=== PATIENT | male | born 1945 | race Caucasian/White ===

== ENCOUNTER 2019-10-17 11:32 | Outpatient (CLI) | payer OTHER, SELFPAY ==
--- NOTE | 2019-10-17 | CT_ITS ---
WS: [id number] CT CHEST, ABDOMEN AND PELVIS WITHOUT CONTRAST HISTORY: ABNORMAL CT, cirrhosis and cough and short of breath. TECHNIQUE: Contiguous 5 mm axial imaging performed through the chest, abdomen and pelvis without IV c ontrast, oral contrast has not been provided. Coronal and sagittal reformats chest. Coronal and sagit shashank reformats through the abdomen and pelvis. All CT scans at [facility] use at least one of these dose optimization techniques: automated exposure control; mA and/or kV adjustment per patie nt size (includes targeted exams where dose is matched to clinical indication); or iterative reconstr uction. CONTRAST: None DLP: 2556.46 mGy-cm. COMPARISON: 02/13/[address]: 4 mm lobulated nodule in the RIGHT upper lobe. Suspect this is probably too nodules togethe r. No mass or pneumonia. Benign RIGHT lobe granuloma. Mild atherosclerosis aorta with no aneurysm. Pu lmonary artery size is normal. No adenopathy. A few scattered coronary artery calcifications. Small h iatal hernia. Abdomen CT: Several small hypodensities within the liver cannot be further characterized. Probably sm all cysts. Surface of the liver is irregular. Caudate lobe is slightly enlarged. Spleen is normal siz e. Pancreas and gallbladder and adrenal glands are negative. Mild bilateral perinephric stranding. At herosclerosis of aorta. Mild aneurysmal dilatation up to 3.7 cm. Not significantly changed since the prior study. No adenopathy or free fluid. Pelvic CT: Normally distended urinary bladder. No free fluid or adenopathy in the pelvis. Vascular ca lcifications. Mild distention of the GI tract. The appendix is normal. There is slight increased amount of fluid wi thin the RIGHT colon. No obstruction. Mild diverticulosis with no evidence for an acute diverticuliti s. Thoracic and lumbar spondylosis. No osteoblastic or osteolytic bone disease. CT/CT chest abd pel wo con IMPRESSION: 1. Chronic emphysema with no pneumonia. 2. 4 mm lobulated nodule RIGHT upper lobe. [address] follow-up recomme nded. 3. Atherosclerosis thoracic aorta. 4. Stable 3.7 cm infrarenal abdominal aortic aneurysm. 5. Changes of cirrhosis. There are a few low-attenuation lesions in the liver which are subcentimeter and they may be small cysts. 6. Colonic diverticulosis without acute diverticulitis.
== END 2019-10-17 11:33 | disposition home or self-care (01) ==
PROVIDERS: Family Provider Internal Medicine; PCP Internal Medicine; Visit Provider Family Medicine
DX: J43.9 Emphysema, unspecified (principal); K76.9 Liver disease, unspecified; R91.1 Solitary pulmonary nodule; I70.0 Atherosclerosis of aorta; I71.4 Abdominal aortic aneurysm, without rupture; K74.60 Unspecified cirrhosis of liver; K57.30 Diverticulosis of large intestine without perforation or abscess without bleeding; R91.8 Other nonspecific abnormal finding of lung field
CPT/HCPCS: 71250; 74176

== ENCOUNTER 2020-01-07 12:45 | Inpatient (IN) | payer OTHER, MEDICARE, SELFPAY ==
[2020-01-07] VITALS (7 sets, daily range): BP systolic 123–143; BP diastolic 81–91; PULSE 81–97; RESP 17–22; TEMP 37.1–37.2; O2SAT 92–96; BMI 33.4
--- NOTE | 2020-01-07 13:05 | PC.NURSE ---
EKG done at 1250 and shown to ER doctor
--- NOTE | 2020-01-07 13:09 | XR_ITS ---
WS: [id number] PORTABLE CHEST HISTORY: cough/congestion COMPARISON: 02/26/2018 Hyperinflated lungs with emphysema. No pneumonia or fluid overload. Radiographic significantly rotate d in a lordotic projection. No pleural effusion or pneumothorax. Cardiac size: Mildly enlarged cardiac silhouette. Mediastinum/Aorta: Mild atherosclerosis aorta. No osseous abnormality seen. XR/XR chest 1V portable [id number] IMPRESSION: Chronic emphysema. No pneumonia.
--- NOTE | 2020-01-07 13:09 | ECG_ITS ---
Measurements Intervals [place] Rate: 77 P: 50 WI: 191 QRS: -6 QRSD: 134 T: 36 QT: 375 QTc: 425 SINUS RHYTHM INDETERMINATE AXIS RIGHT BUNDLE BRANCH BLOCK [120+ ms QRS DURATION, UPRIGHT V1, 40+ ms S IN I/ I/aVL/V4/V5/V6] Compared to ECG 08/18/2018 07:41:06 Indeterminate axis now present Myocardial infarct finding no longer present Electronically Signed On 01-07-2020 20:33:08 CDT by Pasha Hawley M.D. [email or web address]
--- NOTE | 2020-01-07 13:12 | ED_ITS ---
Documented by User: JE Blanca 01/09/20 07:24 HPI - SOB/Dyspnea General: Chief Complaint: Shortness of Breath/Dyspnea Stated Complaint: SOB COUGH Time Seen by Provider: 01/07/20 12:57 Source: patient Mode of arrival: EMS Limitations: no limitations History of Present Illness: HPI Narrative: Patient is a 74-year-old male with a history of COPD here for complaints of shortness of breath. Patient tells me symptoms initially began approximately a week ago and has continued to worsen over this timeframe. Patient states he normally only takes pro-air for the COPD. He is an every day smoker. Patient states he does not wear oxygen. Upon arrival patient was satting at 89% on room air. 2L O2 was placed with good response. Patient states his PCP is Dr. Helms through the [facility]. patient has not been running fevers. He has had no sick contacts or recent travel. Patient does report a productive cough. He can tell me other medical conditions include BPH, seasonal allergies. Patient is not sure why he takes Lasix. He denies a history of CHF. Associated symptoms: Reports chest congestion and orthopnea; Deny abdominal pain, chest pain, fever(s), hemoptysis, lightheadedness, nausea, palpitations, syncope or vomiting Review of Systems General: Reports: 10 or more systems reviewed and unremarkable except in HPI and below Const: Denies: fever(s), chills or fatigue Eyes: Denies: change in vision or blurry vision ENMT: Denies: throat pain, enlarged tonsils or odynophagia Card: Reports: dyspnea on exertion and orthopnea; Denies: chest pain, palpitations, irregular heart rhythm, edema, swelling of feet/ankles, lightheadedness, syncope, pre-syncope, leg pain with exertion or acrocyanosis Resp: Reports: dyspnea, productive cough and chest congestion; Denies: hemoptysis GI: Denies: abdominal pain, nausea, vomiting or diarrhea : Denies: flank pain Musc: Denies: neck pain or back pain Skin/Breast: Denies: rash Neuro: Denies: headache(s), numbness in extremities, weakness in extremities or sensory changes PFS ED PFSH: Medical History Alcoholism BPH (benign prostatic hyperplasia) COPD (chronic obstructive pulmonary disease) Tobacco dependency Surgical History History of ankle surgery History of hernia surgery Family History (Updated 01/07/20 @ 16:46 by Brice Pa MD) Other CAD (coronary artery disease) Social History (Updated 01/07/20 @ 16:46 by Brice Pa MD) Smoking and tobacco status: current every day smoker Quit status (tobacco): considering quitting Alcohol intake: current Alcohol intake frequency: 3 or more drinks per day Substance/Drug Use: never Physical Exam Const: COMMON NORMALS: patient oriented x3, no limitations and alert GENERAL APPEARANCE: cooperative and in distress (Visibly short of breath) NUTRITIONAL APPEARANCE: obese HENMT: COMMON NORMALS: normocephalic and atraumatic HEAD & SCALP: normocephalic and atraumatic Chest: COMMONS NORMALS: normal inspection of the chest and normal palpation of entire chest wall Resp: EFFORT & INSPECTION: Yes tachypneic and Yes respiratory distress AUSCULTATION: wheezes scattered wheezes and throughout Cardio: COMMON NORMALS: regular rate and regular rhythm RATE: regular rate RHYTHM: regular rhythm Neuro: COMMON NORMALS: patient oriented x3 SENSORIUM/ORIENTATION: Yes alert Skin: COMMON NORMALS: no rashes or lesions noted GENERAL SKIN EXAM: no rashes or lesions noted Course Vital Signs: Vital signs: Vital Signs Temperature 99.5 F 01/09/20 02:00 Pulse Rate 92 01/09/20 06:00 Respiratory Rate 12 01/09/20 06:00 Blood Pressure 143/83 01/09/20 06:00 Pulse Oximetry 89 L 01/09/20 06:00 MDM - SOB/Dyspnea MDM Narrative: Medical decision making narrative: Patient is a COPD acute exacerbation requiring oxygen. Spoke to Dr. Freitas who will speak to the hospitalist for probable admission. Lab Data: Labs: Lab Results 01/07/20 01/07/20 01/07/20 Range/Units 13:05 13:05 13:05 WBC 11.2 H (4.0-10.0) 10^3/ uL RBC 5.55 H (4.1-5.3) 10^6/u L Hgb 18.6 H (11.7-16.6) g/dL Hct 54.5 H (42.0-52.0) % MCV 98.2 H (80-94) fL MCH 33.5 (28.0-34.0) pg MCHC 34.1 (30.0-36.0) g/dL RDW 12.2 (12.1-15.1) % Plt Count 177 (130-400) 10^3/c mm MPV 10.2 (7.4-10.4) fL Neut % (Auto) 61.9 % Lymph % (Auto) 27.8 % [place] % (Auto) 7.2 % Eos % (Auto) 1.3 % Baso % (Auto) 0.4 % Neut # (Auto) 6.9 (1.8-7.7) 10^3/u L Lymph # (Auto) 3.1 (0.8-4.8) 10^3/u L [place] # (Auto) 0.8 (0.2-0.9) 10^3/u L Eos # (Auto) 0.2 (0.0-0.8) 10^3/u L Baso # (Auto) 0.1 (0.0-0.1) 10^3/u L Nucleated RBC % (a uto) 0 % Nucleated RBCs # 0.0 /100WBC Specimen Type Sample Site ABG pH (7.35-7.45) ABG pCO2 (35-45) mmHg ABG pO2 (80.0-100.0) mmH g ABG HCO3 (22-26) mmol/L ABG O2 Saturation ABG Base Excess (-2.0-2.0) mmol/ L Franco Test A-a O2 Gradient (5-10) mmHg Hematocrit (42-52) % Hgb O2 Saturation (95-100) % Carboxyhemoglobin (0.4-20.1) %THgb Methemoglobin (0.4-1.5) % Total Hemoglobin (14-18) g/dL Ionized Calcium (1.1-1.4) mmol/L O2 Delivery Device FiO2 % Senior Production Manager ID Sodium 129 L (136-145) mmol/L Potassium 4.1 (3.5-5.1) mmol/L Chloride 91 L (98-107) mmol/L Carbon Dioxide 25 (22-29) mmol/L Anion Gap 17.1 (5-19) BUN 7 L (8-23) mg/dL Creatinine 0.6 L (0.7-1.2) mg/dL Glucose 101 (65-115) mg/dL Calculated Osmolal ity 264 L (285-295) mOsm/k g Lactate 1.4 (0.5-2.2) mmol/L Calcium 10.2 (8.5-10.5) mg/dL Total Bilirubin 0.6 (0.15-1.2) mg/dL AST 42 H (0-40) U/L ALT 66 H (0-41) U/L Alkaline Phosphata se 83 (40-130) IU/L Troponin T Baselin e (0-15) ng/mL Troponin T 120 Min standing rock (0-15) ng/mL Delta Troponin T (0-10) ABS# NT-Pro-B Natriuret Pep (0-450) pg/mL Total Protein 7.3 (6.6-8.7) g/dL Albumin 4.9 (3.5-5.2) g/dL Globulin 2.4 (1.3-4.6) g/dL TSH (0.27-4.20) uIU/ mL 01/07/20 01/07/20 01/07/20 Range/Units 13:05 15:10 15:20 WBC (4.0-10.0) 10^3/ uL RBC (4.1-5.3) 10^6/u L Hgb (11.7-16.6) g/dL Hct (42.0-52.0) % MCV (80-94) fL MCH (28.0-34.0) pg MCHC (30.0-36.0) g/dL RDW (12.1-15.1) % Plt Count (130-400) 10^3/c mm MPV (7.4-10.4) fL Neut % (Auto) % Lymph % (Auto) % [place] % (Auto) % Eos % (Auto) % Baso % (Auto) % Neut # (Auto) (1.8-7.7) 10^3/u L Lymph # (Auto) (0.8-4.8) 10^3/u L [place] # (Auto) (0.2-0.9) 10^3/u L Eos # (Auto) (0.0-0.8) 10^3/u L Baso # (Auto) (0.0-0.1) 10^3/u L Nucleated RBC % (a uto) % Nucleated RBCs # /100WBC Specimen Type Arterial Sample Site Radial, left ABG pH 7.41 (7.35-7.45) ABG pCO2 43.8 (35-45) mmHg ABG pO2 71.5 L (80.0-100.0) mmH g ABG HCO3 28.0 H (22-26) mmol/L ABG O2 Saturation 95.4 ABG Base Excess 2.7 H (-2.0-2.0) mmol/ L Franco Test Pos A-a O2 Gradient 23.4 H (5-10) mmHg Hematocrit 59.2 H (42-52) % Hgb O2 Saturation 91.3 L (95-100) % Carboxyhemoglobin 4.2 (0.4-20.1) %THgb Methemoglobin 0.1 L (0.4-1.5) % Total Hemoglobin 19.3 H (14-18) g/dL Ionized Calcium 1.2 (1.1-1.4) mmol/L O2 Delivery Device Room air FiO2 21.0 % Senior Production Manager ID amh Sodium 129.0 L (136-145) mmol/L Potassium 4.2 (3.5-5.1) mmol/L Chloride (98-107) mmol/L Carbon Dioxide (22-29) mmol/L Anion Gap (5-19) BUN (8-23) mg/dL Creatinine (0.7-1.2) mg/dL Glucose 115.0 (65-115) mg/dL Calculated Osmolal ity (285-295) mOsm/k g Lactate (0.5-2.2) mmol/L Calcium (8.5-10.5) mg/dL Total Bilirubin (0.15-1.2) mg/dL AST (0-40) U/L ALT (0-41) U/L Alkaline Phosphata se (40-130) IU/L Troponin T Baselin e 17 H (0-15) ng/mL Troponin T 120 Min [place] 18.66 H (0-15) ng/mL Delta Troponin T 1.66 (0-10) ABS# NT-Pro-B Natriuret Pep (0-450) pg/mL Total Protein (6.6-8.7) g/dL Albumin (3.5-5.2) g/dL Globulin (1.3-4.6) g/dL TSH (0.27-4.20) uIU/ mL 01/07/20 Range/Units 15:20 WBC (4.0-10.0) 10^3/ uL RBC (4.1-5.3) 10^6/u L Hgb (11.7-16.6) g/dL Hct (42.0-52.0) % MCV (80-94) fL MCH (28.0-34.0) pg MCHC (30.0-36.0) g/dL RDW (12.1-15.1) % Plt Count (130-400) 10^3/c mm MPV (7.4-10.4) fL Neut % (Auto) % Lymph % (Auto) % [place] % (Auto) % Eos % (Auto) % Baso % (Auto) % Neut # (Auto) (1.8-7.7) 10^3/u L Lymph # (Auto) (0.8-4.8) 10^3/u L [place] # (Auto) (0.2-0.9) 10^3/u L Eos # (Auto) (0.0-0.8) 10^3/u L Baso # (Auto) (0.0-0.1) 10^3/u L Nucleated RBC % (a uto) % Nucleated RBCs # /100WBC Specimen Type Sample Site ABG pH (7.35-7.45) ABG pCO2 (35-45) mmHg ABG pO2 (80.0-100.0) mmH g ABG HCO3 (22-26) mmol/L ABG O2 Saturation ABG Base Excess (-2.0-2.0) mmol/ L Franco Test A-a O2 Gradient (5-10) mmHg Hematocrit (42-52) % Hgb O2 Saturation (95-100) % Carboxyhemoglobin (0.4-20.1) %THgb Methemoglobin (0.4-1.5) % Total Hemoglobin (14-18) g/dL Ionized Calcium (1.1-1.4) mmol/L O2 Delivery Device FiO2 % Senior Production Manager ID Sodium (136-145) mmol/L Potassium (3.5-5.1) mmol/L Chloride (98-107) mmol/L Carbon Dioxide (22-29) mmol/L Anion Gap (5-19) BUN (8-23) mg/dL Creatinine (0.7-1.2) mg/dL Glucose (65-115) mg/dL Calculated Osmolal ity (285-295) mOsm/k g Lactate (0.5-2.2) mmol/L Calcium (8.5-10.5) mg/dL Total Bilirubin (0.15-1.2) mg/dL AST (0-40) U/L ALT (0-41) U/L Alkaline Phosphata se (40-130) IU/L Troponin T Baselin e (0-15) ng/mL Troponin T 120 Min standing [place] (0-15) ng/mL Delta Troponin T (0-10) ABS# NT-Pro-B Natriuret Pep 53 (0-450) pg/mL Total Protein (6.6-8.7) g/dL Albumin (3.5-5.2) g/dL Globulin (1.3-4.6) g/dL TSH 2.42 (0.27-4.20) uIU/ mL Imaging Data^: CXR: Radiologist's impression: [address] [address] XRay Report Signed Patient: Brody Gaines Unit #: [id number] : 1945 Age/Sex: 74 / M ADM Date: 01/07/20 Loc: ER Room/Bed: Attending Dr: Ordering Provider/Ordering MD: Alexa lOivares Date of Service: 01/07/20 Procedure(s): XR chest 1V portable [id number] Accession Number(s): [id number] Report Number: [id number] WS: [id number] PORTABLE CHEST HISTORY: cough/congestion COMPARISON: 02/26/2018 Hyperinflated lungs with emphysema. No pneumonia or fluid overload. Radiographic significantly rotated in a lordotic projection. No pleural effusion or pneumothorax. Cardiac size: Mildly enlarged cardiac silhouette. Mediastinum/Aorta: Mild atherosclerosis aorta. No osseous abnormality seen. XR/XR chest 1V portable [id number] IMPRESSION: Chronic emphysema. No pneumonia. Dictated By: Adelaida Jensen DO Signed By: Adelaida Jensen DO Signed Date/Time: 01/07/20 1405 DD/ 02 Discharge Plan Discharge Patient Disposition: Admitted As Inpatient Admit Provider: Brice Pa Clinical Impression: Acute exacerbation of chronic obstructive pulmonary disease Condition: Stable Referrals: Elio Bobby [Primary Care Provider] - Discharge Date/Time: 01/07/20 18:58 Sign Out Sign Out Data: Patient Sign Out occurred on 01/07/20 at 16:53. Patient's care was discussed, and care was transferred from to Melissa Freitas. Coding Level of Care Code ED Director [employer] for [employer] Fwd Exam Detailed Documented by User: Melissa Freitas 01/07/20 23:11 HPI - SOB/Dyspnea General: Chief Complaint: Shortness of Breath/Dyspnea Stated Complaint: SOB COUGH Time Seen by Provider: 01/07/20 12:57 PFSH ED PFSH: Medical History Alcoholism BPH (benign prostatic hyperplasia) COPD (chronic obstructive pulmonary disease) Tobacco dependency Surgical History History of ankle surgery History of hernia surgery Family History (Updated 01/07/20 @ 16:46 by Brice Pa MD) Other CAD (coronary artery disease) Social History (Updated 01/07/20 @ 16:46 by Brice Pa MD) Smoking and tobacco status: current every day smoker Quit status (tobacco): considering quitting Alcohol intake: current Alcohol intake frequency: 3 or more drinks per day Substance/Drug Use: never Course Vital Signs: Vital signs: Vital Signs Temperature 99.5 F 01/09/20 02:00 Pulse Rate 92 01/09/20 06:00 Respiratory Rate 12 01/09/20 06:00 Blood Pressure 143/83 01/09/20 06:00 Pulse Oximetry 89 L 01/09/20 06:00 MDM - SOB/Dyspnea Lab Data: Labs: Lab Results 01/07/20 01/07/20 01/07/20 Range/Units 13:05 13:05 13:05 WBC 11.2 H (4.0-10.0) 10^3/ uL RBC 5.55 H (4.1-5.3) 10^6/u L Hgb 18.6 H (11.7-16.6) g/dL Hct 54.5 H (42.0-52.0) % MCV 98.2 H (80-94) fL MCH 33.5 (28.0-34.0) pg MCHC 34.1 (30.0-36.0) g/dL RDW 12.2 (12.1-15.1) % Plt Count 177 (130-400) 10^3/c mm MPV 10.2 (7.4-10.4) fL Neut % (Auto) 61.9 % Lymph % (Auto) 27.8 % [place] % (Auto) 7.2 % Eos % (Auto) 1.3 % Baso % (Auto) 0.4 % Neut # (Auto) 6.9 (1.8-7.7) 10^3/u L Lymph # (Auto) 3.1 (0.8-4.8) 10^3/u L [place] # (Auto) 0.8 (0.2-0.9) 10^3/u L Eos # (Auto) 0.2 (0.0-0.8) 10^3/u L Baso # (Auto) 0.1 (0.0-0.1) 10^3/u L Nucleated RBC % (a uto) 0 % Nucleated RBCs # 0.0 /100WBC Specimen Type Sample Site ABG pH (7.35-7.45) ABG pCO2 (35-45) mmHg ABG pO2 (80.0-100.0) mmH g ABG HCO3 (22-26) mmol/L ABG O2 Saturation ABG Base Excess (-2.0-2.0) mmol/ L Franco Test A-a O2 Gradient (5-10) mmHg Hematocrit (42-52) % Hgb O2 Saturation (95-100) % Carboxyhemoglobin (0.4-20.1) %THgb Methemoglobin (0.4-1.5) % Total Hemoglobin (14-18) g/dL Ionized Calcium (1.1-1.4) mmol/L O2 Delivery Device FiO2 % Senior Production Manager ID Sodium 129 L (136-145) mmol/L Potassium 4.1 (3.5-5.1) mmol/L Chloride 91 L (98-107) mmol/L Carbon Dioxide 25 (22-29) mmol/L Anion Gap 17.1 (5-19) BUN 7 L (8-23) mg/dL Creatinine 0.6 L (0.7-1.2) mg/dL Glucose 101 (65-115) mg/dL Calculated Osmolal ity 264 L (285-295) mOsm/k g Lactate 1.4 (0.5-2.2) mmol/L Calcium 10.2 (8.5-10.5) mg/dL Total Bilirubin 0.6 (0.15-1.2) mg/dL AST 42 H (0-40) U/L ALT 66 H (0-41) U/L Alkaline Phosphata se 83 (40-130) IU/L Troponin T Baselin e (0-15) ng/mL Troponin T 120 Min standing [place] (0-15) ng/mL Delta Troponin T (0-10) ABS# NT-Pro-B Natriuret Pep (0-450) pg/mL Total Protein 7.3 (6.6-8.7) g/dL Albumin 4.9 (3.5-5.2) g/dL Globulin 2.4 (1.3-4.6) g/dL TSH (0.27-4.20) uIU/ mL 01/07/20 01/07/20 01/07/20 Range/Units 13:05 15:10 15:20 WBC (4.0-10.0) 10^3/ uL RBC (4.1-5.3) 10^6/u L Hgb (11.7-16.6) g/dL Hct (42.0-52.0) % MCV (80-94) fL MCH (28.0-34.0) pg MCHC (30.0-36.0) g/dL RDW (12.1-15.1) % Plt Count (130-400) 10^3/c mm MPV (7.4-10.4) fL Neut % (Auto) % Lymph % (Auto) % [place] % (Auto) % Eos % (Auto) % Baso % (Auto) % Neut # (Auto) (1.8-7.7) 10^3/u L Lymph # (Auto) (0.8-4.8) 10^3/u L [place] # (Auto) (0.2-0.9) 10^3/u L Eos # (Auto) (0.0-0.8) 10^3/u L Baso # (Auto) (0.0-0.1) 10^3/u L Nucleated RBC % (a uto) % Nucleated RBCs # /100WBC Specimen Type Arterial Sample Site Radial, left ABG pH 7.41 (7.35-7.45) ABG pCO2 43.8 (35-45) mmHg ABG pO2 71.5 L (80.0-100.0) mmH g ABG HCO3 28.0 H (22-26) mmol/L ABG O2 Saturation 95.4 ABG Base Excess 2.7 H (-2.0-2.0) mmol/ L Franco Test Pos A-a O2 Gradient 23.4 H (5-10) mmHg Hematocrit 59.2 H (42-52) % Hgb O2 Saturation 91.3 L (95-100) % Carboxyhemoglobin 4.2 (0.4-20.1) %THgb Methemoglobin 0.1 L (0.4-1.5) % Total Hemoglobin 19.3 H (14-18) g/dL Ionized Calcium 1.2 (1.1-1.4) mmol/L O2 Delivery Device Room air FiO2 21.0 % Senior Production Manager ID amh Sodium 129.0 L (136-145) mmol/L Potassium 4.2 (3.5-5.1) mmol/L Chloride (98-107) mmol/L Carbon Dioxide (22-29) mmol/L Anion Gap (5-19) BUN (8-23) mg/dL Creatinine (0.7-1.2) mg/dL Glucose 115.0 (65-115) mg/dL Calculated Osmolal ity (285-295) mOsm/k g Lactate (0.5-2.2) mmol/L Calcium (8.5-10.5) mg/dL Total Bilirubin (0.15-1.2) mg/dL AST (0-40) U/L ALT (0-41) U/L Alkaline Phosphata se (40-130) IU/L Troponin T Baselin e 17 H (0-15) ng/mL Troponin T 120 Min standing [place] 18.66 H (0-15) ng/mL Delta Troponin T 1.66 (0-10) ABS# NT-Pro-B Natriuret Pep (0-450) pg/mL Total Protein (6.6-8.7) g/dL Albumin (3.5-5.2) g/dL Globulin (1.3-4.6) g/dL TSH (0.27-4.20) uIU/ mL 05//20 Range/Units 15:20 WBC (4.0-10.0) 10^3/ uL RBC (4.1-5.3) 10^6/u L Hgb (11.7-16.6) g/dL Hct (42.0-52.0) % MCV (80-94) fL MCH (28.0-34.0) pg MCHC (30.0-36.0) g/dL RDW (12.1-15.1) % Plt Count (130-400) 10^3/c mm MPV (7.4-10.4) fL Neut % (Auto) % Lymph % (Auto) % [place] % (Auto) % Eos % (Auto) % Baso % (Auto) % Neut # (Auto) (1.8-7.7) 10^3/u L Lymph # (Auto) (0.8-4.8) 10^3/u L [place] # (Auto) (0.2-0.9) 10^3/u L Eos # (Auto) (0.0-0.8) 10^3/u L Baso # (Auto) (0.0-0.1) 10^3/u L Nucleated RBC % (a uto) % Nucleated RBCs # /100WBC Specimen Type Sample Site ABG pH (7.35-7.45) ABG pCO2 (35-45) mmHg ABG pO2 (80.0-100.0) mmH g ABG HCO3 (22-26) mmol/L ABG O2 Saturation ABG Base Excess (-2.0-2.0) mmol/ L Franco Test A-a O2 Gradient (5-10) mmHg Hematocrit (42-52) % Hgb O2 Saturation (95-100) % Carboxyhemoglobin (0.4-20.1) %THgb Methemoglobin (0.4-1.5) % Total Hemoglobin (14-18) g/dL Ionized Calcium (1.1-1.4) mmol/L O2 Delivery Device FiO2 % Senior Production Manager ID Sodium (136-145) mmol/L Potassium (3.5-5.1) mmol/L Chloride (98-107) mmol/L Carbon Dioxide (22-29) mmol/L Anion Gap (5-19) BUN (8-23) mg/dL Creatinine (0.7-1.2) mg/dL Glucose (65-115) mg/dL Calculated Osmolal ity (285-295) mOsm/k g Lactate (0.5-2.2) mmol/L Calcium (8.5-10.5) mg/dL Total Bilirubin (0.15-1.2) mg/dL AST (0-40) U/L ALT (0-41) U/L Alkaline Phosphata se (40-130) IU/L Troponin T Baselin e (0-15) ng/mL Troponin T 120 Min [place] (0-15) ng/mL Delta Troponin T (0-10) ABS# NT-Pro-B Natriuret Pep 53 (0-450) pg/mL Total Protein (6.6-8.7) g/dL Albumin (3.5-5.2) g/dL Globulin (1.3-4.6) g/dL TSH 2.42 (0.27-4.20) uIU/ mL Discharge Plan Discharge Patient Disposition: Admitted As Inpatient Admit Provider: Brice Pa Clinical Impression: Acute exacerbation of chronic obstructive pulmonary disease Condition: Stable Referrals: Elio Bobby [Primary Care Provider] - Discharge Date/Time: 01/07/20 18:58 Sign Out Sign Out Data: Patient Sign Out occurred on 01/07/20 at 16:53. Patient's care was discussed, and care was transferred from to Melissa Freitas. Coding Level of Care Code ED Director [employer] for [employer] Fwd Exam Detailed
[2020-01-07 13:35] LABS: Basophils # 0.1 10^3/uL (0.0-0.1); Basophils % 0.4 %; Eosinophils # 0.2 10^3/uL (0.0-0.8); Eosinophils % 1.3 %; Hematocrit 54.5 % (42.0-52.0); Hemoglobin 18.6 g/dL (11.7-16.6); Lymphocytes # 3.1 10^3/uL (0.8-4.8); Lymphocytes % 27.8 %; Mean Corpuscular HGB Conc 34.1 g/dL (30.0-36.0); Mean Corpuscular Hemoglobin 33.5 pg (28.0-34.0); Mean Corpuscular Volume 98.2 fL (80-94); Mean Platelet Volume 10.2 fL (7.4-10.4); Monocytes # 0.8 10^3/uL (0.2-0.9); Monocytes % 7.2 %; Neutrophils # 6.9 10^3/uL (1.8-7.7); Neutrophils % 61.9 %; Nucleated Red Blood Cells % 0 %; Platelet Count 177 10^3/cmm (130-400); Red Blood Count 5.55 10^6/uL (4.1-5.3); Red Cell Distribution Width 12.2 % (12.1-15.1); White Blood Count 11.2 10^3/uL (4.0-10.0)
[2020-01-07 13:36] LABS: Lactate (Lactic Acid level) 1.4 mmol/L (0.5-2.2); Troponin(5th) Baseline 17 ng/mL (0-15)
[2020-01-07 13:37] LABS: Alanine Aminotransferase 66 U/L (0-41); Albumin Level 4.9 g/dL (3.5-5.2); Alkaline Phosphatase 83 IU/L (40-130); Anion Gap 17.1 (5-19); Aspartate Amino Transferase 42 U/L (0-40); Blood Urea Nitrogen 7 mg/dL (8-23); Calcium 10.2 mg/dL (8.5-10.5); Carbon Dioxide 25 mmol/L (22-29); Chloride 91 mmol/L (98-107); Globulin 2.4 g/dL (1.3-4.6); Glucose 101 mg/dL (65-115); Osmolality Calculated 264 mOsm/kg (285-295); Potassium 4.1 mmol/L (3.5-5.1); Sodium 129 mmol/L (136-145); Total Bilirubin 0.6 mg/dL (0.15-1.2); Total Protein 7.3 g/dL (6.6-8.7)
--- NOTE | 2020-01-07 15:09 | ECG_ITS ---
Measurements Intervals [place] Rate: 73 P: 60 [place]: 190 QRS: -11 QRSD: 132 T: 44 QT: 381 QTc: 420 SINUS RHYTHM INDETERMINATE AXIS RIGHT BUNDLE BRANCH BLOCK [120+ ms QRS DURATION, UPRIGHT V1, 40+ ms S IN I/aVL/V4/V5/V6] Compared to ECG 08/18/2018 07:41:06 Indeterminate axis now present Myocardial infarct finding no longer present Electronically Signed On 01-07-2020 20:36:04 CDT by Pasha Hawley M.D. [email or web address]
[2020-01-07] MEDS: ipratropium-albuterol 3 mL Neb INHALATION ×2 (15:15→20:12)
[2020-01-07 15:22] LABS: ABG PCO2 43.8 mmHg (35-45); ABG PH Result 7.41 (7.35-7.45); Alveolar-Arterial Oxygen Gradi 23.4 mmHg (5-10); Arterial Blood Gas Hematocrit 59.2 % (42-52); Base Excess ABG 2.7 mmol/L (-2.0-2.0); Blood Gas Allen Test Pos; Blood Gas Operator Identificat amh; Blood Gas Sample Site Radial, left; Blood Gas Sample Type Arterial; Carboxyhemoglobin 4.2 %THgb (0.4-20.1); HGB O2 Sat 91.3 % (95-100); Ionized Calcium Level - ABG 1.2 mmol/L (1.1-1.4); Methemoglobin 0.1 % (0.4-1.5); Oxygen Device ROOM AIR; Oxygen Saturation ABG 95.4; PO2 ABG 71.5 mmHg (80.0-100.0); Potassium Level - ABG 4.2 mmol/L (3.5-5.0); Total Hemoglobin 19.3 g/dL (14-18)
[2020-01-07 15:43] LABS: Troponin 5 2HR 18.66 ng/mL (0-15); Troponin 5 2HR Delta 1.66 ABS# (0-10)
--- NOTE | 2020-01-07 16:34 | CTR_ITS ---
PROCEDURE INFORMATION: Exam: CT Chest Without Contrast Exam date and time: 01/07/2020 5:10 PM Age: 74 years old Clinical indication: Cough and shortness of breath; Additional info: Dyspnea TECHNIQUE: Imaging protocol: Computed tomography of the chest without contrast. Radiation optimization: All CT scans at this facility use at least one of these dose optimization techniques: automated exposure control; mA and/or kV adjustment per patient size (includes targeted exams where dose is matched to clinical indication); or iterative reconstruction. COMPARISON: CT chest abd pel wo con 10/17/2019 11:47 AM RADIATION DOSE METRICS: Total DLP: 907.7 mGy-cm FINDINGS: Lungs: Unremarkable. No consolidation. No masses. Pleural space: Unremarkable. No pneumothorax. No pleural effusion. Heart: Severe calcified coronary artery disease. Aorta: Unremarkable. No aortic aneurysm. Great vessels off aortic arch: Calcification of the thoracic aorta and/or great vessels consistent with atherosclerotic vessel disease. Lymph nodes: Stable right calcified hilar nodes and/or mediastinal nodes and/or lung nodules consistent with old granulomatous disease. Liver: Calcified hepatic granulomas. Low-attenuation lesion in the liver measuring > 5mm which is incompletely characterized on this exam. Stable. Axial series 2, image 50. Spleen: Calcified splenic granulomas. Bones/joints: Mild thoracic spondylosis. Soft tissues: Unremarkable. CT/CT chest wo con [id number] IMPRESSION: Severe calcified coronary artery disease. Radiation Dose CTDIVOL = (mGy): DLP = 907.7 (mGy-cm)
--- NOTE | 2020-01-07 16:34 | CTR_ITS ---
PROCEDURE INFORMATION: Exam: CT Neck Without Contrast Exam date and time: 01/07/2020 5:10 PM Age: 74 years old Clinical indication: Mass, lump, or swelling in neck and other: Hoarseness; Additional info: Hoarseness, neck mass TECHNIQUE: Imaging protocol: Computed tomography images of the neck without contrast. Radiation optimization: All CT scans at this facility use at least one of these dose optimization techniques: automated exposure control; mA and/or kV adjustment per patient size (includes targeted exams where dose is matched to clinical indication); or iterative reconstruction. COMPARISON: RF Barium Swallow [id number] 08/26/2018 8:52 PM RADIATION DOSE METRICS: Total DLP: 656.41 mGy-cm FINDINGS: The lack of intravenous contrast will limit diagnostic quality in cava bili this examination. Nasopharynx: Unremarkable. Oropharynx: Unremarkable. No significant tonsillar enlargement. Hypopharynx: Unremarkable. 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 No invasion of the laryngeal cartilage or extension into the aryepiglottic space. Right true cord appears unremarkable and intact. Retropharyngeal space: Unremarkable. Submandibular/Parotid glands: Unremarkable for age. No visible sialoitis, sialolithiasis, or sialoadenitis. Thyroid: Unremarkable. No enlarged or calcified nodules. Lymph nodes: Currently no visible tumoral lymphadenopathy. Trachea: Visualized trachea is unremarkable. Lungs: Unremarkable as visualized. Vasculature: Arterial sclerosis of the carotid bulbs bilaterally but without definite evidence of hemodynamically significant stenosis. Findings suggestive of venous engorgement. Suspect right-sided heart failure. Bones/joints: Advanced degenerative disease and degenerative disc disease of cervical spine with spondylosis deformans most advanced C6/C7 and to a less significant degree C5/C6 and C7/T1. Osteoporosis. Soft tissues: Unremarkable. No significant soft tissue swelling. 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 No visible direct invasion or distant metastasis within the field of view. Radiation Dose CTDIVOL = (mGy): DLP = 656.41 (mGy-cm)
--- NOTE | 2020-01-07 16:40 | PM.HP ---
Providers/Chief Complaint Primary Care Provider: Elio Bobby Chief Complaint: SOB COUGH History of Present Illness Brody Gaines is a 74 year old male who presents from home with history of 3 months of worsening shortness of breath. He denies any chest discomfort. He reports he has been coughing quite a bit, certainly worse when he lays down. He reports he cannot get any breath with any exertion. It has finally come to such severity he thought he should seek care. He has not received any treatment for it currently. He also reports significant hoarseness. He reports that over the last 3 months his voice has gradually got worse and worse, where people can hardly understand him. He denies any dysphagia. He does report about a 20 pound weight loss over the last 3 months. No fever. No hemoptysis. He has had some nausea, but no vomiting. Review of Systems General: Reports: 10 or more systems reviewed and unremarkable except in HPI and below Const: Reports: fatigue and malaise; Denies: fever(s) Eyes: Denies: blurry vision ENMT: Reports: other (Hoarse voice); Denies: throat pain Card: Denies: chest pain Resp: Reports: dyspnea, productive cough and wheezing GI: Reports: nausea; Denies: abdominal pain or vomiting : Reports: difficulty urinating Musc: Denies: neck pain Skin/Breast: Denies: rash Neuro: Denies: headache(s) Psych: Denies: anxiety Endo: Reports: deepening of the voice Martin/Lymph: Denies: easy bruising All/Imm: Denies: urticaria Medications/Allergies Home Medications Medication Instructions Recorded Confirmed Last Taken Type albuterol sulfate 1 puff INHALATION QID PRN 01/07/20 01/07/20 01/07/20 History cetirizine 10 mg PO DAILY 01/07/20 01/07/20 01/07/20 History cyanocobalamin (vitamin B-12) 1,000 mcg PO DAILY 01/07/20 01/07/20 01/07/20 History cyanocobalamin (vitamin B-12) 100 mcg PO DAILY 01/07/20 01/07/20 01/07/20 History [Vitamin B-12] finasteride 5 mg PO DAILY 01/07/20 01/07/20 01/07/20 History furosemide [Lasix] 20 mg PO DAILY 01/07/20 01/07/20 01/07/20 History guaifenesin 400 mg PO Q4H PRN 01/07/20 01/07/20 01/07/20 History potassium chloride 20 meq PO BID 01/07/20 01/07/20 01/07/20 History tamsulosin [Flomax] 0.4 mg PO DAILY 01/07/20 01/07/20 01/07/20 History thiamine HCl (vitamin B1) [Vitamin 100 mg PO DAILY 01/07/20 01/07/20 01/07/20 History B-1] vitamin B complex [B-Complex] 1 tab PO DAILY 01/07/20 01/07/20 01/07/20 History Allergies Allergy/AdvReac Type Severity Reaction Status Date / Time iodine Allergy ALGY-Hives Verified 01/07/20 12:57 Penicillins Allergy Unknown Verified 01/07/20 12:57 PFSH Acute PFSH: Medical History (Updated 01/07/20 @ 16:50 by Brice Pa MD) Alcoholism BPH (benign prostatic hyperplasia) COPD (chronic obstructive pulmonary disease) Tobacco dependency Surgical History (Updated 01/07/20 @ 16:46 by Brice Pa MD) History of ankle surgery History of hernia surgery Family History (Updated 01/07/20 @ 16:46 by Brice Pa MD) Other CAD (coronary artery disease) Social History (Updated 01/07/20 @ 16:46 by Brice Pa MD) Smoking and tobacco status: current every day smoker Quit status (tobacco): considering quitting Alcohol intake: current Alcohol intake frequency: 3 or more drinks per day Substance/Drug Use: never Vitals/I&O/Wt Last Vital Signs Temp 98.7 F 01/07/20 12:54 Pulse 85 01/07/20 15:28 Resp 18 01/07/20 15:28 BP 123/81 01/07/20 12:54 Pulse Ox 95 01/07/20 15:28 Weight last 48 hrs Weight 99.79 kg Physical Exam Narrative: EXAM NARRATIVE: General exam demonstrates an elderly male, with mild respiratory distress, with a hoarse voice HEENT: Pupils equally round. Oropharynx clear. Neck is supple no lymphadenopathy or thyromegaly Cardiovascular regular rate and rhythm without murmur, no S3 or S4 Lungs a few bilateral expiratory wheezes Abdomen is soft with positive bowel sounds. No obvious masses was deferred Extremities no cyanosis clubbing or edema, cap refill brisk Skin no rash Neuro no obvious focal deficits Data : 01/07/20 13:05 01/07/20 13:05 Other data: AST and ALT slightly elevated. Alkaline Brendan and LDH normal. Troponin slightly high at 17 with no significant delta. Urinalysis pending. Chest x-ray, COPD no evidence of infiltrate EKG normal sinus rhythm, right bundle branch block, equivocal axis, no acute changes A&P Assessment and plan (1) Acute exacerbation of chronic obstructive pulmonary disease: Prednisone 40 mg daily Doxycycline 100 mg twice daily Advair Initiate DuoNeb every 4 hours Status: Acute (2) Hyponatremia: Check cortisol level, TSH Hold off on any IV fluids Repeat level tomorrow. Suspect this is secondary to alcohol intake. Status: Acute (3) Polycythemia: Secondary to tobacco use Status: Acute (4) Transaminitis: Most likely secondary to alcoholism. Check acute hepatitis panel Status: Acute (5) Elevated troponin: Type II. No significant EKG changes. Patient without chest pain. Status: Acute (6) Hoarseness: Concerning for possible malignancy with associated weight loss. Check CT neck, chest. Check TSH May require ENT evaluation Status: Acute (7) Alcoholism: [facility] protocol Status: Acute (8) Tobacco dependency: Counseled on abstinence Status: Acute Additional A&P Information History of BPH, continue meds Full code Lovenox for DVT prophylaxis Attestations Medical Necessity Statement*: Will need greater than 2 midnight stay for evaluation and treatment of COPD exacerbation and hyponatremia Time Spent in Patient Care: Greater than 35 minutes Coding Level of Care Code Acute School Psychologist Assistant for g Fwd Diagnoses Acute exacerbation of chronic obstructive pulmonary disease J44.1 Hyponatremia E87.1 Polycythemia D75.1 Transaminitis R74.0 Elevated troponin R79.89 Hoarseness R49.0 Alcoholism F10.20 Tobacco dependency F17.200
[2020-01-07 17:02] LABS: NT Pro B Type Natriuretic Pept 53 pg/mL (0-450)
[2020-01-07 17:31] LABS: Thyroid Stimulating Hormone 2.42 uIU/mL (0.27-4.20)
--- NOTE | 2020-01-07 19:09 | ECG_ITS ---
Measurements Intervals What Cheer Rate: 85 P: 29 MT: 191 QRS: -39 QRSD: 134 T: 19 QT: 362 QTc: 433 SINUS RHYTHM RIGHT BUNDLE BRANCH BLOCK [120+ ms QRS DURATION, UPRIGHT V1, 40+ ms S IN I/aVL/V4/V5/V6] INFERIOR MYOCARDIAL INFARCTION [40+ ms Q WAVE AND/OR ST/T ABNORMALITY IN II/aVF], OF INDETERMINATE AGE Compared to ECG 08/18/2018 07:41:06 No significant changes Electronically Signed On 01-07-2020 20:36:22 CDT by Pasha Hawley M.D. [email or web address]
--- NOTE | 2020-01-07 19:20 | PC.NURSE ---
Introduction of staff and report received, aidet.
[2020-01-07 20:27] LABS: Troponin 5 6HR 13.26 ng/mL (0-15)
[2020-01-07] MEDS: doxycycline 100 mg Tablet PO (20:38)
[2020-01-07] MEDS: enoxaparin 40 mg/0.4 mL Syringe SUBCUT (20:38)
[2020-01-07 20:49] LABS: Cortisol Random 13.13 mcg/dL (2.47-19.5)
[2020-01-07] MEDS: guaiFENesin 100 mg/5 mL UDC 10 mL 400 MG PO (20:54)
[2020-01-07 20:55] LABS: Troponin 5 6HR Delta -3.74 ng/L (0-12)
[2020-01-08] VITALS (32 sets, daily range): BP systolic 119–166; BP diastolic 73–95; PULSE 64–96; RESP 14–24; TEMP 36.2–37; O2SAT 91–99
[2020-01-08] MEDS: ipratropium-albuterol 3 mL Neb INHALATION ×5 (03:23→23:48)
[2020-01-08 05:27] LABS: Basophils % 0.2 %; Hematocrit 51.4 % (42.0-52.0); Hemoglobin 17.4 g/dL (11.7-16.6); Lymphocytes # 0.9 10^3/uL (0.8-4.8); Lymphocytes % 10.4 %; Mean Corpuscular HGB Conc 33.9 g/dL (30.0-36.0); Mean Corpuscular Hemoglobin 33.3 pg (28.0-34.0); Mean Corpuscular Volume 98.5 fL (80-94); Monocytes # 0.4 10^3/uL (0.2-0.9); Monocytes % 4.6 %; Neutrophils # 7.1 10^3/uL (1.8-7.7); Neutrophils % 83.2 %; Nucleated Red Blood Cells % 0 %; Platelet Count 172 10^3/cmm (130-400); Red Blood Count 5.22 10^6/uL (4.1-5.3); Red Cell Distribution Width 12.3 % (12.1-15.1); White Blood Count 8.5 10^3/uL (4.0-10.0)
[2020-01-08 05:48] LABS: Alanine Aminotransferase 54 U/L (0-41); Albumin Level 4.4 g/dL (3.5-5.2); Alkaline Phosphatase 71 IU/L (40-130); Anion Gap 17.6 (5-19); Aspartate Amino Transferase 31 U/L (0-40); Blood Urea Nitrogen 14 mg/dL (8-23); Calcium 9.8 mg/dL (8.5-10.5); Carbon Dioxide 27 mmol/L (22-29); Chloride 94 mmol/L (98-107); Globulin 2.6 g/dL (1.3-4.6); Glucose 144 mg/dL (65-115); Osmolality Calculated 277 mOsm/kg (285-295); Potassium 4.6 mmol/L (3.5-5.1); Sodium 134 mmol/L (136-145); Total Bilirubin 0.5 mg/dL (0.15-1.2)
[2020-01-08] MEDS: NON-FORMULARY MEDICATION (Cyanocobalamin (Vitamin B-12) [Vitamin B-12] 100 MCG) 100 EACH PO (07:54)
[2020-01-08] MEDS: NON-FORMULARY MEDICATION (Guaifenesin 400 MG) 400 EACH PO ×2 (07:55→11:32)
[2020-01-08] MEDS: doxycycline 100 mg Tablet PO (09:04)
[2020-01-08] MEDS: finasteride 5 mg Tablet PO (09:04)
[2020-01-08] MEDS: predniSONE 20 mg Tablet 40 MG PO (09:04)
[2020-01-08] MEDS: FUROsemide 20 mg Tablet PO (09:05)
[2020-01-08] MEDS: folic acid 1 mg Tablet PO (09:05)
--- NOTE | 2020-01-08 10:17 | P.PN_ITS ---
Subjective Subjective: Interval history: Brody reports he feels little bit better but still has a lot of coughing when he lays down. Feels significantly short of breath when he coughs. Medications: Reviewed: Yes Vitals/I&O/Wt Last Vital Signs Temp 98.4 F 01/08/20 07:48 Pulse 68 01/08/20 08:03 Resp 18 01/08/20 07:53 BP 132/86 01/08/20 07:48 Pulse Ox 94 01/08/20 07:53 01/07/20 01/08/20 01/08/20 22:59 06:59 14:59 Intake Total 360 / 360 Output Total 750 / 750 Balance -750 / -750 360 / 360 Weight last 48 hrs Weight 99.79 kg Physical Exam Narrative: EXAM NARRATIVE: General exam no apparent distress Cardiovascular regular rate and rhythm without murmur Lungs bases clear currently. He does have some upper airway noise worse on in spiration Abdomen is soft with positive bowel sounds Extremities no cyanosis clubbing or edema Data : 01/08/20 05:00 01/08/20 05:00 A&P Assessment and plan (1) Acute exacerbation of chronic obstructive pulmonary disease: Continue prednisone and doxycycline Continue Advair, DuoNeb Status: Acute (2) Hyponatremia: Improved. TSH and cortisol level normal. Likely secondary to alcohol intake. Status: Acute (3) Polycythemia: Secondary to tobacco use Status: Acute (4) Transaminitis: Most likely secondary to alcoholism. Await acute hepatitis panel Status: Acute (5) Elevated troponin: Type II. No significant EKG changes. Patient without chest pain. Status: Acute (6) Hoarseness: Concerning for possible malignancy with associated weight loss. Check CT neck, chest. CT chest demonstrated no obvious mass. 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 ENT is consulted. Discontinue Lovenox, n.p.o., continue fluids currently. Status: Acute (7) Alcoholism: [facility] protocol No evidence of withdrawal Status: Acute (8) Tobacco dependency: Counseled on abstinence Status: Acute Additional A&P Information History of BPH, continue meds Full code Lovenox for DVT prophylaxis Attestations Medical Necessity Statement*: Needs continued hospitalization, for evaluation of laryngeal mass Coding Level of Care Code Acute Validation Analyst for [facility] Fwd Diagnoses Acute exacerbation of chronic obstructive pulmonary disease J44.1 Hyponatremia E87.1 Polycythemia D75.1 Transaminitis R74.0 Elevated troponin R79.89 Hoarseness R49.0 Alcoholism F10.20 Tobacco dependency F17.200
[2020-01-08 10:20] LABS: Hepatitis A Antibody IgM Non-Reactive (Nonreactive); Hepatitis B Core IgM Non-Reactive (Nonreactive); Hepatitis B Surface Antigen Non-Reactive (Nonreactive); Hepatitis C Virus Antibody Non-Reactive (Nonreactive)
[2020-01-08] MEDS: multivitamin therapeutic Tablet 1 TAB PO (10:48)
[2020-01-08] MEDS: tamsulosin 0.4 mg Capsule PO (10:49)
[2020-01-08] MEDS: thiamine 100 mg Tablet PO (10:49)
--- NOTE | 2020-01-08 11:20 | PC.CHAP ---
Pastoral Care Encounter/Spiritual Assessment Type of Contact [] Declined office spec visit [] Patient/Family/Request visit [] Outpatient visit [] Follow-up visit [] Physician referral [] Code/Alert [x] Routine visit [] Staff referral [] Actively dying [] Patient sleeping [] Family support [] [] Out of room [] Palliative care [] [] Receiving care in room [] Pre-surgical visit [] Trauma [] Long length of stay [] ICU visit [] Other: Relational/Emotional Strength [x] Patient feels connected with others/family/visitors/staff [] Distress [] Loneliness/isolation [] Abandonment Spirituality of Patient [x] Person of Francesca [] Attends [employer] of their Francesca [x] Believes in Prayer [] Reads Bible or Gnosticism materials [x] There are Spiritual issues to be addressed Nuclear Medicine Medical Director Interventions [x] Prayer [x] Active listening [x] Non-anxious presence [x] Spiritual/emotional support [] Crisis/trauma care [x] Spiritual counseling [] Bereavement support [] Provided bereavement packet [] Provided Bible/devotional materials [] Provided toy/stuffed animal, coloring book to patient or family member [] Provided Communion [] Anointing/[place] [] Salvation [x] Completed spiritual assessment [] Other: Impact on Illness or Injury [] Angry [] Fearful [] Anxious [] Often cries [] Exhaustion [] Unable to work [] Unable to attend advent [] Unable to walk/stand [] Unable to read [] Unable to drive [] Unable to eat/drink [] Unable to sleep [] Unable to be with family [] Patient intubated [x] Other: Summary Patient is a professed believer in [place] but does not attend [employer] advent. He also lives alone and has no immediate family close by. Time spent with patient 10 minutes
--- NOTE | 2020-01-08 12:04 | P.CONIM_ITS ---
Providers/Reason For Consult Consulting Physican/Specialty*: Wes Wheat MD Otolaryngology, Head & Neck Surgery Reason for Consult*: Vocal Cord Mass Requesting Physcian: Dr. Morris Attending Physician: Brice Pa MD Primary Care Provider: Elio Bobby History of Present Illness History of Present Illness Brody Gaines is a 74 year old male Meds/Allergies Home Medications and Allergies Home Medications Medication Instructions Recorded Confirmed Last Taken Type albuterol sulfate 1 puff INHALATION QID PRN 01/07/20 01/07/20 01/07/20 History cetirizine 10 mg PO DAILY 01/07/20 01/07/20 01/07/20 History cyanocobalamin (vitamin B-12) 1,000 mcg PO DAILY 01/07/20 01/07/20 01/07/20 History cyanocobalamin (vitamin B-12) 100 mcg PO DAILY 01/07/20 01/07/20 01/07/20 History [Vitamin B-12] finasteride 5 mg PO DAILY 01/07/20 01/07/20 01/07/20 History furosemide [Lasix] 20 mg PO DAILY 01/07/20 01/07/20 01/07/20 History guaifenesin 400 mg PO Q4H PRN 01/07/20 01/07/20 01/07/20 History potassium chloride 20 meq PO BID 01/07/20 01/07/20 01/07/20 History tamsulosin [Flomax] 0.4 mg PO DAILY 01/07/20 01/07/20 01/07/20 History thiamine HCl (vitamin B1) [Vitamin 100 mg PO DAILY 01/07/20 01/07/20 01/07/20 History B-1] vitamin B complex [B-Complex] 1 tab PO DAILY 01/07/20 01/07/20 01/07/20 History Allergies Allergy/AdvReac Type Severity Reaction Status Date / Time iodine Allergy ALGY-Hives Verified 01/07/20 12:57 Penicillins Allergy Unknown Verified 01/07/20 12:57 Current Medications Current Medications Generic Name Dose Route Start Last Admin Trade Name Freq PRN Reason Stop Dose Admin Albuterol/Ipratropium 3 ml 01/07/20 18:41 01/08/20 07:52 Duoneb INHALATION 3 ml Q4H PRN Administration SHORTNESS OF BREATH Doxycycline Monohydrate 100 mg 01/07/20 18:41 01/08/20 09:04 Vibramycin PO 100 mg BID JUAN MANUEL Administration Protocol Finasteride 5 mg 01/08/20 09:00 01/08/20 09:04 Proscar PO 5 mg DAILY JUAN MANUEL Administration Folic Acid 1 mg 01/08/20 09:00 01/08/20 09:05 Folic Acid PO 1 mg DAILY JUAN MANUEL Administration Furosemide 20 mg 01/08/20 09:00 01/08/20 09:05 Lasix PO 20 mg DAILY JUAN MANUEL Administration Multivitamins Therapeutic 1 tab 01/08/20 09:00 01/08/20 10:48 Multivitamin Tab PO 1 tab DAILY JUAN MANUEL Administration Non-Formulary Medication 100 mcg 01/08/20 09:00 01/08/20 07:54 Cyanocobalamin (Vitamin B-12) [Vitamin B-12] PO 100 mcg DAILY JUAN MANUEL Administration Non-Formulary Medication 400 mg 01/07/20 18:41 01/08/20 11:32 Guaifenesin PO 400 mg Q4H PRN Administration Congestion Prednisone 40 mg 01/08/20 09:00 01/08/20 09:04 Prednisone PO 40 mg DAILY JUAN MANUEL Administration Tamsulosin HCl 0.4 mg 01/08/20 09:00 01/08/20 10:49 Flomax PO 0.4 mg DAILY JUAN MANUEL Administration Thiamine Mononitrate 100 mg 01/08/20 09:00 01/08/20 10:49 Vitamin B-1 PO 100 mg DAILY JUAN MANUEL Administration PFSH Acute PFSH: Medical History Alcoholism BPH (benign prostatic hyperplasia) COPD (chronic obstructive pulmonary disease) Tobacco dependency Surgical History History of ankle surgery History of hernia surgery Family History (Updated 01/07/20 @ 16:46 by Brice Pa MD) Other CAD (coronary artery disease) Social History (Updated 01/07/20 @ 16:46 by Brice Pa MD) Smoking and tobacco status: current every day smoker Quit status (tobacco): considering quitting Alcohol intake: current Alcohol intake frequency: 3 or more drinks per day Substance/Drug Use: never Vitals/I&O/Wt Last Vital Signs Temp 98.3 F 01/08/20 11:30 Pulse 68 01/08/20 11:30 Resp 16 01/08/20 11:30 BP 144/82 01/08/20 11:30 Pulse Ox 93 01/08/20 11:30 01/07/20 01/08/20 01/08/20 22:59 06:59 14:59 Intake Total 360 / 360 Output Total 750 / 750 Balance -750 / -750 360 / 360 Weight last 48 hrs Weight 99.79 kg Coding Level of Care Code Acute Car Dumper Operator Helper for [facility] [place]
--- NOTE | 2020-01-08 12:09 | PM.CONSULT ---
Providers/Reason For Consult Consulting Physican/Specialty*: Wes Wheat MD Otolaryngology, Head and Neck Surgery Reason for Consult*: Laryngeal Mass Requesting Physcian: Dr. Arturo Pa MD Attending Physician: Brice Pa MD Primary Care Provider: Elio Bobby History of Present Illness History of Present Illness Brody Gaines is a 74 year old male who reports a several month h/o hoarseness and increasing shortness of breath over the past several weeks. He has a > 150 pack year h/o tobacco abuse, but quit smoking a few days ago. The patient denies any noted neck masses, hemoptysis, dysphagia or odynophagia. He is o/w without c/o. I was consulted for evaluation of his airway after Dr. Pa noted a mass of the larynx on a recent neck CT scan. Review of Systems General: Reports: 10 or more systems reviewed and unremarkable except in HPI and below ENMT: Reports: hoarseness Resp: Reports: dyspnea Meds/Allergies Home Medications and Allergies Home Medications Medication Instructions Recorded Confirmed Last Taken Type albuterol sulfate 1 puff INHALATION QID PRN 01/07/20 01/07/20 01/07/20 History cetirizine 10 mg PO DAILY 01/07/20 01/07/20 01/07/20 History cyanocobalamin (vitamin B-12) 1,000 mcg PO DAILY 01/07/20 01/07/20 01/07/20 History cyanocobalamin (vitamin B-12) 100 mcg PO DAILY 01/07/20 01/07/20 01/07/20 History [Vitamin B-12] finasteride 5 mg PO DAILY 01/07/20 01/07/20 01/07/20 History furosemide [Lasix] 20 mg PO DAILY 01/07/20 01/07/20 01/07/20 History guaifenesin 400 mg PO Q4H PRN 01/07/20 01/07/20 01/07/20 History potassium chloride 20 meq PO BID 01/07/20 01/07/20 01/07/20 History tamsulosin [Flomax] 0.4 mg PO DAILY 01/07/20 01/07/20 01/07/20 History thiamine HCl (vitamin B1) [Vitamin 100 mg PO DAILY 01/07/20 01/07/20 01/07/20 History B-1] vitamin B complex [B-Complex] 1 tab PO DAILY 01/07/20 01/07/20 01/07/20 History Allergies Allergy/AdvReac Type Severity Reaction Status Date / Time iodine Allergy ALGY-Hives Verified 01/07/20 12:57 Penicillins Allergy Unknown Verified 01/07/20 12:57 Current Medications Current Medications Generic Name Dose Route Start Last Admin Trade Name Freq PRN Reason Stop Dose Admin Albuterol/Ipratropium 3 ml 01/07/20 18:41 01/08/20 07:52 Duoneb INHALATION 3 ml Q4H PRN Administration SHORTNESS OF BREATH Doxycycline Monohydrate 100 mg 01/07/20 18:41 01/08/20 09:04 Vibramycin PO 100 mg BID JUAN MANUEL Administration Protocol Finasteride 5 mg 01/08/20 09:00 01/08/20 09:04 Proscar PO 5 mg DAILY JUAN MANUEL Administration Folic Acid 1 mg 01/08/20 09:00 01/08/20 09:05 Folic Acid PO 1 mg DAILY JUAN MANUEL Administration Furosemide 20 mg 01/08/20 09:00 01/08/20 09:05 Lasix PO 20 mg DAILY JUAN MANUEL Administration Multivitamins Therapeutic 1 tab 01/08/20 09:00 01/08/20 10:48 Multivitamin Tab PO 1 tab DAILY JUAN MANUEL Administration Non-Formulary Medication 100 mcg 01/08/20 09:00 01/08/20 07:54 Cyanocobalamin (Vitamin B-12) [Vitamin B-12] PO 100 mcg DAILY JUAN MANUEL Administration Non-Formulary Medication 400 mg 01/07/20 18:41 01/08/20 11:32 Guaifenesin PO 400 mg Q4H PRN Administration Congestion Prednisone 40 mg 01/08/20 09:00 01/08/20 09:04 Prednisone PO 40 mg DAILY JUAN MANUEL Administration Tamsulosin HCl 0.4 mg 01/08/20 09:00 01/08/20 10:49 Flomax PO 0.4 mg DAILY JUAN MANUEL Administration Thiamine Mononitrate 100 mg 01/08/20 09:00 01/08/20 10:49 Vitamin B-1 PO 100 mg DAILY JUAN MANUEL Administration PFSH Acute PFSH: Medical History Alcoholism BPH (benign prostatic hyperplasia) COPD (chronic obstructive pulmonary disease) Tobacco dependency Surgical History History of ankle surgery History of hernia surgery Family History (Updated 01/07/20 @ 16:46 by Brice Pa MD) Other CAD (coronary artery disease) Social History (Updated 01/07/20 @ 16:46 by Brice Pa MD) Smoking and tobacco status: current every day smoker Quit status (tobacco): considering quitting Alcohol intake: current Alcohol intake frequency: 3 or more drinks per day Substance/Drug Use: never Vitals/I&O/Wt Last Vital Signs Temp 98.3 F 01/08/20 11:30 Pulse 68 01/08/20 11:30 Resp 16 01/08/20 11:30 BP 144/82 01/08/20 11:30 Pulse Ox 93 01/08/20 11:30 01/07/20 01/08/20 01/08/20 22:59 06:59 14:59 Intake Total 360 / 360 Output Total 750 / 750 Balance -750 / -750 360 / 360 Weight last 48 hrs Weight 99.79 kg Physical Exam Const: COMMON NORMALS: no acute distress, average body habitus, patient oriented x3, alert and well nourished GENERAL APPEARANCE: cooperative and well developed ORIENTATION/CONSCIOUSNESS: Yes awake and Yes oriented to person HENMT: COMMON NORMALS: normocephalic, atraumatic, hearing grossly normal bilaterally, external ears normal, EAC's normal and Normal external nose present HEAD & SCALP: normal to inspection, normocephalic and atraumatic FACE & SINUS: normal facial exam and sinuses nontender NOSE: Normal external nose present EXTERNAL EAR: Yes external ears normal EXTERNAL AUDITORY CANAL: EAC's normal MOUTH: Normal oral and palatal mucosa present THROAT: posterior oropharynx normal and uvula midline Eye: COMMON NORMALS: Equal, round and reactive pupils present and EOMs intact bilaterally PERIORBITAL: periorbital findings normal SCLERA: sclerae normal PUPIL: Yes Equal, round and reactive pupils present Neck/C-Spine: COMMON NORMALS: full ROM, no lymphadenopathy and Thyroid normal GENERAL: Yes normal visual inspection and Yes trachea midline THYROID: Thyroid normal CERVICAL SPINE: Yes cervical ROM normal Lymph: LYMPHATIC: no lymphadenopathy noted Chest: COMMONS NORMALS: normal inspection of the chest Resp: COMMON NORMALS: normal respiratory effort, No retractions, No use of accessory muscles and clear to auscultation bilaterally AUSCULTATION: clear to auscultation bilaterally Neuro: COMMON NORMALS: patient oriented x3 SENSORIUM/ORIENTATION: Yes alert and Yes oriented to person A&P Additional A&P Information Procedure: verbal informed consent was obtained; the flexible fiberoptic nasopharyngolaryngoscope was inserted into the left nostril and was advanced into the hypopharynx until the larynx came into view; the left true vocal cord is immobile and there is an exophytic mass that involves the entire left true vocal cord and appears to extend into the subglottis posteriorly; there is partial obstruction of the airway; the right true vocal cord is mobile, but appears to involved with this mass anteriorly as well; the remainder of the endoscopic exam was normal. 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 There is partial airway obstruction and an immobile left true vocal cord Plan: - I recommend the following surgical interventions: Tracheotomy with Direct/Microdirect Laryngoscopy with biopsy today. I explained the procedure to the patient, its expected post operative course, and potential risks and complications of the procedure. The patient expressed understanding and wishes to proceed with surgery. - Transfer to the ICU post op for initial trach care - Social work consult for home health care and trach supplies (the patient will need Humidified air by trach shield, a home suction unit, and trach cleaning kits prior to discharge). If the patient lives alone, he may need transfer to a longterm for his initial out patient care. Coding Level of Care Code Acute Patient Financial Counselor for Loretta Mandujano
[2020-01-08] MEDS: midazolam 1 mg/mL INJ 2 mL 2 MG IVP (18:15)
[2020-01-08] MEDS: sodium chloride 0.9% 1,000 ML 30 ML IV (18:15)
[2020-01-08] MEDS: lidocaine 2% INJ 20 mL INJECTION (18:19)
[2020-01-08] MEDS: thrombin 5,000 unit SDV 5000 UNIT XX (18:45)
[2020-01-08] MEDS: gelatin 12-7 mm Sponge 1 EACH TOPICAL ×2 (18:45→19:03)
[2020-01-08] MEDS: EPINEPHrine 1 mg/mL INJ XX (18:48)
[2020-01-08] MEDS: fluorescein 1 mg Strip 2 MG XX (18:48)
--- NOTE | 2020-01-08 19:40 | PC.NURSE ---
DR COTTRELL AT BEDSIDE GAVE ORDERS FOR TRACH CARE, SOCIAL SERVICE CONSULT, AND FLUIDS TO BEEN RUN AT 125ML/HR.
--- NOTE | 2020-01-08 19:50 | P.OP_ITS ---
Operative Report Date of procedure: January 08, 2020 Pre-op Diagnosis: Glottic mass with partial airway obstruction Post-op diagnosis: same Post-op Findings: Exophytic mass involving the true vocal cords bilaterally, Left much greater than right Procedure Done: 1) Tracheotomy 2) Microdirect laryngoscopy with biopsy of bilateral true vocal cords Implants: None Specimens removed/disposition: Right and left true vocal cords Surgeon: Wes Wheat Plastic Design Applier: Taty Chowdhury Anesthesia: General Estimated blood loss (mL): 5 IV fluids (mL): 800 Complications: None Condition: stable Disposition: ICU Brief History: 74 yo wm with a h/o increasing hoarseness and shortness of breath with glottic mass seen on fiberoptic laryngoscopy. The patient presents for surgical control of the airway and endoscopic evaluation and biopsy. Procedure: The patient was identified and placed on the operating table in the supine position. The patient had a shoulder roll placed and was then prepped and draped in the usual sterile fashion. A vertical incision was marked out over the anterior midline of the neck just above the suprasternal notch and this area was injected with local anesthesia. A vertical incision overlying the trachea was made through the skin with needlepoint monopolar cautery and the dissection proceeded into the deep tissues overlying the trachea with a combination of Metzenbaum scissors and a Kitner. The wound was retracted in the open position and the dissection proceeded into the deep tissues until the trachea was identified both visually and to palpation. The thyroid isthmus was identified dissected free from the underlying trachea and was divided with the harmonic scalpel. At this point, 1 cc of 2% lidocaine was injected into the airway and a trach hook was used to pull the cricoid cartilage superiorly. Using an 11 blade and Metzenbaum scissors the anterior portion of the third tracheal ring was removed and the tracheal dilator was used to open the tracheal wound. A #8 cuffed trach tube was then placed into the trach and was secured with 0 Prolene suture and a trach collar. At this point thrombin-soaked Gelfoam was placed in the wound around the surrounding the trach and the tracheotomy portion of the procedure was terminated. The table was then turned 90 degrees the patient's left and a moist Ray-Maribel was placed on the patient's maxillary gingiva. The surgical laryngoscope was advanced down the right oral cavity gutter under direct vision until the larynx came into view. A systematic inspection was then carried to the patient's larynx with findings noted above. The patient was placed on suspension and using the 0 degree [place] tahir surgical telescope and cup forceps biopsies were taken of the glottic mass described above. Hemostasis was achieved with direct application of 08/1999 epinephrine on neuro pledgets. Once hemostasis had been achieved the patient was taken off suspension and the larynx was reinspected. Once hemostasis was achieved, the laryngoscope was removed and the patient and control the patient was returned to anesthesia where he underwent uneventful reversal of anesthesia and was taken to the intensive care unit in stable condition. There were no operative or anesthetic complications.
[2020-01-08] MEDS: fentaNYL 50 mcg/mL INJ 2mL 25 MCG IVP (20:09)
[2020-01-08] MEDS: sodium chloride 0.9% 1,000 ML 125 ML IV (20:10)
--- NOTE | 2020-01-08 20:57 | PC.NURSE ---
DR DAWSON PT WAS APPEARING VERY ANXIOUS AND COUGHING AND COMPLAINING OF PAIN. DR SEVILLA WAS CALLED, DR SAAVEDRA ORDERED FENTANYL 25MCG Q2H FOR PAIN. ALSO ORDERED 1 MG IV PUSH Q4H FOR ANXIETY.
--- NOTE | 2020-01-08 21:27 | PC.NURSE ---
DR NOTIFICATION GAVE ORDER TO INCREASE FENTANYL TO 50MCG INSTEAD OF 25MCG, STILL Q2H PRN FOR PAIN.
[2020-01-08] MEDS: fentaNYL 50 mcg/mL INJ 2mL IVP (22:10)
[2020-01-09] VITALS (56 sets, daily range): BP systolic 98–160; BP diastolic 64–96; PULSE 63–102; RESP 12–27; TEMP 36.8–37.5; O2SAT 88–98
[2020-01-09] MEDS: LORazepam 2 mg/mL INJ 1 mL 1 MG IVP ×2 (00:33→08:42)
[2020-01-09] MEDS: fentaNYL 50 mcg/mL INJ 2mL IVP ×4 (02:36→20:23)
[2020-01-09] MEDS: ipratropium-albuterol 3 mL Neb INHALATION ×6 (03:44→23:34)
--- NOTE | 2020-01-09 05:30 | P.PN_ITS ---
Subjective Subjective: Interval history: 74 yo wm who is POD #1 s/p Tracheotomy. The patient reports that he is doing well. He is breathing well. He is having some anxiety with the trach. Medications: Reviewed: Yes Vitals/I&O/Wt Last Vital Signs Temp 99.5 F 01/09/20 02:00 Pulse 82 01/09/20 04:00 Resp 23 H 01/09/20 04:00 BP 136/78 01/09/20 04:00 Pulse Ox 95 01/09/20 04:00 01/08/20 01/08/20 01/09/20 14:59 22:59 06:59 Intake Total 360 / 360 800 / 1160 Output Total 205 / 205 300 / 505 Balance 360 / 360 595 / 955 -300 / 655 Weight last 48 hrs Weight 97.976 kg Weight 99.79 kg Physical Exam Const: COMMON NORMALS: no acute distress, average body habitus, patient oriented x3 and well nourished GENERAL APPEARANCE: cooperative HENMT: COMMON NORMALS: normocephalic and Normal external nose present HEAD & SCALP: normal to inspection and normocephalic FACE & SINUS: normal facial exam NOSE: Normal external nose present Eye: COMMON NORMALS: conjunctivae normal and no scleral icterus CONJUNCTIVA: Yes conjunctivae normal Neck/C-Spine: COMMON NORMALS: full ROM and no lymphadenopathy OTHER: The trach site is clean. There is no erythema or discharge. Lymph: LYMPHATIC: no lymphadenopathy noted Neuro: COMMON NORMALS: patient oriented x3 Data : 01/08/20 05:00 01/08/20 05:00 A&P Additional A&P Information Impression: 74 yo wm who is POD #1 s/p Tracheotomy with Micro Direct Laryngoscopy with biopsy who is doing well from this standpoint Plan: 1) Continue trach care as outlined in the orders. I will perform the first trach change at POD #5-7 - the patient may be transferred or discharged at that time 2) Social - the patient will need the following for home care: - Home suction unit - Humidified air by trach collar - Daily home health care 3) Please have RT instruct the primary home sales consultant in trach care Attestations Medical Necessity Statement*: I was consulted to secure the patient's airway Coding Level of Care Code Acute Residential Recycle Driver for Chg Delbert
[2020-01-09] MEDS: sodium chloride 0.9% 1,000 ML 125 ML IV (05:59)
[2020-01-09 06:00] LABS: Basophils % 0.1 %; Hematocrit 50.3 % (42.0-52.0); Hemoglobin 16.7 g/dL (11.7-16.6); Lymphocytes # 1.4 10^3/uL (0.8-4.8); Lymphocytes % 9.6 %; Mean Corpuscular HGB Conc 33.2 g/dL (30.0-36.0); Mean Corpuscular Hemoglobin 34.6 pg (28.0-34.0); Mean Corpuscular Volume 104.1 fL (80-94); Mean Platelet Volume 9.9 fL (7.4-10.4); Monocytes # 1.1 10^3/uL (0.2-0.9); Monocytes % 7.8 %; Neutrophils # 11.8 10^3/uL (1.8-7.7); Neutrophils % 81.5 %; Nucleated Red Blood Cells % 0 %; Platelet Count 164 10^3/cmm (130-400); Red Blood Count 4.83 10^6/uL (4.1-5.3); Red Cell Distribution Width 12.8 % (12.1-15.1); White Blood Count 14.5 10^3/uL (4.0-10.0)
[2020-01-09 06:03] LABS: Alanine Aminotransferase 70 U/L (0-41); Albumin Level 4.1 g/dL (3.5-5.2); Alkaline Phosphatase 62 IU/L (40-130); Aspartate Amino Transferase 61 U/L (0-40); Blood Urea Nitrogen 13 mg/dL (8-23); Calcium 9.2 mg/dL (8.5-10.5); Carbon Dioxide 24 mmol/L (22-29); Chloride 100 mmol/L (98-107); Globulin 2.5 g/dL (1.3-4.6); Glucose 112 mg/dL (65-115); Osmolality Calculated 279 mOsm/kg (285-295); Sodium 136 mmol/L (136-145); Total Protein 6.6 g/dL (6.6-8.7)
--- NOTE | 2020-01-09 06:16 | PC.NURSE ---
SHIFT SUMMARY PT HAS REMAINED ALERT AND ORIENTATED. PT HAS HAD MORE AND MORE SECRETIONS OUT OF TRACH THE NIGHT WENT ON. PT ABLE TO USE URINAL. PT ABLE TO STAND WITH ASSISTANCE. PT HAS RECEIVED PAIN MEDS AVAILABLE AND ATIVAN NEEDED. PT LUINGS HAVE BEEN COARSE.
--- NOTE | 2020-01-09 06:26 | PC.NURSE ---
DR HEATH NOTIFIED OF PT URINE OUTPUT BEING 300ML. GAVE ORDER FOR SPEECH EVAL AND TREAT TO BE DONE ON PT TODAY.
--- NOTE | 2020-01-09 07:30 | P.PN_ITS ---
Subjective Subjective: Interval history: Brody reports he is doing okay. Medications: Reviewed: Yes Vitals/I&O/Wt Last Vital Signs Temp 99.5 F 01/09/20 02:00 Pulse 92 01/09/20 06:00 Resp 12 01/09/20 06:00 BP 143/83 01/09/20 06:00 Pulse Ox 89 L 01/09/20 06:00 01/08/20 01/09/20 01/09/20 22:59 06:59 14:59 Intake Total 800 / 1160 1000 / 2160 Output Total 205 / 205 300 / 505 Balance 595 / 955 700 / 1655 Weight last 48 hrs Weight 97.976 kg Weight 99.79 kg Physical Exam Narrative: EXAM NARRATIVE: General exam no apparent distress. Tracheostomy n oted Cardiovascular regular rate and rhythm without murmur Lungs bases clear Abdomen is soft with positive bowel sounds Extremities no cyanosis clubbing or edema Data : 01/09/20 05:00 01/09/20 05:00 A&P Assessment and plan (1) Acute exacerbation of chronic obstructive pulmonary disease: Discontinue prednisone after today's dose Continue doxycycline, 7 days total Continue Advair, DuoNeb Status: Acute (2) Hyponatremia: Improved. TSH and cortisol level normal. Likely secondary to alcohol intake. Resolved Status: Acute (3) Polycythemia: Secondary to tobacco use Status: Acute (4) Transaminitis: Most likely secondary to alcoholism. Hepatitis panel negative Status: Acute (5) Elevated troponin: Type II. No significant EKG changes. Patient without chest pain. Status: Acute (6) Hoarseness: Concerning for possible malignancy with associated weight loss. Check CT neck, chest. CT chest demonstrated no obvious mass. 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 ENT is consulted. Tracheostomy performed yesterday, he is postoperative day #1 and doing well Status: Acute (7) Alcoholism: CIWA protocol No evidence of withdrawal Status: Acute (8) Tobacco dependency: Counseled on abstinence Status: Acute Additional A&P Information History of BPH, continue meds Full code Lovenox for DVT prophylaxis Attestations Medical Necessity Statement*: Needs continued hospitalization for close monitoring status post tracheostomy for vocal cord tumor Coding Level of Care Code Acute Anime Artist for [facility] Fwd Diagnoses Acute exacerbation of chronic obstructive pulmonary disease J44.1 Hyponatremia E87.1 Polycythemia D75.1 Transaminitis R74.0 Elevated troponin R79.89 Hoarseness R49.0 Alcoholism F10.20 Tobacco dependency F17.200
[2020-01-09] MEDS: heparin 5,000 unit/mL INJ 1 mL 5000 UNIT SUBCUT ×2 (08:42→20:24)
[2020-01-09 16:02] LABS: Urine Appearance Clear (CLEAR); Urine Color Yellow (Yellow); pH Urine 5 (5-7)
[2020-01-09 16:03] LABS: Add Urine Culture? No; Add Urine Microscopic? YES; Bacteria Urine TRACE; Bilirubin Urine Neg (NEGATIVE); Blood Urine 2+ (Negative); Glucose Urine UA Norm (Normal); Ketones Urine Negative (Negative); Leukocyte Esterase Urine Negative (Negative); Mucus Urine TRACE; Nitrate Urine Negative (Negative); Protein Urine Neg (Negative); RBC Urine 0-4 /hpf (0-2); Urobilinogen Urine Norm (Negative)
[2020-01-09] MEDS: NON-FORMULARY MEDICATION (Guaifenesin 400 MG) 400 EACH PO (17:35)
[2020-01-10] VITALS (37 sets, daily range): BP systolic 105–161; BP diastolic 58–93; PULSE 62–84; RESP 16–25; TEMP 36.8–37; O2SAT 89–99
[2020-01-10] MEDS: LORazepam 2 mg/mL INJ 1 mL 1 MG IVP ×2 (01:20→21:35)
[2020-01-10] MEDS: ipratropium-albuterol 3 mL Neb INHALATION ×5 (04:43→20:59)
--- NOTE | 2020-01-10 06:35 | PC.NURSE ---
SHIFT SUMMARY PT HAS REMAINED ALERT AND ORIENTATED. PT HAS SOME NOTED SWELLING ON THE RIGHT SIDE OF HIS NECK. PT IS NOT HAVING ANY RESPIRATORY ISSUES. PT IS OXYGENATING WELL. PT HAS HAD ADEQUATE URINE OUTPUT. PT IS UP IN CHAIR WATCHING TV. PT HAS NOT COMPLAINED OF PAIN THIS MORNING. PT HAS BEEN AFEBRILE. PT HAS HAD SOME ANXIETY AND WAS GIVEN ATIVAN ONE TIME THIS SHIFT.
--- NOTE | 2020-01-10 06:46 | PC.NURSE ---
TRACH CARE DONE NEEDED. PT TOLERATED VERY WELL. PT HAS SPUTUM PRODUCTION.
--- NOTE | 2020-01-10 07:24 | P.PN_ITS ---
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 The patient reports that he is having difficulty swallowing, and c/o neck swelling and tenderness. Vitals/I&O/Wt Last Vital Signs Temp 98.6 F 01/10/20 05:01 Pulse 67 01/10/20 04:43 Resp 20 H 01/10/20 04:43 BP 117/59 01/10/20 04:00 Pulse Ox 95 01/10/20 04:43 01/09/20 01/10/20 01/10/20 22:59 06:59 14:59 Intake Total 50 / 50 0 / 50 Output Total 500 / 950 Balance 50 / -400 -500 / -900 Weight last 48 hrs Weight 97.069 kg Weight 97.976 kg Physical Exam Const: COMMON NORMALS: no acute distress, average body habitus, patient oriented x3 and well nourished HENMT: COMMON NORMALS: normocephalic, hearing grossly normal bilaterally, external ears normal and Normal external nose present HEAD & SCALP: normocephalic NOSE: Normal external nose present EXTERNAL EAR: Yes external ears normal Eye: COMMON NORMALS: conjunctivae normal and no scleral icterus GENERAL EYE: appearance normal, both eyes and all related structures EYELID: eyelids normal CONJUNCTIVA: Yes conjunctivae normal Neck/C-Spine: OTHER: The trach site is without erythema or induration. There is diffuse swelling and mild tenderness of the anterior neck superior to the trach site. The neck is o/w supple and without mass or fluctuance. 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 2) Dysphagia - most likely secondary to the above 3) Neck swelling - the differential for this symptom/sign includes tumor vs early cellulitis Plan: 1/2) Continue current trach care. Discussed referral to General Surgery with Dr. Pa to consider PEG and Port placement while the patient is an inpatient. Will discuss definitive care with the patient once staging/path complete. The patient is stable for transfer to the floor. 3) Discussed placing the patient on broad spectrum antibiotics until this sym ptom resolves/declares itself. Attestations Medical Necessity Statement*: I was consulted to assess/secure the patient's airway. Coding Level of Care Code Acute Infantry Operations Specialist for Loretta Mandujano
--- NOTE | 2020-01-10 07:38 | PC.PHAR ---
VANCOMYCIN 1250 MG Q8H PER PHARMACY RENAL DOSING PROTOCOL Pharmacokinetic dosing service Date: Time: Objective: Patient: Floor: Age: 74 yo Serum creatinine: 0.6 mg/dL Height: 68.1 Inches Weight (kg): 97 Assessment: IBW (kg): 68.63 Dosing wt(kg): 97 Estimated Creatinine clearance (ml/min): 120.4 CRCL method: Cockcroft and Gault using adjusted body weight Drug selected: Vancomycin Loading dose (mg): Vd (liters): 67.9 (factor used: 0.7 L/kg) Rom (hr-1): 0.104 Half life (hrs): 6.66 CLvanco= 7.062 L/hr Recommended dose: 1250 mg Interval: 8 hrs Infusion time (hrs): 1 Predicted peak (mcg/mL): 31.0 Predicted trough (mcg/mL): 14.97 Total body weight is being used for vancomycin dosing. Recommendations: Give Vancomycin 1250 mg q 8 hrs with an expected Cpeak of 31.0 mcg/ml and an expected Ctrough of 14.97 mcg/ml Thank you for the consult, will continue to follow.
[2020-01-10] MEDS: dextrose 5%-sod chloride 0.45% 1,000 ML 100 ML IV ×2 (07:52→21:24)
[2020-01-10] MEDS: heparin 5,000 unit/mL INJ 1 mL 5000 UNIT SUBCUT ×2 (07:52→19:44)
[2020-01-10] MEDS: multivitamin therapeutic Tablet 1 TAB PO (08:02)
[2020-01-10] MEDS: finasteride 5 mg Tablet PO (08:02)
[2020-01-10] MEDS: tamsulosin 0.4 mg Capsule PO (08:02)
[2020-01-10] MEDS: folic acid 1 mg Tablet PO (08:02)
[2020-01-10] MEDS: cefepime 2,000 MG in sodium chloride 0.9% (plus) 50 ML 100 MG IV ×2 (08:07→19:44)
[2020-01-10] MEDS: fentaNYL 50 mcg/mL INJ 2mL IVP ×3 (10:26→19:56)
--- NOTE | 2020-01-10 10:56 | PC.SOCIAL ---
Pg 2 IMM Explained to Pt Pg 2 IMM. Pt verbally understands No questions voiced. Provided pt a copy & left on pt's bedside table. Signed, dated, & timed copy & placed in pt's chart.
--- NOTE | 2020-01-10 12:18 | PM.PN ---
Subjective Subjective: Interval history: Brody reports he is doing okay. Nursing alerts me that his neck has been a little bit swollen following the procedure. I discussed this with Dr. Stark and he would like him on broad-spectrum antibiotics at this point postoperatively secondary to the swelling. Medications: Reviewed: Yes Vitals/I&O/Wt Last Vital Signs Temp 98.2 F 01/10/20 08:00 Pulse 62 01/10/20 11:39 Resp 17 01/10/20 11:37 BP 137/80 01/10/20 11:00 Pulse Ox 96 01/10/20 11:37 01/09/20 01/10/20 01/10/20 22:59 06:59 14:59 Intake Total 50 / 50 0 / 50 313.333 / 313.333 Output Total 500 / 950 0 / 0 Balance 50 / -400 -500 / -900 313.333 / 313.333 Weight last 48 hrs Weight 97.522 kg Weight 97.069 kg Physical Exam Narrative: EXAM NARRATIVE: General exam no apparent distress. Tracheostomy noted. Swelling around the areas noted. Cardiovascular regular rate and rhythm without murmur Lungs bases clear Abdomen is soft with positive bowel sounds Extremities no cyanosis clubbing or edema Data : 01/09/20 05:00 01/09/20 05:00 A&P Assessment and plan (1) Acute exacerbation of chronic obstructive pulmonary disease: Doing well. Discontinue prednisone. He is having some trouble taking p.o. Doxycycline will be discontinued as broad-spectrum antibiotics will be given for neck swelling status post tracheostomy Continue Jaziel Wright Status: Acute (2) Hyponatremia: Resolved. TSH and cortisol level normal. Likely secondary to alcohol intake. Status: Acute (3) Polycythemia: Secondary to tobacco use Status: Acute (4) Transaminitis: Most likely secondary to alcoholism. Hepatitis panel negative Status: Acute (5) Elevated troponin: Type II. No significant EKG changes. Patient without chest pain. Status: Acute (6) Hoarseness: Concerning for possible malignancy with associated weight loss. Check CT neck, chest. CT chest demonstrated no obvious mass. 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 ENT is consulted. Tracheostomy performed yesterday, he is postoperative day #2 and doing well but having some swelling around the tracheostomy. ENT would like him on broad-spectrum antibiotics. He was placed on vancomycin and cefepime(penicillin allergy) He is having some significant issues swallowing and will need PEG tube and port secondary to his laryngeal tumor. ENT suggest getting these done during this hospital stay. Will consult surgery. Status: Acute (7) Alcoholism: CIWA protocol No evidence of withdrawal Status: Acute (8) Tobacco dependency: Counseled on abstinence Status: Acute Additional A&P Information History of BPH, continue meds Full code Heparin for DVT prophylaxis Probable transfer out of ICU later this afternoon if continues to do well Attestations Medical Necessity Statement*: Needs continued hospital stay for close monitoring status post tracheostomy Coding Level of Care Code Acute Trouble Dispatcher for Chg Fwd Diagnoses Acute exacerbation of chronic obstructive pulmonary disease J44.1 Hyponatremia E87.1 Polycythemia D75.1 Transaminitis R74.0 Elevated troponin R79.89 Hoarseness R49.0 Alcoholism F10.20 Tobacco dependency F17.200
[2020-01-11] VITALS (25 sets, daily range): BP systolic 102–159; BP diastolic 62–90; PULSE 63–88; RESP 16–20; TEMP 36.6–36.9; O2SAT 80–100; BMI 32.6
[2020-01-11] MEDS: ipratropium-albuterol 3 mL Neb INHALATION ×6 (00:21→21:18)
[2020-01-11] MEDS: LORazepam 2 mg/mL INJ 1 mL 1 MG IVP (02:25)
--- NOTE | 2020-01-11 04:27 | PC.NURSE ---
1900 Trach care done by nurse at beginning of shift. patient tolerated well. copious amount of sputum suctioned from trach. 0330 Trach care completed by DARIAN Robb patient tolerated well.
[2020-01-11 07:00] LABS: Basophils % 0.1 %; Eosinophils # 0.1 10^3/uL (0.0-0.8); Eosinophils % 0.6 %; Hematocrit 49.3 % (42.0-52.0); Hemoglobin 15.6 g/dL (11.7-16.6); Lymphocytes # 1.3 10^3/uL (0.8-4.8); Lymphocytes % 14.4 %; Mean Corpuscular HGB Conc 31.6 g/dL (30.0-36.0); Mean Corpuscular Hemoglobin 33.3 pg (28.0-34.0); Mean Corpuscular Volume 105.1 fL (80-94); Mean Platelet Volume 9.6 fL (7.4-10.4); Monocytes # 0.6 10^3/uL (0.2-0.9); Monocytes % 7.2 %; Neutrophils # 6.9 10^3/uL (1.8-7.7); Nucleated Red Blood Cells % 0 %; Platelet Count 125 10^3/cmm (130-400); Red Blood Count 4.69 10^6/uL (4.1-5.3); Red Cell Distribution Width 12.5 % (12.1-15.1)
[2020-01-11 07:15] LABS: Vancomycin Trough 10.5 ug/mL (10-15)
[2020-01-11 07:17] LABS: Alanine Aminotransferase 40 U/L (0-41); Albumin Level 3.2 g/dL (3.5-5.2); Alkaline Phosphatase 49 IU/L (40-130); Anion Gap 14.5 (5-19); Aspartate Amino Transferase 20 U/L (0-40); Blood Urea Nitrogen 7 mg/dL (8-23); Calcium 8.9 mg/dL (8.5-10.5); Carbon Dioxide 26 mmol/L (22-29); Chloride 99 mmol/L (98-107); Globulin 2.9 g/dL (1.3-4.6); Glucose 142 mg/dL (65-115); Osmolality Calculated 280 mOsm/kg (285-295); Potassium 3.5 mmol/L (3.5-5.1); Sodium 136 mmol/L (136-145); Total Bilirubin 0.9 mg/dL (0.15-1.2); Total Protein 6.1 g/dL (6.6-8.7)
[2020-01-11] MEDS: dextrose 5%-sod chloride 0.45% 1,000 ML 100 ML IV (07:24)
[2020-01-11] MEDS: heparin 5,000 unit/mL INJ 1 mL 5000 UNIT SUBCUT ×2 (07:29→20:02)
[2020-01-11] MEDS: cefepime 2,000 MG in sodium chloride 0.9% (plus) 50 ML 100 MG IV ×2 (07:30→20:02)
[2020-01-11] MEDS: fentaNYL 50 mcg/mL INJ 2mL IVP (08:55)
--- NOTE | 2020-01-11 10:29 | P.PN_ITS ---
Subjective Subjective: Interval history: 74 yo wm who is POD #3 s/p Tracheotomy/Direct Laryngoscopy with biopsy for an obstructing laryngeal mass. The patient reports that he is doing well from this standpoint. He c/o anterior neck swelling and tenderness yesterday, but he reports that this has improved today. He has no other c/o. Vitals/I&O/Wt Last Vital Signs Temp 98.4 F 01/11/20 10:00 Pulse 77 01/11/20 10:00 Resp 18 01/11/20 10:00 BP 102/74 01/11/20 10:00 Pulse Ox 97 01/11/20 10:00 01/10/20 01/11/20 01/11/20 22:59 06:59 14:59 Intake Total 1333.333 / 1646.666 250 / 8302.284 0965 / 1300 Output Total 600 / 600 600 / 600 Balance 733.333 / 1046.666 250 / 1296.666 700 / 700 Weight last 48 hrs Weight 97.522 kg Weight 97.522 kg Physical Exam Const: COMMON NORMALS: no acute distress, average body habitus, patient oriented x3 and healthy appearing GENERAL APPEARANCE: cooperative HENMT: COMMON NORMALS: normocephalic, hearing grossly normal bilaterally, external ears normal and Normal external nose present HEAD & SCALP: normocephalic FACE & SINUS: normal facial exam, sinuses nontender and face symmetric NOSE: Normal external nose present EXTERNAL EAR: Yes external ears normal MOUTH: Normal oral and palatal mucosa present Eye: COMMON NORMALS: EOMs intact bilaterally, conjunctivae normal and no scleral icterus CONJUNCTIVA: Yes conjunctivae normal Neck/C-Spine: COMMON NORMALS: full ROM and no lymphadenopathy OTHER: There is decreased swelling and tenderness of gthe anterior neck; there is no erythema or induration; the trach site is clean and healthy appearing; there are no noted neck masses or other abnormailities Lymph: LYMPHATIC: no lymphadenopathy noted Neuro: COMMON NORMALS: patient oriented x3 Data : 01/11/20 06:53 01/11/20 06:53 A&P Additional A&P Information Impression: 1) POD #3 s/p Tracheotomy/Laryngeal mass doing well from this standpoint 2) Neck Swelling/tenderness - this seems to be improved today. Early cellulitis vs tumor related 3) Social - awaiting Social Work Consult Plan: 1) Continue current trach care; consider General Surgery Consult for PEG and Port placement; I will perform the first trach change on POD #5-7. Await results of biopsies - I will make further recommendations once these become available. 2) Contineu IV antibiotics per Dr. Pa 3) I will discuss with SWS tomorrow. Attestations Medical Necessity Statement*: I was consulted to evalauate and manage the patient's airway. 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
--- NOTE | 2020-01-11 12:49 | PM.CONSULT ---
Providers/Reason For Consult Consulting Physican/Specialty*: Dr. Pa Reason for Consult*: Enteral access and Mediport placement Attending Physician: Brice Pa MD Primary Care Provider: Elio Bobby History of Present Illness History of Present Illness Brody Gaines is a 74 year old male who presented to the ER with worsening shortness of breath of 3 months duration. Patient has been having significant cough as well as hoarseness. He had a CT scan which showed a laryngeal mass and he subsequently underwent an emergent tracheostomy by Dr. Wheat. I have been consulted for placement of the feeding tube as well as Port-A-Cath for chemotherapy. Review of Systems General: Reports: 10 or more systems reviewed and unremarkable except in HPI and below Meds/Allergies Home Medications and Allergies Home Medications Medication Instructions Recorded Confirmed Last Taken Type albuterol sulfate 1 puff INHALATION QID PRN 01/07/20 01/07/20 01/07/20 History cetirizine 10 mg PO DAILY 01/07/20 01/07/20 01/07/20 History cyanocobalamin (vitamin B-12) 1,000 mcg PO DAILY 01/07/20 01/07/20 01/07/20 History cyanocobalamin (vitamin B-12) 100 mcg PO DAILY 01/07/20 01/07/20 01/07/20 History [Vitamin B-12] finasteride 5 mg PO DAILY 01/07/20 01/07/20 01/07/20 History furosemide [Lasix] 20 mg PO DAILY 01/07/20 01/07/20 01/07/20 History guaifenesin 400 mg PO Q4H PRN 01/07/20 01/07/20 01/07/20 History potassium chloride 20 meq PO BID 01/07/20 01/07/20 01/07/20 History tamsulosin [Flomax] 0.4 mg PO DAILY 01/07/20 01/07/20 01/07/20 History thiamine HCl (vitamin B1) [Vitamin 100 mg PO DAILY 01/07/20 01/07/20 01/07/20 History B-1] vitamin B complex [B-Complex] 1 tab PO DAILY 01/07/20 01/07/20 01/07/20 History Allergies Allergy/AdvReac Type Severity Reaction Status Date / Time iodine Allergy ALGY-Hives Verified 01/07/20 12:57 Penicillins Allergy Unknown Verified 01/07/20 12:57 Current Medications Current Medications Generic Name Dose Route Start Last Admin Trade Name Freq PRN Reason Stop Dose Admin Albuterol/Ipratropium 3 ml 01/07/20 18:41 01/08/20 15:00 Duoneb INHALATION 3 ml Q4H PRN Administration SHORTNESS OF BREATH Albuterol/Ipratropium 3 ml 01/09/20 00:00 01/11/20 11:29 Duoneb INHALATION 3 ml Q4H.RESPIRATORY JUAN MANUEL Administration Finasteride 5 mg 01/08/20 09:00 01/11/20 08:08 Proscar PO Not Given DAILY JUAN MANUEL Folic Acid 1 mg 01/08/20 09:00 01/11/20 08:09 Folic Acid PO Not Given DAILY JUAN MANUEL Heparin Sodium (Beef Lung) 5,000 unit 01/09/20 07:45 01/11/20 07:29 Heparin SUBCUT 5,000 unit Q12H JUAN MANUEL Administration Vancomycin HCl 1,250 mg/ 250 mls @ 200 mls/hr 01/10/20 08:00 01/11/20 09:19 Sodium Chloride IV Infused Q8H JUAN MANUEL Infusion Protocol Cefepime HCl 2,000 mg/ Sodium 50 mls @ 100 mls/hr 01/10/20 08:00 01/11/20 08:00 Chloride IV Infused Q12H JUAN MANUEL Infusion Protocol Potassium Chloride 20 meq/ 1,000 mls @ 100 mls/hr 01/11/20 08:15 01/11/20 08:00 Dextrose/Sodium Chloride IV 100 mls/hr .Q10H JUAN MANUEL Administration Lorazepam 1 mg 01/08/20 20:03 01/11/20 02:25 Ativan IVP 1 mg Q4H PRN Administration ANXIETY Multivitamins Therapeutic 1 tab 01/08/20 09:00 01/11/20 08:09 Multivitamin Tab PO Not Given DAILY JUAN MANUEL Non-Formulary Medication 100 mcg 01/08/20 09:00 01/11/20 08:08 Cyanocobalamin (Vitamin B-12) [Vitamin B-12] PO Not Given DAILY JUAN MANUEL Non-Formulary Medication 400 mg 01/07/20 18:41 01/09/20 17:35 Guaifenesin PO 400 mg Q4H PRN Administration Congestion Tamsulosin HCl 0.4 mg 01/08/20 09:00 01/11/20 08:09 Flomax PO Not Given DAILY JUAN MANUEL Thiamine HCl 100 mg 01/10/20 09:00 01/11/20 08:50 Vitamin B-1 IV 100 mg DAILY JUAN MANUEL Administration PFSH Acute PFSH: Medical History Alcoholism BPH (benign prostatic hyperplasia) COPD (chronic obstructive pulmonary disease) Laryngeal mass Surgical History History of ankle surgery History of hernia surgery Status post tracheostomy Family History Other CAD (coronary artery disease) Social History Smoking and tobacco status: current every day smoker Quit status (tobacco): considering quitting Alcohol intake: current Alcohol intake frequency: 3 or more drinks per day Substance/Drug Use: never Vitals/I&O/Wt Last Vital Signs Temp 98.4 F 01/11/20 10:00 Pulse 85 01/11/20 11:31 Resp 20 H 01/11/20 11:30 BP 102/74 01/11/20 10:00 Pulse Ox 98 01/11/20 11:30 01/10/20 01/11/20 01/11/20 22:59 06:59 14:59 Intake Total 1333.333 / 1896.666 250 / 9313.157 9514 / 1300 Output Total 600 / 600 600 / 600 Balance 733.333 / 1296.666 250 / 1296.666 700 / 700 Weight last 48 hrs Weight 215 lb Weight 215 lb Physical Exam Narrative: EXAM NARRATIVE: HEENT: Normocephalic Eye: Sclera /conjunctiva normal Respiratory and chest: Bilateral clear breath sounds on auscultation, tracheostomy in place Cardiovascular: Normal S1 and S2 heart sounds Abdomen: Soft to palpation Neurological: Oriented to place person and time Skin: Intact, no lesions appreciated on gross exam A&P Assessment and plan (1) Laryngeal mass: 74-year-old gentleman status post tracheostomy for an obstructing laryngeal mass who now needs a central venous access for chemotherapy and PEG tube for enteral access/nutrition. Procedure risks and benefits have been discussed with the patient who agrees. 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
[2020-01-11] MEDS: morphine 4 mg/mL SDV 1 mL 2 MG IVP ×3 (12:58→22:09)
--- NOTE | 2020-01-11 13:00 | P.PN_ITS ---
Subjective Subjective: Interval history: Brody does not appear to have any complaints. Breathing is okay. He is getting used to his tracheostomy. Medications: Reviewed: Yes Vitals/I&O/Wt Last Vital Signs Temp 98.4 F 01/11/20 10:00 Pulse 85 01/11/20 11:31 Resp 20 H 01/11/20 11:30 BP 102/74 01/11/20 10:00 Pulse Ox 98 01/11/20 11:30 01/10/20 01/11/20 01/11/20 22:59 06:59 14:59 Intake Total 1333.333 / 1646.666 250 / 8642.963 9569 / 1300 Output Total 600 / 600 600 / 600 Balance 733.333 / 1046.666 250 / 1296.666 700 / 700 Weight last 48 hrs Weight 97.522 kg Weight 97.522 kg Physical Exam Narrative: EXAM NARRATIVE: General exam no apparent distress. Tracheostomy noted. Swelling appears slightly better. Cardiovascular regular rate and rhythm without murmur Lungs bases clear Abdomen is soft with positive bowel sounds Extremities no cyanosis clubbing or edema Data : 01/11/20 06:53 01/11/20 06:53 A&P Assessment and plan (1) Acute exacerbation of chronic obstructive pulmonary disease: Resolved. Continue Advair, DuoNeb Status: Acute (2) Hyponatremia: Resolved. TSH and cortisol level normal. Likely secondary to alcohol intake. Status: Acute (3) Polycythemia: Secondary to tobacco use Status: Acute (4) Transaminitis: Most likely secondary to alcoholism. Hepatitis panel negative Status: Acute (5) Elevated troponin: Type II. No significant EKG changes. Patient without chest pain. Status: Acute (6) Hoarseness: Concerning for possible malignancy with associated weight loss. Check CT neck, chest. CT chest demonstrated no obvious mass. 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 ENT is consulted. Tracheostomy performed, he is postoperative day #3 and doing well but having some swelling around the tracheostomy. ENT wanted him on broad-spectrum antibiotics. He was placed on vancomycin and cefepime(penicillin allergy). This appears to be improving He is having some significant issues swallowing and will need PEG tube and port secondary to his laryngeal tumor. ENT suggest getting these done during this hospital stay. Surgery was consulted and considering doing this procedure Sunday Status: Acute (7) Alcoholism: CIWA protocol No evidence of withdrawal Status: Acute (8) Tobacco dependency: Counseled on abstinence Status: Acute Additional A&P Information Mild thrombocytopenia developing. Repeat laboratory tomorrow. Continue to monitor closely history of BPH, continue meds Full code Heparin for DVT prophylaxis Transfer out of ICU today Continue fluids Attestations Medical Necessity Statement*: Needs continued hospitalization for close monitoring status post tracheostomy for laryngeal tumor. 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
[2020-01-11] MEDS: NON-FORMULARY MEDICATION (Guaifenesin 400 MG) 400 EACH PO (21:54)
[2020-01-12] VITALS (18 sets, daily range): BP systolic 110–146; BP diastolic 64–84; PULSE 65–89; RESP 16–20; TEMP 36.2–39; O2SAT 89–96
--- NOTE | 2020-01-12 | SCC_ITS ---
Procedure Done: Placement of PowerPort in the left subclavian vein 52.4 seconds of fluoroscopic guidance, for a cumulative dose of 6.57 mGy, was provided to Dr. Edmond by the radiology department. C-arm images of the chest were saved for the patient's permanent record. [facility]
[2020-01-12] MEDS: ipratropium-albuterol 3 mL Neb INHALATION ×5 (00:50→20:26)
[2020-01-12] MEDS: morphine 4 mg/mL SDV 1 mL 2 MG IVP ×2 (03:18→20:47)
[2020-01-12] MEDS: D5-NS 0.45% + KCL 20 mEq 20 MEQ/1,000 ML BAG 100 MEQ IV ×2 (03:18→18:07)
--- NOTE | 2020-01-12 05:38 | PM.PN ---
Subjective Subjective: Interval history: 74 yo wm who is POD #4 s/p tracheotomy for an obstructing glottic tumor. The patient is without c/o from this standpoint. He reports that his neck swelling has improved. Vitals/I&O/Wt Last Vital Signs Temp 98.8 F 01/12/20 04:00 Pulse 72 01/12/20 05:25 Resp 18 01/12/20 05:25 BP 113/64 01/12/20 04:00 Pulse Ox 95 01/12/20 05:25 01/11/20 01/11/20 01/12/20 14:59 22:59 06:59 Intake Total 1540 / 1540 250 / 1790 100 / 1890 Output Total 600 / 600 700 / 1300 Balance 940 / 940 -450 / 490 100 / 590 Weight last 48 hrs Weight 97.522 kg Weight 97.522 kg Physical Exam Const: COMMON NORMALS: no acute distress, average body habitus, patient oriented x3 and alert HENMT: COMMON NORMALS: normocephalic, atraumatic, hearing grossly normal bilaterally, external ears normal and Normal external nose present HEAD & SCALP: normal to inspection, normocephalic and atraumatic FACE & SINUS: normal facial exam NOSE: Normal external nose present EXTERNAL EAR: Yes external ears normal MOUTH: Normal oral and palatal mucosa present THROAT: posterior oropharynx normal Eye: COMMON NORMALS: EOMs intact bilaterally, conjunctivae normal and no scleral icterus GENERAL EYE: appearance normal, both eyes and all related structures CONJUNCTIVA: Yes conjunctivae normal Neck/C-Spine: COMMON NORMALS: full ROM, no lymphadenopathy and Thyroid normal GENERAL: Yes trachea midline THYROID: Thyroid normal OTHER: The tracheotomy tube is in place. There is no erythema or induration. There is no neck tenderness or swelling. Neuro: COMMON NORMALS: patient oriented x3 SENSORIUM/ORIENTATION: Yes alert Data : 01/11/20 06:53 01/11/20 06:53 A&P Additional A&P Information Impression: 1) POD #4 s/p Tracheotomy for an obstructing glottic mass doing well s/p tracheotomy 2) Neck Swelling - Improved 3) Medical - stable Plan: 1) Trach/Laryngeal Mass - The path report is pending - The patient is scheduled for PEG and Port placement - I will change his trach tube at POD #7 - he will be ready for discharge after the first trach change - We will consult Radiation Oncology and Hemeoncology once the Path report is available. I will also discuss surgical oncology with the patient - Social Work Consult Pending 2) Neck Swelling - Continue IV antibiotics 3) Medical - As per Dr. 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
[2020-01-12 06:16] LABS: Basophils % 0.2 %; Eosinophils # 0.1 10^3/uL (0.0-0.8); Eosinophils % 0.7 %; Hematocrit 46.1 % (42.0-52.0); Hemoglobin 15.3 g/dL (11.7-16.6); Lymphocytes # 1.5 10^3/uL (0.8-4.8); Lymphocytes % 17.5 %; Mean Corpuscular HGB Conc 33.2 g/dL (30.0-36.0); Mean Corpuscular Hemoglobin 33.6 pg (28.0-34.0); Mean Corpuscular Volume 101.3 fL (80-94); Mean Platelet Volume 9.7 fL (7.4-10.4); Monocytes # 0.9 10^3/uL (0.2-0.9); Neutrophils # 5.9 10^3/uL (1.8-7.7); Nucleated Red Blood Cells % 0 %; Platelet Count 149 10^3/cmm (130-400); Red Blood Count 4.55 10^6/uL (4.1-5.3); Red Cell Distribution Width 12.2 % (12.1-15.1); White Blood Count 8.4 10^3/uL (4.0-10.0)
[2020-01-12 06:46] LABS: Anion Gap 14.5 (5-19); Blood Urea Nitrogen 6 mg/dL (8-23); Calcium 8.5 mg/dL (8.5-10.5); Carbon Dioxide 26 mmol/L (22-29); Chloride 99 mmol/L (98-107); Glucose 126 mg/dL (65-115); Osmolality Calculated 279 mOsm/kg (285-295); Potassium 3.5 mmol/L (3.5-5.1); Sodium 136 mmol/L (136-145)
[2020-01-12] MEDS: cefepime 2,000 MG in sodium chloride 0.9% (plus) 50 ML 100 MG IV ×2 (08:21→20:49)
--- NOTE | 2020-01-12 10:56 | SUR.PREOP ---
SIMPLE MASK POSITIONED OVER PT TRACH AT 6L O2 WITH SAT AT 94%
--- NOTE | 2020-01-12 11:12 | ANES.PREANE2 ---
Pre-Anesthetic Assessment Pre-Anesthetic Assessment: Height/Weight: Height 1.73 m Weight 97.522 kg Temp Pulse Resp BP Pulse Ox 99.2 F 74 18 123/72 94 01/12/20 10:55 01/12/20 10:55 01/12/20 10:55 01/12/20 10:55 01/12/20 10:55 Preop Diagnosis: Glottic mass with partial airway obstruction Proposed Procedure: Operation Date: 01/08/20 18:00 Proposed Procedures p Tracheostomy(Not Applicable) - Wes Wheat MD Operation Date: 01/08/20 18:00 Proposed Procedures p Tracheostomy(Not Applicable) - Wes Wheat MD Operation Date: 01/12/20 14:10 Proposed Procedures p Portacath Placement(Not Applicable) - Gage Edmond MD s PEG Tube Insertion(Not Applicable) - Gage Edmond MD Familial anesthetic complications: None Was Beta Aries taken within 24 hours: N/A Last intake: Intake Last Liquid Date 01/11/20 Last Liquid Time 23:00 Last Solid Date 01/11/20 Last Solid Time 23:00 Social: Social History: Alcohol and Tobacco Exam: Pre-Anes Outpt Exam: alert, oriented x 3, clear to auscultation bilaterally and regular rate & rhythm Airway: MP: 4 Dentition: Other (edentulous) Additional comments: tracheostomy Pulmonary: Pulmonary: COPD Comments: glottic tumor w/ L laryngeal mass requiring tracheostomy CV/HEM: Comments: troponin elevation type II Metabolic: Comments: hyponatremia Musc/skel: Comments: Tracheostomy POD #7 Neuropsych: Comments: [facility] protocol for acholism Anesthetic Plan: ASA status: 4 Anesthesia: General Risk of > 500 ml blood loss (7ml/kg in children): No Meds/Allergies Current Medications: Current Medications Generic Name Dose Route Start Last Admin Trade Name Freq PRN Reason Stop Dose Admin Albuterol/Ipratrop ium 3 ml 01/07/20 18:41 01/08/20 15:00 Duoneb INHALATION 3 ml Q4H PRN Administration SHORTNESS OF GLADIS TH Albuterol/Ipratrop ium 3 ml 01/09/20 00:00 01/12/20 07:36 Duoneb INHALATION 3 ml Q4H.RESPIRATORY S CH Administration Finasteride 5 mg 01/08/20 09:00 01/12/20 09:43 Proscar PO Not Given DAILY [facility] Folic Acid 1 mg 01/08/20 09:00 01/12/20 09:43 Folic Acid PO Not Given DAILY [facility] Heparin Sodium (Be ef Lung) 5,000 unit 01/09/20 07:45 01/12/20 09:42 Heparin SUBCUT Not Given Q12H [facility] Vancomycin HCl 1,2 50 mg/ 250 mls @ 200 mls /hr 01/10/20 08:00 01/12/20 09:49 Sodium Chloride IV 200 mls/hr Q8H JUAN MANUEL Administration Protocol Cefepime HCl 2,000 mg/ Sodium 50 mls @ 100 mls/ hr 01/10/20 08:00 01/12/20 08:21 Chloride IV 100 mls/hr Q12H [facility] Administration Protocol Potassium Chloride /Dextrose/Sod Cl 20 meq in 1,000 m ls @ 100 mls/hr 01/11/20 23:30 01/12/20 03:18 D5-Ns 0.45% + Jonathan l 20 Meq IV 100 mls/hr .Q10H JUAN MANUEL Administration Lorazepam 1 mg 01/08/20 20:03 01/11/20 02:25 Ativan IVP 1 mg Q4H PRN Administration ANXIETY Morphine Sulfate 2 mg 01/11/20 11:36 01/12/20 03:18 Morphine IVP 2 mg Q4H PRN Administration SEVERE PAIN Multivitamins Ther apeutic 1 tab 01/08/20 09:00 01/12/20 09:43 Multivitamin Tab PO Not Given DAILY [facility] Non-Formulary Medi cation 100 mcg 01/08/20 09:00 01/12/20 09:43 Cyanocobalamin ( Vitamin B-12) [Vit tafoya B-12] PO Not Given DAILY [facility] Non-Formulary Medi cation 400 mg 01/07/20 18:41 01/11/20 21:54 Guaifenesin PO 400 mg Q4H PRN Administration Congestion Tamsulosin HCl 0.4 mg 01/08/20 09:00 01/12/20 09:43 Flomax PO Not Given DAILY [facility] Thiamine HCl 100 mg 01/10/20 09:00 01/12/20 09:43 Vitamin B-1 IV Not Given DAILY [facility] PFSH Anesthesia PFSH: Medical History Alcoholism BPH (benign prostatic hyperplasia) COPD (chronic obstructive pulmonary disease) Laryngeal mass Surgical History History of ankle surgery History of hernia surgery Status post tracheostomy Family History Other CAD (coronary artery disease) Social History Smoking and tobacco status: current every day smoker Quit status (tobacco): considering quitting Alcohol intake: current Alcohol intake frequency: 3 or more drinks per day Substance/Drug Use: never Data Anesthesia CBC & Chem 7: 01/12/20 05:55 01/12/20 05:55 Other Labs: Laboratory Results - last 48 hr 01/11/20 01/11/20 01/11/20 06:53 06:53 06:53 WBC 9.0 RBC 4.69 Hgb 15.6 Hct 49.3 MCV 105.1 H MCH 33.3 MCHC 31.6 RDW 12.5 Plt Count 125 L MPV 9.6 Neut % (Auto) 77.0 Lymph % (Auto) 14.4 [place] % (Auto) 7.2 Eos % (Auto) 0.6 Baso % (Auto) 0.1 Neut # (Auto) 6.9 Lymph # (Auto) 1.3 [place] # (Auto) 0.6 Eos # (Auto) 0.1 Baso # (Auto) 0.0 Nucleated RBC % (auto) 0 Nucleated RBCs # 0.0 Sodium 136 Potassium 3.5 Chloride 99 Carbon Dioxide 26 Anion Gap 14.5 BUN 7 L Creatinine 0.6 L Glucose 142 H Calculated Osmolality 280 L Calcium 8.9 Total Bilirubin 0.9 AST 20 ALT 40 Alkaline Phosphatase 49 Total Protein 6.1 L Albumin 3.2 L Globulin 2.9 Vancomycin Trough 10.5 01/12/20 01/12/20 05:55 05:55 WBC 8.4 RBC 4.55 Hgb 15.3 Hct 46.1 MCV 101.3 H MCH 33.6 MCHC 33.2 D RDW 12.2 Plt Count 149 MPV 9.7 Neut % (Auto) 70.0 Lymph % (Auto) 17.5 [place] % (Auto) 11.0 Eos % (Auto) 0.7 Baso % (Auto) 0.2 Neut # (Auto) 5.9 Lymph # (Auto) 1.5 [place] # (Auto) 0.9 Eos # (Auto) 0.1 Baso # (Auto) 0.0 Nucleated RBC % (auto) 0 Nucleated RBCs # 0.0 Sodium 136 Potassium 3.5 Chloride 99 Carbon Dioxide 26 Anion Gap 14.5 BUN 6 L Creatinine 0.5 L Glucose 126 H Calculated Osmolality 279 L Calcium 8.5 Total Bilirubin AST ALT Alkaline Phosphatase Total Protein Albumin Globulin Vancomycin Trough Cardiac Studies: No Data to Display
[2020-01-12] MEDS: sodium chloride 0.9% 1,000 ML 30 ML IV (11:58)
--- NOTE | 2020-01-12 12:16 | PC.SOCIAL ---
IMM Update Pg 2 of IMM updated. Initialed, dated, and timed and placed in chart. Copy provided to patient.
--- NOTE | 2020-01-12 13:16 | SC_ITS ---
WS: [id number] C-arm fluoroscopy of the upper chest for subclavian artery placement, 01/12/2020 Clinical Data: port placement Comparison: None. Fluoroscopy time: 52.4 sec Findings: There is a tracheal tube in good position. There is a left subclavian venous catheter which appears t o end in the superior vena cava. SC/C-arm FL for CVA [id number] Impression: Satisfactory placement of left subclavian venous catheter.
[2020-01-12] MEDS: midazolam 1 mg/mL INJ 2 mL IVP (13:18)
--- NOTE | 2020-01-12 13:18 | P.PN_ITS ---
Subjective Subjective: Interval history: No issues overnight Vitals/I&O/Wt Last Vital Signs Temp 99.2 F 01/12/20 10:55 Pulse 74 01/12/20 10:55 Resp 18 01/12/20 10:55 BP 123/72 01/12/20 10:55 Pulse Ox 94 01/12/20 10:55 01/11/20 01/12/20 01/12/20 22:59 06:59 14:59 Intake Total 300 / 2190 350 / 2190 Output Total 700 / 1300 475 / 475 Balance -400 / 890 350 / 890 -475 / -475 Weight last 48 hrs Weight 215 lb Physical Exam Narrative: EXAM NARRATIVE: Abdomen: Soft Data : 01/12/20 05:55 01/12/20 05:55 A&P Assessment and plan (1) Laryngeal mass: Plan for Port-A-Cath and PEG tube placement today Status: Acute Attestations Medical Necessity Statement*: Port-A-Cath for chemotherapy Coding Level of Care Code Acute 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
[2020-01-12] MEDS: heparin, porcine 1,000 unit/mL INJ 10 mL 10000 UNIT XX (14:05)
[2020-01-12] MEDS: lidocaine 1% INJ 20 mL SUBCUT (14:35)
--- NOTE | 2020-01-12 19:19 | XR_ITS ---
WS: [id number] CHEST XRAY TECHNIQUE: Portable chest. CLINICAL INFORMATION: L side pleuritic discomfort after PEG COMPARISON: None. FINDINGS: Tracheostomy. Left central venous catheter with tip in SVC. Heart: Cardiomegaly. Lungs: Advanced chronic emphysematous changes. Subsegmental atelectasis right lower lobe. Small right pleural effusion. Bones: Normal visualized bony structures. XR/XR chest 1V portable [id number] IMPRESSION: 1. Left central venous catheter. Tracheostomy tube. 2. Small right pleural effusion with subsegmental atelectasis right lower lobe .
[2020-01-12] MEDS: heparin 5,000 unit/mL INJ 1 mL 5000 UNIT SUBCUT (20:46)
[2020-01-12] MEDS: acetaminophen 325 mg Tablet 650 MG PO (20:48)
--- NOTE | 2020-01-12 21:21 | PM.PN ---
Subjective Subjective: Interval history: After the procedure he is awake, alert, sitting up at the edge of the bed, is not wearing his oxygen. He is complaining of some pain in the left upper quadrant, left lower chest after the PEG tube placement. Vitals/I&O/Wt Last Vital Signs Temp 99.6 F 01/12/20 16:00 Pulse 88 01/12/20 20:31 Resp 18 01/12/20 20:47 BP 138/75 01/12/20 16:00 Pulse Ox 94 01/12/20 20:31 01/12/20 01/12/20 01/12/20 06:59 14:59 22:59 Intake Total 350 / 2190 900 / 900 0 / 900 Output Total 475 / 475 0 / 475 Balance 350 / 890 425 / 425 0 / 425 Weight last 48 hrs Weight 97.522 kg Physical Exam Const: COMMON NORMALS: no acute distress and patient oriented x3 OTHER: Pale HENMT: COMMON NORMALS: oropharynx normal OTHER: Swelling of the right side of the neck. Tracheostomy in place. Neck/C-Spine: COMMON NORMALS: no JVD Chest: OTHER: Left chest port in place. Wound appears clean, no bleeding. Some bruising. Resp: COMMON NORMALS: normal respiratory effort and clear to auscultation bilaterally AUSCULTATION: clear to auscultation bilaterally Cardio: COMMON NORMALS: no JVD, regular rhythm, S1 normal heart sound present, S2 normal heart sound present and No murmurs present (Cardio) RHYTHM: regular rhythm HEART SOUNDS: S1 normal heart sound present and S2 normal heart sound present GI: COMMON NORMALS: Normal to inspection, nondistended, normoactive bowel sounds present, Soft to palpation and non-tender PALPATION: Yes Soft to palpation OTHER: Left upper abdomen PEG tube Extremity: COMMON NORMALS: no joint enlargement GENERAL: Yes edema (1+ bilateral) Neuro: COMMON NORMALS: patient oriented x3 and moves all extremities Skin: OTHER: Chronic venous stasis dermatitis Data : 01/12/20 05:55 01/12/20 05:55 A&P Assessment and plan (1) Laryngeal mass: POD #4 after tracheostomy. On day 7 tracheostomy to be exchanged after which he may discharge to follow-up on biopsy results, as well as with radiation oncology and oncology. He will need detailed instructions regarding tracheostomy care from ENT for home health providers. PEG tube and left chest port placed today. Will decrease IVF rate. With some chest pain left lower, left upper quadrant pain after the procedure. Assess chest x-ray. At this time continue IV antibiotics with cefepime and Vanco as appears to have some bibasilar infiltrates, possibly from aspiration. Pending official evaluation. Status: Acute (2) Tracheostomy present: With neck swelling. Reportedly this is improving. For now he is empirically on antibiotics. Status: Acute (3) Acute exacerbation of chronic obstructive pulmonary disease: Reported resolved. Continue Jaziel Wright Status: Acute (4) Hyponatremia: Resolved. TSH and cortisol level normal. Likely secondary to alcohol intake. Status: Acute (5) Polycythemia: Secondary to tobacco use Status: Acute (6) Transaminitis: Most likely secondary to alcoholism. Hepatitis panel negative Status: Acute (7) Elevated troponin: Type II. No significant EKG changes. Patient without chest pain. Status: Acute (8) Hoarseness: Status: Acute (9) Alcoholism: CIWA protocol No evidence of withdrawal Status: Acute (10) Tobacco dependency: Counseled on abstinence Status: Acute Additional A&P Information Mild thrombocytopenia: Better today. Monitor. History of BPH, continue meds Full code Heparin for DVT prophylaxis Attestations Medical Necessity Statement*: Continue admission for assessment of management of laryngeal mass, dysphagia, concern for aspiration and aspiration pneumonia, preparation for discharge and subsequent treatment of suspected laryngeal malignancy. Coding Level of Care Code Acute Platform Attendant for Chg Fwd Diagnoses Laryngeal mass J38.7 Tracheostomy present Z93.0 Acute exacerbation of chronic obstructive pulmonary disease J44.1 Hyponatremia E87.1 Polycythemia D75.1 Transaminitis R74.0 Elevated troponin R79.89 Hoarseness R49.0 Alcoholism F10.20 Tobacco dependency F17.200
[2020-01-13] VITALS (16 sets, daily range): BP systolic 109–136; BP diastolic 65–82; PULSE 58–88; RESP 16–24; TEMP 36.9–37.5; O2SAT 90–98
[2020-01-13] MEDS: ipratropium-albuterol 3 mL Neb INHALATION ×6 (01:20→19:23)
[2020-01-13 03:18] LABS: Basophils % 0.2 %; Eosinophils # 0.1 10^3/uL (0.0-0.8); Eosinophils % 0.7 %; Hematocrit 44.5 % (42.0-52.0); Hemoglobin 14.6 g/dL (11.7-16.6); Lymphocytes # 1.6 10^3/uL (0.8-4.8); Lymphocytes % 19.3 %; Mean Corpuscular HGB Conc 32.8 g/dL (30.0-36.0); Mean Corpuscular Hemoglobin 33.6 pg (28.0-34.0); Mean Corpuscular Volume 102.5 fL (80-94); Mean Platelet Volume 9.9 fL (7.4-10.4); Monocytes # 0.8 10^3/uL (0.2-0.9); Monocytes % 9.3 %; Neutrophils # 5.7 10^3/uL (1.8-7.7); Neutrophils % 69.6 %; Nucleated Red Blood Cells % 0 %; Platelet Count 154 10^3/cmm (130-400); Red Blood Count 4.34 10^6/uL (4.1-5.3); Red Cell Distribution Width 12.3 % (12.1-15.1); White Blood Count 8.1 10^3/uL (4.0-10.0)
[2020-01-13 03:32] LABS: Anion Gap 12.7 (5-19); Blood Urea Nitrogen 8 mg/dL (8-23); Carbon Dioxide 28 mmol/L (22-29); Chloride 101 mmol/L (98-107); Glucose 115 mg/dL (65-115); Osmolality Calculated 283 mOsm/kg (285-295); Potassium 3.7 mmol/L (3.5-5.1); Sodium 138 mmol/L (136-145)
[2020-01-13] MEDS: LORazepam 2 mg/mL INJ 1 mL 1 MG IVP (07:31)
[2020-01-13] MEDS: cefepime 2,000 MG in sodium chloride 0.9% (plus) 50 ML 100 MG IV (07:35)
[2020-01-13] MEDS: heparin 5,000 unit/mL INJ 1 mL 5000 UNIT SUBCUT ×2 (07:45→20:53)
--- NOTE | 2020-01-13 08:36 | P.PN_ITS ---
Subjective Subjective: Interval history: 74 yo wm who is POD #5 s/p Tracheotomy for an obstructing glottic mass. The patient is doing well from this standpoint. He developed mild anterior neck swelling and tenderness - he reports that this has improved significantly. He is o/w without c/o. Vitals/I&O/Wt Last Vital Signs Temp 98.4 F 01/13/20 07:24 Pulse 71 01/13/20 07:57 Resp 16 01/13/20 07:57 BP 116/73 01/13/20 07:24 Pulse Ox 93 01/13/20 07:57 01/12/20 01/13/20 01/13/20 22:59 06:59 14:59 Intake Total 330 / 1230 Output Total 0 / 475 600 / 1075 Balance 330 / 755 -600 / 155 Weight last 48 hrs Weight 97.522 kg Physical Exam Const: COMMON NORMALS: no acute distress, patient oriented x3 and alert EXAM LIMITATIONS: altered mental status GENERAL APPEARANCE: cooperative and comfortable HENMT: COMMON NORMALS: normocephalic, external ears normal and oropharynx normal HEAD & SCALP: normocephalic EXTERNAL EAR: Yes external ears normal Eye: COMMON NORMALS: conjunctivae normal and no scleral icterus CONJUNCTIVA: Yes conjunctivae normal Neck/C-Spine: COMMON NORMALS: full ROM and no lymphadenopathy OTHER: The trach site is clean and the trach tube is in place. There is no erythema or induration of the neck or trach site. Neuro: COMMON NORMALS: patient oriented x3 SENSORIUM/ORIENTATION: Yes alert Data : 01/13/20 02:55 01/13/20 02:55 A&P Additional A&P Information Impression/Plan: 1) POD #5 s/p Tracheotomy/Glottic Tumor - stable - Continue current trach care - I will change the trach on POD #7 - RT will need to instruct the patient and his family on trach care 2) Neck Swelling - Post op swelling vs early cellulitis - improving - Continue IV antibiotics until discharge, then change to po for 10 days post op 3) Social Work: - The patient will need the following: Daily home health visits for 10 days post op - Home Suction unit - Home humidification unit Attestations Medical Necessity Statement*: I was consulted to manage the patient's airway Coding Level of Care Code Acute Speech And Hearing Clinic Director for Buffyg Delbert
[2020-01-13 09:18] LABS: Vancomycin Trough 16.1 ug/mL (10-15)
[2020-01-13] MEDS: multivitamin therapeutic Tablet 1 TAB PO (09:57)
[2020-01-13] MEDS: tamsulosin 0.4 mg Capsule PO (09:57)
[2020-01-13] MEDS: folic acid 1 mg Tablet PO (09:57)
[2020-01-13] MEDS: finasteride 5 mg Tablet PO (09:57)
[2020-01-13] MEDS: D5-NS 0.45% + KCL 20 mEq 20 MEQ/1,000 ML BAG 100 MEQ IV (15:00)
--- NOTE | 2020-01-13 16:38 | PC.NURSE ---
PER DR. COTTRELL PATIENT IS TO HAVE CAREGIVER COME IN FOR EDUCATION ON TRACHEOSTOMY CARE. BEATRIZ () WILL BE HERE 01/14/20 LATE MORNING. LACROSSE PLAYER NOTIFIED.
--- NOTE | 2020-01-13 19:00 | ECG_ITS ---
Measurements Intervals [place] Rate: 65 P: 56 NC: 178 QRS: 2 QRSD: 154 T: 19 QT: 425 QTc: 445 SINUS RHYTHM RIGHT BUNDLE BRANCH BLOCK [120+ ms QRS DURATION, UPRIGHT V1, 40+ ms S IN I/a I/aVL/V4/V5/V6] INTERPRETATION BASED ON A DEFAULT AGE OF 40 YEARS Compared to ECG 01/13/2020 19:36:20 Atrial fibrillation no longer present Electronically Signed On 01-14-2020 15:42:05 CDT by Corey Rivas M.D. [email or web address]
--- NOTE | 2020-01-13 19:40 | P.PN_ITS ---
Subjective Subjective: Interval history: During my visit he was doing all right, when asked about his breathing gestures it has been so-so . Later on in the evening reported to have developed chest pain. Yesterday an episode of chest pain with rather unremarkable chest x-ray. That episode had resolved. Today appears pain is more in the center. Vitals/I&O/Wt Last Vital Signs Temp 98.4 F 01/13/20 15:21 Pulse 63 01/13/20 19:31 Resp 18 01/13/20 19:23 BP 136/82 01/13/20 15:21 Pulse Ox 94 01/13/20 19:31 01/13/20 01/13/20 01/13/20 06:59 14:59 22:59 Intake Total 1250 / 2480 250 / 250 120 / 370 Output Total 600 / 1075 450 / 450 Balance 650 / 1405 250 / 250 -330 / -80 Physical Exam Const: COMMON NORMALS: no acute distress and patient oriented x3 OTHER: Pale HENMT: COMMON NORMALS: oropharynx normal OTHER: Swelling of the right side of the neck. Tracheostomy in place. Neck/C-Spine: COMMON NORMALS: no JVD Chest: OTHER: Left chest port in place. Wound appears clean, no bleeding. Some bruising. Resp: COMMON NORMALS: normal respiratory effort and clear to auscultation bilaterally AUSCULTATION: clear to auscultation bilaterally Cardio: COMMON NORMALS: no JVD, regular rhythm, S1 normal heart sound present, S2 normal heart sound present and No murmurs present (Cardio) RHYTHM: regular rhythm HEART SOUNDS: S1 normal heart sound present and S2 normal heart sound present GI: COMMON NORMALS: Normal to inspection, nondistended, normoactive bowel sounds present, Soft to palpation and non-tender PALPATION: Yes Soft to palpation OTHER: Left upper abdomen PEG tube Extremity: COMMON NORMALS: no joint enlargement GENERAL: Yes edema (1+ bilateral) Neuro: COMMON NORMALS: patient oriented x3 and moves all extremities Skin: OTHER: Chronic venous stasis dermatitis Data : 01/13/20 02:55 01/13/20 02:55 A&P Assessment and plan (1) Laryngeal mass: POD #5 after tracheostomy. On day 7 tracheostomy to be exchanged after which he may discharge to follow-up on biopsy results, as well as with radiation oncology and oncology. He will need detailed instructions regarding tracheostomy care from ENT for home health providers. PEG tube and left chest port placed 01/11. Decrease IVF rate. PEG tube has been used for medications. Advance PEG tube use per surgery. Status: Acute (2) Chest pain: Yesterday some left-sided, pleuritic chest pain, with rather unremarkable chest x-ray. Today evening episode of more central pain. Will request for EKG and troponin series. Surgery will be updated with symptoms as well for any additional recommendations. Status: Acute (3) Tracheostomy present: With neck swelling. Reportedly this is improving. Has been on empiric antibiotics with cefepime and vancomycin due to concern for possible infection, although overall findings are somewhat equivocal for actual infection. Does appear to have had some improvement since symptoms noted, and has been on antibiotics since then. Today his IV access was lost, and despite multiple attempts to replace could not be reestablished. He did not want to get stuck more times. Discussed with ENT, and with somewhat equivocal suspicion for actual infection, they are okay with switching to a tablet antibiotic. He is allergic to penicillins. For now we will switch him to Bactrim by PEG tube. Monitor renal function. Status: Acute (4) Acute exacerbation of chronic obstructive pulmonary disease: Reported resolved. Continue Advair, DuoNeb Status: Acute (5) Hyponatremia: Resolved. TSH and cortisol level normal. Likely secondary to alcohol intake. Status: Acute (6) Polycythemia: Secondary to tobacco use Status: Acute (7) Transaminitis: Most likely secondary to alcoholism. Hepatitis panel negative Status: Acute (8) Elevated troponin: Type II. No significant EKG changes. Patient without chest pain. Status: Acute (9) Hoarseness: Status: Acute (10) Alcoholism: CIWA protocol No evidence of withdrawal Status: Acute (11) Tobacco dependency: Counseled on abstinence Status: Acute Additional A&P Information Mild thrombocytopenia: Better today. Monitor. History of BPH, continue meds Full code Heparin for DVT prophylaxis Attestations Medical Necessity Statement*: Continue admission for cyst management following tracheostomy, with neck swelling, laryngeal mass, status post placement of PEG tube and left chest port in preparation for additional assessment and treatment after pathology is available for suspected laryngeal malignancy. Coding Level of Care Code Acute Chief Payroll Clerk for g Fwd Exam Comprehensive Diagnoses Laryngeal mass J38.7 Chest pain R07.9 Tracheostomy present Z93.0 Acute exacerbation of chronic obstructive pulmonary disease J44.1 Hyponatremia E87.1 Polycythemia D75.1 Transaminitis R74.0 Elevated troponin R79.89 Hoarseness R49.0 Alcoholism F10.20 Tobacco dependency F17.200
[2020-01-13 20:47] LABS: Troponin(5th) Baseline 15 ng/mL (0-15)
[2020-01-13] MEDS: sulfamethoxazole-trimeth DS 160-800 mg Tablet 1 TAB PEG-TUBE (20:52)
[2020-01-13] MEDS: calcium carbonate 500 mg Chew Tablet 1000 MG PO (20:53)
--- NOTE | 2020-01-13 21:00 | ECG_ITS ---
Measurements Intervals [place] Rate: 62 P: [place]: 0 QRS: -4 QRSD: 148 T: 19 QT: 411 QTc: 419 ATRIAL FIBRILLATION RIGHT BUNDLE BRANCH BLOCK [120+ ms QRS DURATION, UPRIGHT V1, 40+ ms S IN I/aVL/V4/V5/V6] Compared to ECG 01/07/2020 18:42:18 Sinus rhythm no longer present Myocardial infarct finding no longer present Electronically Signed On 01-13-2020 20:56:36 CDT by Pasha Hawley M.D. [id number]
[2020-01-13 22:53] LABS: Troponin 5 2HR 17.22 ng/mL (0-15); Troponin 5 2HR Delta 2.22 ABS# (0-10)
[2020-01-13] MEDS: acetaminophen 325 mg Tablet 650 MG PO (23:50)
[2020-01-13] MEDS: LORazepam 2 mg/mL INJ 1 mL IM (23:51)
[2020-01-14] VITALS (16 sets, daily range): BP systolic 100–136; BP diastolic 59–81; PULSE 56–71; RESP 16–20; TEMP 36.8–37.4; O2SAT 89–96
[2020-01-14] MEDS: ipratropium-albuterol 3 mL Neb INHALATION ×7 (00:15→23:44)
[2020-01-14 02:43] LABS: Troponin 5 6HR 15.44 ng/mL (0-15); Troponin 5 6HR Delta 0.44 ng/L (0-12)
--- NOTE | 2020-01-14 05:28 | PM.PN ---
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 The patient reports that he is doing well from this standpoint. He has no c/o. He has had a PEG and Port placed. Vitals/I&O/Wt Last Vital Signs Temp 98.3 F 01/14/20 00:00 Pulse 65 01/14/20 04:47 Resp 18 01/14/20 04:29 BP 119/68 01/14/20 00:00 Pulse Ox 93 01/14/20 04:47 01/13/20 01/13/20 01/14/20 14:59 22:59 06:59 Intake Total 250 / 250 420 / 670 200 / 870 Output Total 450 / 450 Balance 250 / 250 -30 / 220 200 / 420 Physical Exam Const: COMMON NORMALS: no acute distress, average body habitus and patient oriented x3 GENERAL APPEARANCE: cooperative and comfortable HENMT: COMMON NORMALS: normocephalic, hearing grossly normal bilaterally, external ears normal and Normal external nose present HEAD & SCALP: normal to inspection and normocephalic FACE & SINUS: normal facial exam, sinuses nontender and face symmetric NOSE: Normal external nose present EXTERNAL EAR: Yes external ears normal Eye: COMMON NORMALS: conjunctivae normal and no scleral icterus GENERAL EYE: appearance normal, both eyes and all related structures CONJUNCTIVA: Yes conjunctivae normal Neck/C-Spine: COMMON NORMALS: full ROM and no lymphadenopathy OTHER: The trach site is clean and without erythema or induration. The anterior neck swelling has resolved. 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 - Continue current trach care as previously outlined: suction trach Q hour and prn; replace inner cannula daily; clean around trach with a White vinegar soaked Q tip QID; humidified air by trach shield - I will change the trach tomorrow - Anticipate discharge once #3 below has been arranged 2) Neck Swelling - now resolved 3) Social - The patient will need daily home health care visit for 10 days, a home suction unit, and home trach humidification unit Attestations Medical Necessity Statement*: I was consulted to manage the patient's airway/glottic tumor Coding Level of Care Code Acute Environmental Education Specialist for Loretta Mandujano
[2020-01-14 05:45] LABS: Basophils % 0.4 %; Eosinophils # 0.1 10^3/uL (0.0-0.8); Eosinophils % 0.8 %; Hematocrit 44.2 % (42.0-52.0); Hemoglobin 14.8 g/dL (11.7-16.6); Lymphocytes # 1.5 10^3/uL (0.8-4.8); Mean Corpuscular HGB Conc 33.5 g/dL (30.0-36.0); Mean Corpuscular Hemoglobin 34.1 pg (28.0-34.0); Mean Corpuscular Volume 101.8 fL (80-94); Mean Platelet Volume 10.2 fL (7.4-10.4); Monocytes # 0.7 10^3/uL (0.2-0.9); Neutrophils # 5.5 10^3/uL (1.8-7.7); Neutrophils % 69.9 %; Nucleated Red Blood Cells % 0 %; Platelet Count 164 10^3/cmm (130-400); Red Blood Count 4.34 10^6/uL (4.1-5.3); White Blood Count 7.9 10^3/uL (4.0-10.0)
[2020-01-14 05:59] LABS: Anion Gap 15.5 (5-19); Blood Urea Nitrogen 10 mg/dL (8-23); Calcium 9.3 mg/dL (8.5-10.5); Carbon Dioxide 24 mmol/L (22-29); Chloride 100 mmol/L (98-107); Glucose 90 mg/dL (65-115); Osmolality Calculated 278 mOsm/kg (285-295); Potassium 3.5 mmol/L (3.5-5.1); Sodium 136 mmol/L (136-145)
[2020-01-14] MEDS: finasteride 5 mg Tablet PO (08:58)
[2020-01-14] MEDS: multivitamin therapeutic Tablet 1 TAB PO (08:58)
[2020-01-14] MEDS: folic acid 1 mg Tablet PO (08:58)
[2020-01-14] MEDS: sulfamethoxazole-trimeth DS 160-800 mg Tablet 1 TAB PEG-TUBE ×2 (08:58→17:13)
[2020-01-14] MEDS: tamsulosin 0.4 mg Capsule PO (08:58)
[2020-01-14] MEDS: heparin 5,000 unit/mL INJ 1 mL 5000 UNIT SUBCUT ×2 (08:58→20:17)
--- NOTE | 2020-01-14 16:25 | PM.PN ---
Subjective Subjective: Interval history: Patient has been doing well denies any pain, tolerating tube feeds at 10 cc/h Vitals/I&O/Wt Last Vital Signs Temp 99.0 F 01/14/20 11:02 Pulse 68 01/14/20 16:00 Resp 20 H 01/14/20 16:00 BP 125/74 01/14/20 11:02 Pulse Ox 91 01/14/20 16:00 01/14/20 01/14/20 01/14/20 06:59 14:59 22:59 Intake Total 200 / 870 1000 / 1000 Output Total 425 / 425 Balance 200 / 420 575 / 575 Physical Exam Narrative: EXAM NARRATIVE: Left chest: Incision healing well, no cellulitis or hematoma Abdomen: Soft, minimally tender, PEG tube left upper quadrant Data : 01/14/20 05:13 01/14/20 05:13 A&P Assessment and plan (1) S/P percutaneous endoscopic gastrostomy (PEG) tube placement: Advance tube feed by 10 cc every 6 hours to goal of 40 cc/h. Status: Acute (2) Port-A-Cath in place: Okay to use Status: Acute Attestations Medical Necessity Statement*: Laryngeal cancer status post trach Coding Level of Care Code Acute Poker Prop Player for Chg Fwd Diagnoses S/P percutaneous endoscopic gastrostomy (PEG) tube placement Z93.1 Port-A-Cath in place Z95.828
--- NOTE | 2020-01-14 16:36 | PM.OP ---
Operative Report Date of procedure: January 12, 2020 Pre-op Diagnosis: Glottic mass with partial airway obstruction Post-op diagnosis: same Procedure Done: Placement of PowerPort in the left subclavian vein Fluoroscopic guidance and interpretation for placement of catheter Percutaneous endoscopic gastrostomy tube placement Pathology: none sent Surgeon: Gage Edmond Anesthesia: MAC Estimated blood loss (mL): 10 Condition: stable Disposition: PACU Procedure: The patient was taken to the Operating Room and the chest and neck bilaterally were prepped and draped in a sterile manner after the antibiotic had been administered and shoulder rolls had been placed. A total of 10 mL of 1% lidocaine with 0.5% Marcaine was infiltrated under the clavicle on the left side at the site of the planned entry into the subclavian vein. An introducer needle was then used to access the subclavian vein under the clavicle and after withdrawing blood syringe was removed and a guidewire passed under fluoroscopy into the superior vena cava. The site of the planned port was then marked on the chest and a 15 blade was used to make a 3 cm skin incision this was extended into the subcutaneous tissue using electrocautery and a subcutaneous pocket over the pectoralis fascia was created 2-0 Vicryl suture was used to suture the port to the pectoral fascia in the pocket on 3 sides. The catheter, after having been flushed with hep saline, was attached to the tunneler and a tunnel created between the port site and the subclavian vein entry site. Under fluoroscopy the dilator sheath was passed over the guidewire into the proximal superior vena cava. The inner dilator was removed and the sheath left behind and~ the catheter was introduced through the peel-away sheath with the tip in the superior vena cava. The peel-away sheath was removed. The proximal end of the catheter was cut to the right size and was attached to the port. Using a Crook needle the port was accessed, it withdrew blood easily and flushed easily. A final 5cc of heparin was used to flush the PowerPort. The subcutaneous tissue was approximated using interrupted 3-0 Vicryl sutures and the skin at the introducer site and the port site was closed using subcuticular running 4-0 Monocryl sutures. Surgical glue was applied and the patient was stable throughout the procedure. Fluoroscopic guidance and interpretation was performed for introduction of the guidewire in the left subclavian vein, passage of dilator and placement of catheter tip in the distal superior vena cava. The patient was taken to the Operating Room and was placed under monitored anesthesia care after antibiotic had been administered. A bite block was placed and Olympus gastroscope was introduced and advanced up to the stomach and the first portion of the duodenum. There were no abnormalities noted in the esophagus, stomach and duodenum. The site for the planned PEG was confirmed in the left upper quadrant with transillumination using gastroscope noted through the abdominal wall and indentation of the abdominal wall noted on the gastroscope. This site was marked, and total of 5 milliliters of 1% lidocaine was infiltrated. An 11-blade was used to make a stab incision. An introducer needle was passed through the abdominal wall into the gastric lumen and the needle removed and the needle removed and the sheath left behind. A guidewire was passed through the introducer needle into the gastric lumen and grasped with a snare attached to the gastroscope. The gastroscope was withdrawn along with the guidewire, which was attached to the 20-[place] [employer] EndoVive PEG tube. The guidewire was then pulled through the abdominal wall along with the PEG through the mouth into the gastric lumen until the inner disc was noted to stand against the gastric wall. The gastroscope was reintroduced to confirm good position. The outer disc was then attached and the two way valve was fixed to the PEG tube. The outer disc was noted to be at 4 centimeters at the skin level. Sterile dressing and abdominal binder was placed. The patient was stable throughout the procedure.
[2020-01-14] MEDS: pantoprazole DR 40 mg Tablet PO (16:51)
--- NOTE | 2020-01-14 17:54 | P.PN_ITS ---
Subjective Subjective: Interval history: His significant other is here today to learn about tracheostomy care. He states that his symptoms yesterday were secondary to heartburn. Reports that today things are much better, although still having mild heartburn. Vitals/I&O/Wt Last Vital Signs Temp 98.9 F 01/14/20 16:00 Pulse 69 01/14/20 16:00 Resp 18 01/14/20 16:00 BP 136/81 01/14/20 16:00 Pulse Ox 96 01/14/20 16:00 01/14/20 01/14/20 01/14/20 06:59 14:59 22:59 Intake Total 200 / 870 1000 / 1000 Output Total 425 / 425 Balance 200 / 420 575 / 575 Physical Exam Const: COMMON NORMALS: no acute distress and patient oriented x3 OTHER: Pale HENMT: COMMON NORMALS: oropharynx normal OTHER: Swelling of the right side of the neck. Tracheostomy in place. Neck/C-Spine: COMMON NORMALS: no JVD Chest: OTHER: Left chest port in place. Wound appears clean, no bleeding. Some bruising. Resp: COMMON NORMALS: normal respiratory effort and clear to auscultation bilaterally AUSCULTATION: clear to auscultation bilaterally Cardio: COMMON NORMALS: no JVD, regular rhythm, S1 normal heart sound present, S2 normal heart sound present and No murmurs present (Cardio) RHYTHM: regular rhythm HEART SOUNDS: S1 normal heart sound present and S2 normal heart sound present GI: COMMON NORMALS: Normal to inspection, nondistended, normoactive bowel sounds present, Soft to palpation and non-tender PALPATION: Yes Soft to palpation OTHER: Left upper abdomen PEG tube, receiving tube feeds Extremity: COMMON NORMALS: no joint enlargement GENERAL: Yes edema (1+ bilateral) Neuro: COMMON NORMALS: patient oriented x3 and moves all extremities Skin: OTHER: Chronic venous stasis dermatitis Data : 01/14/20 05:13 01/14/20 05:13 A&P Assessment and plan (1) Laryngeal mass: POD #6 after tracheostomy. Tomorrow tracheostomy to be exchanged, as well as with radiation oncology and oncology. Pathology with squamous cell carcinoma, moderately differentiated, T3 N0 M0 as per ENT. He will need home health set up, as well as equipment at home prior to discharge. Significant other is here today to learn tracheostomy care. PEG tube and left chest port placed 01/11. Discontinue IVF as he is now receiving PEG tube flushes, trophic feeds. Advance trophic feeds per surgery. Requested for project development engineer consultation if possible. Status: Acute (2) Chest pain: Troponin EKG not suggestive of acute PA. Sinus rhythm with PACs on EKG, no atrial fibrillation. This appears to have been secondary to heartburn. Add PPI. Status: Acute (3) Tracheostomy present: Neck swelling resolving. Lost IV yesterday, and after multiple attempts 1 could not be obtained, s ubsequently patient declined any additional attempts. Antibiotics transitioned to Bactrim. Has been on empiric antibiotics with cefepime and vancomycin due to concern for possible infection, although overall findings are somewhat equivocal for actual infection. Status: Acute (4) Acute exacerbation of chronic obstructive pulmonary disease: Reported resolved. Continue Jaziel Wright Status: Acute (5) Hyponatremia: Resolved. TSH and cortisol level normal. Likely secondary to alcohol intake. Status: Acute (6) Polycythemia: Secondary to tobacco use Status: Acute (7) Transaminitis: Most likely secondary to alcoholism. Hepatitis panel negative Status: Acute (8) Elevated troponin: Type II. No significant EKG changes. Patient without chest pain. Status: Acute (9) Hoarseness: Status: Acute (10) Alcoholism: CIWA protocol No evidence of withdrawal Status: Acute (11) Tobacco dependency: Counseled on abstinence Status: Acute (12) GERD (gastroesophageal reflux disease): Appears his chest discomfort from yesterday was secondary to heartburn. Significant other states he has been having some on and off heartburn for a while. We will add PPI. Status: Acute Additional A&P Information Mild thrombocytopenia: Better. Monitor. History of BPH, continue meds Full code Heparin for DVT prophylaxis Attestations Medical Necessity Statement*: Continue admission for postoperative management of tracheostomy, PEG tube, and discharge planning for further care with regards to squamous cell laryngeal cancer. Coding Level of Care Code Acute Box Strapper for Chg Fwd Diagnoses Laryngeal mass J38.7 Chest pain R07.9 Tracheostomy present Z93.0 Acute exacerbation of chronic obstructive pulmonary disease J44.1 Hyponatremia E87.1 Polycythemia D75.1 Transaminitis R74.0 Elevated troponin R79.89 Hoarseness R49.0 Alcoholism F10.20 Tobacco dependency F17.200 GERD (gastroesophageal reflux disease) K21.9
[2020-01-14] MEDS: acetaminophen 325 mg Tablet 650 MG PO (23:45)
[2020-01-15] VITALS (15 sets, daily range): BP systolic 100–126; BP diastolic 61–78; PULSE 60–81; RESP 16–24; TEMP 36.4–37.4; O2SAT 90–96
[2020-01-15] MEDS: LORazepam 2 mg Tablet PO (01:45)
[2020-01-15] MEDS: HYDROcodone-acetaminophen 5-325 mg Tablet 1 TAB PO ×2 (03:50→13:39)
[2020-01-15] MEDS: ipratropium-albuterol 3 mL Neb INHALATION ×5 (04:40→19:18)
--- NOTE | 2020-01-15 05:34 | PM.PN ---
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 The patient is without c/o this morning from this standpoint. Vitals/I&O/Wt Last Vital Signs Temp 99.3 F 01/15/20 00:00 Pulse 63 01/15/20 04:47 Resp 19 H 01/15/20 04:40 BP 108/63 01/15/20 00:00 Pulse Ox 93 01/15/20 04:47 01/14/20 01/14/20 01/15/20 14:59 22:59 06:59 Intake Total 1000 / 1000 60 / 1060 Output Total 425 / 425 0 / 425 400 / 825 Balance 575 / 575 60 / 635 -400 / 235 Physical Exam Const: COMMON NORMALS: no acute distress, average body habitus and patient oriented x3 GENERAL APPEARANCE: cooperative and comfortable HENMT: COMMON NORMALS: normocephalic, atraumatic, hearing grossly normal bilaterally, external ears normal and Normal nasal mucous membranes and turbinates present HEAD & SCALP: normocephalic and atraumatic FACE & SINUS: normal facial exam NOSE: Normal nasal mucous membranes and turbinates present EXTERNAL EAR: Yes external ears normal Eye: COMMON NORMALS: conjunctivae normal and no scleral icterus CONJUNCTIVA: Yes conjunctivae normal Neck/C-Spine: COMMON NORMALS: full ROM and no lymphadenopathy GENERAL: Yes normal visual inspection and Yes trachea midline OTHER: The trach is in place. There is no periincisional erythema or swelling. The anterior neck swelling has resolved. Neuro: COMMON NORMALS: patient oriented x3 Data : 01/14/20 05:13 01/14/20 05:13 A&P Additional A&P Information Impression/Plan: 1) POD #7 s/p Tracheotomy/SCCA of the Glottis - Trach supplies not available this morning - I will return this afternoon to change the patient's trach - Consider PET scan of the patient to further evaluate/stage his glottic SCCA - I will arrange for Heme/Radiation/Surgical Oncology Evaluations after discharge 2) Neck Swelling - Resolved - I recommend that the patient complete 10 days of antibiotics 3) Social - I will contact the [facility] today to assess the status of his discharge planning Attestations Medical Necessity Statement*: I was consulted to manage the patient's airway and glottic tumor Coding Level of Care Code Acute Managed Care Specialist for Loretta Mandujano
[2020-01-15 05:48] LABS: Basophils % 0.3 %; Eosinophils # 0.1 10^3/uL (0.0-0.8); Eosinophils % 1.3 %; Hematocrit 40.9 % (42.0-52.0); Hemoglobin 13.8 g/dL (11.7-16.6); Lymphocytes % 16.9 %; Mean Corpuscular HGB Conc 33.7 g/dL (30.0-36.0); Mean Corpuscular Hemoglobin 34.1 pg (28.0-34.0); Mean Platelet Volume 9.6 fL (7.4-10.4); Monocytes # 0.5 10^3/uL (0.2-0.9); Monocytes % 8.3 %; Neutrophils # 4.4 10^3/uL (1.8-7.7); Neutrophils % 72.5 %; Nucleated Red Blood Cells % 0 %; Platelet Count 148 10^3/cmm (130-400); Red Blood Count 4.05 10^6/uL (4.1-5.3)
[2020-01-15 06:05] LABS: Anion Gap 14.2 (5-19); Blood Urea Nitrogen 8 mg/dL (8-23); Calcium 8.4 mg/dL (8.5-10.5); Carbon Dioxide 26 mmol/L (22-29); Chloride 99 mmol/L (98-107); Glucose 158 mg/dL (65-115); Osmolality Calculated 281 mOsm/kg (285-295); Potassium 3.2 mmol/L (3.5-5.1); Sodium 136 mmol/L (136-145)
[2020-01-15] MEDS: multivitamin therapeutic Tablet 1 TAB PO (08:39)
[2020-01-15] MEDS: folic acid 1 mg Tablet PO (08:39)
[2020-01-15] MEDS: tamsulosin 0.4 mg Capsule PO (08:39)
[2020-01-15] MEDS: pantoprazole DR 40 mg Tablet PO (08:39)
[2020-01-15] MEDS: heparin 5,000 unit/mL INJ 1 mL 5000 UNIT SUBCUT ×2 (08:39→21:06)
[2020-01-15] MEDS: finasteride 5 mg Tablet PO (08:39)
[2020-01-15] MEDS: sulfamethoxazole-trimeth DS 160-800 mg Tablet 1 TAB PEG-TUBE ×2 (08:39→17:27)
[2020-01-15] MEDS: potassium chloride oral liq 20 mEq/15 mL UDC PEG-TUBE ×2 (08:42→11:35)
--- NOTE | 2020-01-15 17:52 | P.PN_ITS ---
Subjective Subjective: Interval history: 74 yo wm who is POD #7 s/p Tracheotomy. He is without c/o this afternoon. Vitals/I&O/Wt Last Vital Signs Temp 97.5 F L 01/15/20 15:10 Pulse 81 01/15/20 15:40 Resp 18 01/15/20 15:39 BP 119/75 01/15/20 15:10 Pulse Ox 95 01/15/20 15:39 01/15/20 01/15/20 01/15/20 06:59 14:59 22:59 Intake Total 80 / 1140 487 / 487 337 / 824 Output Total 400 / 825 925 / 925 Balance -320 / 315 -438 / -438 337 / -101 Physical Exam Neck/C-Spine: COMMON NORMALS: no lymphadenopathy and supple OTHER: Trach site clean and without erythema or induration. Data : 01/15/20 05:34 01/15/20 05:34 A&P Additional A&P Information Impression/Plan: 1) POD #7 s/p Tracheotomy for an obstructing SCCA of the glottic larynx - First trach change performed - Continue trach care - The patient is to f/u in my office next week - I will sign off of his inpatient care at this point and will follow the patient as an outpatient from this point on. Please contact me for any problems. 2) Neck Swelling: - I recommend that he complete 10 days of Septra - I will reevaluate next week as an outpatient 3) Social - The patient may be discharged from my standpoint once medically stable, Home health care and Home suction/humidification equipment is available, and his spouse has been instructed in trach care and emergency treatment Attestations Medical Necessity Statement*: I was consulted to manage the patient's airway and glottic mass. Procedures Procedure Narrative First Trach Change: verbal informed consent was obtained; the old trach was removed and was replaced with a #8 Shiley, Fenestrated, Uncuffed trach; the patient tolerated the procedure well, and there were no complications. Coding Level of Care Code Acute Typesetter Perforator Operator for Loretta Mandujano
--- NOTE | 2020-01-15 19:15 | PM.PN ---
Subjective Subjective: Interval history: Today's feeling well. Heartburn is better. Denies any pain states his breathing is comfortable. Vitals/I&O/Wt Last Vital Signs Temp 97.5 F L 01/15/20 15:10 Pulse 81 01/15/20 15:40 Resp 18 01/15/20 15:39 BP 119/75 01/15/20 15:10 Pulse Ox 95 01/15/20 15:39 01/15/20 01/15/20 01/15/20 06:59 14:59 22:59 Intake Total 80 / 1140 487 / 487 337 / 824 Output Total 400 / 825 925 / 925 Balance -320 / 315 -438 / -438 337 / -101 Physical Exam Const: COMMON NORMALS: no acute distress and patient oriented x3 OTHER: Pale HENMT: COMMON NORMALS: oropharynx normal OTHER: Swelling of the right side of the neck. Tracheostomy in place. Neck/C-Spine: COMMON NORMALS: no JVD Chest: OTHER: Left chest port in place. Wound appears clean, no bleeding. Some bruising. Resp: COMMON NORMALS: normal respiratory effort and clear to auscultation bilaterally AUSCULTATION: clear to auscultation bilaterally Cardio: COMMON NORMALS: no JVD, regular rhythm, S1 normal heart sound present, S2 normal heart sound present and No murmurs present (Cardio) RHYTHM: regular rhythm HEART SOUNDS: S1 normal heart sound present and S2 normal heart sound present GI: COMMON NORMALS: Normal to inspection, nondistended, normoactive bowel sounds present, Soft to palpation and non-tender PALPATION: Yes Soft to palpation OTHER: Left upper abdomen PEG tube, receiving tube feeds Extremity: COMMON NORMALS: no joint enlargement GENERAL: Yes edema (1+ bilateral) Neuro: COMMON NORMALS: patient oriented x3 and moves all extremities Skin: OTHER: Chronic venous stasis dermatitis Data : 01/15/20 05:34 01/15/20 05:34 A&P Assessment and plan (1) Laryngeal mass: Underwent first tracheostomy change this evening. Pending suction/modification equipment to be delivered to his home. Pending dietitian recommendations. Plan for discharge as soon as these are completed. Follow-up with ENT, oncology, radiation oncology in office. POD #7 after tracheostomy. Tomorrow tracheostomy to be exchanged, as well as with radiation oncology and oncology. Pathology with squamous cell carcinoma, moderately differentiated, T3 N0 M0 as per ENT. PEG tube and left chest port placed 01/11. Discontinue IVF as he is now receiving PEG tube flushes, trophic feeds. Status: Acute (2) Chest pain: Resolved. Troponin EKG not suggestive of acute NC. Sinus rhythm with PACs on EKG, no atrial fibrillation. This appears to have been secondary to heartburn. PPI. Status: Acute (3) Tracheostomy present: Neck swelling resolving. Complete 10 days of Bactrim as per ENT recommendation. Has been on empiric antibiotics with cefepime and vancomycin due to concern for possible infection, although overall findings are somewhat equivocal for actual infection. Status: Acute (4) Acute exacerbation of chronic obstructive pulmonary disease: Reported resolved. Continue Jaziel Wright Status: Acute (5) Hyponatremia: Resolved. TSH and cortisol level normal. Likely secondary to alcohol intake. Status: Acute (6) Polycythemia: Secondary to tobacco use Status: Acute (7) Transaminitis: Most likely secondary to alcoholism. Hepatitis panel negative Status: Acute (8) Elevated troponin: Type II. No significant EKG changes. Patient without chest pain. Status: Acute (9) Hoarseness: Status: Acute (10) Alcoholism: CIWA protocol No evidence of withdrawal Status: Acute (11) Tobacco dependency: Counseled on abstinence Status: Acute (12) GERD (gastroesophageal reflux disease): Appears his chest discomfort from yesterday was secondary to heartburn. Significant other states he has been having some on and off heartburn for a while. We will add PPI. Status: Acute Additional A&P Information Mild thrombocytopenia: Better. Monitor. History of BPH, continue meds Full code Heparin for DVT prophylaxis Attestations Medical Necessity Statement*: Continue admission pending discharge arrangements of required equipment, tube feeds, home health care. Coding Level of Care Code Acute Heavy Equipment Rental Manager for Chg Fwd Diagnoses Laryngeal mass J38.7 Chest pain R07.9 Tracheostomy present Z93.0 Acute exacerbation of chronic obstructive pulmonary disease J44.1 Hyponatremia E87.1 Polycythemia D75.1 Transaminitis R74.0 Elevated troponin R79.89 Hoarseness R49.0 Alcoholism F10.20 Tobacco dependency F17.200 GERD (gastroesophageal reflux disease) K21.9
[2020-01-16] VITALS (14 sets, daily range): BP systolic 94–122; BP diastolic 58–77; PULSE 60–86; RESP 16–20; TEMP 37–37.3; O2SAT 86–96
[2020-01-16] MEDS: ipratropium-albuterol 3 mL Neb INHALATION ×5 (00:02→16:13)
--- NOTE | 2020-01-16 03:44 | PC.NURSE ---
During Pt rounding nurse noticed that Pt's left foot had edema, upon assessment 3+ pitting edema was found, Pt states that this has been happening the last three days. Refused to have it propped up.
--- NOTE | 2020-01-16 08:40 | PC.NUTR ---
NUTR TF RECOMMENDATIONS: Jevity on a continuous feed with goal rate of 60 ml/hr providing 1728 kcal (98%), 79 g PRO (81%), and 1162 ml fluid (66%)(%NEEDS). Suggest starting TF at 30 ml/hr and increase by 10 ml Q6H as tolerated till goal rate is met. Suggest 80 ml H2O flushes Q4H to approach fluid needs or per physician. BOLUS FEEDS: 6 cans daily total. 3 feedings per day, 3/4 cup H2O flushes after each feed.
[2020-01-16] MEDS: heparin 5,000 unit/mL INJ 1 mL 5000 UNIT SUBCUT (08:57)
--- NOTE | 2020-01-16 08:57 | P.PN_ITS ---
Subjective Subjective: Interval history: Patient has been doing well denies any pain, tolerating tube feeds at 40 cc an hour Vitals/I&O/Wt Last Vital Signs Temp 98.6 F 01/16/20 07:17 Pulse 82 01/16/20 08:15 Resp 20 H 01/16/20 08:15 BP 100/60 01/16/20 07:17 Pulse Ox 93 01/16/20 08:15 01/15/20 01/16/20 01/16/20 22:59 06:59 14:59 Intake Total 337 / 1339 515 / 1339 Output Total 250 / 1550 375 / 1550 Balance 87 / -211 140 / -211 Physical Exam Narrative: EXAM NARRATIVE: Abdomen: Soft, nondistended, nontender, PEG tube in the left upper quadrant Data : 01/15/20 05:34 01/15/20 05:34 A&P Assessment and plan (1) S/P percutaneous endoscopic gastrostomy (PEG) tube placement: Doing well Transition to bolus feed in 10 days No follow-up needed Added liquid Colace 100 mg p.o. twice daily Status: Acute Attestations Medical Necessity Statement*: PEG tube placement Coding Level of Care Code Acute Undercoater for Chg Fwd Diagnoses S/P percutaneous endoscopic gastrostomy (PEG) tube placement Z93.1
[2020-01-16] MEDS: multivitamin therapeutic Tablet 1 TAB PO (09:00)
[2020-01-16] MEDS: tamsulosin 0.4 mg Capsule PO (09:00)
[2020-01-16] MEDS: pantoprazole DR 40 mg Tablet PO (09:00)
[2020-01-16] MEDS: finasteride 5 mg Tablet PO (09:00)
[2020-01-16] MEDS: sulfamethoxazole-trimeth DS 160-800 mg Tablet 1 TAB PEG-TUBE ×2 (09:01→17:08)
[2020-01-16] MEDS: folic acid 1 mg Tablet PO (09:01)
--- NOTE | 2020-01-16 12:00 | PC.SOCIAL ---
IMM Page 2 of IMM updated and given to patient. Initialed, dated, and timed and placed back in chart.
[2020-01-16 15:07] LABS: Potassium 3.3 mmol/L (3.5-5.1)
[2020-01-16] MEDS: potassium chloride oral liq 20 mEq/15 mL UDC 40 MEQ PEG-TUBE (17:09)
--- NOTE | 2020-01-16 21:27 | PC.NURSE ---
Pt left via ambulance after discharge instructions given. Belongings taken with patient. Family called. Respiratory called up to discuss tracheostomy care with patient. No further needs from patient. Gillian FARMER
--- NOTE | 2020-01-16 21:56 | PM.DCS ---
Discharge Providers Date of Admission: 01/07/20 16:14 Date of Discharge: January 16, 2020 Attending Provider at Admission: Brice Pa MD Attending Provider at Discharge: Ashutosh Engle Primary Care Provider: Elio Bobby Diagnoses at Discharge Discharge Diagnosis (1) S/P percutaneous endoscopic gastrostomy (PEG) tube placement: Status: Acute Reason for Visit Reason for Visit: Reason For Visit: SOB COUGH Hospital Course Hospital Course: Pleasant 74-year-old gentleman with history of COPD, tobacco dependence, alcoholism was admitted for assessment management after presenting with 3 months of worsening shortness of breath and dysphonia. Initially with COPD distribution for which he received treatment with antibiotic, breathing treatments, hyponatremia thought to be secondary to alcohol intake, polycythemia secondary to tobacco use. He was monitored for alcohol withdrawal. 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 He underwent [employer] laryngoscopy with biopsy of bilateral vocal cords and tracheostomy by ENT. PEG tube and left chest port were placed by general surgery. Due to neck swelling and concern for soft tissue neck infection antibiotic was changed to vancomycin and cefepime, and subsequently transitioned to Bactrim which he should complete 10 days total per ENT recommendation. On postop day 7 tracheostomy was changed. He has been initiated on tube feeds which she has been tolerating well. After 10 days of continuous feeds he may transition to bolus feeding with targets as outlined below and instructions. He was counseled on smoking cessation. He had no evidence of alcohol withdrawal, and received supplementation with vitamins. He has had some chest discomfort episodes in the hospital, although x-ray and troponin EKG series were both unremarkable, and it appears symptoms were due to heartburn. He continues on PPI. Additional evaluation by upper endoscopy may need to be considered given smoking history in case of persistent dyspepsia. 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 He will need to follow-up with ENT, oncology, radiation oncology. Follow-up with general surgery only on as-needed basis. On day of discharge she is feeling well, very eager to return home, significant other has been educated on tracheostomy care, and equipment for suctioning, humidification, oxygen, tube feeding pump, along with home health services have been set up. All questions answered. Patient verbalized understanding and agreement with plan of care. Physical Exam Const: COMMON NORMALS: no acute distress and patient oriented x3 OTHER: Pale. Today more energetic, in better spirits. Denies any complaints. HENMT: COMMON NORMALS: oropharynx normal OTHER: Swelling of the right side of the neck almost entirely resolved. Tracheostomy in place. Neck/C-Spine: COMMON NORMALS: no JVD Chest: OTHER: Left chest port in place. Wound appears clean, no bleeding. Some bruising. Resp: COMMON NORMALS: normal respiratory effort and clear to auscultation bilaterally AUSCULTATION: clear to auscultation bilaterally Cardio: COMMON NORMALS: no JVD, regular rhythm, S1 normal heart sound present, S2 normal heart sound present and No murmurs present (Cardio) RHYTHM: regular rhythm HEART SOUNDS: S1 normal heart sound present and S2 normal heart sound present GI: COMMON NORMALS: Normal to inspection, nondistended, normoactive bowel sounds present, Soft to palpation and non-tender PALPATION: Yes Soft to palpation OTHER: Left upper abdomen PEG tube, receiving tube feeds Extremity: COMMON NORMALS: no joint enlargement GENERAL: Yes edema (1+ bilateral) Neuro: COMMON NORMALS: patient oriented x3 and moves all extremities Skin: OTHER: Chronic venous stasis dermatitis Discharge Data Data Completed and Pending: Completed Studies During Hospitalization Category Date Time Status CT chest wo con 7 1250 Urgent Cat Scan 01/07/20 16:[address] neck wo con 70 490 Urgent Cat Scan 01/07/20 16:34 Completed XR chest 1V conrad ble [id number] Routine Exams 01/12/20 19:19 Completed XR chest 1V conrad ble [id number] Urgent Exams 01/07/20 13:09 Completed Pathology: Surgic al [PTH] Routine Pth 01/08/20 19:24 Completed Pending at discharge Category Date Time Status ES surgery / GI i mages Routine Exams 01/08/20 16:20 Ordered Labs from last 24 hours 01/16/20 14:39 Potassium 3.3 L Vitals: Last Vital Signs Temp 99.2 F 01/16/20 15:49 Pulse 70 01/16/20 17:02 Resp 18 01/16/20 16:16 BP 94/58 01/16/20 15:49 Pulse Ox 93 01/16/20 16:16 Discharge Plan Discharge Patient Disposition: Home Health Service Condition: Stable Prescriptions: New sulfamethoxazole-trimethoprim 800-160 mg Tablet 1 tab peg-tube BID Qty: 12 RF: 0 folic acid 1 mg Tablet 1 mg feeding tube DAILY Qty: 30 RF: 0 thiamine HCl (vitamin B1) 100 mg tablet 100 mg feeding tube DAILY Qty: 30 RF: 0 Docu 50 mg/5 mL Liquid 100 mg feeding tube BID Qty: 473 RF: 0 pantoprazole 40 mg Tablet,Delayed Release (Dr/Ec) 40 mg PO DAILY Qty: 30 RF: 0 Continued Vitamin B-12 100 mcg Tablet 100 mcg PO DAILY RF: 0 cetirizine 10 mg Tablet 10 mg PO DAILY RF: 0 Vitamin B-1 100 mg Tablet 100 mg PO DAILY RF: 0 Flomax 0.4 mg Capsule 0.4 mg PO DAILY RF: 0 vitamin B complex [B-Complex] Tablet 1 tab PO DAILY RF: 0 Lasix 20 mg Tablet 20 mg PO DAILY RF: 0 albuterol sulfate 90 mcg/actuation Hfa Aerosol Inhaler 1 puff INHALATION QID PRN (Reason: Shortness Of Breath) RF: 0 finasteride 5 mg Tablet 5 mg PO DAILY RF: 0 guaifenesin 400 mg Tablet 400 mg PO Q4H PRN (Reason: Congestion) RF: 0 potassium chloride 20 mEq Tablet Extended Release 20 meq PO BID RF: 0 cyanocobalamin (vitamin B-12) 1,000 mcg Capsule 1,000 mcg PO DAILY RF: 0 Discharge Orders: Discharge Order (Routine); Ordered 01/16/20 Ordered By: Ashutosh Engle Other Ambulatory Orders: DME: Miscellaneous (Order) Location: None Selected Ordered By: Wes Wheat DME: Miscellaneous (Order) Location: None Selected Ordered By: Ashutosh Engle DME: Oxygen (Order) Location: None Selected Ordered By: Ashutosh Engle Referrals: Radiotion, oncology [Other] - 4-7 days (Please call Sunday to set up a follow up appointment ) [facility] [Other] (This is your home health company. They have a nurse on-call 19/03 that can assist with questions or problems. Please call them at the phone number provided if you have any questions.) [employer] [Other] (This is the company that is providing the tube feedings and pump. If you have any problems with your tube feedings, please call the number provided.) [facility] [employer] [Other] (This is the company that has provided the oxygen and trach supplies. Please call them if you have any problems with these items at the number provided.) [facility] Case Management Department [Other] ([phone]. Please call [facility] Case Management if you have any problems with equipment, supplies, tube feedings, ect. and are unable to reach your home health nurse.) [facility] [Provider Group] - 4-7 days (Please call Sunday to set up a follow up appointment) Elio Bobby [Primary Care Provider] - 4-7 days (Please call Sunday to set up a follow up appointment ) Wes Wheat MD [Physician] - 01/22/20 9:45 am Reji Erickson MD [Hospitalist] - 4-7 days (Please call Sunday to set up a follow up appointment) Discharge Diet: Start new tube feeds as directed Discharge Activity: Increase activity as tolerated and Oxygen as instructed Patient Instructions: Sulfamethoxazole/Trimethoprim (By mouth), Thiamine (Vitamin B-1) (By mouth), Folic Acid (By mouth), Laxative, Stool Softeners (By mouth), Pantoprazole (By mouth), Tracheostomy Care (DC), How to Use and Care for Your PEG Tube (DC), Using Oxygen at Home (DC), Chronic Obstructive Pulmonary Disease (DC), Tube Feeding (DC) Activity Restrictions/Additional Instructions: For now continuous tube feeds per surgery due to new feeding tube. Starting Jevity feeds at 30 ml/hr by pump and increase by 10 ml every 6 hours as tolerated until goal rate of 60 ml/hr is met. With additional 80 ml water flushes every 4 hours. Transition to bolus feed in 10 days. Instead of continuous, bolus feeds will consist of 3 feedings per day of 2 cans, with 3/4 cup H2O flushes after each feed. Hold colace if develop diarrhea. Follow up with Dr Edmond in office only if needed. Maintain tracheostomy care as taught by respiratory therapy and Dr Wheat. Call Dr. Stark's office in case encountering any issues. Suction trach every hour and as needed; replace inner cannula daily; clean around trach with a white vinegar soaked Q-tip 4 times a day; continue humidified air by trach shield. Continue oxygen at 2 liters or 28%. Make sure to follow-up with Dr. Stark, as well as your primary care doctor, oncology and radiation oncology providers. Please abstain from any alcohol. Please stop smoking. 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
== END 2020-01-16 19:30 | disposition home health service (06) | DRG 982 ==
LOC: ER 16:53 → MEDSURG 17:39 → ICU 01-08 19:41 → MEDSURG 01-11 11:54
PROVIDERS: Emergency Medicine; Physician Assistant; Specialist; Surgery; Admitting Provider Internal Medicine; PCP Internal Medicine; Visit Provider Internal Medicine
PROC: 0B9 Respiratory System, Drainage (ICD-10-PCS; principal; 2020-01-08 18:00)
PROC: 0CJS8ZZ Inspection of Larynx, Via Natural or Artificial Opening Endoscopic (ICD-10-PCS; 2020-01-08 18:00)
PROC: 0DH63UZ Insertion of Feeding Device into Stomach, Percutaneous Approach (ICD-10-PCS; principal; 2020-01-12 14:10)
PROC: 0DH63UZ Insertion of Feeding Device into Stomach, Percutaneous Approach (ICD-10-PCS; CPT 43246; 2020-01-12 14:10)
DX: C32.3 Malignant neoplasm of laryngeal cartilage (principal); J44.1 Chronic obstructive pulmonary disease with (acute) exacerbation; E87.1 Hypo-osmolality and hyponatremia; D69.6 Thrombocytopenia, unspecified; D75.1 Secondary polycythemia; F17.210 Nicotine dependence, cigarettes, uncomplicated; F10.20 Alcohol dependence, uncomplicated; K21.9 Gastro-esophageal reflux disease without esophagitis; N40.0 Benign prostatic hyperplasia without lower urinary tract symptoms
CPT/HCPCS: 12345; 36415; 36600; 43246; 70490; 71045; 71250; 77001; 80048; 80051; 80053; 80074; 80202; 81001; 82533; 82810; 83605; 83880; 83986; 84132; 84443; 84484; 85025; 88305; 92524; 92610; 93005; 94002; 94640; 94799; 96372; 96374; 96375; 99281; C1788; J0171; J0692; J1644; J1650; J2001; J2060; J2250; J2270; J2370; J2405; J2704; J2710; J2930; J3010; J3370; J3411; J3480; J3490; J7030; J7050; J7512; J7799

== ENCOUNTER 2020-01-23 21:53 | Emergency (ER) | payer OTHER, SELFPAY ==
[2020-01-23 21:53] VITALS: O2SAT 96
[2020-01-23 21:54] VITALS: BP 127/52; PULSE 62; RESP 22; TEMP 36.7; O2SAT 93; BMI 27.1
--- NOTE | 2020-01-23 21:57 | XRR_ITS ---
PROCEDURE INFORMATION: Exam: XR Chest, 1 View Exam date and time: 01/23/2020 10:13 PM Age: 74 years old Clinical indication: Cough; Prior surgery; Surgery type: Port TECHNIQUE: Imaging protocol: XR of the chest Views: 1 view. COMPARISON: CR XR chest 1V portable [id number] 01/12/2020 7:41 PM FINDINGS: Tubes, catheters and devices: Tracheostomy tube and med port catheter again demonstrated. Lungs: Interstitial prominence and chronic granulomatous disease. Interval resolution of basilar airspace disease. Pleural space: No pleural effusion. Heart/Mediastinum: Borderline cardiomegaly. Vasculature: Ectasia of the thoracic aorta. Bones/joints: Osteopenia and mild degenerative change. XR/XR chest 1V portable [id number] IMPRESSION: Interval resolution of basilar airspace disease.
--- NOTE | 2020-01-23 22:01 | ED_ITS ---
HPI - General Adult General: Chief complaint: General Medical Stated complaint: TRACHEA ISSUES POSSIBLE CLOGGED Time Seen by Provider: 01/23/20 21:54 History of Present Illness: HPI narrative: Mr. Gaines is a 74-year-old male who comes from home complaining that he feels his trach is clogged. He had this placed secondary to a laryngeal mass. It was placed by Dr. Wheat. Patient feels like his secretions are too thick and he cannot get them out. He denies any fevers or chills. He is not having any chest pain. Patient is a limited historian secondary to him having a trach in place and he cannot speak. He is not in any distress at this time. Associated symptoms: Deny chest pain, confusion, diaphoresis, dyspnea, headache(s), malaise, nausea, rash, palpitations, syncope or vomiting Review of Systems Const: Denies: fever(s), chills, body aches, fatigue, malaise or diaphoresis Eyes: Denies: change in vision, blurry vision, blind spots or photophobia ENMT: Denies: throat pain, odynophagia, hoarseness, swelling of lips/tongue, ear or mastoid pain, ear discharge, change in hearing or nasal discharge Card: Denies: chest pain, palpitations, irregular heart rhythm, edema, lightheadedness, syncope, pre-syncope, dyspnea on exertion or orthopnea Resp: Reports: non-productive cough and wheezing; Denies: dyspnea, productive cough, hemoptysis or chest congestion GI: Denies: abdominal pain, nausea, vomiting, hematemesis, coffee ground emesis, heartburn, diarrhea, constipation, GI cramping, hematochezia or melena : Denies: flank pain, dysuria, urinary frequency, urinary urgency or hematuria Musc: Denies: neck pain, back pain, extremity pain, extremity swelling, joint pain, joint swelling, joint redness, joint warmth or joint stiffness Skin/Breast: Denies: rash, pruritus, erythema, skin tenderness or jaundice Neuro: Denies: headache(s), numbness in extremities, weakness in extremities, sensory changes, lack of coordination, difficulty walking, dizziness, vertigo, confusion or Slurred speech present Martin/Lymph: Denies: easy bruising, easy bleeding, petechiae, purpura or enlarged lymph nodes All/Imm: Denies: urticaria, throat swelling, tongue swelling, facial swelling or acute wheezing PFSH ED PFSH: Medical History Alcoholism BPH (benign prostatic hyperplasia) COPD (chronic obstructive pulmonary disease) Laryngeal mass Port-A-Cath in place Surgical History History of ankle surgery History of hernia surgery S/P percutaneous endoscopic gastrostomy (PEG) tube placement Status post tracheostomy Family History Other CAD (coronary artery disease) Social History Smoking and tobacco status: former smoker Quit status (tobacco): considering quitting Alcohol intake: current Alcohol intake frequency: 3 or more drinks per day Physical Exam Const: COMMON NORMALS: no acute distress, patient oriented x3, no limitations, healthy appearing and well nourished GENERAL APPEARANCE: cooperative, well kempt and well developed HENMT: COMMON NORMALS: normocephalic, atraumatic, hearing grossly normal bilaterally, external ears normal, EAC's normal, Normal external nose present and moist oral mucous membranes HEAD & SCALP: normocephalic and atraumatic NOSE: Normal external nose present and Normal nares present EXTERNAL EAR: Yes external ears normal EXTERNAL AUDITORY CANAL: EAC's normal MOUTH: Normal oral and palatal mucosa present, lip normal and tongue normal Eye: COMMON NORMALS: Equal, round and reactive pupils present, EOMs intact bilaterally, conjunctivae normal and no scleral icterus GENERAL EYE: appearance normal, both eyes and all related structures ALIGNMENT: Yes alignment normal PERIORBITAL: periorbital findings normal EYELID: eyelids normal CONJUNCTIVA: Yes conjunctivae normal SCLERA: sclerae normal PUPIL: Yes Equal, round and reactive pupils present Neck/C-Spine: COMMON NORMALS: full ROM, no lymphadenopathy, supple, no meningeal signs and no JVD GENERAL: Yes normal visual inspection, Yes trachea midline and Yes other (Tracheostomy tube slightly pushed out of the trachea. Significant resistance when trying to place it back in normal position.) Chest: COMMONS NORMALS: normal inspection of the chest and normal palpation of entire chest wall Resp: COMMON NORMALS: normal respiratory effort, No retractions, No use of accessory muscles and clear to auscultation bilaterally EFFORT & INSPECTION: Yes symmetric chest movement AUSCULTATION: clear to auscultation bilaterally, no crackles, no rales, rhonchi and wheezes Cardio: COMMON NORMALS: no JVD, regular rate, regular rhythm, S1 normal heart sound present, S2 normal heart sound present, No gallops present (Cardio), No clicks present (Cardio), No murmurs present (Cardio) and No rub (Cardio) RATE: regular rate RHYTHM: regular rhythm HEART SOUNDS: S1 normal heart sound present and S2 normal heart sound present GI: COMMON NORMALS: Soft to palpation and No hepatosplenomegaly present PALPATION: Yes Soft to palpation, No Tenderness to palpation present (GI), No Guarding due to palpation present (GI), No Rigid due to palpation, Yes No hepatosplenomegaly present, No Hernia present, No Palpable mass present and No Pulsatile mass present : COMMON NORMALS: Yes no CVA tenderness BLADDER/KIDNEY EXAM: Yes no CVA tenderness Back/Pelvis: COMMON NORMALS: no CVA tenderness, thoracic and lumbar spine normal to inspection, no thoracic nor lumbar tenderness and thoraco-lumbar ROM normal Extremity: COMMON NORMALS: normal to inspection, full ROM, capillary refill normal, no joint enlargement, no clubbing, cyanosis or edema and no calf tenderness Neuro: COMMON NORMALS: patient oriented x3, CN's II-XII intact bilaterally, moves all extremities, no focal motor deficits and no sensory deficits noted MENINGEAL SIGNS: Yes no meningeal signs SPEECH: speech normal Psych: COMMON NORMALS: mental status grossly normal, Normal thought process present, cooperative, normal affect, speech normal and activity/motor behavior normal APPEARANCE: Yes well kempt SPEECH: Yes normal speech THOUGHT PROCESS: Normal thought process present Skin: COMMON NORMALS: no rashes or lesions noted, turgor normal, no jaundice, no petechiae and no mottling GENERAL SKIN EXAM: no rashes or lesions noted and turgor normal Course Vital Signs: Vital signs: Vital Signs Temperature 98.1 F 01/23/20 21:54 Pulse Rate 74 01/24/20 00:56 Respiratory Rate 18 01/24/20 00:56 Blood Pressure 127/52 01/23/20 21:54 Pulse Oximetry 91 01/24/20 00:56 MDM - General Adult MDM Narrative: Medical decision making narrative: Respiratory is been unable to place the tracheostomy tube back in a proper position. Dr. Stark was contacted and consulted to come and on the second attempt with a scope he was able to secure that in place. The patient is feeling much better now wants to go home. His chest x-ray and labs are unremarkable. I will go ahead and discharge him home and he will follow-up per Dr. Stark's instructions. Lab Data: Attestation: I reviewed the patient's lab results. Labs: Lab Results 01/23/20 01/23/20 01/23/20 Range/Units 22:21 22:21 23:06 WBC 8.5 (4.0-10.0) 10^3/ uL RBC 4.41 (4.1-5.3) 10^6/u L Hgb 14.9 (11.7-16.6) g/dL Hct 46.1 (42.0-52.0) % MCV 104.5 H (80-94) fL MCH 33.8 (28.0-34.0) pg MCHC 32.3 (30.0-36.0) g/dL RDW 11.9 L (12.1-15.1) % Plt Count 270 (130-400) 10^3/c mm MPV 10.7 H (7.4-10.4) fL Neut % (Auto) 70.6 % Lymph % (Auto) 19.1 % [place] % (Auto) 8.3 % Eos % (Auto) 0.9 % Baso % (Auto) 0.4 % Neut # (Auto) 6.0 (1.8-7.7) 10^3/u L Lymph # (Auto) 1.6 (0.8-4.8) 10^3/u L [place] # (Auto) 0.7 (0.2-0.9) 10^3/u L Eos # (Auto) 0.1 (0.0-0.8) 10^3/u L Baso # (Auto) 0.0 (0.0-0.1) 10^3/u L Nucleated RBC % (a uto) 0 % Nucleated RBCs # 0.0 /100WBC Specimen Type Arterial Sample Site Brachial, right ABG pH 7.46 H (7.35-7.45) ABG pCO2 45.9 H (35-45) mmHg ABG pO2 57.1 L (80.0-100.0) mmH g ABG HCO3 32.4 H (22-26) mmol/L ABG Base Excess 7.2 H (-2.0-2.0) mmol/ L Franco Test N/a Hematocrit 48.0 (42-52) % O2 Delivery Device Room air Bone Char Puller ID [email or web address] Sodium 137 (136-145) mmol/L Potassium 4.1 (3.5-5.1) mmol/L Chloride 98 (98-107) mmol/L Carbon Dioxide 31 H (22-29) mmol/L Anion Gap 12.1 (5-19) BUN 17 (8-23) mg/dL Creatinine 0.7 (0.7-1.2) mg/dL Glucose 115 (65-115) mg/dL Calculated Osmolal ity 281 L (285-295) mOsm/k g Calcium 9.9 (8.5-10.5) mg/dL Total Bilirubin 0.3 (0.15-1.2) mg/dL AST 26 (0-40) U/L ALT 40 (0-41) U/L Alkaline Phosphata se 81 (40-130) IU/L Total Protein 6.8 (6.6-8.7) g/dL Albumin 3.5 (3.5-5.2) g/dL Globulin 3.3 (1.3-4.6) g/dL Imaging Data^: CXR: Attestation: I personally reviewed and interpreted this imaging study as follows: My impression: No acute cardiopulmonary findings. Discharge Plan Discharge Patient Disposition: Home, Self-Care Clinical Impression: Tracheostomy malfunction Condition: Stable Prescriptions: No Action Vitamin B-12 100 mcg Tablet 100 mcg PO DAILY RF: 0 cetirizine 10 mg Tablet 10 mg PO DAILY RF: 0 Vitamin B-1 100 mg Tablet 100 mg PO DAILY RF: 0 Flomax 0.4 mg Capsule 0.4 mg PO DAILY RF: 0 vitamin B complex [B-Complex] Tablet 1 tab PO DAILY RF: 0 Lasix 20 mg Tablet 20 mg PO DAILY RF: 0 albuterol sulfate 90 mcg/actuation Hfa Aerosol Inhaler 1 puff INHALATION QID PRN (Reason: Shortness Of Breath) RF: 0 finasteride 5 mg Tablet 5 mg PO DAILY RF: 0 guaifenesin 400 mg Tablet 400 mg PO Q4H PRN (Reason: Congestion) RF: 0 potassium chloride 20 mEq Tablet Extended Release 20 meq PO BID RF: 0 cyanocobalamin (vitamin B-12) 1,000 mcg Capsule 1,000 mcg PO DAILY RF: 0 sulfamethoxazole-trimethoprim 800-160 mg Tablet 1 tab peg-tube BID Qty: 12 RF: 0 folic acid 1 mg Tablet 1 mg feeding tube DAILY Qty: 30 RF: 0 thiamine HCl (vitamin B1) 100 mg tablet 100 mg feeding tube DAILY Qty: 30 RF: 0 Docu 50 mg/5 mL Liquid 100 mg feeding tube BID Qty: 473 RF: 0 pantoprazole 40 mg Tablet,Delayed Release (Dr/Ec) 40 mg PO DAILY Qty: 30 RF: 0 Discharge Orders: Discharge Order (Routine); Ordered 01/24/20 Ordered By: Melissa Freitas Referrals: Elio Bobby [Primary Care Provider] - 1-3 days Discharge Activity: Increase activity as tolerated Patient Instructions: Tracheostomy Care (ED) Activity Restrictions/Additional Instructions: Please return to the ER immediately for any of the signs or symptoms listed on your discharge instruction sheets, worsening/changing of your symptoms, you are not getting better as quickly as expected, or for ANY other cause or concerns. Follow the discharge instructions given you by Dr. Wheat as well. Discharge Date/Time: 01/24/20 01:17 Coding Level of Care Code ED Payroll Administrator for Loretta Fwburak Exam Comprehensive
[2020-01-23 22:42] LABS: Basophils % 0.4 %; Eosinophils # 0.1 10^3/uL (0.0-0.8); Eosinophils % 0.9 %; Hematocrit 46.1 % (42.0-52.0); Hemoglobin 14.9 g/dL (11.7-16.6); Lymphocytes # 1.6 10^3/uL (0.8-4.8); Lymphocytes % 19.1 %; Mean Corpuscular HGB Conc 32.3 g/dL (30.0-36.0); Mean Corpuscular Hemoglobin 33.8 pg (28.0-34.0); Mean Corpuscular Volume 104.5 fL (80-94); Mean Platelet Volume 10.7 fL (7.4-10.4); Monocytes # 0.7 10^3/uL (0.2-0.9); Monocytes % 8.3 %; Neutrophils % 70.6 %; Nucleated Red Blood Cells % 0 %; Platelet Count 270 10^3/cmm (130-400); Red Blood Count 4.41 10^6/uL (4.1-5.3); Red Cell Distribution Width 11.9 % (12.1-15.1); White Blood Count 8.5 10^3/uL (4.0-10.0)
[2020-01-23 23:02] LABS: Alanine Aminotransferase 40 U/L (0-41); Albumin Level 3.5 g/dL (3.5-5.2); Alkaline Phosphatase 81 IU/L (40-130); Anion Gap 12.1 (5-19); Aspartate Amino Transferase 26 U/L (0-40); Blood Urea Nitrogen 17 mg/dL (8-23); Calcium 9.9 mg/dL (8.5-10.5); Carbon Dioxide 31 mmol/L (22-29); Chloride 98 mmol/L (98-107); Globulin 3.3 g/dL (1.3-4.6); Glucose 115 mg/dL (65-115); Osmolality Calculated 281 mOsm/kg (285-295); Potassium 4.1 mmol/L (3.5-5.1); Sodium 137 mmol/L (136-145); Total Bilirubin 0.3 mg/dL (0.15-1.2); Total Protein 6.8 g/dL (6.6-8.7)
[2020-01-23 23:17] LABS: ABG PCO2 45.9 mmHg (35-45); ABG PH Result 7.46 (7.35-7.45); Base Excess ABG 7.2 mmol/L (-2.0-2.0); Blood Gas Sample Site Brachial, right; Blood Gas Sample Type Arterial; HCO3 ABG 32.4 mmol/L (22-26); Oxygen Device ROOM AIR; PO2 ABG 57.1 mmHg (80.0-100.0)
[2020-01-23] MEDS: ipratropium-albuterol 3 mL Neb 9 ML INHALATION (23:25)
[2020-01-23 23:28] VITALS: PULSE 66; RESP 16; O2SAT 92
--- NOTE | 2020-01-24 00:16 | PC.NURSE ---
ENT here to see patient.
--- NOTE | 2020-01-24 00:25 | PM.CONSULT ---
Providers/Reason For Consult Consulting Physican/Specialty*: Wes Wheat MD Otolaryngology, Head & Neck Surgery Reason for Consult*: Tracheotomy tube dislodged Requesting Physcian: Dr. Melissa Freitas MD Primary Care Provider: Elio Bobby History of Present Illness History of Present Illness Brody Gaines is a 74 year old male who is POD #8 s/p tracheotomy who presented to the ER with his tracheotomy tube dislodged. I was consulted by Dr. Melissa Freitas MD to replace his tracheotomy tube. Review of Systems General: Reports: 10 or more systems reviewed and unremarkable except in HPI and below Meds/Allergies Home Medications and Allergies Home Medications Medication Instructions Recorded Confirmed Last Taken Type Flomax 0.4 mg PO DAILY 01/07/20 01/07/20 01/07/20 History Lasix 20 mg PO DAILY 01/07/20 01/07/20 01/07/20 History Vitamin B-1 100 mg PO DAILY 01/07/20 01/07/20 01/07/20 History Vitamin B-12 100 mcg PO DAILY 01/07/20 01/07/20 01/07/20 History albuterol sulfate 1 puff INHALATION QID PRN 01/07/20 01/07/20 01/07/20 History cetirizine 10 mg PO DAILY 01/07/20 01/07/20 01/07/20 History cyanocobalamin (vitamin B-12) 1,000 mcg PO DAILY 01/07/20 01/07/20 01/07/20 History finasteride 5 mg PO DAILY 01/07/20 01/07/20 01/07/20 History guaifenesin 400 mg PO Q4H PRN 01/07/20 01/07/20 01/07/20 History potassium chloride 20 meq PO BID 01/07/20 01/07/20 01/07/20 History vitamin B complex [B-Complex] 1 tab PO DAILY 01/07/20 01/07/20 01/07/20 History docusate sodium [Docu] 100 mg FEEDING TUBE BID #473 ml 01/16/20 Unknown Rx folic acid 1 mg FEEDING TUBE DAILY #30 tab 01/16/20 Unknown Rx pantoprazole 40 mg PO DAILY #30 tab 01/16/20 Unknown Rx sulfamethoxazole-trimethoprim 1 tab PEG-TUBE BID #12 tab 01/16/20 Unknown Rx thiamine HCl (vitamin B1) 100 mg FEEDING TUBE DAILY #30 tab 01/16/20 Unknown Rx Allergies Allergy/AdvReac Type Severity Reaction Status Date / Time iodine Allergy ALGY-Hives Verified 01/07/20 12:57 Penicillins Allergy Unknown Verified 01/07/20 12:57 PFSH Acute PFSH: Medical History Alcoholism BPH (benign prostatic hyperplasia) COPD (chronic obstructive pulmonary disease) Laryngeal mass Port-A-Cath in place Surgical History History of ankle surgery History of hernia surgery S/P percutaneous endoscopic gastrostomy (PEG) tube placement Status post tracheostomy Family History Other CAD (coronary artery disease) Social History Smoking and tobacco status: former smoker Quit status (tobacco): considering quitting Alcohol intake: current Alcohol intake frequency: 3 or more drinks per day Vitals/I&O/Wt Last Vital Signs Temp 98.1 F 01/23/20 21:54 Pulse 66 01/23/20 23:28 Resp 16 01/23/20 23:28 BP 127/52 01/23/20 21:54 Pulse Ox 92 01/23/20 23:28 Weight last 48 hrs Weight 90.718 kg Physical Exam Const: COMMON NORMALS: no acute distress HENMT: COMMON NORMALS: normocephalic and external ears normal HEAD & SCALP: normocephalic EXTERNAL EAR: Yes external ears normal Eye: COMMON NORMALS: EOMs intact bilaterally and conjunctivae normal CONJUNCTIVA: Yes conjunctivae normal Neck/C-Spine: COMMON NORMALS: full ROM, no lymphadenopathy and supple OTHER: The tracheotomy tube is displaced anteriorly mostly out of the tracheotomy wound. It is not easily reducible into the wound and there is significant resistence to advancement into the trachea. 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 Consult Attestations Medical Necessity Statement: I was contacted to replace the patient's dislodged tracheotomy tube. Procedures Procedure Narrative Procedure Note: verbal informed consent was obtained; the old trach was removed and a new #8 Shiley uncuffed trachetomy tube was advanced into the trachea over a Fiberoptic laryngoscopy scope under direct vision; the patient tolerated the procedure well, and there were no complications. Coding Level of Care Code Acute Commercial Driver for Loretta Mandujano
[2020-01-24 00:56] VITALS: PULSE 74; RESP 18; O2SAT 91
[2020-01-24] MEDS: levalbuterol 1.25 mg/3 mL Neb INHALATION (00:56)
== END 2020-01-24 01:17 | disposition home or self-care (01) ==
PROVIDERS: Emergency Provider Emergency Medicine; PCP Internal Medicine
DX: J95.03 Malfunction of tracheostomy stoma (principal); J44.9 Chronic obstructive pulmonary disease, unspecified; Z87.891 Personal history of nicotine dependence
CPT/HCPCS: 12345; 36600; 71045; 80053; 82803; 85025; 94640; 99281; 99283; J7614

== ENCOUNTER 2020-01-27 12:11 | Outpatient (CLI) | payer OTHER, SELFPAY ==
--- NOTE | 2020-01-27 14:52 | ONC CON_ITS ---
Dr. Starkey New Patient Note Patient: Brody Gaines Unit #: [id number]: 1945 Dicatated By: Liliane Starkey M.D.Date of Visit: Jan 27, 2020 Onc MED New Patient/Consult Referring Physician: Dr. SEBASTIAN LEON JR., M.D. History of Present Illness: Mr. Brody Gaines, is a 74-year-old gentleman with history of progressive shortness of breath and hoarseness of voice since August 2019. No dysphagia or odynophagia, denies any hemoptysis or hematemesis, presented to [facility] ER on 01/07/2020, CT scan of the neck and chest was done on 01/07/2020, showed left true vocal cord tumor mass measuring about 19 mm x 11 mm x14 mm . No visible direct invasion or distant metastasis is seen. Patient underwent MicroDirect laryngoscopy with biopsy of bilateral vocal cords and tracheostomy and PEG tube placement final pathology report came back moderately differentiated squamous cell carcinoma invasive, involving left vocal cord. 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 But lost about 20 pounds over the period of 3 months. Patient has history of heavy smoking since age 11 and quit recently. Denies any fever or chills, denies any nausea vomiting denies any jaundice or bony pains, but complaining of excessive anxiety. Patient also had Port-A-Cath placement during recent hospitalization. Past Medical History: Mr. Gaines's medical history consists of alcoholism, bph, chronic obstructive pulmonary disease, and polycythemia. Past Surgical History: Mr. Gaines's surgical/procedural history consists of ankle repair, hernia repair, laryngoscopy, peg tube, port placement, and tracheostomy. Medications: Cetirizine HCl 1 Tablet (of 10 mg) Oral daily, Cyanocobalamin 1 Tablet (of 100 mcg) Oral daily, Finasteride 1 Tablet (of 5 mg) Oral daily, Furosemide 1 Tablet (of 20 mg) Oral every am, Melatonin 1 Tablet (of 5 mg) Oral at bedtime, Potassium Chloride ER 1 Tablet (of 20 meq) Tablet, controlled release Oral b.i.d., Tamsulosin HCl 1 Capsule (of 0.4 mg) Oral daily, Vitamin B Complex 1 Tablet Oral daily, Vitamin B1 1 Tablet (of 100 mg) Oral daily Allergies: Blueberries, Gabapentin, Insect stings, Iodine, novacaine, and Penicillins. Social History: Mr. Gaines is and he is an unkown. He is a daily smoker. He drinks daily. He has indicated exposure to the following products: cigarettes. Family History: The family history is unremarkable. Review Of Symptoms: Review of Systems is not available for this patient. Vital Signs: Performed on Jan 27, 2020 13:46: 0, 30.24 (HIGH), 2.09 sq.m, 69.00 in, 92 % (LOW), 69 /min, 24 /min, 121/72 mm(hg), 98.9 F (HIGH), and 204.8 lbs (HIGH). Performance Status: 2 - Ambulatory/capable of all self-care, unable to perform any work activities. Up and about more than 50% of waking hours. (ECOG) Physical Examination: ENMT - no mouth sores, poor oral hygiene, status post tracheostomy,, Respiratory - poor air entry, otherwise Lungs are clear, Cardiovascular - Regular rate and rhythm of heart, Abdomen - soft, bowel sounds present,PEG tube site clean, Extremities - no visible edema. Lab/Imaging: Most recent lab results are not available for this patient. 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 CT scan of the neck done on 01/07/2020 showed 19 mm x 11 mm x 14 mm left true vocal cord lesion within no invasion of laryngeal cartilage or extension into aryepiglottic space. Right true vocal cord is unremarkable. COPD/emphysema, history of chronic heavy smoking since age 11, quit in December 2019 Status post tracheostomy and PEG tube placement on 01/08/2020 History of alcohol use and now quit Plan: Discussed with patient regarding his disease status and treatment options, and his case was also discussed with Dr. Bergeron , radiation oncologist as well as , ENT, As per CT scan of neck done on 01/07/2020, patient has localized left true vocal cord, invasive squamous cell carcinoma probably early lesion. But, as per Dr. Wheat , ENTs evaluation, patient has probably T3 lesion, CT PET scan has been ordered by ENT. At this point we will wait for CT PET scan findings, if it shows T3 or beyond lesion, then will consider combined chemoradiation either with high-dose cisplatin or carboplatin/5-FU concurrent with radiation. On the other hand if PET scan shows T2 or less lesion then radiation alone should be sufficient. Discussed with patient and his , they expressed full understanding. Patient is scheduled to see radiation oncology today. Patient return to clinic after CT PET scan and post CT PET scan ENT evaluation, for further discussion and planning. In the meantime we will obtain baseline CBC and CMP. Signed By: Liliane Starkey M.D. <<Signature on File>>
--- NOTE | 2020-01-29 08:09 | N.ONRAD NP_ITS ---
Radiation Oncology New Patient Visit Patient: Brody Gaines MR#: [id number] : 1945> Age: 74> Sex: Male> Dictated by: Dr. Abhijit Bergeron Date of Service: 01/27/2020 Referring Physician(s) : Dr. 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 He underwent biopsy on January 08, 2020. Radiotherapy to date: Summary > No prior radiation therapy. Chief Complaint / History of Present Illness: Mr. Brody Gaines is a 74-year-old gentleman with a long smoking history who had shortness of breath and hoarseness over 1 month as well as some difficulty and pain on swallowing. He had a 25 pound weight loss over 3 to 4 weeks. And some fatigue with this. CT scan of the neck on January 07, 2020 revealed a left true vocal cord tumor mass measuring 19 x 11 x 14 mm consistent with laryngeal carcinoma no evidence for adenopathy in the neck was noted On January 08, 2020 he underwent microlaryngoscopy and biopsy of the left and right vocal cords left true vocal cord revealed moderately differentiated squamous cell carcinoma which was invasive right true vocal cord revealed at least squamous cell carcinoma in situ. He also underwent tracheostomy for airway management. On January 12, 2020 he underwent PowerPort central line placement and endoscopic gastrostomy. He has long history of smoking 1/2 packs of cigarettes a day for 60 years he recently quit. Current Medications: Cetirizine HCl, cyanocobalamin, finasteride, furosemide, lORazepam, melatonin, potassium Chloride ER, tamsulosin HCl, vitamin B Complex, vitamin B1. Allergies: Penicillins, Iodine, Gabapentin, novacaine, Blueberries and Insect stings. Medical History: - Alcoholism, - bph, - chronic obstructive pulmonary disease, - polycythemia. No history of collagen vascular disease. No previous radiation therapy. Surgical History: Ankle repair, hernia repair, laryngoscopy, peg tube, port placement and tracheostomy. Family History: No Remarkable Family History Social History: Last screened on 01/27/2020 - Yes - but has quit for less than one year. Smoked 3.0 packs/day for 59 years (177 pack years). Last screened on 01/27/2020 - Past drinker. Patient indicated use of the following products: cigarettes. Used to smoke 2.5 to 3 packs per day. He has been twice. He now lives with his figallito???e Sallie Nguyen. 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 He has 5 children only 1 of whom he has significant contact with who is his son living in [place] and now visiting him here during this illness. Current Complaints / Review of Systems: Constitutional - Complains of fatigue and change in weight and has lost about 25 lbs. in 3 to 4 weeks. Denies fever and night sweats. Patient is NPO at this time and has a PEG Tube. Eyes - Denies blurred vision. ENMT - Complains of mouth dryness. Denies dysphagia, ear pain, stomatitis and tinnitus. Neck - Complains of neck pain and decreased range of motion. Integumentary - Denies rash. Cardiovascular - Complains of edema in both ankles. Denies arrhythmias and chest pain. Respiratory - Complains of cough which is productive. Complains of dyspnea on 4 L 02. Complains of wheezing. Denies hemoptysis. Gastrointestinal - Complains of abdominal pain which is generalized / diffuse in nature. Complains of heartburn / dyspepsia. Denies constipation, diarrhea, nausea and vomiting. Genitourinary (M) - Complains of nocturia gets up 1 to 2 times per night. Denies dysuria, frequency and urgency. Musculoskeletal - Complains of joint pain in both knees and lower back. Denies bone pain and muscle weakness. Neurologic - Complains of dizziness and headaches off and on. Endocrine - Denies diabetes and thyroid disease. Hematologic/Lymphatic - Denies tender or enlarged lymph nodes.. Vital Signs: Performed on 01/27/2020 1:46 PM Height - 69.00 in, Weight - 204.8 lbs (high), BSA - 2.09 sq.m, BMI - 30.24 (high), Temperature - 98.9 f (high), Pulse - 69 /min, Respiration - 24 /min, O2 Sat - 92 % (low), Pain - 0, BP - 121/ 72 mm(hg), Performed on 01/27/2020 3:05 PM BMI - 30.244 kg/m2 (high), Height - 69.00 in, Weight - 204.8 lbs, Temperature - 98.9 f, Pulse - 69, Respiration - 24, O2 Sat - 92 % (low), Pain - 5 and BP - 121/ 72 mm(hg). Physical Exam: Robust appearing gentleman in no acute distress. He was a dentulous. Tracheostomy was in place. He had no stridor and was comfortable with his tracheostomy. Port was placed in the left infra infraclavicular space. PEG tube was placed in the abdomen. Lungs were clear to auscultation. Extremities revealed no clubbing cyanosis or edema.. Performance Status: 2 - Ambulatory/capable of all self-care, unable to perform any work activities. Up and about more than 50% of waking hours. 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 He has no obvious neck adenopathy. He is now scheduled for staging PET CT scan to confirm this as well as to exclude any occult metastatic disease. I discussed operative findings with Dr. Wheat at [facility] tumor conference on 01/29/2020 following my initial consultation who did think that cord fixation was likely but not definitive due to the limits of his examination at the time of tracheostomy placement. Thus he may have more advanced disease local disease in which case combined chemotherapy with radiation therapy would be indicated including prophylactic rene coverage I reviewed this with the patient and his fianc???e I reviewed this with Dr. Starkey as well. He will now proceed with PET/CT imaging to complete his staging. He will return here after this imaging is done. Plan: Signed by: 01/29/2020 8:08:56 AM <<Signature on File>> Time spent with patient: CPT Code: CPT Code:
== END 2020-01-27 12:12 | disposition home or self-care (01) ==
LOC: ONCMED 12:12
PROVIDERS: PCP Internal Medicine; Visit Provider Internal Medicine Hematology & Oncology
DX: C32.0 Malignant neoplasm of glottis (principal); D02.0 Carcinoma in situ of larynx; N40.0 Benign prostatic hyperplasia without lower urinary tract symptoms; J44.9 Chronic obstructive pulmonary disease, unspecified; D75.1 Secondary polycythemia; F10.21 Alcohol dependence, in remission; Z93.0 Tracheostomy status; Z93.1 Gastrostomy status; Z87.891 Personal history of nicotine dependence
CPT/HCPCS: 99203; 99205

== ENCOUNTER 2020-03-08 09:16 | Outpatient (CLI) | payer OTHER, SELFPAY ==
[2020-03-08 09:49] LABS: Basophils % 0.2 %; Eosinophils # 0.1 10^3/uL (0.0-0.8); Hematocrit 40.6 % (42.0-52.0); Lymphocytes # 1.7 10^3/uL (0.8-4.8); Lymphocytes % 19.1 %; Mean Corpuscular Hemoglobin 32.2 pg (28.0-34.0); Mean Corpuscular Volume 100.5 fL (80-94); Mean Platelet Volume 10.6 fL (7.4-10.4); Monocytes # 0.6 10^3/uL (0.2-0.9); Monocytes % 7.4 %; Neutrophils # 6.21 10^3/uL (1.8-7.7); Nucleated Red Blood Cells % 0 %; Platelet Count 238 10^3/cmm (130-400); Red Blood Count 4.04 10^6/uL (4.1-5.3); Red Cell Distribution Width 11.9 % (12.1-15.1); White Blood Count 8.6 10^3/uL (4.0-10.0)
[2020-03-08 10:02] LABS: Alanine Aminotransferase 17 U/L (0-41); Albumin Level 3.9 g/dL (3.5-5.2); Alkaline Phosphatase 75 IU/L (40-130); Anion Gap 12.1 (5-19); Aspartate Amino Transferase 16 U/L (0-40); Blood Urea Nitrogen 13 mg/dL (8-23); Calcium 9.7 mg/dL (8.5-10.5); Carbon Dioxide 28 mmol/L (22-29); Chloride 101 mmol/L (98-107); Glucose 121 mg/dL (65-115); Osmolality Calculated 281 mOsm/kg (285-295); Potassium 4.1 mmol/L (3.5-5.1); Sodium 137 mmol/L (136-145); Total Bilirubin 0.5 mg/dL (0.15-1.2); Total Protein 6.9 g/dL (6.6-8.7)
--- NOTE | 2020-03-08 13:45 | ONC FU_ITS ---
Dr. Starkey follow up note Patient: Brody Gaines Unit #: [id number]: 1945 Dicatated By: Liliane Starkey M.D.Date of Visit:Mar 08, 2020 Onc Med Follow-up/Prog Note History of Present Illness: Mr. Brody Gaines, is a 74-year-old gentleman with history of progressive shortness of breath and hoarseness of voice since August 2019. No dysphagia or odynophagia, denies any hemoptysis or hematemesis, presented to [place] ER on 01/07/2020, CT scan of the neck and chest was done on 01/07/2020, showed left true vocal cord tumor mass measuring about 19 mm x 11 mm x14 mm . No visible direct invasion or distant metastasis is seen. Patient underwent MicroDirect laryngoscopy with biopsy of bilateral vocal cords and tracheostomy and PEG tube placement final pathology report came back moderately differentiated squamous cell carcinoma invasive, involving left vocal cord. 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 But lost about 20 pounds over the period of 3 months. Patient has history of heavy smoking since age 11 and quit recently. Denies any fever or chills, denies any nausea vomiting denies any jaundice or bony pains, but complaining of excessive anxiety. Patient also had Port-A-Cath placement during recent hospitalization. CT PET scan done on February 10, 2020 showed increased uptake in the glottis with tracheostomy tube entering along the inferior margin of the lesion. SUV maximum 17.89. No lymphadenopathy. Came for follow-up, denies any specific complaint except off and on blood in the sputum. But no fever chills no nausea vomiting no shortness of breath. Medications: Cetirizine HCl 1 Tablet (of 10 mg) Oral daily, Cyanocobalamin 1 Tablet (of 100 mcg) Oral daily, Finasteride 1 Tablet (of 5 mg) Oral daily, Furosemide 1 Tablet (of 20 mg) Oral every am, LORazepam 0.5 - 1 Tablet (of 1 mg) Oral t.i.d. PRN, Melatonin 1 Tablet (of 5 mg) Oral at bedtime, Potassium Chloride ER 1 Tablet (of 20 meq) Tablet, controlled release Oral b.i.d., Tamsulosin HCl 1 Capsule (of 0.4 mg) Oral daily, Vitamin B Complex 1 Tablet Oral daily, Vitamin B1 1 Tablet (of 100 mg) Oral daily Allergies: Blueberries, Gabapentin, Insect stings, Iodine, novacaine, and Penicillins. Review of Systems: Review of Systems is not available for this patient. Vital Signs: Performed on Mar 08, 2020 11:41 Height - 69.00 in Weight - 199.6 lbs (LOW) BSA - 2.06 sq.m BMI - 29.48 Temperature - 97.0 F (LOW) Pulse - 59 /min (LOW) Respiration - 18 /min BP - 104/64 mm(hg) O2 Sat - 97 % Pain - 0 Performance Status: 1 - No physically strenuous activity, but ambulatory and able to carry out light or sedentary work (e.g. office work, light house work). (ECOG) Physical Examination: ENMT - No mouth sores no thrush, tracheostomy site clear, no discharge, Respiratory - Lungs are clear, Cardiovascular - Regular rate and rhythm of heart, Abdomen - Soft, bowel sounds present, Extremities - No edema. Lab/Imaging: Most recent lab results are not available for this patient. 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 CT scan of the neck done on 01/07/2020 showed 19 mm x 11 mm x 14 mm left true vocal cord lesion within no invasion of laryngeal cartilage or extension into aryepiglottic space. Right true vocal cord is unremarkable. COPD/emphysema, history of chronic heavy smoking since age 11, quit in December 2019 Status post tracheostomy and PEG tube placement on 01/08/2020 History of alcohol use and now quit Plan: Discussed with patient regarding his labs white blood count 8.6 hemoglobin 13 crit 40.6 platelets 238,000 CMP within normal limits and CT PET scan finding which showed increased uptake in glottis but no significant cervical lymphadenopathy. Case was discussed with Dr. Galaviz, radiation oncology and a CT PET scan was reviewed with him, it was still not clear whether his T1 or T3 lesion, at that point decided to have laryngoscopy exam, patient was sent to ER with Dr. Galaviz for evaluation but could not be done because of equipment was not available due to some other critical patient requiring intubation in the ER. So MRI scan of neck was ordered by Dr. Galaviz, radiation oncologist, he will review the scan and decide whether patient has localized advanced disease which may require combined chemoradiation if not then radiation therapy alone. We will wait for Dr. Galaviz to determine and decide, in case patient need systemic chemotherapy, considering his age and performance status, he may tolerate low-dose weekly cisplatin concurrent with radiation therapy rather high-dose cisplatin concurrent with radiation which is a standard of care. Signed By: Liliane Starkey M.D. <<Signature on File>>
--- NOTE | 2020-03-08 14:23 | CT_ITS ---
WS: [id number] CT scan of the neck. Additional two-dimensional coronal and sagittal reconstruction was performed. Clinical Data: MALIGNANT NEOPLASM OF GLOTTIS Comparison: CT neck, 01/07/2020. DLP: 1948.[address] scans at [facility] use at least one of these dose optimization techniques: automat ed exposure control; mA and/or kV adjustment per patient size (includes targeted exams where dose is matched to clinical indication); or iterative reconstruction. Findings: The left vocal cord tumor has enlarged slightly and now measuring 2.0 x 2.0 x 3.0 cm in transverse AP and superior inferior dimension. It is almost occluding the trachea. There is now a tracheal tube in position. No lymphadenopathy is noted. The salivary glands are unremarkable. There is no prevertebral soft tiss ue swelling. The thyroid gland shows normal enhancement. The floor of the mouth and parapharyngeal s paces are normal. The oral cavity is unremarkable. 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 The lung apices show no abnormalities. No erosion of the skull or sk ull base is seen. CT/CT neck wo con [id number] Impression: 1. Left laryngeal carcinoma which has enlarged slightly compared to the previou s study. 2. Tracheal tube in good position.
== END 2020-03-08 09:17 | disposition home or self-care (01) ==
PROVIDERS: PCP Internal Medicine; Visit Provider Internal Medicine Hematology & Oncology
DX: C32.0 Malignant neoplasm of glottis (principal); F10.20 Alcohol dependence, uncomplicated; N40.0 Benign prostatic hyperplasia without lower urinary tract symptoms; J44.9 Chronic obstructive pulmonary disease, unspecified; D75.1 Secondary polycythemia
CPT/HCPCS: 70490; 80053; 85025; 99214

== ENCOUNTER 2020-03-15 15:27 | Emergency (ER) | payer OTHER, SELFPAY ==
[2020-03-15 15:51] VITALS: BP 125/66; PULSE 62; RESP 14; TEMP 37.6; O2SAT 94; BMI 29.2
[2020-03-15 16:47] VITALS: BP 116/70; PULSE 72; RESP 18; O2SAT 95
--- NOTE | 2020-03-15 17:33 | ED_ITS ---
HPI - General Adult General: Chief complaint: General Medical Stated complaint: needs feeding tube fixed Time Seen by Provider: 03/15/20 16:37 Source: patient Mode of arrival: ambulatory Limitations: no limitations History of Present Illness: HPI narrative: Mr. Gaines is a nice 74-year-old male comes in complaining of problems with his PEG tube. He states for the past month he has had problems using it and now it is leaking around the entrance site in his abdomen. He is able to eat and drink some food on his own but was told to come to have his tube evaluated by his oncologist. He other denies any complaints or concerns. Is been no bleeding, he has had no fever. Associated symptoms: Deny chest pain, dyspnea, headache(s), nausea, rash, palpitations, syncope or vomiting Review of Systems Const: Denies: fever(s) Eyes: Denies: change in vision ENMT: Denies: throat pain Card: Denies: chest pain, palpitations, syncope, pre-syncope or dyspnea on exertion Resp: Denies: dyspnea, productive cough or non-productive cough GI: Denies: abdominal pain, nausea, vomiting or diarrhea : Denies: flank pain, dysuria, urinary frequency or urinary urgency Musc: Denies: neck pain, back pain or extremity pain Skin/Breast: Denies: rash or pruritus Neuro: Denies: headache(s), numbness in extremities, weakness in extremities or dizziness Martin/Lymph: Denies: easy bruising or easy bleeding All/Imm: Denies: urticaria PFSH ED PFSH: Medical History Alcoholism BPH (benign prostatic hyperplasia) COPD (chronic obstructive pulmonary disease) Laryngeal mass Port-A-Cath in place Surgical History History of ankle surgery History of hernia surgery S/P percutaneous endoscopic gastrostomy (PEG) tube placement Status post tracheostomy Family History Other CAD (coronary artery disease) Social History Smoking and tobacco status: former smoker Quit status (tobacco): considering quitting Alcohol intake: current Alcohol intake frequency: 3 or more drinks per day Physical Exam Const: COMMON NORMALS: no acute distress, patient oriented x3, no limitations, healthy appearing and well nourished GENERAL APPEARANCE: cooperative, well kempt and well developed HENMT: COMMON NORMALS: normocephalic, atraumatic, external ears normal, EAC's normal and Normal external nose present HEAD & SCALP: normal to inspection, normocephalic and atraumatic FACE & SINUS: normal facial exam and face symmetric NOSE: Normal external nose present and Normal nares present EXTERNAL EAR: Yes external ears normal EXTERNAL AUDITORY CANAL: EAC's normal MOUTH: Normal oral and palatal mucosa present, lip normal and tongue normal Eye: COMMON NORMALS: Equal, round and reactive pupils present and conjunctivae normal GENERAL EYE: appearance normal, both eyes and all related structures ALIGNMENT: Yes alignment normal PERIORBITAL: periorbital findings normal EYELID: eyelids normal CONJUNCTIVA: Yes conjunctivae normal SCLERA: sclerae normal PUPIL: Yes Equal, round and reactive pupils present Neck/C-Spine: COMMON NORMALS: full ROM, no lymphadenopathy, supple, no meningeal signs and no JVD GENERAL: Yes normal visual inspection, Yes trachea midline and Yes other (Trach in place without any signs of infection or bleeding.) Chest: COMMONS NORMALS: normal inspection of the chest and normal palpation of entire chest wall Resp: COMMON NORMALS: normal respiratory effort, No retractions and No use of accessory muscles EFFORT & INSPECTION: Yes able to speak in complete sentences and Yes symmetric chest movement AUSCULTATION: no crackles, no rales, no rhonchi and no wheezes Cardio: COMMON NORMALS: no JVD, regular rate, regular rhythm, S1 normal heart sound present and S2 normal heart sound present RATE: regular rate RHYTHM: regular rhythm HEART SOUNDS: S1 normal heart sound present, S2 normal heart sound present, no click, no gallops, no murmurs, no rubs and abnormal split S2 GI: COMMON NORMALS: Soft to palpation and No hepatosplenomegaly present PALPATION: Yes Soft to palpation, No Tenderness to palpation present (GI), No Guarding due to palpation present (GI), No Rigid due to palpation, Yes No hepatosplenomegaly present, No Hernia present, No Palpable mass present, No Pulsatile mass present and Yes Other GI palpation findings present (PEG tube in place which will flush with minimal drainage around entrance site. No signs of erythema or infection.) : COMMON NORMALS: Yes no CVA tenderness BLADDER/KIDNEY EXAM: Yes no CVA tenderness Back/Pelvis: COMMON NORMALS: no CVA tenderness, thoracic and lumbar spine normal to inspection, no thoracic nor lumbar tenderness and thoraco-lumbar ROM normal Extremity: COMMON NORMALS: normal to inspection, full ROM, capillary refill normal, no joint enlargement, no clubbing, cyanosis or edema and no calf tenderness Neuro: COMMON NORMALS: patient oriented x3, CN's II-XII intact bilaterally, moves all extremities, no focal motor deficits and no sensory deficits noted MENINGEAL SIGNS: Yes no meningeal signs SPEECH: speech normal Psych: COMMON NORMALS: mental status grossly normal, Normal thought process present, cooperative, normal affect, speech normal and activity/motor behavior normal APPEARANCE: Yes well kempt SPEECH: Yes normal speech THOUGHT PROCESS: Normal thought process present Skin: COMMON NORMALS: no rashes or lesions noted, turgor normal, no jaundice, no petechiae and no mottling GENERAL SKIN EXAM: no rashes or lesions noted and turgor normal Course Vital Signs: Vital signs: Vital Signs Temperature 99.6 F 03/15/20 15:51 Pulse Rate 72 03/15/20 16:47 Respiratory Rate 18 03/15/20 16:47 Blood Pressure 116/70 03/15/20 16:47 Pulse Oximetry 95 03/15/20 16:47 MDM - General Adult MDM Narrative: Medical decision making narrative: Mr. Gaines is a nice 74-year-old male who comes in with concerns about PEG tube malfunction. The tube was able to be flushed here and there is minimal drainage around the entrance site. Unfortunately the PEG tube has no markings that are discernible as to a size. I have searched throughout the note and cannot find a dictation of the size of PEG tube that has been placed. I reviewed all this with Dr. Yamel stroud who is agreeable to see the patient in his office tomorrow and he states he will be able to exchange the tube. I have reviewed this plan with the family and they are in agreement. Patient is able to eat and drink and has been so for a while. He is able to do so until his tube is replaced. Discharge Plan Discharge Patient Disposition: Home, Self-Care Clinical Impression: S/P percutaneous endoscopic gastrostomy (PEG) tube placement Condition: Stable Prescriptions: No Action Vitamin B-12 100 mcg Tablet 100 mcg PO DAILY RF: 0 cetirizine 10 mg Tablet 10 mg PO DAILY RF: 0 Vitamin B-1 100 mg Tablet 100 mg PO DAILY RF: 0 Flomax 0.4 mg Capsule 0.4 mg PO DAILY RF: 0 vitamin B complex [B-Complex] Tablet 1 tab PO DAILY RF: 0 Lasix 20 mg Tablet 20 mg PO DAILY RF: 0 albuterol sulfate 90 mcg/actuation Hfa Aerosol Inhaler 1 puff INHALATION QID PRN (Reason: Shortness Of Breath) RF: 0 finasteride 5 mg Tablet 5 mg PO DAILY RF: 0 guaifenesin 400 mg Tablet 400 mg PO Q4H PRN (Reason: Congestion) RF: 0 potassium chloride 20 mEq Tablet Extended Release 20 meq PO BID RF: 0 cyanocobalamin (vitamin B-12) 1,000 mcg Capsule 1,000 mcg PO DAILY RF: 0 sulfamethoxazole-trimethoprim 800-160 mg Tablet 1 tab peg-tube BID Qty: 12 RF: 0 folic acid 1 mg Tablet 1 mg feeding tube DAILY Qty: 30 RF: 0 thiamine HCl (vitamin B1) 100 mg tablet 100 mg feeding tube DAILY Qty: 30 RF: 0 Docu 50 mg/5 mL Liquid 100 mg feeding tube BID Qty: 473 RF: 0 pantoprazole 40 mg Tablet,Delayed Release (Dr/Ec) 40 mg PO DAILY Qty: 30 RF: 0 Discharge Orders: Discharge Order (Routine); Ordered 03/15/20 Ordered By: Melissa Freitas Referrals: Elio Bobby [Primary Care Provider] - Gage Edmond MD [Physician] - 1-3 days Discharge Diet: Usual diet Discharge Activity: Limit activity as instructed Activity Restrictions/Additional Instructions: Please return to the ER immediately for any of the signs or symptoms listed on your discharge instruction sheets, worsening/changing of your symptoms, you are not getting better as quickly as expected, or for ANY other cause or concerns. Return to the ER for any problems with your PEG tube, you are no longer able to eat or drink as you have been or for any other cause for concern. Be certain to follow-up with Dr. Edmond in the office tomorrow so he can evaluate and treat the problems with your PEG tube. Coding Level of Care Code ED Laundry Aide for Loretta Mandujano
[2020-03-15 17:45] VITALS: BP 128/56; PULSE 61; RESP 18; TEMP 37.1; O2SAT 96
== END 2020-03-15 17:47 | disposition home or self-care (01) ==
PROVIDERS: Emergency Provider Emergency Medicine; PCP Internal Medicine
DX: Z03.89 Encounter for observation for other suspected diseases and conditions ruled out (principal); Z93.1 Gastrostomy status; J44.9 Chronic obstructive pulmonary disease, unspecified; Z87.891 Personal history of nicotine dependence
CPT/HCPCS: 12345; 99282

== ENCOUNTER → 2020-03-17 09:21 | Day surgery (SDC) | payer OTHER, SELFPAY ==
[2020-03-17 09:44] VITALS: BP 108/69; PULSE 66; RESP 18; TEMP 36.6; O2SAT 93
--- NOTE | 2020-03-17 10:10 | SUR.OPER ---
1000 DR. ALTAMIRANO AT BEDSIDE TO PERFORM GASTROSTOMY TUBE REPLACEMENT. PEG TUBE REMOVED WITHOUT DIFFICULTY. NEW GASTROSTOMY TUBE 20 FR UNABLE TO BE INSERTED. DECISION MADE TO KEEP GASTROSTOMY TUBE OUT AT THIS TIME. PATIENT TOLERATING ORAL FOOD AND FLUID AND NOT USING PEG TUBE CURRENTLY. 4X4 AND TAPE USED TO COVER PEG TUBE SITE. PATIENT INSTRUCTED THAT DRESSING CAN BE REMOVED IN AM AND TO CALL DR. ALTAMIRANO'S OFFICE FOR ANY QUESTIONS OR CONCERNS. PATIENT AND SIGNIFICANT OTHER VERBALIZED UNDERSTANDING.
--- NOTE | 2020-03-17 10:56 | W.PM.OPSUD ---
Surgery/Procedure H&P Update DATE OF PROCEDURE: March 17, 2020 DATE H&P PERFORMED: 03/16/20 H&P UPDATE INFORMATION: I have reviewed H&P completed within last 30 days, I have examined patient prior to procedure and No changes to prior documentation PREOP DIAGNOSIS: Glottic mass with partial airway obstruction PLANNED PROCEDURE: Operation Date: 03/17/20 11:00 Proposed Procedures p PEG Tube Exchange(Not Applicable) - Gage Edmond MD
--- NOTE | 2020-03-17 10:57 | PM.ACPR ---
Procedure/Consent Time out: Time Out Performed: Yes Consent: Consent for Procedure: Consent obtained from patient Procedure Narrative: Brief description: This is a 69-year-old gentleman with nasopharyngeal cancer who has a PEG tube in place which is not functioning well and has been leaking. When I evaluated in the clinic yesterday, I was concerned that the tube may not be within the gastric lumen. Preoperative diagnosis: Nonfunctioning PEG tube Postop diagnosis: Same Procedure: Removal of PEG tube Surgeon: Dr. Edmond Anesthesia: None Description of the procedure: After patient consent was obtained, the PEG tube was removed by applying gentle traction without any difficulty. An attempt was made at placing a 20 Spanish 4.5 cm long [place] button but it could not be advanced into the gastric lumen. The patient states that he is finally eating well and did not want the gastrostomy tube replaced. Sterile dressings were applied. Patient tolerated the procedure well Acute Procedures Epistaxis Control: Time out performed: Yes
== END ==
PROVIDERS: PCP Internal Medicine; Visit Provider Surgery
DX: J38.7 Other diseases of larynx (principal)
CPT/HCPCS: 12345; J0131

== ENCOUNTER 2020-03-26 06:51 | Outpatient (RCR) | payer OTHER, SELFPAY ==
--- NOTE | 2020-03-15 | CT_ITS ---
Radiation Therapy Planning CT images; total exam DLP: 953.35 mGy-cm MTDD
--- NOTE | 2020-03-17 08:29 | ONCRAD EPV_ITS ---
Radiation Oncology Established Patient Visit Patient: Renate MR#: [id number] : 1945> Age: 74> Sex: Male> Dictated by: Dr. 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 The patient has an indwelling PEG tube. The patient was unable to tolerate an MRI, he is allergic to iodine contrast, and I do not have access to a nasolaryngoscopy at this time for treatment planning purposes. Per personal review of his most recent CT scan (03/08/2020) there is a 2 x 2 x 3 cm obstructing left glottic tumor that is obstructing his airway. Furthermore, the tumor appears to invade the left paraglottic space, it appears to have contralateral posterior cord involvement, and it appears to have both subglottic & supraglottic extension. There are no cervical lymph nodes per CT criteria, as declared in the formal report, but there does appear to be shotty sub centimeter left level III lymph nodes which may harbor microscopic disease. On today???s visit, the patient reports that his PEG tube is not functioning properly. Otherwise, he is anxious about starting radiation therapy. Current Medications: Cetirizine HCl, cyanocobalamin, finasteride, furosemide, lORazepam, lORazepam, melatonin, potassium Chloride ER, prochlorperazine Maleate, tamsulosin HCl, vitamin B Complex, vitamin B1. Allergies: Penicillins, Iodine, Gabapentin, novacaine, Blueberries and Insect stings. Current Complaints / Review of Systems: Constitutional - Complains of moderate fatigue. Complains of change in weight down 9.2 lbs. since last seen on 03/08/20. Denies fever and night sweats. Patient is NPO and has PEG Tube. Patient states PEG tube is leaking and nothing will go through since Sunday. Eyes - Denies blurred vision and double vision. ENMT - Complains of mild ear pain on the left side. Complains of mouth dryness. Denies dysphagia and stomatitis. Neck - Complains of neck pain and swelling of the neck around the trach. Has some irritation around the trach area.. Denies decreased range of motion. Integumentary - Complains of rash on both legs and lower abdomen. Cardiovascular - Complains of edema in both feet. Denies chest pain. Respiratory - Complains of cough which is productive which is greenish in color.. Complains of a scant amount of hemoptysis that is streaky. Denies hiccoughs and wheezing. Has trach and it will sometime clog with mucus and he has to change it 2 to 3 times per day. Gastrointestinal - Complains of abdominal pain since the PEG Tube and vomiting from trying to cough out the mucus. Denies constipation, diarrhea, heartburn / dyspepsia and nausea. Genitourinary (M) - Denies dysuria, frequency and urgency. Musculoskeletal - Denies bone pain and joint pain. Neurologic - Complains of headaches occasionally. Denies dizziness and abnormal gait. Psychiatric - Has a lot of anxiety. Endocrine - Denies diabetes and thyroid disease. Hematologic/Lymphatic - Denies tender or enlarged lymph nodes.. Vital Signs: Physical Exam: General: Alert and oriented x 3. No acute distress. HEENT: Normocephalic, atraumatic. Extraocular Movements Intact: Pupils Equal, Round, Reactive to Light and Accommodation: Sclerae anicteric. Oral cavity is clear without lesions, masses or ulcers. NECK: Supple without supraclavicular or jugular lymphadenopathy. LUNGS: Clear to auscultation bilaterally without rales, rhonchi or wheeze. HEART: Regular rate and rhythm, normal S1 and S2 without murmur, gallop or rub. MUSCULOSKELETAL: No tenderness or percussion pain over the axial skeleton, scapulae or pelvis. ABDOMEN: Soft, nontender, nondistended without masses or organomegaly. Bowell sounds are present. EXTREMITIES: No peripheral edema is identified. Limited motor and sensory examination are grossly intact and symmetric bilaterally. NEUROLOGIC: Cranial nerves II ???XII are grossly intact. Normal sensation, strength 5/5 in all extremities, normal gait, no ataxia. Performance Status: 2 - Ambulatory/capable of all self-care, unable to perform any work activities. Up and about more than 50% of waking hours. (ECOG) Lab: None pending. Pathology: Primary, c32.0 - malignant neoplasm of glottis, Diagnosed 01/27/2020 (active). 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 The patient has an indwelling PEG tube. The patient was unable to tolerate an MRI, he is allergic to iodine contrast, and I do not have access to a nasolaryngoscopy at this time for treatment planning purposes. Per personal review of his most recent CT scan (03/08/2020) there is a 2 x 2 x 3 cm obstructing left glottic tumor that is obstructing his airway. Furthermore, the tumor appears to invade the left paraglottic space, it appears to have contralateral posterior cord involvement, and it appears to have both subglottic & supraglottic extension. There are no cervical lymph nodes per CT criteria, as declared in the formal report, but there does appear to be shotty sub centimeter left level III lymph nodes which may harbor microscopic disease. We had a michelle discussion regarding treatment side effects, and treatment alternatives including surgical resection. The patient was adamant with me that he did not want surgical resection. Per a recent discussion with Dr. Wheat, the patient was referred for a surgical consultation, yet he did not show up for his appointment. We had a thorough discussion regarding treatment side effects including, a sunburn-like rash on his neck, swallowing difficulties, persistent swallowing difficulties requiring long-term or potentially permanent PEG tube dependence, xerostomia, fatigue, neck lymphedema, and others. The patient expressed understanding and gave verbal consent to proceed with the current plan of concurrent chemoradiation therapy. This patient most likely will not be able to tolerate every 3 weekly cisplatin, but he may be able to handle weekly cisplatin. I defer to Dr Rodriguez???s opinion systemic options in this case. We will begin treatment planning today for a planned dose of 70 Gy/35 fractions. Signed by: 03/17/2020 8:28:20 AM <<Signature on File>> Time spent with patient: CPT Code: CPT Code:
[2020-03-23] MEDS: sodium chlor 0.9% + KCl 20 mEq 20 MEQ/1,000 ML BAG 500 MEQ IV (08:30)
[2020-03-23] MEDS: sodium chloride 0.9% 250 ML 75 ML IV ×2 (08:30→10:30)
[2020-03-23 08:46] LABS: Basophils % 0.1 %; Eosinophils # 0.1 10^3/uL (0.0-0.8); Eosinophils % 0.6 %; Hematocrit 39.7 % (42.0-52.0); Hemoglobin 12.8 g/dL (11.7-16.6); Lymphocytes # 1.7 10^3/uL (0.8-4.8); Lymphocytes % 19.2 %; Mean Corpuscular HGB Conc 32.2 g/dL (30.0-36.0); Mean Corpuscular Volume 99.3 fL (80-94); Mean Platelet Volume 10.2 fL (7.4-10.4); Monocytes # 0.7 10^3/uL (0.2-0.9); Monocytes % 8.4 %; Neutrophils # 6.23 10^3/uL (1.8-7.7); Neutrophils % 71.1 %; Nucleated Red Blood Cells % 0 %; Platelet Count 259 10^3/cmm (130-400); Red Cell Distribution Width 12.1 % (12.1-15.1); White Blood Count 8.8 10^3/uL (4.0-10.0)
[2020-03-23 09:28] LABS: Alanine Aminotransferase 16 U/L (0-41); Albumin Level 3.6 g/dL (3.5-5.2); Alkaline Phosphatase 67 IU/L (40-130); Anion Gap 12.2 (5-19); Aspartate Amino Transferase 14 U/L (0-40); Blood Urea Nitrogen 9 mg/dL (8-23); Calcium 8.8 mg/dL (8.5-10.5); Carbon Dioxide 29 mmol/L (22-29); Chloride 100 mmol/L (98-107); Globulin 2.8 g/dL (1.3-4.6); Glucose 123 mg/dL (65-115); Osmolality Calculated 281 mOsm/kg (285-295); Potassium 4.2 mmol/L (3.5-5.1); Sodium 137 mmol/L (136-145); Total Bilirubin 0.4 mg/dL (0.15-1.2); Total Protein 6.4 g/dL (6.6-8.7)
[2020-03-23] MEDS: potassium chloride 20 MEQ in sodium chloride 0.9% 500 ML 250 MEQ IV (12:45)
[2020-03-23] MEDS: FUROsemide 10 mg/mL SDV 2mL 20 MG IV ×2 (12:45)
--- NOTE | 2020-03-24 13:05 | ONCRAD TMN_ITS ---
Radiation Oncology Weekly Treatment Management Patient: Brody Gaines MR#: [id number] : 1945 Age: 74 Sex: Male Dictated by: Dr. 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 The patient also had an indwelling PEG tube, but this was recently removed. The patient is aware that reinsertion of a PEG tube may be necessary in the future. The plan is for concurrent chemoradiation therapy consisting of 70 Gy in 35 fractions concurrent with weekly cisplatin. Radiotherapy to date: Course: HN, Treatment Site: HN 35FX SIB, Ref. ID: [id number], Energy: 6X, Dose/Fx (cGy): 200, #Fx: 35, Dose Correction (cGy): 0, Total Dose (cGy): 200, Start Date: 03/23/2020, Elapsed Days: 0 Interim history: Today, the patient began radiotherapy. He has no complaints. current Medications: Aloxi, cetirizine HCl, cISplatin, cyanocobalamin, dexamethasone Sodium Phosphate, emend, finasteride, furosemide, furosemide, ipratropium-Albuterol, lORazepam, lORazepam, magnesium Sulfate, melatonin, potassium Chloride, potassium Chloride ER, prochlorperazine Maleate, tamsulosin HCl, vitamin B Complex, vitamin B1. Allergies: Penicillins, Iodine, Gabapentin, novacaine, Blueberries and Insect stings. Current Complaints/Review of Systems: Constitutional - Complains of mild fatigue. Denies lack of appetite, fever and night sweats. ENMT - Complains of dysphagia. Complains of ear pain on the left side. Complains of mild mouth dryness. Complains of altered taste. Denies stomatitis. Neck - Complains of decreased range of motion. Denies neck pain. Integumentary - Has no redness to the neck. Respiratory - Complains of cough. Complains of dyspnea associated with rest. Complains of hemoptysis. Complains of wheezing. Vital Signs: Performed on 03/23/2020 8:20 AM Height - 69.00 in, Temperature - 97.9 f (low), Pulse - 56 /min (low), Respiration - 18 /min, O2 Sat - 92 % (low), BP - 102/ 67 mm(hg), Performed on 03/23/2020 2:03 PM BMI - 28.856 kg/m2 (high), Height - 69.00 in, Weight - 195.4 lbs, Temperature - 97.9 f, Pulse - 56, Respiration - 18, O2 Sat - 92 % (low), Pain - 0 and BP - 102/ 67 mm(hg). Physical Exam: Appears stable, no skin erythema or desquamation. Performance Status: 2 - Ambulatory/capable of all self-care, unable to perform any work activities. Up and about more than 50% of waking hours. (ECOG) Lab: None pending in Radiation Oncology. Imaging: No new diagnostic imaging was performed since the last weekly treatment visit. All radiation therapy related imaging (including but not limited to kV, MV, and CBCT generated images) was reviewed. Appropriate changes, if any, were made to assure accurate target localization. Impression/Plan: Tolerating treatment well with expected side effects. Continue treatment as planned. CPT: 71462 Signed by: Dr. Nelson Galaviz>03/24/2020 1:04:07 PM <<Signature on File>>
== END 2020-03-26 23:59 | disposition home or self-care (01) ==
LOC: ONCMED 06:51
PROVIDERS: Internal Medicine Hematology & Oncology; Absent Provider Radiology Radiation Oncology; PCP Internal Medicine; Visit Provider Radiology Radiation Oncology
DX: Z51.0 Encounter for antineoplastic radiation therapy (principal); Z51.11 Encounter for antineoplastic chemotherapy; C32.0 Malignant neoplasm of glottis; Z93.0 Tracheostomy status
CPT/HCPCS: 77263; 77300; 77301; 77334; 77338; 77386; 80053; 85025; 96366; 96367; 96375; 96413; 99214; J1100; J1453; J1940; J2469; J3475; J3480; J7030; J7040; J7050; J9060

== ENCOUNTER 2020-04-26 05:38 | Outpatient (RCR) | payer OTHER, SELFPAY ==
[2020-03-30 08:25] LABS: Basophils % 0.3 %; Eosinophils # 0.1 10^3/uL (0.0-0.8); Hemoglobin 11.9 g/dL (11.7-16.6); Lymphocytes # 1.8 10^3/uL (0.8-4.8); Lymphocytes % 19.4 %; Mean Corpuscular HGB Conc 32.2 g/dL (30.0-36.0); Mean Corpuscular Hemoglobin 31.9 pg (28.0-34.0); Mean Corpuscular Volume 99.2 fL (80-94); Mean Platelet Volume 9.3 fL (7.4-10.4); Monocytes # 0.7 10^3/uL (0.2-0.9); Monocytes % 7.8 %; Neutrophils # 6.41 10^3/uL (1.8-7.7); Neutrophils % 70.2 %; Nucleated Red Blood Cells % 0 %; Platelet Count 284 10^3/cmm (130-400); Red Blood Count 3.73 10^6/uL (4.1-5.3); Red Cell Distribution Width 12.3 % (12.1-15.1); White Blood Count 9.1 10^3/uL (4.0-10.0)
[2020-03-30 08:42] LABS: Alanine Aminotransferase 16 U/L (0-41); Albumin Level 3.4 g/dL (3.5-5.2); Alkaline Phosphatase 85 IU/L (40-130); Anion Gap 11.1 (5-19); Aspartate Amino Transferase 12 U/L (0-40); Blood Urea Nitrogen 7 mg/dL (8-23); Calcium 8.7 mg/dL (8.5-10.5); Carbon Dioxide 28 mmol/L (22-29); Chloride 100 mmol/L (98-107); Globulin 3.2 g/dL (1.3-4.6); Glucose 122 mg/dL (65-115); Osmolality Calculated 277 mOsm/kg (285-295); Potassium 4.1 mmol/L (3.5-5.1); Sodium 135 mmol/L (136-145); Total Bilirubin 0.2 mg/dL (0.15-1.2); Total Protein 6.6 g/dL (6.6-8.7)
[2020-03-30] MEDS: sodium chloride 0.9% 250 ML 75 ML IV (10:50)
[2020-03-30] MEDS: FUROsemide 10 mg/mL SDV 2mL 20 MG IV (13:08)
[2020-03-30] MEDS: potassium chloride 20 MEQ in sodium chloride 0.9% 500 ML 250 MEQ IV (13:10)
--- NOTE | 2020-03-30 16:58 | ONC FU_ITS ---
Dr. Starkey follow up note Patient: Brody Gaines Unit #: [id number]: 1945 Dicatated By: Liliane Starkey M.D.Date of Visit:Mar 30, 2020 Onc Med Follow-up/Prog Note History of Present Illness: Mr. Brody Gaines, is a 74-year-old gentleman with history of progressive shortness of breath and hoarseness of voice since August 2019. No dysphagia or odynophagia, denies any hemoptysis or hematemesis, presented to [facility] [place] [facility] on 01/07/2020, CT scan of the neck and chest was done on 01/07/2020, showed left true vocal cord tumor mass measuring about 19 mm x 11 mm x14 mm . No visible direct invasion or distant metastasis is seen. Patient underwent [facility] laryngoscopy with biopsy of bilateral vocal cords and tracheostomy and PEG tube placement final pathology report came back moderately differentiated squamous cell carcinoma invasive, involving left vocal cord. 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 But lost about 20 pounds over the period of 3 months. Patient has history of heavy smoking since age 11 and quit recently. Denies any fever or chills, denies any nausea vomiting denies any jaundice or bony pains, but complaining of excessive anxiety. Patient also had Port-A-Cath placement during recent hospitalization. CT PET scan done on February 10, 2020 showed increased uptake in the glottis with tracheostomy tube entering along the inferior margin of the lesion. SUV maximum 17.89. No lymphadenopathy. Further investigation and evaluation by radiation therapy confirmed bulky disease, patient was started on combined chemoradiation with weekly cisplatin on March 23, 2020 Came for follow-up, denies any specific complaint except mild to moderate anxiety controlled by antianxiety medication. Otherwise tolerated first dose of weekly cisplatin concurrent with radiation therapy, well Medications: Cetirizine HCl 1 Tablet (of 10 mg) Oral daily, Cyanocobalamin 1 Tablet (of 100 mcg) Oral daily, Finasteride 1 Tablet (of 5 mg) Oral daily, Furosemide 1 Tablet (of 20 mg) Oral every am, LORazepam 0.5 - 1 Tablet (of 1 mg) Oral t.i.d. PRN, Melatonin 1 Tablet (of 5 mg) Oral at bedtime, Potassium Chloride ER 1 Tablet (of 20 meq) Tablet, controlled release Oral b.i.d., Tamsulosin HCl 1 Capsule (of 0.4 mg) Oral daily, Vitamin B Complex 1 Tablet Oral daily, Vitamin B1 1 Tablet (of 100 mg) Oral daily Allergies: Blueberries, Gabapentin, Insect stings, Iodine, novacaine, and Penicillins. Review of Systems: Review of Systems is not available for this patient. Vital Signs: Performed on Mar 30, 2020 10:12 Height - 69.00 in Weight - 201.2 lbs (HIGH) BSA - 2.07 sq.m BMI - 29.71 Temperature - 98.0 F (LOW) Pulse - 63 /min Respiration - 18 /min BP - 114/60 mm(hg) O2 Sat - 99 % Pain - 2 Performance Status: 1 - No physically strenuous activity, but ambulatory and able to carry out light or sedentary work (e.g. office work, light house work). (ECOG) Physical Examination: ENMT - Poor oral hygiene otherwise clear no mouth sore, no thrush, Trach site clear, Respiratory - Lungs are clear, Cardiovascular - Regular rate and rhythm of heart, Abdomen - Soft, bowel sounds present, Extremities - No visible edema. Lab/Imaging: Test performed on Mar 30, 2020 08:05 Sodium 135 mmol/L Potassium 4.1 mmol/L Chloride 100 mmol/L CO2 28 mmol/L Anion Gap 11.1 BUN 7 mg/dL Creatinine 0.5 mg/dL Cr Clearance (Est) 163.4700 mL/min Glucose 122 mg/dL Calcium 8.7 mg/dL Protein, Total 6.6 g/dL Albumin 3.4 g/dL Globulin 3.2 g/dL Bilirubin, Total 0.2 mg/dL ALT (SGPT) 16 U/L AST (SGOT) 12 U/L Alkaline Phosphatase 85 IU/L WBC 9.1 10 3/uL RBC 3.73 10 6/uL HGB 11.9 g/dL HCT 37.0 % MCV 99.2 fL MCH 31.9 pg MCHC 32.2 g/dL RDW 12.3 % Platelet Count 284 10 3/cmm MPV 9.3 fL Neutrophils 6.41 10 3/uL Lymphocytes 1.8 10 3/uL Monocytes 0.7 10 3/uL Eosinophils 0.1 10 3/uL Basophils 0.0 10 3/uL Neutrophil % 70.2 % Lymphocyte % 19.4 % Monocyte % 7.8 % Eosinophil % 1.0 % Basophils % 0.3 % NRBC % 0 % Impression: moderately differentiated squamous cell carcinoma, invasive, involving left vocal cord and 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 CT scan of the neck done on 01/07/2020 showed 19 mm x 11 mm x 14 mm left true vocal cord lesion within no invasion of laryngeal cartilage or extension into aryepiglottic space. Right true vocal cord is unremarkable. As per evaluation by radiation oncology patient was confirmed to have bulky disease so he was started on combined chemoradiation with weekly cisplatin on March 23, 2020 COPD/emphysema, history of chronic heavy smoking since age 11, quit in December 2019 Status post tracheostomy and PEG tube placement on 01/08/2020 History of alcohol use and now quit Plan: Discussed with patient regarding his labs white blood count 9.1 hemoglobin 11.9 hematocrit 37 platelets 284,000 CMP within normal limits Clinically, patient doing well, tolerating combined chemoradiation with weekly cisplatin well but with expected side effects. We will proceed with next weekly dose of cisplatin today and then he will return to clinic in 1 week with a CBC CMP in the meantime he will continue with daily radiation. As far as trach care is concerned, patient was advised to stay in touch with Dr. Wheat for proper management. Signed By: Liliane Starkey M.D. <<Signature on File>>
[2020-04-06 08:57] LABS: Basophils % 0.3 %; Eosinophils % 0.6 %; Hemoglobin 11.6 g/dL (11.7-16.6); Lymphocytes # 1.2 10^3/uL (0.8-4.8); Lymphocytes % 17.4 %; Mean Corpuscular HGB Conc 32.2 g/dL (30.0-36.0); Mean Corpuscular Hemoglobin 32.1 pg (28.0-34.0); Mean Corpuscular Volume 99.7 fL (80-94); Monocytes # 0.5 10^3/uL (0.2-0.9); Neutrophils # 5.26 10^3/uL (1.8-7.7); Nucleated Red Blood Cells % 0 %; Platelet Count 239 10^3/cmm (130-400); Red Blood Count 3.61 10^6/uL (4.1-5.3); Red Cell Distribution Width 12.8 % (12.1-15.1); White Blood Count 7.1 10^3/uL (4.0-10.0)
[2020-04-06 09:17] LABS: Alanine Aminotransferase 12 U/L (0-41); Albumin Level 3.5 g/dL (3.5-5.2); Alkaline Phosphatase 92 IU/L (40-130); Anion Gap 10.1 (5-19); Aspartate Amino Transferase 10 U/L (0-40); Blood Urea Nitrogen 9 mg/dL (8-23); Calcium 9.2 mg/dL (8.5-10.5); Carbon Dioxide 28 mmol/L (22-29); Chloride 103 mmol/L (98-107); Globulin 2.5 g/dL (1.3-4.6); Glucose 112 mg/dL (65-115); Osmolality Calculated 281 mOsm/kg (285-295); Potassium 4.1 mmol/L (3.5-5.1); Sodium 137 mmol/L (136-145); Total Bilirubin 0.3 mg/dL (0.15-1.2)
--- NOTE | 2020-04-06 09:24 | ONCRAD TMN_ITS ---
Radiation Oncology Weekly Treatment Management Patient: Liana Skinner MR#: [id number] : 1945 Age: 74 Sex: Male Dictated by: Dr. 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 Per review of pretreatment CT scan of the neck (03/08/2020 without contrast due to contrast allergy) there is a 2 x 2 x 3 cm obstructing left glottic tumorwhich appears to invade the left paraglottic space, there is contralateral posterior cord involvement, and the tumor appears to have both subglottic & supraglottic extension. There are no cervical lymph nodes per CT criteria, as declared in the formal report, but there does appear to be shotty sub centimeter left level III lymph nodes which may harbor microscopic disease. The patient recently had a PEG tube, but this was subsequently removed. Plan: Concurrent chemoradiation therapy using weekly cisplatin and a total dose of 70 Gy. Radiotherapy to date: Course: HN, Treatment Site: HN 35FX SIB, Ref. ID: [id number], Energy: 6X, Dose/Fx (cGy): 200, #Fx: , Dose Correction (cGy): 0, Total Dose (cGy): 1,800, Start Date: 03/23/2020, Elapsed Days: 14 Reason for visit: The patient is being seen today as part of their regularly scheduled weekly on treatment visits to assess for acute toxicities from radiotherapy. Interim History: The patient reports that he is able to play for treatment without difficulty, he is tolerating chemotherapy, and he has no current complaints. The patient just recently received his nebulizer equipment at home, and he recently received instructions on how to use this. Current Medications: Aloxi, cetirizine HCl, cISplatin, cyanocobalamin, dexamethasone Sodium Phosphate, emend, finasteride, furosemide, furosemide, ipratropium-Albuterol, lORazepam, lORazepam, magnesium Sulfate, melatonin, potassium Chloride, potassium Chloride ER, prochlorperazine Maleate, tamsulosin HCl, vitamin B Complex, vitamin B1. Allergies: Penicillins, Iodine, Gabapentin, novacaine, Blueberries and Insect stings. Current Complaints/Review of Systems: Vital Signs: Performed on 04/06/2020 9:07 AM Temperature - 98.4 f, Pulse - 59, Respiration - 17, O2 Sat - 95 % (low), Pain - 3 and BP - 106/ 61 mm(hg)(/low). Physical Exam: Appears stable, no skin erythema or desquamation. Lungs are clear to auscultation bilaterally Performance Status: 1 - No physically strenuous activity, but ambulatory and able to carry out light or sedentary work (e.g. office work, light house work). (ECOG) Lab: None pending in Radiation Oncology. Imaging: Radiation therapy imaging related to accurate target localization (i.e. KV, MV and CBCT) was reviewed. Appropriate changes, if any, were made to ensure treatment accuracy. Plan: The patient is tolerating therapy reasonably well. Radiotherapy will continue as planned. CPT: 38306 Signed by: Dr. Nelson Galaviz 04/06/2020 9:23:13 AM
[2020-04-06] MEDS: sodium chloride 0.9% 250 ML 75 ML IV (09:25)
--- NOTE | 2020-04-06 10:00 | ONC FU_ITS ---
[facility] Patient Note Patient: Brody Gaines Unit #: [id number]: 1945 Dictated By: Marielle JoaquinDate of Visit: Apr 06, 2020 Onc MED Follow-Up/Prog Note Chief Complaint: laryngeal carcinoma History of Present Illness: Mr. Gaines is a 74-year-old gentleman with history of progressive shortness of breath and hoarseness of voice since August 2019. He denied dysphagia or odynophagia, as well as hemoptysis or hematemesis. He presented to [facility] [place] [facility] on 01/07/2020 with worsening shortness of breath over a 3 month period. He had also complained of significant hoarseness. He also reported about a 20 pound unintentional weight loss over that [address] scan of the neck and chest was done on 01/07/2020, showed left true vocal cord tumor mass measuring about 19 mm x 11 mm x14 mm . No visible direct invasion or distant metastasis is seen. Mr Gaines underwent [facility] laryngoscopy with biopsy of bilateral vocal cords and tracheostomy per Dr Wheat. Mr Gaines underwent insertion of a left subclavian PowerPort on January 12, 2020. He also had a PEG tube placed at that time. Both procedures performed by Dr Edmond. The final pathology report came back moderately differentiated squamous cell carcinoma invasive, involving LEFT vocal cord. 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 Mr Gaines has history of heavy smoking since age 11 (greater than 150 pack year) and quit recently. MEDICAL HISTORY: Alcoholism, BPH, COPD and tobacco dependency. He has had surgery of his ankle and hernia surgery. INTERIM HISTORY: CT/ PET scan done on February 10, 2020 showed increased uptake in the glottis with tracheostomy tube entering along the inferior margin of the lesion. SUV maximum 17.89. No lymphadenopathy. Further investigation and evaluation by radiation therapy confirmed bulky disease. Mr Gaines was offered combined treatment with chemoradiation and began treatment with weekly cisplatin on March 23, 2020. Mr. Gaines is here today for follow-up. He is due for week 3 cisplatin. He is tolerating that well overall. He has no complaints. He denies any fever or chills. He denies any mouth sores. He does not talk but communicates with nodding and gesturing. He is eating a donut and drinking milk on entrance into the exam room. He is tolerating this well. He denies any nausea or vomiting. He denies any diarrhea or constipation. He indicates he is still active around the house. He denies any new pain. He denies any hematuria. He denies any neuropathy symptoms. He has had a little swelling in his ankles but indicates it generally goes away after a couple days after chemo. His ECOG is 2. Past Medical History: Alcoholism Bph Chronic obstructive pulmonary disease Polycythemia Past Surgical History: Ankle repair Hernia repair Laryngoscopy Peg tube Port placement Tracheostomy Allergies: Blueberries, Gabapentin, Insect stings, Iodine, novacaine, and Penicillins. Medications: Cetirizine HCl 1 Tablet (of 10 mg) Oral daily Cyanocobalamin 1 Tablet (of 100 mcg) Oral daily Finasteride 1 Tablet (of 5 mg) Oral daily Furosemide 1 Tablet (of 20 mg) Oral every am LORazepam 0.5 - 1 Tablet (of 1 mg) Oral t.i.d. PRN Melatonin 1 Tablet (of 5 mg) Oral at bedtime Potassium Chloride ER 1 Tablet (of 20 meq) Tablet, controlled release Oral b.i.d. Tamsulosin HCl 1 Capsule (of 0.4 mg) Oral daily Vitamin B Complex 1 Tablet Oral daily Family History: The family history is unremarkable. Social History: Mr. Gaines is and he is an unkown. Mr. Gaines quit smoking less than one year ago but had smoked 3.0 packs/day for 60 years. He quit drinking less than one year ago. He has indicated exposure to the following products: cigarettes. Used to smoke 2.5 to 3 packs per day of cigarettes. Recently just quit drinking. Was a heavy drinker in the past . Review Of Symptoms: Constitutional Denies fevers, chills, night sweats, excessive fatigue or weight loss. Allergic/Immunologic No reactions. Eyes Denies significant visual changes. No diplopia. No amaurosis. ENMT Denies changes in hearing, sore throat, mouth sores, difficulty or changes in swallowing ability, and/or sinus drainage. Has trach. Endocrine No diabetes, thyroid disease or hormone replacement. Denies hot flashes or night sweats. Hematologic/Lymphatic Denies easy bruising or bleeding. The patient denies any tender or palpable lymph nodes. Respiratory Denies dyspnea on exertion, chest pain, cough or hemoptysis. Denies orthopnea. Cardiovascular Denies anginal chest pain, palpitations or orthopnea. Gastrointestinal Denies nausea, vomiting, diarrhea, GI bleeding, or constipation. Denies change in bowel habits and/or stool color, no heartburn or early satiety. Genitourinary (M) Denies hematuria, dysuria, increased frequency, urgency, hesitancy or incontinence. Musculoskeletal Denies joint pain, swelling or redness. No decreased range of motion. Integumentary Denies chronic rashes, inflammation, ulcerations or skin changes. Neurologic Denies headache, blurred vision, and no areas of focal weakness or numbness. Normal gait. No sensory problems. Psychiatric Denies insomnia, depression, steff or mood swings. Constitutional Denies lack of appetite. ENMT Denies dysphagia. Neck Complains of decreased range of motion due to trach and some tenderness in neck area. Integumentary Denies urticaria. Respiratory Complains of cough which is productive of clear with sero-sang mucus and wheezing. Vital Signs: Performed on Apr 06, 2020 09:37 Height - 69.00 in Weight - 198.2 lbs (LOW) BSA - 2.06 sq.m BMI - 29.27 Temperature - 97.9 F (LOW) Pulse - 61 /min Respiration - 18 /min BP - 116/65 mm(hg) O2 Sat - 97 % Pain - 2 Performed on Apr 06, 2020 09:07 Temperature - 98.4 F Pulse - 59 Respiration - 17 BP - 106/61 mm(hg) O2 Sat - 95 % (LOW) Pain - 3,2 - Ambulatory/capable of all self-care, unable to perform any work activities. Up and about more than 50% of waking hours. (ECOG) Physical Examination: Constitutional Alert, oriented, no acute distress. Skin pink, warm and dry. Head Normocephalic; atraumatic. Eyes Conjunctivae and sclerae are clear and without icterus. Pupils are reactive and equal. Neck Trach site is unremarkable. Hematologic/Lymphatic No petechiae or purpura. No tender or palpable lymph nodes in the cervical or supraclavicular areas. Respiratory Lungs are clear to auscultation without rhonchi or wheezing. Cardiovascular Regular rate and rhythm of heart without murmurs,clicks, gallops or rubs. Abdomen Non-tender, non-distended, no masses or ascites. Good bowel sounds noted in all quads. No guarding or rebound tenderness. No pulsatile masses. Back/Spine Non-tender to palpation. Extremities No visible deformities, no cyanosis, clubbing or edema. Musculoskeletal No tenderness or swelling, normal range of motion without obvious weakness. Integumentary No rashes or lesions. Neurologic No sensory or motor deficits, normal cerebellar function, normal gait. Psychiatric Alert and oriented times three. Coherent speech. Verbalizes understanding of our discussions today. Laboratory:Test performed on Apr 06, 2020 08:33 Sodium 137 mmol/L Potassium 4.1 mmol/L Chloride 103 mmol/L CO2 28 mmol/L Anion Gap 10.1 BUN 9 mg/dL Creatinine 0.5 mg/dL Cr Clearance (Est) 163.4700 mL/min Glucose 112 mg/dL Calcium 9.2 mg/dL Protein, Total 6.0 g/dL Albumin 3.5 g/dL Globulin 2.5 g/dL Bilirubin, Total 0.3 mg/dL ALT (SGPT) 12 U/L AST (SGOT) 10 U/L Alkaline Phosphatase 92 IU/L WBC 7.1 10 3/uL RBC 3.61 10 6/uL HGB 11.6 g/dL HCT 36.0 % MCV 99.7 fL MCH 32.1 pg MCHC 32.2 g/dL RDW 12.8 % Platelet Count 239 10 3/cmm MPV 9.0 fL Neutrophils 5.26 10 3/uL Lymphocytes 1.2 10 3/uL Monocytes 0.5 10 3/uL Eosinophils 0.0 10 3/uL Basophils 0.0 10 3/uL Neutrophil % 74.0 % Lymphocyte % 17.4 % Monocyte % 7.0 % Eosinophil % 0.6 % Basophils % 0.3 % NRBC % 0 % Impression: moderately differentiated squamous cell carcinoma, invasive, involving left vocal cord and 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 CT scan of the neck done on 01/07/2020 showed 19 mm x 11 mm x 14 mm left true vocal cord lesion within no invasion of laryngeal cartilage or extension into aryepiglottic space. Right true vocal cord is unremarkable. As per evaluation by radiation oncology patient was confirmed to have bulky disease so he was started on combined chemoradiation with weekly Cisplatin on March 23, 2020 COPD/emphysema, alcoholism, history of chronic heavy smoking since age 11, quit in December 2019 Status post tracheostomy on 01/08/2020. PowerPort (Left subclavian) and PEG tube placement on 01/09/2020. The PEG tube was removed on 03/17/2020 due to leakage and Mr Gaines was eating well and did not want it replaced at that time. Mr Gaines began combined chemoradiation with weekly Cisplatin on 03/23/2020. He is tolerating it well thus far. Plan: 1. Proceed with week 3 cisplatin. He continues daily radiation. 2. Continue current antiemetics as these are working well for him. 3. Labs from today were reviewed in detail discussed with Mr. Gaines he declined a copy. WBC 7.1, hemoglobin 11.6 platelets 10 39,000 ANC is 5300. Potassium 4.1 sodium 137 glucose 112 creatinine 0.5 LFTs are normal. 4. We will plan to see him back in 1 week for consideration of week 4 cisplatin. He will be due for CBC CMP at that time. 5. Mr. Gaines is been instructed to contact us in the interim should questions or problems arise. Signed By: Marielle Joaquin-, AOP Liliane Starkey MD <<Signature on File>>
[2020-04-06] MEDS: FUROsemide 10 mg/mL SDV 2mL 20 MG IV (12:40)
[2020-04-06] MEDS: potassium chloride 20 MEQ in sodium chloride 0.9% 500 ML 250 MEQ IV (12:42)
[2020-04-12] MEDS: sodium chloride 0.9% 250 ML 75 ML IV (09:47)
[2020-04-12 10:03] LABS: Basophils % 0.3 %; Eosinophils # 0.1 10^3/uL (0.0-0.8); Eosinophils % 0.8 %; Hematocrit 36.7 % (42.0-52.0); Lymphocytes % 13.4 %; Mean Corpuscular HGB Conc 32.7 g/dL (30.0-36.0); Mean Corpuscular Volume 100.8 fL (80-94); Mean Platelet Volume 8.9 fL (7.4-10.4); Monocytes # 0.4 10^3/uL (0.2-0.9); Neutrophils % 79.2 %; Nucleated Red Blood Cells % 0 %; Platelet Count 239 10^3/cmm (130-400); Red Blood Count 3.64 10^6/uL (4.1-5.3); Red Cell Distribution Width 13.6 % (12.1-15.1); White Blood Count 7.2 10^3/uL (4.0-10.0)
[2020-04-12 10:32] LABS: Alanine Aminotransferase 9 U/L (0-41); Albumin Level 3.6 g/dL (3.5-5.2); Alkaline Phosphatase 87 IU/L (40-130); Anion Gap 11.3 (5-19); Aspartate Amino Transferase 10 U/L (0-40); Blood Urea Nitrogen 7 mg/dL (8-23); Calcium 8.6 mg/dL (8.5-10.5); Carbon Dioxide 28 mmol/L (22-29); Chloride 102 mmol/L (98-107); Glucose 126 mg/dL (65-115); Osmolality Calculated 281 mOsm/kg (285-295); Potassium 4.3 mmol/L (3.5-5.1); Sodium 137 mmol/L (136-145); Total Bilirubin 0.2 mg/dL (0.15-1.2); Total Protein 6.6 g/dL (6.6-8.7)
[2020-04-12] MEDS: FUROsemide 10 mg/mL SDV 2mL 20 MG IV (14:06)
[2020-04-12] MEDS: potassium chloride 20 MEQ in sodium chloride 0.9% 500 ML 250 MEQ IV (14:08)
--- NOTE | 2020-04-13 18:52 | ONC FU_ITS ---
Dr. Starkey follow up note Patient: Brody Gaines Unit #: [id number]: 1945 Dicatated By: Liliane Starkey M.D.Date of Visit:Apr 12, 2020 Onc Med Follow-up/Prog Note History of Present Illness: Mr. Gaines is a 74-year-old gentleman with history of progressive shortness of breath and hoarseness of voice since August 2019. He denied dysphagia or odynophagia, as well as hemoptysis or hematemesis. He presented to [facility] on 01/07/2020 with worsening shortness of breath over a 3 month period. He had also complained of significant hoarseness. He also reported about a 20 pound unintentional weight loss over that [address] scan of the neck and chest was done on 01/07/2020, showed left true vocal cord tumor mass measuring about 19 mm x 11 mm x14 mm . No visible direct invasion or distant metastasis is seen. Mr Gaines underwent [facility] laryngoscopy with biopsy of bilateral vocal cords and tracheostomy per Dr Wheat. Mr Gaines underwent insertion of a left subclavian PowerPort on January 12, 2020. He also had a PEG tube placed at that time. Both procedures performed by Dr Edmond. The final pathology report came back moderately differentiated squamous cell carcinoma invasive, involving LEFT vocal cord. 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 Mr Gaines has history of heavy smoking since age 11 (greater than 150 pack year) and quit recently. MEDICAL HISTORY: Alcoholism, BPH, COPD and tobacco dependency. He has had surgery of his ankle and hernia surgery. INTERIM HISTORY: CT/ PET scan done on February 10, 2020 showed increased uptake in the glottis with tracheostomy tube entering along the inferior margin of the lesion. SUV maximum 17.89. No lymphadenopathy. Further investigation and evaluation by radiation therapy confirmed bulky disease. Mr Gaines was offered combined treatment with chemoradiation and began treatment with weekly cisplatin on March 23, 2020. Came for follow-up, denies any specific complaints except some discharge from trach site, has seen Dr. Wheat lately and also complaining of sore throat but under control with Magic mouthwash. Denies any fever chills denies any nausea or vomiting denies any diarrhea or constipation, tolerating combined chemoradiation with weekly cisplatin reasonably well Medications: Cetirizine HCl 1 Tablet (of 10 mg) Oral daily, Cyanocobalamin 1 Tablet (of 100 mcg) Oral daily, Finasteride 1 Tablet (of 5 mg) Oral daily, Furosemide 1 Tablet (of 20 mg) Oral every am, LORazepam 0.5 - 1 Tablet (of 1 mg) Oral t.i.d. PRN, Melatonin 1 Tablet (of 5 mg) Oral at bedtime, Potassium Chloride ER 1 Tablet (of 20 meq) Tablet, controlled release Oral b.i.d., Tamsulosin HCl 1 Capsule (of 0.4 mg) Oral daily, Vitamin B Complex 1 Tablet Oral daily Allergies: Blueberries, Gabapentin, Insect stings, Iodine, novacaine, and Penicillins. Review of Systems: Review of Systems is not available for this patient. Vital Signs: Performed on Apr 12, 2020 11:30 Height - 69.00 in Weight - 203.2 lbs (HIGH) BSA - 2.08 sq.m BMI - 30.01 (HIGH) Temperature - 98.4 F Pulse - 61 /min Respiration - 20 /min BP - 113/66 mm(hg) O2 Sat - 95 % (LOW) Pain - 4 Performance Status: 1 - No physically strenuous activity, but ambulatory and able to carry out light or sedentary work (e.g. office work, light house work). (ECOG) Physical Examination: [No mouth sores, but pharyngeal erythema no discharge, trach site mild serosanguineous discharge ^Respiratory - Lungs are clear, Cardiovascular - Regular rate and rhythm of heart, Abdomen - Soft, bowel sounds present, Extremities - No visible edema. Lab/Imaging: Test performed on Apr 06, 2020 08:33 Sodium 137 mmol/L Potassium 4.1 mmol/L Chloride 103 mmol/L CO2 28 mmol/L Anion Gap 10.1 BUN 9 mg/dL Creatinine 0.5 mg/dL Cr Clearance (Est) 163.4700 mL/min Glucose 112 mg/dL Calcium 9.2 mg/dL Protein, Total 6.0 g/dL Albumin 3.5 g/dL Globulin 2.5 g/dL Bilirubin, Total 0.3 mg/dL ALT (SGPT) 12 U/L AST (SGOT) 10 U/L Alkaline Phosphatase 92 IU/L WBC 7.1 10 3/uL RBC 3.61 10 6/uL HGB 11.6 g/dL HCT 36.0 % MCV 99.7 fL MCH 32.1 pg MCHC 32.2 g/dL RDW 12.8 % Platelet Count 239 10 3/cmm MPV 9.0 fL Neutrophils 5.26 10 3/uL Lymphocytes 1.2 10 3/uL Monocytes 0.5 10 3/uL Eosinophils 0.0 10 3/uL Basophils 0.0 10 3/uL Neutrophil % 74.0 % Lymphocyte % 17.4 % Monocyte % 7.0 % Eosinophil % 0.6 % Basophils % 0.3 % NRBC % 0 % Impression: moderately differentiated squamous cell carcinoma, invasive, involving left vocal cord and 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 CT scan of the neck done on 01/07/2020 showed 19 mm x 11 mm x 14 mm left true vocal cord lesion within no invasion of laryngeal cartilage or extension into aryepiglottic space. Right true vocal cord is unremarkable. As per evaluation by radiation oncology patient was confirmed to have bulky disease so he was started on combined chemoradiation with weekly Cisplatin on March 23, 2020 COPD/emphysema, alcoholism, history of chronic heavy smoking since age 11, quit in December 2019 Status post tracheostomy on 01/08/2020. PowerPort (Left subclavian) and PEG tube placement on 01/09/2020. The PEG tube was removed on 03/17/2020 due to leakage and Mr Gaines was eating well and did not want it replaced at that time. Mr Gaines began combined chemoradiation with weekly Cisplatin on 03/23/2020. He is tolerating it well thus far. Plan: Discussed with patient regarding his labs white blood count 7.2 hemoglobin 12 hematocrit 36.7 platelets 239,000 CMP within normal limits Clinically, patient doing reasonably well, tolerating combined chemoradiation with weekly cisplatin well but with expected side effects. We will proceed with next weekly dose of cisplatin today and then return to clinic in 1 week with CBC CMP, patient was advised to keep trach site clean and follow Dr. Wheat's instructions. Signed By: Liliane Starkey M.D. <<Signature on File>>
--- NOTE | 2020-04-13 19:30 | ONCRAD TMN_ITS ---
Radiation Oncology Weekly Treatment Management Patient: Liana Skinner MR#: [id number] : 1945 Age: 74 Sex: Male Dictated by: Dr. 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 Per review of pretreatment CT scan of the neck (03/08/2020 without contrast due to contrast allergy) there is a 2 x 2 x 3 cm obstructing left glottic tumorwhich appears to invade the left paraglottic space, there is contralateral posterior cord involvement, and the tumor appears to have both subglottic & supraglottic extension. There are no cervical lymph nodes per CT criteria, as declared in the formal report, but there does appear to be shotty sub centimeter left level III lymph nodes which may harbor microscopic disease. The patient recently had a PEG tube, but this was subsequently removed. Plan: Concurrent chemoradiation therapy using weekly cisplatin and a total dose of 70 Gy. Radiotherapy to date: Course: HN, Treatment Site: HN 35FX SIB, Ref. ID: [id number], Energy: 6X, Dose/Fx (cGy): 200, #Fx: 14 35, Dose Correction (cGy): 0, Total Dose (cGy): 2,800, Start Date: 03/23/2020, Elapsed Days: 21 Reason for visit: The patient is being seen today as part of their regularly scheduled weekly on treatment visits to assess for acute toxicities from radiotherapy. Interim History: The patient reports of persistent fatigue, throat pain (4/10) and xerostomia. Current Medications: Aloxi, cetirizine HCl, cISplatin, cyanocobalamin, dexamethasone Sodium Phosphate, emend, finasteride, first-Mouthwash BLM, furosemide, furosemide, ipratropium-Albuterol, lORazepam, lORazepam, magnesium Sulfate, melatonin, potassium Chloride, potassium Chloride ER, prochlorperazine Maleate, tamsulosin HCl, vitamin B Complex. Allergies: Penicillins, Iodine, Gabapentin, novacaine, Blueberries and Insect stings. Vital Signs: Performed on 04/13/2020 3:31 PM BMI - 29.24 kg/m2 (high), Height - 69.00 in, Weight - 198.0 lbs, Temperature - 98.3 f, Pulse - 56, Respiration - 18, O2 Sat - 97 %, Pain - 4, Fatigue - 4 and BP - 102/ 66 mm(hg). Physical Exam: Appears stable, no skin erythema or desquamation. No oral thrush, & lungs clear to auscultation bilaterally. Performance Status: 2 - Ambulatory/capable of all self-care, unable to perform any work activities. Up and about more than 50% of waking hours. (ECOG) Lab: None pending in Radiation Oncology. Test performed on 04/06/2020 8:33 AM RBC - 3.61 10 6/ul (low), HGB - 11.6 g/dl (low), HCT - 36.0 % (low), MCV - 99.7 fl (high), Creatinine - 0.5 mg/dl (low), Cr Clearance (Est) - 163.4700 ml/min (high) and Protein, Total - 6.0 g/dl (low). Imaging: Radiation therapy imaging related to accurate target localization (i.e. KV, MV and CBCT) was reviewed. Appropriate changes, if any, were made to ensure treatment accuracy. Plan: The patient is tolerating therapy reasonably well. Radiotherapy will continue as planned. CPT: 98083 Signed by: Dr. Nelson Galaviz 04/13/2020 7:29:03 PM
[2020-04-20] MEDS: sodium chloride 0.9% 250 ML 75 ML IV (09:00)
[2020-04-20] MEDS: sodium chloride 0.9% 250 ML 45 ML IV (09:00)
[2020-04-20 09:26] LABS: Basophils % 0.2 %; Eosinophils % 0.4 %; Hematocrit 36.2 % (42.0-52.0); Hemoglobin 11.7 g/dL (11.7-16.6); Lymphocytes # 0.7 10^3/uL (0.8-4.8); Lymphocytes % 15.2 %; Mean Corpuscular HGB Conc 32.3 g/dL (30.0-36.0); Mean Corpuscular Hemoglobin 32.3 pg (28.0-34.0); Mean Platelet Volume 9.2 fL (7.4-10.4); Monocytes # 0.5 10^3/uL (0.2-0.9); Monocytes % 9.4 %; Neutrophils # 3.62 10^3/uL (1.8-7.7); Neutrophils % 74.2 %; Nucleated Red Blood Cells % 0 %; Platelet Count 160 10^3/cmm (130-400); Red Blood Count 3.62 10^6/uL (4.1-5.3); Red Cell Distribution Width 14.6 % (12.1-15.1); White Blood Count 4.9 10^3/uL (4.0-10.0)
[2020-04-20 09:43] LABS: Alanine Aminotransferase 8 U/L (0-41); Albumin Level 3.6 g/dL (3.5-5.2); Alkaline Phosphatase 83 IU/L (40-130); Anion Gap 10.9 (5-19); Aspartate Amino Transferase 10 U/L (0-40); Blood Urea Nitrogen 7 mg/dL (8-23); Calcium 8.9 mg/dL (8.5-10.5); Carbon Dioxide 29 mmol/L (22-29); Chloride 103 mmol/L (98-107); Globulin 2.4 g/dL (1.3-4.6); Glucose 125 mg/dL (65-115); Osmolality Calculated 285 mOsm/kg (285-295); Potassium 3.9 mmol/L (3.5-5.1); Sodium 139 mmol/L (136-145); Total Bilirubin 0.5 mg/dL (0.15-1.2)
[2020-04-20] MEDS: FUROsemide 10 mg/mL SDV 2mL 20 MG IV (11:23)
[2020-04-20] MEDS: potassium chloride 20 MEQ in sodium chloride 0.9% 500 ML 250 MEQ IV (12:35)
--- NOTE | 2020-04-20 15:21 | ONCRAD TMN_ITS ---
Radiation Oncology Weekly Treatment Management Patient: Liana Skinner MR#: [id number] : 1945 Age: 74 Sex: Male Dictated by: Dr. 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 Per review of pretreatment CT scan of the neck (03/08/2020 without contrast due to contrast allergy) there is a 2 x 2 x 3 cm obstructing left glottic tumorwhich appears to invade the left paraglottic space, there is contralateral posterior cord involvement, and the tumor appears to have both subglottic & supraglottic extension. There are no cervical lymph nodes per CT criteria, as declared in the formal report, but there does appear to be shotty sub centimeter left level III lymph nodes which may harbor microscopic disease. The patient recently had a PEG tube, but this was subsequently removed. Plan: Concurrent chemoradiation therapy using weekly cisplatin and a total dose of 70 Gy. Radiotherapy to date: Course: HN, Treatment Site: HN 35FX SIB, Ref. ID: [id number], Energy: 6X, Dose/Fx (cGy): 200, #Fx: 35, Dose Correction (cGy): 0, Total Dose (cGy): 3,800, Start Date: 03/23/2020, Elapsed Days: 28 Reason for visit: The patient is being seen today as part of their regularly scheduled weekly on treatment visits to assess for acute toxicities from radiotherapy. Interim History: The patient reports painful swallowing, and his diet is now mechanical soft. His weight is down 5 pounds. Unfortunately, the patient's PEG tube has previously been removed, and it is likely that he will need this PEG tube reinserted. Current Medications: Aloxi, cetirizine HCl, cISplatin, cyanocobalamin, dexamethasone Sodium Phosphate, emend, finasteride, first-Mouthwash BLM, furosemide, furosemide, ipratropium-Albuterol, lORazepam, lORazepam, magnesium Sulfate, melatonin, potassium Chloride, potassium Chloride ER, potassium Chloride in NaCl, prochlorperazine Maleate, tamsulosin HCl, vitamin B Complex. Allergies: Penicillins, Iodine, Gabapentin, novacaine, Blueberries and Insect stings. Current Complaints/Review of Systems: Constitutional - Complains of mild fatigue. Complains of change in weight in which it is down 5 lbs. since last OTV. Denies lack of appetite, fever and night sweats. ENMT - Complains of dysphagia, mouth dryness and altered taste. Denies ear pain and stomatitis. Neck - Denies neck pain and decreased range of motion. Integumentary - Has redness to the neck. Vital Signs: Performed on 04/20/2020 9:29 AM BMI - 28.501 kg/m2 (high), Height - 69.00 in, Weight - 193.0 lbs, Temperature - 97.9 f, Pulse - 61, Respiration - 20, O2 Sat - 98 %, Pain - 0 and BP - 109/ 65 mm(hg). Physical Exam: . Bilateral neck erythema is appreciated. Lungs are clear. Performance Status: 2 - Ambulatory/capable of all self-care, unable to perform any work activities. Up and about more than 50% of waking hours. (ECOG) Lab: None pending in Radiation Oncology. Imaging: Radiation therapy imaging related to accurate target localization (i.e. KV, MV and CBCT) was reviewed. Appropriate changes, if any, were made to ensure treatment accuracy. Plan: The patient is tolerating therapy reasonably well. Radiotherapy will continue as planned. The patient will likely need to follow up with surgery to consider reinsertion of a PEG tube. We will request an appointment for surgical follow-up within the next week. CPT: 35003 Signed by: Dr. Nelson Galaviz 04/20/2020 3:20:53 PM
--- NOTE | 2020-04-24 21:18 | ONC FU_ITS ---
[facility] Patient Note Patient: Brody Gaines Unit #: [id number]: 1945 Dictated By: Marielle JoaquinDate of Visit: Apr 20, 2020 Onc MED Follow-Up/Prog Note Chief Complaint: laryngeal carcinoma History of Present Illness: Mr. Gaines is a 74-year-old gentleman with history of progressive shortness of breath and hoarseness of voice since August 2019. He denied dysphagia or odynophagia, as well as hemoptysis or hematemesis. He presented to [facility] on 01/07/2020 with worsening shortness of breath over a 3 month period. He had also complained of significant hoarseness. He also reported about a 20 pound unintentional weight loss over that [address] scan of the neck and chest was done on 01/07/2020, showed left true vocal cord tumor mass measuring about 19 mm x 11 mm x 14 mm . No visible direct invasion or distant metastasis is seen. Mr Gaines underwent [facility] laryngoscopy with biopsy of bilateral vocal cords and tracheostomy per Dr Wheat. Mr Gaines underwent insertion of a left subclavian PowerPort on January 12, 2020. He also had a PEG tube placed at that time. Both procedures performed by Dr Edmond. The final pathology report came back moderately differentiated squamous cell carcinoma invasive, involving LEFT vocal cord. 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 Mr Gaines has history of heavy smoking since age 11 (greater than 150 pack year) and quit recently. MEDICAL HISTORY: Alcoholism, BPH, COPD and tobacco dependency. He has had surgery of his ankle and hernia surgery. INTERIM HISTORY: CT/ PET scan done on February 10, 2020 showed increased uptake in the glottis with tracheostomy tube entering along the inferior margin of the lesion. SUV maximum 17.89. No lymphadenopathy. Further investigation and evaluation by radiation therapy confirmed bulky disease. Mr Gaines was offered combined treatment with chemoradiation and began treatment with weekly Cisplatin on March 23, 2020. Mr. Gaines is here today for follow-up. He states his is with him today. He indicates that he continues to do well overall. His agrees. Mr. Gaines has a trach and communication is difficult at times. He looks better today and that his skin is pink and he is more jovial. He denies any cough more than what he has had. He denies any difficulty swallowing. He states his breathing is good. He denies any chest pain or palpitations. He denies nausea or vomiting. He denies neuropathy and Mrs. Gaines denies that she has has noticed any hearing changes. His ECOG is 2. Past Medical History: Alcoholism Bph Chronic obstructive pulmonary disease Polycythemia Past Surgical History: Ankle repair Hernia repair Laryngoscopy Peg tube Port placement Tracheostomy Allergies: Blueberries, Gabapentin, Insect stings, Iodine, novacaine, and Penicillins. Medications: Cetirizine HCl 1 Tablet (of 10 mg) Oral daily Cyanocobalamin 1 Tablet (of 100 mcg) Oral daily Finasteride 1 Tablet (of 5 mg) Oral daily Furosemide 1 Tablet (of 20 mg) Oral every am LORazepam 0.5 - 1 Tablet (of 1 mg) Oral t.i.d. PRN Melatonin 1 Tablet (of 5 mg) Oral at bedtime Potassium Chloride ER 1 Tablet (of 20 meq) Tablet, controlled release Oral b.i.d. Tamsulosin HCl 1 Capsule (of 0.4 mg) Oral daily Vitamin B Complex 1 Tablet Oral daily Family History: The family history is unremarkable. Social History: Mr. Gaines is and he is an unkown. Mr. Gaines quit smoking less than one year ago but had smoked 3.0 packs/day for 60 years. He quit drinking less than one year ago. He has indicated exposure to the following products: cigarettes. Used to smoke 2.5 to 3 packs per day of cigarettes. Recently just quit drinking. Was a heavy drinker in the past . Review Of Symptoms: Constitutional Denies fevers, chills, night sweats, excessive fatigue or weight loss. Allergic/Immunologic No reactions. Eyes Denies significant visual changes. No diplopia. No amaurosis. ENMT Denies changes in hearing, sore throat, mouth sores, difficulty or changes in swallowing ability, and/or sinus drainage. Has trach. Endocrine No diabetes, thyroid disease or hormone replacement. Denies hot flashes or night sweats. Hematologic/Lymphatic Denies easy bruising or bleeding. The patient denies any tender or palpable lymph nodes. Respiratory Denies dyspnea on exertion, chest pain, cough or hemoptysis. Denies orthopnea. Cardiovascular Denies anginal chest pain, palpitations or orthopnea. Gastrointestinal Denies nausea, vomiting, diarrhea, GI bleeding, or constipation. Denies change in bowel habits and/or stool color, no heartburn or early satiety. Genitourinary (M) Denies hematuria, dysuria, increased frequency, urgency, hesitancy or incontinence. Musculoskeletal Denies joint pain, swelling or redness. No decreased range of motion. Integumentary Denies chronic rashes, inflammation, ulcerations or skin changes. Neurologic Denies headache, blurred vision, and no areas of focal weakness or numbness. Normal gait. No sensory problems. Psychiatric Denies insomnia, depression, steff or mood swings. Constitutional Complains of mild fatigue. Complains of change in weight in which it is down 5 lbs. since last OTV. Denies lack of appetite, fever and night sweats. ENMT Complains of dysphagia, mouth dryness and altered taste. Denies ear pain and stomatitis. Neck Denies neck pain and decreased range of motion. Integumentary Has redness to the neck. Vital Signs: Performed on Apr 20, 2020 09:29 Height - 69.00 in Weight - 193.0 lbs Temperature - 97.9 F Pulse - 61 Respiration - 20 BP - 109/65 mm(hg) O2 Sat - 98 % Pain - 0 Performed on Apr 20, 2020 09:29 BMI - 28.501 kg/m2 (HIGH),2 - Ambulatory/capable of all self-care, unable to perform any work activities. Up and about more than 50% of waking hours. (ECOG) Physical Examination: Constitutional Alert, oriented, no acute distress. Skin pink, warm and dry. Head Normocephalic; atraumatic. Eyes Conjunctivae and sclerae are clear and without icterus. Pupils are reactive and equal. Neck Trach site is unremarkable. Hematologic/Lymphatic No petechiae or purpura. No tender or palpable lymph nodes in the cervical or supraclavicular areas. Respiratory Lungs are clear to auscultation without rhonchi or wheezing. Cardiovascular Regular rate and rhythm of heart without murmurs,clicks, gallops or rubs. Abdomen Non-tender, non-distended, no masses or ascites. Good bowel sounds noted in all quads. No guarding or rebound tenderness. No pulsatile masses. Back/Spine Non-tender to palpation. Extremities No visible deformities, no cyanosis, clubbing or edema. Musculoskeletal No tenderness or swelling, normal range of motion without obvious weakness. Integumentary No rashes or lesions. Neurologic No sensory or motor deficits, normal cerebellar function, normal gait. Psychiatric Alert and oriented times three. Coherent speech. Verbalizes understanding of our discussions today. Laboratory:Test performed on Apr 20, 2020 09:00 Sodium 139 mmol/L Potassium 3.9 mmol/L Chloride 103 mmol/L CO2 29 mmol/L Anion Gap 10.9 BUN 7 mg/dL Creatinine 0.5 mg/dL Cr Clearance (Est) 163.4700 mL/min Glucose 125 mg/dL Calcium 8.9 mg/dL Protein, Total 6.0 g/dL Albumin 3.6 g/dL Globulin 2.4 g/dL Bilirubin, Total 0.5 mg/dL ALT (SGPT) 8 U/L AST (SGOT) 10 U/L Alkaline Phosphatase 83 IU/L WBC 4.9 10 3/uL RBC 3.62 10 6/uL HGB 11.7 g/dL HCT 36.2 % MCV 100.0 fL MCH 32.3 pg MCHC 32.3 g/dL RDW 14.6 % Platelet Count 160 10 3/cmm MPV 9.2 fL Neutrophils 3.62 10 3/uL Lymphocytes 0.7 10 3/uL Monocytes 0.5 10 3/uL Eosinophils 0.0 10 3/uL Basophils 0.0 10 3/uL Neutrophil % 74.2 % Lymphocyte % 15.2 % Monocyte % 9.4 % Eosinophil % 0.4 % Basophils % 0.2 % NRBC % 0 % Impression: moderately differentiated squamous cell carcinoma, invasive, involving left vocal cord and 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 CT scan of the neck done on 01/07/2020 showed 19 mm x 11 mm x 14 mm left true vocal cord lesion within no invasion of laryngeal cartilage or extension into aryepiglottic space. Right true vocal cord is unremarkable. As per evaluation by radiation oncology patient was confirmed to have bulky disease so he was started on combined chemoradiation with weekly Cisplatin on March 23, 2020 COPD/emphysema, alcoholism, history of chronic heavy smoking since age 11, quit in December 2019 Status post tracheostomy on 01/08/2020. PowerPort (Left subclavian) and PEG tube placement on 01/09/2020. The PEG tube was removed on 03/17/2020 due to leakage and Mr Gaines was eating well and did not want it replaced at that time. Mr Gaines began combined chemoradiation with weekly Cisplatin on 03/23/2020. He is tolerating it well thus far. Plan: 1. Proceed with week 5 cisplatin. He continues daily radiation. 2. Continue current antiemetics as these are working well for him. 3. Labs from today were reviewed in detail discussed with and Mrs Gaines. WBC 4.9, hemoglobin 11.7 platelets 160,000 ANC is 3600. Potassium 3.9 sodium 139 glucose 125 creatinine 0.5 LFTs are normal. 4. We will plan to see him back in 1 week for consideration of week 6 cisplatin. He will be due for CBC CMP at that time. 5. Mr. Gaines is been instructed to contact us in the interim should questions or problems arise. Signed By: Marielle Joaquin-, AOP Liliane Starkey MD <<Signature on File>>
== END 2020-04-26 23:59 | disposition home or self-care (01) ==
LOC: ONCMED 05:38
PROVIDERS: Internal Medicine Hematology & Oncology; Nurse Practitioner; Absent Provider Radiology Radiation Oncology; PCP Internal Medicine; Visit Provider Radiology Radiation Oncology
DX: Z51.0 Encounter for antineoplastic radiation therapy (principal); Z51.11 Encounter for antineoplastic chemotherapy; C32.0 Malignant neoplasm of glottis; J44.9 Chronic obstructive pulmonary disease, unspecified; F10.20 Alcohol dependence, uncomplicated; Z87.891 Personal history of nicotine dependence
CPT/HCPCS: 77336; 77386; 80053; 85025; 96366; 96367; 96375; 96413; 99214; J1100; J1453; J1940; J2469; J3475; J3480; J7030; J7040; J7050; J9060

== ENCOUNTER 2020-05-03 16:38 | Emergency (ER) | payer OTHER, SELFPAY ==
[2020-05-03 17:01] VITALS: BP 105/62; PULSE 75; RESP 22; TEMP 36.3; O2SAT 97; BMI 29.2
--- NOTE | 2020-05-03 17:40 | CTR_ITS ---
PROCEDURE INFORMATION: Exam: CT Neck Without Contrast Exam date and time: 05/03/2020 5:43 PM Age: 75 years old Clinical indication: Mass, lump, or swelling in neck; Prior surgery; Surgery date: 6+ months; Patient HX: HX of laryngeal CA, current xrt, feels like trach is blocked; Additional info: Laryngeal cancer, feels trach is blocked TECHNIQUE: Imaging protocol: Computed tomography images of the neck without contrast. Radiation optimization: All CT scans at this facility use at least one of these dose optimization techniques: automated exposure control; mA and/or kV adjustment per patient size (includes targeted exams where dose is matched to clinical indication); or iterative reconstruction. COMPARISON: CT neck wo con [id number] 03/08/2020 2:43 PM RADIATION DOSE METRICS: Total DLP (mGy-cm): 739.31 FINDINGS: Tubes, catheters and devices: Left Mediport catheter. Nasopharynx: Unremarkable. Oropharynx: Large tongue suggesting possible macroglossia. Hypopharynx: Unremarkable. Larynx: Unremarkable. Normal epiglottis. Retropharyngeal space: Unremarkable. Submandibular/Parotid glands: Normal. Glands are normal in size. Thyroid: Normal. No enlarged or calcified nodules. Lymph nodes: Calcified right hilar nodes and/or mediastinal nodes and/or lung granulomas consistent with old granulomatous disease. Trachea: Motion artifact in the region of the tracheostomy tube with no obvious occlusion. Prominent 4.0 x 3.9 x 2.7 cm mass in the larynx with near complete occlusion of the airway, proximal to the tracheostomy tube. Lungs: Unremarkable as visualized. Bones/joints: Severe multilevel spine degenerative changes including degenerative disc disease, spondylosis and facet degenerative changes. Vasculature: Calcification of the thoracic aorta and/or great vessels consistent with atherosclerotic vessel disease. Soft tissues: Unremarkable. No significant soft tissue swelling. Other findings: Cervicothoracic dextroscoliosis. CT/CT neck wo con [id number] IMPRESSION: 1. Large tongue suggesting possible macroglossia. 2. Motion artifact in the region of the tracheostomy tube with no obvious occlusion. 3. Prominent 4.0 x 3.9 x 2.7 cm mass in the larynx with near complete occlusion of the airway, proximal to the tracheostomy tube. 4. The trachea and mainstem bronchi appear normal with no mucous plugs or obstruction. Radiation Dose CTDIVOL = (mGy): DLP = 739.31 (mGy-cm)
--- NOTE | 2020-05-03 18:39 | ED_ITS ---
HPI - General Adult General: Chief complaint: General Medical Stated complaint: throat swollen/ needs suction? Time Seen by Provider: 05/03/20 17:08 Source: patient and family Mode of arrival: ambulatory Limitations: no limitations History of Present Illness: HPI narrative: The patient is a 75 year old male with a history of malignant neoplasm of the glottis. He has a trachesostomy and he states that for the last few days he has not been suctioning much out of the tracheostomy and he gets episodes of cough/gagging and he gets anxious and worried. He thinks it may be clogged and so he is here for evaluation. Associated symptoms: Deny dyspnea, headache(s), nausea, rash, palpitations or vomiting Review of Systems General: Reports: 10 or more systems reviewed and unremarkable except in HPI and below Const: Denies: fever(s), chills or body aches Eyes: Denies: change in vision or blurry vision ENMT: Reports: hoarseness; Denies: throat pain, enlarged tonsils, odynophagia, mouth pain or swelling of lips/tongue Card: Denies: palpitations, irregular heart rhythm, edema or swelling of feet/ankles Resp: Denies: dyspnea, productive cough or non-productive cough GI: Denies: abdominal pain, nausea or vomiting : Denies: flank pain, dysuria, urinary frequency, urinary urgency or urinary hesitancy Musc: Denies: neck pain, back pain or extremity swelling Skin/Breast: Denies: rash, pruritus or erythema Neuro: Denies: headache(s), numbness in extremities or weakness in extremities Endo: Denies: polyuria, polydipsia or tired all the time [facility] ED PFSH: Medical History (Reviewed 05/03/20 @ 20:28 by Ericka Raya MD, [facility] [place]) Alcoholism BPH (benign prostatic hyperplasia) COPD (chronic obstructive pulmonary disease) Laryngeal mass Port-A-Cath in place Surgical History (Reviewed 05/03/20 @ 20:28 by Ericka Raya MD, [facility] [place]) History of ankle surgery History of hernia surgery S/P percutaneous endoscopic gastrostomy (PEG) tube placement Status post tracheostomy Family History (Reviewed 05/03/20 @ 20:28 by Ericka Raya MD, [facility] [place]) Other CAD (coronary artery disease) Social History (Reviewed 05/03/20 @ 20:28 by Ericka Raya MD, [facility] [place]) Smoking and tobacco status: former smoker Quit status (tobacco): considering quitting Alcohol intake: current Alcohol intake frequency: 3 or more drinks per day Physical Exam Const: COMMON NORMALS: no acute distress, average body habitus, patient oriented x3, no limitations, healthy appearing, alert and well nourished HENMT: COMMON NORMALS: normocephalic, atraumatic and moist oral mucous membranes HEAD & SCALP: normocephalic and atraumatic Eye: COMMON NORMALS: Equal, round and reactive pupils present, EOMs intact bilaterally, conjunctivae normal and no scleral icterus CONJUNCTIVA: Yes conjunctivae normal PUPIL: Yes Equal, round and reactive pupils present Neck/C-Spine: COMMON NORMALS: full ROM, supple, no meningeal signs, no JVD and No carotid bruits OTHER: Tracheostomy appears patent. He does have an episo de of coughing while I am examining him. Resp: COMMON NORMALS: normal respiratory effort, No retractions, No use of accessory muscles, clear to auscultation bilaterally and percussion normal AUSCULTATION: clear to auscultation bilaterally PERCUSSION: percussion normal Cardio: COMMON NORMALS: no JVD, regular rate, regular rhythm, S1 normal heart sound present, S2 normal heart sound present, No gallops present (Cardio), No clicks present (Cardio), No murmurs present (Cardio), No rub (Cardio) and Peripheral pulses 2+ throughout RATE: regular rate RHYTHM: regular rhythm HEART SOUNDS: S1 normal heart sound present and S2 normal heart sound present PERIPHERAL PULSES: Peripheral pulses 2+ throughout GI: COMMON NORMALS: Normal to inspection, nondistended, normoactive bowel sounds present, Soft to palpation, non-tender, No hepatosplenomegaly present, no masses and no bruits PALPATION: Yes Soft to palpation and Yes No hepatosplenomegaly present Extremity: COMMON NORMALS: normal to inspection, full ROM, capillary refill normal, no calf tenderness and no pedal edema Neuro: COMMON NORMALS: patient oriented x3 SENSORIUM/ORIENTATION: Yes alert MENINGEAL SIGNS: Yes no meningeal signs Course Reevaluation(s): Reevaluation #1: Discussed his imaging findings with him, no sign of obstruction. He will be discharged home with no new orders. He feels better after suctioning of the tracheostomy by RT. He voiced understanding and all questions answered. Time: 18:39 Vital Signs: Vital signs: Vital Signs Temperature 97.3 F L 05/03/20 17:01 Pulse Rate 67 05/03/20 18:47 Respiratory Rate 18 05/03/20 18:47 Blood Pressure 99/58 05/03/20 18:47 Pulse Oximetry 96 05/03/20 18:47 MDM - General Adult MDM Narrative: Medical decision making narrative: Patient with a permanent tracheostomy who had difficulty with suctioning due to thick secretions. RT was able to successfully suction it, and he improved. CT of his neck does not show any obstruction distal to the trach. He is discharged home with no new orders. Imaging Data^: Other CT: Radiologist's impression: [place] [address] CT Scan Report Signed Patient: Brody Gaines #: [id number] : 4At#:[id number] Age/Sex: 75 / MADM Date: 05/03/20 Loc: ERRoom/Bed: Attending Dr: Ordering Provider/Ordering MD: Ericka Raya MD, [facility] [place] Date of Service: 05/03/20 Procedure(s): CT neck wo con [id number] Accession Number(s): [id number] Report Number: [id number] PROCEDURE INFORMATION: Exam: CT Neck Without Contrast Exam date and time: 05/03/2020 5:43 PM Age: 75 years old Clinical indication: Mass, lump, or swelling in neck; Prior surgery; Surgery date: 6+ months; Patient HX: HX of laryngeal CA, current xrt, feels like trach is blocked; Additional info: Laryngeal cancer, feels trach is blocked TECHNIQUE: Imaging protocol: Computed tomography images of the neck without contrast. Radiation optimization: All CT scans at this facility use at least one of these dose optimization techniques: automated exposure control; mA and/or kV adjustment per patient size (includes targeted exams where dose is matched to clinical indication); or iterative reconstruction. COMPARISON: CT neck wo con [id number] 03/08/2020 2:43 PM RADIATION DOSE METRICS: Total DLP (mGy-cm): 739.31 FINDINGS: Tubes, catheters and devices: Left Mediport catheter. Nasopharynx: Unremarkable. Oropharynx: Large tongue suggesting possible macroglossia. Hypopharynx: Unremarkable. Larynx: Unremarkable. Normal epiglottis. Retropharyngeal space: Unremarkable. Submandibular/Parotid glands: Normal. Glands are normal in size. Thyroid: Normal. No enlarged or calcified nodules. Lymph nodes: Calcified right hilar nodes and/or mediastinal nodes and/or lung granulomas consistent with old granulomatous disease. Trachea: Motion artifact in the region of the tracheostomy tube with no obvious occlusion. Prominent 4.0 x 3.9 x 2.7 cm mass in the larynx with near complete occlusion of the airway, proximal to the tracheostomy tube. Lungs: Unremarkable as visualized. Bones/joints: Severe multilevel spine degenerative changes including degenerative disc disease, spondylosis and facet degenerative changes. Vasculature: Calcification of the thoracic aorta and/or great vessels consistent with atherosclerotic vessel disease. Soft tissues: Unremarkable. No significant soft tissue swelling. Other findings: Cervicothoracic dextroscoliosis. CT/CT neck wo con [id number] IMPRESSION: 1. Large tongue suggesting possible macroglossia. 2. Motion artifact in the region of the tracheostomy tube with no obvious occlusion. 3. Prominent 4.0 x 3.9 x 2.7 cm mass in the larynx with near complete occlusion of the airway, proximal to the tracheostomy tube. 4. The trachea and mainstem bronchi appear normal with no mucous plugs or obstruction. Radiation Dose CTDIVOL = (mGy): DLP = 739.31 (mGy-cm) Dictated By:Brody Gamez MD Signed By:Brody Gamez MDSigned Date/Time:05/03/201812 DD/ 10 Discharge Plan Discharge Patient Disposition: Home Clinical Impression: Acute tracheostomy management Condition: Stable Prescriptions: Continued cyanocobalamin (vitamin B-12) [Vitamin B-12] 100 mcg Tablet 100 mcg PO DAILY RF: 0 cetirizine 10 mg Tablet 10 mg PO DAILY RF: 0 thiamine HCl (vitamin B1) [Vitamin B-1] 100 mg Tablet 100 mg PO DAILY RF: 0 tamsulosin [Flomax] 0.4 mg Capsule 0.4 mg PO DAILY RF: 0 vitamin B complex [B-Complex] Tablet 1 tab PO DAILY RF: 0 furosemide [Lasix] 20 mg Tablet 20 mg PO DAILY RF: 0 albuterol sulfate 90 mcg/actuation Hfa Aerosol Inhaler 1 puff INHALATION QID PRN (Reason: Shortness Of Breath) RF: 0 finasteride 5 mg Tablet 5 mg PO DAILY RF: 0 guaifenesin 400 mg Tablet 400 mg PO Q4H PRN (Reason: Congestion) RF: 0 potassium chloride 20 mEq Tablet Extended Release 20 meq PO BID RF: 0 cyanocobalamin (vitamin B-12) 1,000 mcg Capsule 1,000 mcg PO DAILY RF: 0 sulfamethoxazole-trimethoprim 800-160 mg Tablet 1 tab peg-tube BID Qty: 12 RF: 0 folic acid 1 mg Tablet 1 mg feeding tube DAILY Qty: 30 RF: 0 thiamine HCl (vitamin B1) 100 mg tablet 100 mg feeding tube DAILY Qty: 30 RF: 0 docusate sodium [Docu] 50 mg/5 mL Liquid 100 mg feeding tube BID Qty: 473 RF: 0 pantoprazole 40 mg Tablet,Delayed Release (Dr/Ec) 40 mg PO DAILY Qty: 30 RF: 0 Discharge Orders: Discharge Order (Routine); Ordered 05/03/20 Ordered By: Ericka Raya Referrals: Elio Bobby [Primary Care Provider] - 1-3 days Discharge Diet: Usual diet Discharge Activity: Resume usual activity Patient Instructions: Tracheostomy Care (ED) Activity Restrictions/Additional Instructions: Return for any new or worsening symptoms. Follow-up with your primary care provider within 3 days. Continue home medications as prescribed. Discharge Date/Time: 05/03/20 18:47 Coding Level of Care Code ED [employer] for Loretta Mandujano
[2020-05-03 18:47] VITALS: BP 99/58; PULSE 67; RESP 18; O2SAT 96
== END 2020-05-03 18:47 | disposition home or self-care (01) ==
PROVIDERS: Emergency Provider Family Medicine; PCP Internal Medicine
DX: Z43.0 Encounter for attention to tracheostomy (principal); J44.9 Chronic obstructive pulmonary disease, unspecified; Z87.891 Personal history of nicotine dependence; Z85.21 Personal history of malignant neoplasm of larynx
CPT/HCPCS: 12345; 70490; 99282; 99283

== ENCOUNTER 2020-05-14 05:48 | Outpatient (RCR) | payer OTHER, SELFPAY ==
[2020-04-27] MEDS: sodium chloride 0.9% 250 ML 75 ML IV ×2 (08:20→08:25)
[2020-04-27 08:49] LABS: Basophils % 0.6 %; Eosinophils % 0.9 %; Hematocrit 34.8 % (42.0-52.0); Hemoglobin 11.4 g/dL (11.7-16.6); Lymphocytes # 0.6 10^3/uL (0.8-4.8); Lymphocytes % 17.2 %; Mean Corpuscular HGB Conc 32.8 g/dL (30.0-36.0); Mean Corpuscular Hemoglobin 32.8 pg (28.0-34.0); Mean Platelet Volume 9.3 fL (7.4-10.4); Monocytes # 0.4 10^3/uL (0.2-0.9); Monocytes % 10.6 %; Neutrophils # 2.32 10^3/uL (1.8-7.7); Neutrophils % 70.1 %; Nucleated Red Blood Cells % 0 %; Platelet Count 135 10^3/cmm (130-400); Red Blood Count 3.48 10^6/uL (4.1-5.3); White Blood Count 3.3 10^3/uL (4.0-10.0)
[2020-04-27 09:06] LABS: Alanine Aminotransferase 7 U/L (0-41); Albumin Level 3.4 g/dL (3.5-5.2); Alkaline Phosphatase 85 IU/L (40-130); Anion Gap 11.6 (5-19); Aspartate Amino Transferase 9 U/L (0-40); Blood Urea Nitrogen 9 mg/dL (8-23); Carbon Dioxide 28 mmol/L (22-29); Chloride 103 mmol/L (98-107); Globulin 2.7 g/dL (1.3-4.6); Glucose 99 mg/dL (65-115); Osmolality Calculated 284 mOsm/kg (285-295); Potassium 3.6 mmol/L (3.5-5.1); Sodium 139 mmol/L (136-145); Total Bilirubin 0.4 mg/dL (0.15-1.2); Total Protein 6.1 g/dL (6.6-8.7)
--- NOTE | 2020-04-27 09:52 | ONC FU_ITS ---
Dr. Starkey follow up note Patient: Brody Gaines Unit #: [id number]: 1945 Dicatated By: Liliane Starkey M.D.Date of Visit:Apr 27, 2020 Onc Med Follow-up/Prog Note History of Present Illness: Mr. Gaines is a 75-year-old gentleman with history of progressive shortness of breath and hoarseness of voice since August 2019. He denied dysphagia or odynophagia, as well as hemoptysis or hematemesis. He presented to [facility] on 01/07/2020 with worsening shortness of breath over a 3 month period. He had also complained of significant hoarseness. He also reported about a 20 pound unintentional weight loss over that [address] scan of the neck and chest was done on 01/07/2020, showed left true vocal cord tumor mass measuring about 19 mm x 11 mm x 14 mm . No visible direct invasion or distant metastasis is seen. Mr Gaines underwent [facility] laryngoscopy with biopsy of bilateral vocal cords and tracheostomy per Dr Wheat. Mr Gaines underwent insertion of a left subclavian PowerPort on January 12, 2020. He also had a PEG tube placed at that time. Both procedures performed by Dr Edmond. The final pathology report came back moderately differentiated squamous cell carcinoma invasive, involving LEFT vocal cord. 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 Mr Gaines has history of heavy smoking since age 11 (greater than 150 pack year) and quit recently. MEDICAL HISTORY: Alcoholism, BPH, COPD and tobacco dependency. He has had surgery of his ankle and hernia surgery. INTERIM HISTORY: CT/ PET scan done on February 10, 2020 showed increased uptake in the glottis with tracheostomy tube entering along the inferior margin of the lesion. SUV maximum 17.89. No lymphadenopathy. Further investigation and evaluation by radiation therapy confirmed bulky disease. Mr Gaines was offered combined treatment with chemoradiation and began treatment with weekly Cisplatin on March 23, 2020. Came for follow-up, complaining of pain at tracheostomy site but no pus or bleeding also complaining of painful swallowing, trying Magic mouthwash with some help, no fever chills, no nausea or vomiting, no diarrhea or constipation, tolerating combined chemoradiation with weekly cisplatin well otherwise Medications: Cetirizine HCl 1 Tablet (of 10 mg) Oral daily, Cyanocobalamin 1 Tablet (of 100 mcg) Oral daily, Finasteride 1 Tablet (of 5 mg) Oral daily, Furosemide 1 Tablet (of 20 mg) Oral every am, LORazepam 0.5 - 1 Tablet (of 1 mg) Oral t.i.d. PRN, Melatonin 1 Tablet (of 5 mg) Oral at bedtime, Potassium Chloride ER 1 Tablet (of 20 meq) Tablet, controlled release Oral b.i.d., Tamsulosin HCl 1 Capsule (of 0.4 mg) Oral daily, Vitamin B Complex 1 Tablet Oral daily Allergies: Blueberries, Gabapentin, Insect stings, Iodine, novacaine, and Penicillins. Review of Systems: Constitutional - Appetite is fair and weight is stable. No fever, night sweats, or hot flashes. Energy level is poor, ENMT - No sinus congestion/drainage. No mouth sores. Positive for sore throat and difficulty swallowing, Hematologic/Lymphatic - No abnormal bruising or bleeding, Respiratory - No shortness of breath. Occasional cough. No pleuritic pain or hemoptysis, Cardiovascular - No angina pain. No palpitations, Gastrointestinal - No nausea or vomiting. No heartburn or acid reflux. No diarrhea or constipation. No blood in the stool or black stools, Genitourinary (M) - No dysuria or hematuria. No urinary frequency. No urgency or incontinence, Musculoskeletal - No joint or bone pain, Neurologic - No headache or dizziness. No numbness or tingling. No other focal neurologic symptoms, Psychiatric - No anxiety or depression. No insomnia. Vital Signs: Performed on Apr 27, 2020 09:14 Height - 69.00 in Weight - 191.4 lbs (LOW) BSA - 2.03 sq.m BMI - 28.27 Temperature - 98.1 F (LOW) Pulse - 56 /min (LOW) Respiration - 20 /min BP - 106/68 mm(hg) O2 Sat - 93 % (LOW) Pain - 4 Performance Status: 1 - No physically strenuous activity, but ambulatory and able to carry out light or sedentary work (e.g. office work, light house work). (ECOG) Physical Examination: ENMT - No mouth sores, no thrush, tracheostomy site, clean with no pus or bleeding, mild erythema, Respiratory - Lungs are clear, Cardiovascular - Regular rate and rhythm of heart, Abdomen - Soft, bowel sounds present, Extremities - No visible edema. Lab/Imaging: Test performed on Apr 20, 2020 09:00 Sodium 139 mmol/L Potassium 3.9 mmol/L Chloride 103 mmol/L CO2 29 mmol/L Anion Gap 10.9 BUN 7 mg/dL Creatinine 0.5 mg/dL Cr Clearance (Est) 163.4700 mL/min Glucose 125 mg/dL Calcium 8.9 mg/dL Protein, Total 6.0 g/dL Albumin 3.6 g/dL Globulin 2.4 g/dL Bilirubin, Total 0.5 mg/dL ALT (SGPT) 8 U/L AST (SGOT) 10 U/L Alkaline Phosphatase 83 IU/L WBC 4.9 10 3/uL RBC 3.62 10 6/uL HGB 11.7 g/dL HCT 36.2 % MCV 100.0 fL MCH 32.3 pg MCHC 32.3 g/dL RDW 14.6 % Platelet Count 160 10 3/cmm MPV 9.2 fL Neutrophils 3.62 10 3/uL Lymphocytes 0.7 10 3/uL Monocytes 0.5 10 3/uL Eosinophils 0.0 10 3/uL Basophils 0.0 10 3/uL Neutrophil % 74.2 % Lymphocyte % 15.2 % Monocyte % 9.4 % Eosinophil % 0.4 % Basophils % 0.2 % NRBC % 0 % Impression: moderately differentiated squamous cell carcinoma, invasive, involving left vocal cord and 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 CT scan of the neck done on 01/07/2020 showed 19 mm x 11 mm x 14 mm left true vocal cord lesion within no invasion of laryngeal cartilage or extension into aryepiglottic space. Right true vocal cord is unremarkable. As per evaluation by radiation oncology patient was confirmed to have bulky disease so he was started on combined chemoradiation with weekly Cisplatin on March 23, 2020 COPD/emphysema, alcoholism, history of chronic heavy smoking since age 11, quit in December 2019 Status post tracheostomy on 01/08/2020. PowerPort (Left subclavian) and PEG tube placement on 01/09/2020. The PEG tube was removed on 03/17/2020 due to leakage and Mr Gaines was eating well and did not want it replaced at that time. Mr Gaines began combined chemoradiation with weekly Cisplatin on 03/23/2020. He is tolerating it well thus far. Plan: Discussed with patient regarding his labs white blood count 3.3 hemoglobin 11.4 hematocrit 34.8 platelets 235,000 ANC 2.32 CMP within normal limits Clinically, patient is doing reasonably well, tolerating combined chemoradiation with weekly cisplatin, well but with expected side effects e.g. progressive odynophagia due to radiation induced pharyngitis and discomfort due to irritation caused by tracheostomy tube. We will consider liquid morphine 10 mg every 4-6 hours while continue with Magic mouthwash. In the meantime we will proceed with his next weekly dose of cisplatin today then he will return to clinic in 1 week with CBC CMP and if looks reasonable, for weekly cisplatin concurrent with radiation. Signed By: Liliane Starkey M.D. <<Signature on File>>
[2020-04-27] MEDS: FUROsemide 10 mg/mL SDV 2mL 20 MG IV (10:40)
[2020-04-27] MEDS: potassium chloride 20 MEQ in sodium chloride 0.9% 500 ML 500 MEQ IV (12:42)
--- NOTE | 2020-04-27 14:31 | ONCRAD TMN_ITS ---
Radiation Oncology Weekly Treatment Management Patient: Liana Skinner MR#: [id number] : 1945 Age: 75 Sex: Male Dictated by: Dr. Nelson Galaviz Date of Service: 04/27/2020 Referring Physician(s) : Dr. 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 Per review of pretreatment CT scan of the neck (03/08/2020 without contrast due to contrast allergy) there is a 2 x 2 x 3 cm obstructing left glottic tumorwhich appears to invade the left paraglottic space, there is contralateral posterior cord involvement, and the tumor appears to have both subglottic & supraglottic extension. There are no cervical lymph nodes per CT criteria, as declared in the formal report, but there does appear to be shotty sub centimeter left level III lymph nodes which may harbor microscopic disease. The patient recently had a PEG tube, but this was subsequently removed. Plan: Concurrent chemoradiation therapy using weekly cisplatin and a total dose of 70 Gy. Radiotherapy to date: Course: HN, Treatment Site: HN 35FX SIB, Ref. ID: [id number], Energy: 6X, Dose/Fx (cGy): 200, Dose Correction (cGy): 0, Total Dose (cGy): 4,600, Start Date: 03/23/2020, End Date: 04/27/2020, Elapsed Days: 35 Reason for visit: The patient is being seen today as part of their regularly scheduled weekly on treatment visits to assess for acute toxicities from radiotherapy. Interim History: The patient reports painful swallowing, and he was recently prescribed opiate pain medication by medical oncology. The patient continues to refuse a PEG tube. His weight is down 1.6 pounds since our last on treatment visit. Current Medications: Aloxi, cetirizine HCl, cISplatin, cyanocobalamin, dexamethasone Sodium Phosphate, emend, finasteride, first-Mouthwash BLM, furosemide, furosemide, ipratropium-Albuterol, lORazepam, lORazepam, magnesium Sulfate, melatonin, morphine Sulfate, potassium Chloride, potassium Chloride ER, potassium Chloride in NaCl, prochlorperazine Maleate, tamsulosin HCl, vitamin B Complex. Allergies: Penicillins, Iodine, Gabapentin, novacaine, Blueberries and Insect stings. Current Complaints/Review of Systems: ROS Constitutional - Appetite is fair and weight is stable. No fever, night sweats, or hot flashes. Energy level is poor. ROS ENMT - No sinus congestion/drainage. No mouth sores. Positive for sore throat and difficulty swallowing. ROS Hematologic/Lymphatic - No abnormal bruising or bleeding. ROS Respiratory - No shortness of breath. Occasional cough. No pleuritic pain or hemoptysis. ROS Cardiovascular - No angina pain. No palpitations. ROS Gastrointestinal - No nausea or vomiting. No heartburn or acid reflux. No diarrhea or constipation. No blood in the stool or black stools. ROS Genitourinary (M) - No dysuria or hematuria. No urinary frequency. No urgency or incontinence. ROS Musculoskeletal - No joint or bone pain. ROS Neurologic - No headache or dizziness. No numbness or tingling. No other focal neurologic symptoms. ROS Psychiatric - No anxiety or depression. No insomnia. Vital Signs: Performed on 04/27/2020 9:14 AM Height - 69.00 in, Weight - 191.4 lbs (low), BSA - 2.03 sq.m, BMI - 28.27, Temperature - 98.1 f (low), Pulse - 56 /min (low), Respiration - 20 /min, O2 Sat - 93 % (low), Pain - 4 and BP - 106/ 68 mm(hg). Physical Exam: Appears stable, no skin erythema or desquamation. PE ENMT - No mouth sores, no thrush, tracheostomy site, clean with no pus or bleeding, mild erythema. PE Respiratory - Lungs are clear. PE Cardiovascular - Regular rate and rhythm of heart. PE Abdomen - Soft, bowel sounds present. PE Extremities - No visible edema. Performance Status: 1 - No physically strenuous activity, but ambulatory and able to carry out light or sedentary work (e.g. office work, light house work). (ECOG) Lab: None pending in Radiation Oncology. Test performed on 04/20/2020 9:00 AM RBC - 3.62 10 6/ul (low), HCT - 36.2 % (low), MCV - 100.0 fl (high), Lymphocytes - 0.7 10 3/ul (low), BUN - 7 mg/dl (low), Creatinine - 0.5 mg/dl (low), Cr Clearance (Est) - 163.4700 ml/min (high), Glucose - 125 mg/dl (high) and Protein, Total - 6.0 g/dl (low). Imaging: Radiation therapy imaging related to accurate target localization (i.e. KV, MV and CBCT) was reviewed. Appropriate changes, if any, were made to ensure treatment accuracy. Plan: The patient is tolerating therapy reasonably well. Radiotherapy will continue as planned. CPT: 69321 Signed by: Dr. Nelson Galaviz 04/27/2020 2:29:02 PM
[2020-05-04 09:18] LABS: Basophils % 0.3 %; Eosinophils % 0.3 %; Hemoglobin 10.7 g/dL (11.7-16.6); Lymphocytes # 0.7 10^3/uL (0.8-4.8); Lymphocytes % 20.2 %; Mean Corpuscular HGB Conc 32.4 g/dL (30.0-36.0); Mean Corpuscular Hemoglobin 32.7 pg (28.0-34.0); Mean Corpuscular Volume 100.9 fL (80-94); Mean Platelet Volume 9.5 fL (7.4-10.4); Monocytes # 0.3 10^3/uL (0.2-0.9); Monocytes % 9.1 %; Neutrophils # 2.46 10^3/uL (1.8-7.7); Neutrophils % 69.8 %; Nucleated Red Blood Cells % 0 %; Platelet Count 132 10^3/cmm (130-400); Red Blood Count 3.27 10^6/uL (4.1-5.3); Red Cell Distribution Width 15.9 % (12.1-15.1); White Blood Count 3.5 10^3/uL (4.0-10.0)
[2020-05-04 09:37] LABS: Alanine Aminotransferase 8 U/L (0-41); Albumin Level 3.6 g/dL (3.5-5.2); Alkaline Phosphatase 71 IU/L (40-130); Anion Gap 10.8 (5-19); Aspartate Amino Transferase 8 U/L (0-40); Blood Urea Nitrogen 8 mg/dL (8-23); Calcium 8.5 mg/dL (8.5-10.5); Carbon Dioxide 28 mmol/L (22-29); Chloride 102 mmol/L (98-107); Globulin 2.5 g/dL (1.3-4.6); Glucose 103 mg/dL (65-115); Osmolality Calculated 280 mOsm/kg (285-295); Potassium 3.8 mmol/L (3.5-5.1); Sodium 137 mmol/L (136-145); Total Bilirubin 0.3 mg/dL (0.15-1.2); Total Protein 6.1 g/dL (6.6-8.7)
[2020-05-04] MEDS: sodium chloride 0.9% 250 ML 75 ML IV ×2 (09:40)
--- NOTE | 2020-05-04 10:33 | ONC FU_ITS ---
[facility] Patient Note Patient: Brody Gaines Unit #: [id number]: 1945 Dictated By: Marielle JoaquinDate of Visit: May 04, 2020 Onc MED Follow-Up/Prog Note Chief Complaint: laryngeal carcinoma History of Present Illness: Mr. Gaines is a 75-year-old gentleman with history of progressive shortness of breath and hoarseness of voice since August 2019. He denied dysphagia or odynophagia, as well as hemoptysis or hematemesis. He presented to [facility] on 01/07/2020 with worsening shortness of breath over a 3 month period. He had also complained of significant hoarseness. He also reported about a 20 pound unintentional weight loss over that [address] scan of the neck and chest was done on 01/07/2020, showed left true vocal cord tumor mass measuring about 19 mm x 11 mm x 14 mm . No visible direct invasion or distant metastasis is seen. Mr Gaines underwent [employer] laryngoscopy with biopsy of bilateral vocal cords and tracheostomy per Dr Wheat. Mr Gaines underwent insertion of a left subclavian PowerPort on January 12, 2020. He also had a PEG tube placed at that time. Both procedures performed by Dr Edmond. The final pathology report came back moderately differentiated squamous cell carcinoma invasive, involving LEFT vocal cord. 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 Mr Gaines has history of heavy smoking since age 11 (greater than 150 pack year) and quit recently. MEDICAL HISTORY: Alcoholism, BPH, COPD and tobacco dependency. He has had surgery of his ankle and hernia surgery. INTERIM HISTORY: CT/ PET scan done on February 10, 2020 showed increased uptake in the glottis with tracheostomy tube entering along the inferior margin of the lesion. SUV maximum 17.89. No lymphadenopathy. Further investigation and evaluation by radiation therapy confirmed bulky disease. Mr Gaines was offered combined treatment with chemoradiation and began treatment with weekly Cisplatin on March 23, 2020. Mr. Gaines is here today for follow-up. He is due for week 7 Cisplatin. He has no new concerns today. He continues to have some thick sputum around his trach and requires suctioning but responds well to this. He denies any mouth sores. He denies any neuropathy symptoms. His weight is stable. His energy is the same. He denies any new shortness of breath or cough. He has had no fever or chills. He denies nausea or vomiting. His activity is still limited due to fatigue but overall is unchanged. He will continue with his current plan of care. His ECOG is 2. Ms. Gaines states that the morphine and Magic mouthwash are helping and he is responded well to this. Past Medical History: Alcoholism Bph Chronic obstructive pulmonary disease Polycythemia Past Surgical History: Ankle repair Hernia repair Laryngoscopy Peg tube Port placement Tracheostomy Allergies: Blueberries, Gabapentin, Insect stings, Iodine, novacaine, and Penicillins. Medications: Cetirizine HCl 1 Tablet (of 10 mg) Oral daily Cyanocobalamin 1 Tablet (of 100 mcg) Oral daily Finasteride 1 Tablet (of 5 mg) Oral daily Furosemide 1 Tablet (of 20 mg) Oral every am LORazepam 0.5 - 1 Tablet (of 1 mg) Oral t.i.d. PRN Melatonin 1 Tablet (of 5 mg) Oral at bedtime Potassium Chloride ER 1 Tablet (of 20 meq) Tablet, controlled release Oral b.i.d. Tamsulosin HCl 1 Capsule (of 0.4 mg) Oral daily Vitamin B Complex 1 Tablet Oral daily Family History: The family history is unremarkable. Social History: Mr. Gaines is and he is an unkown. Mr. Gaines quit smoking less than one year ago but had smoked 3.0 packs/day for 60 years. He quit drinking less than one year ago. He has indicated exposure to the following products: cigarettes. Used to smoke 2.5 to 3 packs per day of cigarettes. Recently just quit drinking. Was a heavy drinker in the past . Review Of Symptoms: Constitutional Denies fevers, chills, night sweats, excessive fatigue or weight loss. Allergic/Immunologic No reactions. Eyes Denies significant visual changes. No diplopia. No amaurosis. ENMT Denies changes in hearing, sore throat, mouth sores, difficulty or changes in swallowing ability, and/or sinus drainage. Has trach. Endocrine No diabetes, thyroid disease or hormone replacement. Denies hot flashes or night sweats. Hematologic/Lymphatic Denies easy bruising or bleeding. The patient denies any tender or palpable lymph nodes. Respiratory Denies dyspnea on exertion, chest pain, cough or hemoptysis. Denies orthopnea. Thick sputum at times but suctions well. Cardiovascular Denies anginal chest pain, palpitations or orthopnea. Gastrointestinal Denies nausea, vomiting, diarrhea, GI bleeding, or constipation. Denies change in bowel habits and/or stool color, no heartburn or early satiety. Genitourinary (M) Denies hematuria, dysuria, increased frequency, urgency, hesitancy or incontinence. Musculoskeletal Denies joint pain, swelling or redness. No decreased range of motion. Integumentary Denies chronic rashes, inflammation, ulcerations or skin changes. Neurologic Denies headache, blurred vision, and no areas of focal weakness or numbness. Normal gait. No sensory problems. Psychiatric Denies insomnia, depression, steff or mood swings. Vital Signs: Performed on May 04, 2020 09:09 Height - 69.00 in Weight - 191.8 lbs Temperature - 98.2 F Pulse - 65 Respiration - 20 BP - 96/62 mm(hg) O2 Sat - 97 % Pain - 0 Fatigue - 0 Performed on May 04, 2020 09:09 BMI - 28.324 kg/m2 (HIGH),2 - Ambulatory/capable of all self-care, unable to perform any work activities. Up and about more than 50% of waking hours. (ECOG) Physical Examination: Constitutional Alert, oriented, no acute distress. Skin pink, warm and dry. Head Normocephalic; atraumatic. Eyes Conjunctivae and sclerae are clear and without icterus. Pupils are reactive and equal. Neck Trach site is unremarkable. Hematologic/Lymphatic No petechiae or purpura. No tender or palpable lymph nodes in the cervical or supraclavicular areas. Respiratory Lungs are clear to auscultation without rhonchi or wheezing. Cardiovascular Regular rate and rhythm of heart without murmurs,clicks, gallops or rubs. Back/Spine Non-tender to palpation. Extremities No visible deformities, no cyanosis, clubbing or edema. Musculoskeletal No tenderness or swelling, normal range of motion without obvious weakness. Integumentary No rashes or lesions. Neurologic No sensory or motor deficits, normal cerebellar function, normal gait. Psychiatric Alert and oriented times three. Coherent speech. Verbalizes understanding of our discussions today. Laboratory:Test performed on May 04, 2020 08:57 Sodium 137 mmol/L Potassium 3.8 mmol/L Chloride 102 mmol/L CO2 28 mmol/L Anion Gap 10.8 BUN 8 mg/dL Creatinine 0.5 mg/dL Cr Clearance (Est) 160.9600 mL/min Glucose 103 mg/dL Calcium 8.5 mg/dL Protein, Total 6.1 g/dL Albumin 3.6 g/dL Globulin 2.5 g/dL Bilirubin, Total 0.3 mg/dL ALT (SGPT) 8 U/L AST (SGOT) 8 U/L Alkaline Phosphatase 71 IU/L WBC 3.5 10 3/uL RBC 3.27 10 6/uL HGB 10.7 g/dL HCT 33.0 % MCV 100.9 fL MCH 32.7 pg MCHC 32.4 g/dL RDW 15.9 % Platelet Count 132 10 3/cmm MPV 9.5 fL Neutrophils 2.46 10 3/uL Lymphocytes 0.7 10 3/uL Monocytes 0.3 10 3/uL Eosinophils 0.0 10 3/uL Basophils 0.0 10 3/uL Neutrophil % 69.8 % Lymphocyte % 20.2 % Monocyte % 9.1 % Eosinophil % 0.3 % Basophils % 0.3 % NRBC % 0 % Impression: moderately differentiated squamous cell carcinoma, invasive, involving left vocal cord and 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 CT scan of the neck done on 01/07/2020 showed 19 mm x 11 mm x 14 mm left true vocal cord lesion within no invasion of laryngeal cartilage or extension into aryepiglottic space. Right true vocal cord is unremarkable. As per evaluation by radiation oncology patient was confirmed to have bulky disease so he was started on combined chemoradiation with weekly Cisplatin on March 23, 2020 COPD/emphysema, alcoholism, history of chronic heavy smoking since age 11, quit in December 2019 Status post tracheostomy on 01/08/2020. PowerPort (Left subclavian) and PEG tube placement on 01/09/2020. The PEG tube was removed on 03/17/2020 due to leakage and Mr Gaines was eating well and did not want it replaced at that time. Mr Gaines began combined chemoradiation with weekly Cisplatin on 03/23/2020. He is tolerating it well thus far. Plan: 1. Proceed with week 7 Cisplatin. He continues daily radiation. 2. Continue current antiemetics as these are working well for him. 3. Labs from today were reviewed in detail discussed with and Mrs Gaines. WBC 3.5, hemoglobin 10.7 platelets 132,000 ANC is 2500. Potassium 3.8 sodium 137 glucose 103 creatinine 0.5 LFTs are normal. 4. We will plan to see him back in 1 week for consideration of week 8 Cisplatin. He will be due for CBC CMP at that time. 5. Mr. Gaines is been instructed to contact us in the interim should questions or problems arise. 6. Plan for followup with Dr Wheat in 5 weeks for post treatment followup. Signed By: Marielle Joaquin-, [facility] Liliane Starkey MD <<Signature on File>>
[2020-05-04] MEDS: FUROsemide 10 mg/mL SDV 2mL 20 MG IV (13:39)
[2020-05-04] MEDS: potassium chloride 20 MEQ in sodium chloride 0.9% 500 ML 250 MEQ IV (13:40)
--- NOTE | 2020-05-04 14:37 | ONCRAD TMN_ITS ---
Radiation Oncology Weekly Treatment Management Patient: Liana Skinner MR#: [id number] : 1945 Age: 75 Sex: Male Dictated by: Dr. 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 Per review of pretreatment CT scan of the neck (03/08/2020 without contrast due to contrast allergy) there is a 2 x 2 x 3 cm obstructing left glottic tumorwhich appears to invade the left paraglottic space, there is contralateral posterior cord involvement, and the tumor appears to have both subglottic & supraglottic extension. There are no cervical lymph nodes per CT criteria, as declared in the formal report, but there does appear to be shotty sub centimeter left level III lymph nodes which may harbor microscopic disease. The patient recently had a PEG tube, but this was subsequently removed. Plan: Concurrent chemoradiation therapy using weekly cisplatin and a total dose of 70 Gy. Radiotherapy to date: Course: HN, Treatment Site: HN 35FX SIB, Ref. ID: [id number], Energy: 6X, Dose/Fx (cGy): 200, #Fx: 27 / 35, Dose Correction (cGy): 0, Total Dose (cGy): 5,400, Start Date: 03/23/2020, Elapsed Days: 42 Reason for visit: The patient is being seen today as part of their regularly scheduled weekly on treatment visits to assess for acute toxicities from radiotherapy. Interim History: Since the patient was last seen, he was medically evaluated secondary to blood-tinged sputum, which resolved with suctioning. The patient also has painful swallowing, and this is adequately responsive to morphine. The patient also reports constipation and a lack of a bowel movement for the past 4 days. He reports that he cannot get MiraLAX down . Current Medications: Aloxi, cetirizine HCl, cISplatin, cyanocobalamin, dexamethasone Sodium Phosphate, emend, finasteride, first-Mouthwash BLM, furosemide, furosemide, ipratropium-Albuterol, lORazepam, lORazepam, magnesium Sulfate, melatonin, morphine Sulfate, potassium Chloride, potassium Chloride ER, prochlorperazine Maleate, tamsulosin HCl, vitamin B Complex. Allergies: Penicillins, Iodine, Gabapentin, novacaine, Blueberries and Insect stings. Current Complaints/Review of Systems: Vital Signs: Performed on 05/04/2020 9:09 AM BMI - 28.324 kg/m2 (high), Height - 69.00 in, Weight - 191.8 lbs, Temperature - 98.2 f, Pulse - 65, Respiration - 20, O2 Sat - 97 %, Pain - 0, Fatigue - 0 and BP - 96/ 62 mm(hg)(/low). Physical Exam: Bilateral neck erythema is appreciated without desquamation. Performance Status: 2 - Ambulatory/capable of all self-care, unable to perform any work activities. Up and about more than 50% of waking hours. (ECOG) Lab: None pending in Radiation Oncology. Imaging: Radiation therapy imaging related to accurate target localization (i.e. KV, MV and CBCT) was reviewed. Appropriate changes, if any, were made to ensure treatment accuracy. Plan: The patient is tolerating therapy reasonably well. Radiotherapy will continue as planned. Since the patient reports that he cannot tolerate MiraLAX, the patient was recommended to initiate magnesium citrate to get his bowels moving, and once his stools have turned to soft formed, he may begin taking lactulose as prescribed. CPT: 80787 Signed by: Dr. Nelson Galaviz 05/04/2020 2:36:09 PM
[2020-05-11] MEDS: sodium chloride 0.9% 250 ML 75 ML IV (09:30)
[2020-05-11 09:38] LABS: Basophils % 0.5 %; Eosinophils % 0.5 %; Hemoglobin 11.3 g/dL (11.7-16.6); Lymphocytes # 0.5 10^3/uL (0.8-4.8); Lymphocytes % 24.3 %; Mean Corpuscular HGB Conc 33.2 g/dL (30.0-36.0); Mean Corpuscular Volume 99.4 fL (80-94); Mean Platelet Volume 9.5 fL (7.4-10.4); Monocytes # 0.3 10^3/uL (0.2-0.9); Monocytes % 13.3 %; Neutrophils # 1.31 10^3/uL (1.8-7.7); Nucleated Red Blood Cells % 0 %; Platelet Count 154 10^3/cmm (130-400); Red Blood Count 3.42 10^6/uL (4.1-5.3); Red Cell Distribution Width 16.1 % (12.1-15.1); White Blood Count 2.2 10^3/uL (4.0-10.0)
[2020-05-11 09:59] LABS: Alanine Aminotransferase 9 U/L (0-41); Albumin Level 3.5 g/dL (3.5-5.2); Alkaline Phosphatase 76 IU/L (40-130); Anion Gap 13.8 (5-19); Aspartate Amino Transferase 11 U/L (0-40); Blood Urea Nitrogen 10 mg/dL (8-23); Calcium 8.4 mg/dL (8.5-10.5); Carbon Dioxide 26 mmol/L (22-29); Chloride 99 mmol/L (98-107); Globulin 2.6 g/dL (1.3-4.6); Glucose 88 mg/dL (65-115); Osmolality Calculated 275 mOsm/kg (285-295); Potassium 3.8 mmol/L (3.5-5.1); Sodium 135 mmol/L (136-145); Total Bilirubin 0.4 mg/dL (0.15-1.2); Total Protein 6.1 g/dL (6.6-8.7)
--- NOTE | 2020-05-12 16:47 | ONCRAD TMN_ITS ---
Radiation Oncology Weekly Treatment Management Patient: Brody Gaines MR#: [id number] : 1945 Age: 75 Sex: Male Dictated by: Dr. 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 Per review of pretreatment CT scan of the neck (03/08/2020 without contrast due to contrast allergy) there is a 2 x 2 x 3 cm obstructing left glottic tumorwhich appears to invade the left paraglottic space, there is contralateral posterior cord involvement, and the tumor appears to have both subglottic & supraglottic extension. There are no cervical lymph nodes per CT criteria, as declared in the formal report, but there does appear to be shotty sub centimeter left level III lymph nodes which may harbor microscopic disease. The patient recently had a PEG tube, but this was subsequently removed. Plan: Concurrent chemoradiation therapy using weekly cisplatin and a total dose of 70 Gy. Radiotherapy to date: Course: HN, Treatment Site: HN 35FX SIB, Ref. ID: [id number], Energy: 6X, Dose/Fx (cGy): 200, #Fx: 32 / 35, Dose Correction (cGy): 0, Total Dose (cGy): 6,400, Start Date: 03/23/2020, Elapsed Days: 49 Reason for visit: The patient is being seen today as part of their regularly scheduled weekly on treatment visits to assess for acute toxicities from radiotherapy. Interim History: The patient reports persistent odynophagia which is controlled with existing medication. The patient also notes increased sputum production and neck pain. Optimization of pain medication was offered, yet the patient declined. Current Medications: Aloxi, cetirizine HCl, cISplatin, cyanocobalamin, dexamethasone Sodium Phosphate, emend, finasteride, first-Mouthwash BLM, furosemide, furosemide, ipratropium-Albuterol, lactulose, lORazepam, lORazepam, magnesium Sulfate, melatonin, morphine Sulfate, potassium Chloride, potassium Chloride ER, prochlorperazine Maleate, tamsulosin HCl, vitamin B Complex. Allergies: Penicillins, Iodine, Gabapentin, novacaine, Blueberries and Insect stings. Current Complaints/Review of Systems: Constitutional - Complains of lack of appetite and change in weight. Denies fatigue, fever and night sweats. ENMT - Complains of dysphagia, mouth dryness and altered taste. Denies ear pain and stomatitis. Neck - Complains of neck pain and swelling of the neck. Integumentary - Has redness to the neck. Respiratory - Complains of cough. Complains of hemoptysis that is streaky. Denies hiccoughs. Vital Signs: Performed on 05/11/2020 10:50 AM Height - 69.00 in, Weight - 186.2 lbs (low), BSA - 2.00 sq.m, BMI - 27.50, Temperature - 96.5 f (low), Pulse - 57 /min (low), Respiration - 15 /min, O2 Sat - 98 %, Pain - 4 and BP - 108/ 63 mm(hg)(/low). Physical Exam: Neck erythema is appreciated, but there is no evidence of moist desquamation. Lungs are clear to auscultation bilaterally. Performance Status: 2 - Ambulatory/capable of all self-care, unable to perform any work activities. Up and about more than 50% of waking hours. (ECOG) Lab: None pending in Radiation Oncology. Test performed on 05/11/2020 9:15 AM WBC - 2.2 10 3/ul (low), RBC - 3.42 10 6/ul (low), HGB - 11.3 g/dl (low), HCT - 34.0 % (low), MCV - 99.4 fl (high), RDW - 16.1 % (high), Neutrophils - 1.31 10 3/ul (low), Lymphocytes - 0.5 10 3/ul (low), Sodium - 135 mmol/l (low), Creatinine - 0.5 mg/dl (low), Cr Clearance (Est) - 160.9600 ml/min (high), Calcium - 8.4 mg/dl (low) and Protein, Total - 6.1 g/dl (low). Imaging: Radiation therapy imaging related to accurate target localization (i.e. KV, MV and CBCT) was reviewed. Appropriate changes, if any, were made to ensure treatment accuracy. Plan: The patient is tolerating therapy reasonably well. Radiotherapy will continue as planned. The patient will complete radiation therapy in 3 fractions. I have ordered a CT of the neck in 1 month, and I have also ordered a PET/CT to occur in 3 months. CPT: 41392 Signed by: Dr. Nelson Galaviz 05/12/2020 4:46:18 PM
--- NOTE | 2020-05-18 14:39 | ONC FU_ITS ---
[facility] Patient Note Patient: Brody Gaines Unit #: [id number]: 1945 Dictated By: Marielle JoaquinDate of Visit: May 11, 2020 Onc MED Follow-Up/Prog Note Chief Complaint: laryngeal carcinoma History of Present Illness: Mr. Gaines is a 75-year-old gentleman with history of progressive shortness of breath and hoarseness of voice since August 2019. He denied dysphagia or odynophagia, as well as hemoptysis or hematemesis. He presented to [facility] on 01/07/2020 with worsening shortness of breath over a 3 month period. He had also complained of significant hoarseness. He also reported about a 20 pound unintentional weight loss over that [address] scan of the neck and chest was done on 01/07/2020, showed left true vocal cord tumor mass measuring about 19 mm x 11 mm x 14 mm . No visible direct invasion or distant metastasis is seen. Mr Gaines underwent [employer] laryngoscopy with biopsy of bilateral vocal cords and tracheostomy per Dr Wheat. Mr Gaines underwent insertion of a left subclavian PowerPort on January 12, 2020. He also had a PEG tube placed at that time. Both procedures performed by Dr Edmond. The final pathology report came back moderately differentiated squamous cell carcinoma invasive, involving LEFT vocal cord. 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 Mr Gaines has history of heavy smoking since age 11 (greater than 150 pack year) and quit recently. MEDICAL HISTORY: Alcoholism, BPH, COPD and tobacco dependency. He has had surgery of his ankle and hernia surgery. INTERIM HISTORY: CT/ PET scan done on February 10, 2020 showed increased uptake in the glottis with tracheostomy tube entering along the inferior margin of the lesion. SUV maximum 17.89. No lymphadenopathy. Further investigation and evaluation by radiation therapy confirmed bulky disease. Mr Gaines was offered combined treatment with chemoradiation and began treatment with weekly Cisplatin on March 23, 2020. Mr. aGines is here today for follow-up. He is due for week 8 Cisplatin. He has no new concerns today. He denies any fever or chills. He denies any COVID symptoms or any known exposure to COVID. He denies any COVID testing personally or immediate family members. He continues to have some thick sputum around his trach and requires suctioning but responds well to this. This overall seems to be better. He denies any mouth sores. He denies any neuropathy symptoms. His weight is stable. His energy is the same. He denies any new shortness of breath or cough. He denies nausea or vomiting. His activity is still limited due to fatigue but overall is unchanged. He will continue with his current plan of care. His ECOG is 2. Ms. Gaines states that the morphine and Magic mouthwash are helping and he is responded well to this. Past Medical History: Alcoholism Bph Chronic obstructive pulmonary disease Polycythemia Past Surgical History: Ankle repair Hernia repair Laryngoscopy Peg tube Port placement Tracheostomy Allergies: Blueberries, Gabapentin, Insect stings, Iodine, novacaine, and Penicillins. Medications: Cetirizine HCl 1 Tablet (of 10 mg) Oral daily Cyanocobalamin 1 Tablet (of 100 mcg) Oral daily Finasteride 1 Tablet (of 5 mg) Oral daily Furosemide 1 Tablet (of 20 mg) Oral every am LORazepam 0.5 - 1 Tablet (of 1 mg) Oral t.i.d. PRN Melatonin 1 Tablet (of 5 mg) Oral at bedtime Potassium Chloride ER 1 Tablet (of 20 meq) Tablet, controlled release Oral b.i.d. Tamsulosin HCl 1 Capsule (of 0.4 mg) Oral daily Vitamin B Complex 1 Tablet Oral daily Family History: The family history is unremarkable. Social History: Mr. Gaines is and he is an unkown. He is an occasional smoker who has smoked 3.0 packs/day for 61 years. He quit drinking less than one year ago. He has indicated exposure to the following products: cigarettes. Used to smoke 2.5 to 3 packs per day of cigarettes. Recently just quit drinking. Was a heavy drinker in the past . Review Of Symptoms: Constitutional Denies fevers, chills, night sweats, excessive fatigue or weight loss. Allergic/Immunologic No reactions. Eyes Denies significant visual changes. No diplopia. No amaurosis. ENMT Denies changes in hearing, sore throat, mouth sores, difficulty or changes in swallowing ability, and/or sinus drainage. Has trach. Endocrine No diabetes, thyroid disease or hormone replacement. Denies hot flashes or night sweats. Hematologic/Lymphatic Denies easy bruising or bleeding. The patient denies any tender or palpable lymph nodes. Respiratory Denies dyspnea on exertion, chest pain, cough or hemoptysis. Denies orthopnea. Thick sputum at times but suctions well. Cardiovascular Denies anginal chest pain, palpitations or orthopnea. Gastrointestinal Denies nausea, vomiting, diarrhea, GI bleeding, or constipation. Denies change in bowel habits and/or stool color, no heartburn or early satiety. Genitourinary (M) Denies hematuria, dysuria, increased frequency, urgency, hesitancy or incontinence. Musculoskeletal Denies joint pain, swelling or redness. No decreased range of motion. Integumentary Denies chronic rashes, inflammation, ulcerations or skin changes. Neurologic Denies headache, blurred vision, and no areas of focal weakness or numbness. Normal gait. No sensory problems. Psychiatric Denies insomnia, depression, steff or mood swings. Constitutional Complains of lack of appetite and change in weight. Denies fatigue, fever and night sweats. ENMT Complains of dysphagia, mouth dryness and altered taste. Denies ear pain and stomatitis. Neck Complains of neck pain and swelling of the neck. Integumentary Has redness to the neck Respiratory Complains of cough. Complains of hemoptysis that is streaky. Denies hiccoughs. Vital Signs: Performed on May 11, 2020 12:38 Height - 69.00 in Weight - 186.2 lbs Temperature - 96.5 F Pulse - 57 Respiration - 15 BP - 108/63 mm(hg) O2 Sat - 98 % Pain - 4 Performed on May 11, 2020 12:38 BMI - 27.497 kg/m2 (HIGH) Performed on May 11, 2020 10:50 Height - 69.00 in Weight - 186.2 lbs (LOW) BSA - 2.00 sq.m BMI - 27.50 Temperature - 96.5 F (LOW) Pulse - 57 /min (LOW) Respiration - 15 /min BP - 108/63 mm(hg) O2 Sat - 98 % Pain - 4,2 - Ambulatory/capable of all self-care, unable to perform any work activities. Up and about more than 50% of waking hours. (ECOG) Physical Examination: Constitutional Alert, oriented, no acute distress. Skin pink, warm and dry. Head Normocephalic; atraumatic. Eyes Conjunctivae and sclerae are clear and without icterus. Pupils are reactive and equal. Neck Trach site is unremarkable. Hematologic/Lymphatic No petechiae or purpura. No tender or palpable lymph nodes in the cervical or supraclavicular areas. Respiratory Lungs are clear to auscultation without rhonchi or wheezing. Cardiovascular Regular rate and rhythm of heart without murmurs,clicks, gallops or rubs. Abdomen Non-tender, non-distended, no masses or ascites. Good bowel sounds noted in all quads. No guarding or rebound tenderness. No pulsatile masses. Back/Spine Non-tender to palpation. Extremities No visible deformities, no cyanosis, clubbing or edema. Musculoskeletal No tenderness or swelling, normal range of motion without obvious weakness. Integumentary No rashes or lesions. Neurologic No sensory or motor deficits, normal cerebellar function, normal gait. Psychiatric Alert and oriented times three. Coherent speech. Verbalizes understanding of our discussions today. Laboratory:Test performed on May 11, 2020 09:15 Sodium 135 mmol/L Potassium 3.8 mmol/L Chloride 99 mmol/L CO2 26 mmol/L Anion Gap 13.8 BUN 10 mg/dL Creatinine 0.5 mg/dL Cr Clearance (Est) 160.9600 mL/min Glucose 88 mg/dL Calcium 8.4 mg/dL Osmolality - Calculated 275 mOsm/kg Protein, Total 6.1 g/dL Albumin 3.5 g/dL Globulin 2.6 g/dL Bilirubin, Total 0.4 mg/dL ALT (SGPT) 9 U/L AST (SGOT) 11 U/L Alkaline Phosphatase 76 IU/L WBC 2.2 10 3/uL RBC 3.42 10 6/uL HGB 11.3 g/dL HCT 34.0 % MCV 99.4 fL MCH 33.0 pg MCHC 33.2 g/dL RDW 16.1 % Platelet Count 154 10 3/cmm MPV 9.5 fL Neutrophils 1.31 10 3/uL Lymphocytes 0.5 10 3/uL Monocytes 0.3 10 3/uL Eosinophils 0.0 10 3/uL Basophils 0.0 10 3/uL Neutrophil % 60.0 % Lymphocyte % 24.3 % Monocyte % 13.3 % Eosinophil % 0.5 % Basophils % 0.5 % NRBC % 0 % Impression: moderately differentiated squamous cell carcinoma, invasive, involving left vocal cord and 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 CT scan of the neck done on 01/07/2020 showed 19 mm x 11 mm x 14 mm left true vocal cord lesion within no invasion of laryngeal cartilage or extension into aryepiglottic space. Right true vocal cord is unremarkable. As per evaluation by radiation oncology patient was confirmed to have bulky disease so he was started on combined chemoradiation with weekly Cisplatin on March 23, 2020 COPD/emphysema, alcoholism, history of chronic heavy smoking since age 11, quit in December 2019 Status post tracheostomy on 01/08/2020. PowerPort (Left subclavian) and PEG tube placement on 01/09/2020. The PEG tube was removed on 03/17/2020 due to leakage and Mr Gaines was eating well and did not want it replaced at that time. Mr Gaines began combined chemoradiation with weekly Cisplatin on 03/23/2020. He is tolerating it well thus far. Mr. Gaines will have completed his weekly cisplatin today with a total of 7 weekly cisplatin treatments. I am holding his week 8 due to an ANC of 1300. It was 2500 last week. He completes radiation therapy within the next 2 days. Overall he is tolerated treatment well. Plan: 1. Hold week 8 Cisplatin due to an ANC of 1300. He has completed 7 full weeks of cisplatin. He completes radiation on Sunday or of this week. 2. Supportive care as needed. 3. Labs from today were reviewed in detail discussed with and Mrs Gaines. WBC 2.2, hemoglobin 11.3 platelets 154,000 ANC is 1300. Potassium 3.8 sodium 135 glucose 88 creatinine 0.5 LFTs are normal. 4. We will plan to see him back in 3-4 weeks for post treatment followup He will be due for CBC CMP at that time. 5. Mr. Gaines is been instructed to contact us in the interim should questions or problems arise. 6. Plan for followup with Dr Wheat in 4-5 weeks for post treatment followup. Signed By: Marielle Joaquin-, AOP Liliane Starkey MD <<Signature on File>>
== END 2020-05-26 23:59 | disposition home or self-care (01) ==
LOC: ONCMED 05:48
PROVIDERS: Internal Medicine Hematology & Oncology; Nurse Practitioner; Absent Provider Radiology Radiation Oncology; PCP Internal Medicine; Visit Provider Radiology Radiation Oncology
DX: Z51.0 Encounter for antineoplastic radiation therapy (principal); Z51.11 Encounter for antineoplastic chemotherapy; C32.0 Malignant neoplasm of glottis; J43.9 Emphysema, unspecified; F10.20 Alcohol dependence, uncomplicated; Z87.891 Personal history of nicotine dependence
CPT/HCPCS: 36415; 77014; 77336; 77386; 77427; 80053; 85025; 96365; 96366; 96367; 96375; 96413; 96415; 99214; J1100; J1453; J1940; J2469; J3475; J3480; J7030; J7040; J7050; J9060

== ENCOUNTER 2020-06-07 14:55 | Emergency (ER) | payer OTHER, SELFPAY ==
[2020-06-07 15:09] VITALS: PULSE 68; RESP 18; TEMP 36.8; O2SAT 98
--- NOTE | 2020-06-07 15:09 | PC.NURSE ---
Pt assessed in WR d/t swelling trach and pallor. Pt denies difficulty breathing or swallowing, reports increased swelling to trach site since yesterday. Pt made aware a room was being cleaned and he would be placed in room as soon as available. Pt at his side, both verbalize understanding.
[2020-06-07 15:11] VITALS: BMI 27.3
--- NOTE | 2020-06-07 15:28 | ECG_ITS ---
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 Measurements Intervals [place]iteside Rate: 65 P: 37 UT: 176 QRS: -7 QRSD: 142 T: 16 QT: 419 QTc: 436 Interpretive Statements SINUS RHYTHM WITH OCCASIONAL SUPRAVENTRICULAR PREMATURE COMPLEXES RIGHT BUNDLE BRANCH BLOCK [120+ ms QRS DURATION, UPRIGHT V1, 40+ ms S IN I/aVL/V4/V5/V6] Compared to ECG 01/13/2020 21:53:14 No significant changes Electronically Signed On 06-07-2020 19:39:44 CDT by Pamella Bustillo M.D. [id number]
--- NOTE | 2020-06-07 15:28 | XRR_ITS ---
PROCEDURE INFORMATION: Exam: XR Chest, 1 View Exam date and time: 06/07/2020 3:29 PM Age: 75 years old Clinical indication: Cough and dyspnea; Additional info: Dyspnea/cough TECHNIQUE: Imaging protocol: XR of the chest Views: 1 view. COMPARISON: CR XR chest 1V portable [id number] 01/23/2020 9:59 PM FINDINGS: Tubes, catheters and devices: A left central line is in place extending into the right atrium. Tracheostomy tube is in place at the level of the clavicles. Lungs: Atelectasis is seen in the right lower lobe Pleural space: Unremarkable. No pleural effusion. No pneumothorax. Heart/Mediastinum: Unremarkable. No cardiomegaly. Bones/joints: Unremarkable. XR/XR chest 1V portable [id number] IMPRESSION: 1. Right lower lobe atelectasis 2. Tracheostomy tube is in place as described 3. Left central line extends into the right atrium 4. Otherwise negative examination
--- NOTE | 2020-06-07 15:28 | CTR_ITS ---
PROCEDURE INFORMATION: Exam: CT Neck With Contrast Exam date and time: 06/07/2020 4:29 PM Age: 75 years old Clinical indication: Mass, lump, or swelling in neck; Prior surgery; Surgery date: 6+ months; Surgery type: Trach; Additional info: Swelling at tracheostomy, HX of laryngeal CA TECHNIQUE: Imaging protocol: Computed tomography images of the neck with intravenous contrast. Radiation optimization: All CT scans at this facility use at least one of these dose optimization techniques: automated exposure control; mA and/or kV adjustment per patient size (includes targeted exams where dose is matched to clinical indication); or iterative reconstruction. Contrast material: VISI 320; Contrast volume: 95 ml; Contrast route: INTRAVENOUS (IV); COMPARISON: CT neck wo con [id number] 05/03/2020 5:47 PM RADIATION DOSE METRICS: Total DLP (mGy-cm): 672.15 FINDINGS: Nasopharynx: Unremarkable. Oropharynx: Unremarkable. No significant tonsillar enlargement. Hypopharynx: Unremarkable. Larynx: Again evidence of laryngeal carcinoma with associated osseous destruction of the left wing of the laryngeal cartilage complex. Dimensions of the tumor mass are difficult to ascertain as the tumor margins are ill-defined and ambiguous. There is evidence of extension of disease since last evaluation of 05/03/2020. Near complete airway occlusion of the larynx just below the true cords. Retropharyngeal space: Unremarkable. Submandibular/Parotid glands: Unremarkable. Thyroid: Unremarkable. No enlarged or calcified nodules. Lymph nodes: No generalized lymphadenopathy. Calcified mediastinal and hilar lymph nodes of antecedent granulomatous disease. No visible suppurative lymphadenitis. Trachea: Moderate thickening of the trachea at the tracheostomy site consistent with active trachitis. No associated airway occlusion. Mild soft tissue swelling surrounding the tracheostomy tube without evidence of loculated fluid collection to suggest the presence of an abscess. Minimal soft tissue emphysema along the track of the tracheostomy tube. Lungs: Evidence of antecedent granulomatous disease to include a calcified right upper lobe granuloma. Bones/joints: No visible osteolytic or osteoblastic destructive process of the osseous structures within the field of view. Advanced degenerative disease and degenerative disc disease of the cervical spine C5/C6 and C6/C7 as well as C7/T1. Soft tissues: Generalized submental soft tissue swelling which could reflect cellulitis. No visible loculated fluid collection to suggest the presence of an abscess, seroma, or hematoma. Other findings: Motion artifact. CT/CT neck w con* [id number] IMPRESSION: 1. Moderate thickening of the trachea at the tracheostomy site consistent with active trachitis. No associated airway occlusion at the tracheostomy site or below the tracheostomy. 2. Mild soft tissue swelling surrounding the tracheostomy tube without evidence of loculated fluid collection to suggest the presence of an abscess. 3. Again evidence of laryngeal carcinoma with associated osseous destruction of the left wing of the laryngeal cartilage complex. Dimensions of the tumor mass are difficult to ascertain as the tumor margins are ill-defined and ambiguous. There is evidence of extension of disease since last evaluation of 05/03/2020. 4. Near complete airway occlusion of the larynx just below the true cords. 5. Generalized submental soft tissue swelling which could reflect cellulitis. No visible loculated fluid collection to suggest the presence of an abscess, seroma, or hematoma. 6. Antecedent granulomatous disease. Radiation Dose CTDIVOL = (mGy): DLP = 672.15 (mGy-cm)
--- NOTE | 2020-06-07 15:37 | W.ED.WOUNDLC ---
HPI - Wound/Laceration General: Chief Complaint: Wound/Laceration Stated Complaint: swollen/trach issues Time Seen by Provider: 06/07/20 15:17 History of Present Illness: HPI narrative: 75-year-old male presents to the emergency room with swelling in the neck around the tracheostomy. Tracheostomy is placed because of laryngeal cancer. He approximately 3 weeks ago he finished chemo and radiation the last 3 days has had increasing swelling around the tracheostomy especially superior to it he has had slight increase in production of mucus from the tracheostomy but is not changed in character. He denies any fever denies any abdominal pain denies any shortness of breath. Onset (ago): day(s) (3) Location: neck Place: home Associated symptoms: Denies chills, fever(s), foreign body sensation, inability to move, nausea, numbness, pain, syncope or vomiting Review of Systems Const: Denies: fever(s) or chills ENMT: Denies: throat pain, ear or mastoid pain, nasal discharge or nasal congestion Card: Denies: syncope Resp: Denies: dyspnea, productive cough or non-productive cough GI: Denies: nausea or vomiting : Denies: flank pain, dysuria, urinary frequency or urinary urgency Skin/Breast: Denies: rash or pruritus PFSH ED PFSH: Medical History Alcoholism BPH (benign prostatic hyperplasia) COPD (chronic obstructive pulmonary disease) Laryngeal mass Port-A-Cath in place Surgical History History of ankle surgery History of hernia surgery S/P percutaneous endoscopic gastrostomy (PEG) tube placement Status post tracheostomy Family History Other CAD (coronary artery disease) Social History Smoking and tobacco status: former smoker Quit status (tobacco): considering quitting Alcohol intake: current Alcohol intake frequency: 3 or more drinks per day Physical Exam Const: COMMON NORMALS: no acute distress GENERAL APPEARANCE: cooperative and comfortable ORIENTATION/CONSCIOUSNESS: Yes awake, Yes oriented to person, Yes oriented to place and Yes oriented to time HENMT: COMMON NORMALS: normocephalic, atraumatic and hearing grossly normal bilaterally HEAD & SCALP: normocephalic and atraumatic Eye: COMMON NORMALS: Equal, round and reactive pupils present, EOMs intact bilaterally, conjunctivae normal and no scleral icterus CONJUNCTIVA: Yes conjunctivae normal PUPIL: Yes Equal, round and reactive pupils present Neck/C-Spine: OTHER: Increased swelling and fullness of the tracheostomy site no induration not particularly erythematous but is definitely swollen. There is no purulent drainage or evidence of abscess. Resp: COMMON NORMALS: normal respiratory effort, No retractions, No use of accessory muscles and clear to auscultation bilaterally AUSCULTATION: clear to auscultation bilaterally OTHER: Patient fully dependent on tracheostomy Cardio: COMMON NORMALS: regular rate, regular rhythm and No murmurs present (Cardio) RATE: regular rate RHYTHM: regular rhythm GI: COMMON NORMALS: Soft to palpation and No hepatosplenomegaly present AUSCULTATION: Yes normoactive bowel sounds PALPATION: Yes Soft to palpation, No Tenderness to palpation present (GI), No Guarding due to palpation present (GI) and Yes No hepatosplenomegaly present Extremity: COMMON NORMALS: normal to inspection, capillary refill normal, no clubbing, cyanosis or edema, no calf tenderness and no pedal edema Neuro: SENSORIUM/ORIENTATION: Yes oriented to person, Yes oriented to place and Yes oriented to time Skin: COMMON NORMALS: no rashes or lesions noted GENERAL SKIN EXAM: no rashes or lesions noted Course Vital Signs: Vital signs: Vital Signs Temperature 98.3 F 06/07/20 15:09 Pulse Rate 59 L 06/07/20 18:06 Respiratory Rate 20 H 06/07/20 18:06 Blood Pressure 115/50 06/07/20 18:06 Pulse Oximetry 95 06/07/20 18:06 MDM - Wound/Laceration MDM Narrative: Medical decision making narrative: Reviewed the CT and labs discussed with the patient and his . Also reviewed them with Dr. Stark. We will start him on Cipro 500 p.o. every 12 hours for 10 days he should see Dr. Stark at 1:00 on this upcoming Sunday, June 11. If he has any worsening problems before then return. Lab Data: Labs: Lab Results 06/07/20 06/07/20 Range/Units 15:38 15:38 WBC 5.6 (4.0-10.0) 10^3/ uL RBC 3.65 L (4.1-5.3) 10^6/u L Hgb 11.8 (11.7-16.6) g/dL Hct 36.8 L (42.0-52.0) % MCV 100.8 H (80-94) fL MCH 32.3 (28.0-34.0) pg MCHC 32.1 (30.0-36.0) g/dL RDW 15.7 H (12.1-15.1) % Plt Count 184 (130-400) 10^3/c mm MPV 8.7 (7.4-10.4) fL Neut % (Auto) 78.8 % Lymph % (Auto) 11.0 % [place] % (Auto) 8.1 % Eos % (Auto) 0.5 % Baso % (Auto) 0.2 % Neut # (Auto) 4.38 (1.8-7.7) 10^3/u L Lymph # (Auto) 0.6 L (0.8-4.8) 10^3/u L [place] # (Auto) 0.5 (0.2-0.9) 10^3/u L Eos # (Auto) 0.0 (0.0-0.8) 10^3/u L Baso # (Auto) 0.0 (0.0-0.1) 10^3/u L Nucleated RBC % (a uto) 0 % Nucleated RBCs # 0.0 /100WBC Sodium 137 (136-145) mmol/L Potassium 3.8 (3.5-5.1) mmol/L Chloride 100 (98-107) mmol/L Carbon Dioxide 27 (22-29) mmol/L Anion Gap 13.8 (5-19) BUN 9 (8-23) mg/dL Creatinine 0.4 L (0.7-1.2) mg/dL GFR Calculation Not Reportable Glucose 106 (65-115) mg/dL Calculated Osmolal ity 283 L (285-295) mOsm/k g Calcium 9.5 (8.5-10.5) mg/dL Total Bilirubin 0.3 (0.15-1.2) mg/dL AST 10 (0-40) U/L ALT 6 (0-41) U/L Alkaline Phosphata se 80 (40-130) IU/L Total Protein 6.3 L (6.6-8.7) g/dL Albumin 3.5 (3.5-5.2) g/dL Globulin 2.8 (1.3-4.6) g/dL Discharge Plan Discharge Patient Disposition: Home Clinical Impression: Laryngeal cancer, Acute tracheitis Condition: Stable Prescriptions: New Cipro 500 mg/5 mL suspension,microcapsule recon 500 mg PO Q12H 10 Days Qty: 100 RF: 0 No Action cyanocobalamin (vitamin B-12) [Vitamin B-12] 100 mcg Tablet 100 mcg PO DAILY RF: 0 cetirizine 10 mg Tablet 10 mg PO DAILY RF: 0 thiamine HCl (vitamin B1) [Vitamin B-1] 100 mg Tablet 100 mg PO DAILY RF: 0 tamsulosin [Flomax] 0.4 mg Capsule 0.4 mg PO DAILY RF: 0 vitamin B complex [B-Complex] Tablet 1 tab PO DAILY RF: 0 furosemide [Lasix] 20 mg Tablet 20 mg PO DAILY RF: 0 albuterol sulfate 90 mcg/actuation Hfa Aerosol Inhaler 1 puff INHALATION QID PRN (Reason: Shortness Of Breath) RF: 0 finasteride 5 mg Tablet 5 mg PO DAILY RF: 0 guaifenesin 400 mg Tablet 400 mg PO Q4H PRN (Reason: Congestion) RF: 0 potassium chloride 20 mEq Tablet Extended Release 20 meq PO BID RF: 0 cyanocobalamin (vitamin B-12) 1,000 mcg Capsule 1,000 mcg PO DAILY RF: 0 sulfamethoxazole-trimethoprim 800-160 mg Tablet 1 tab peg-tube BID Qty: 12 RF: 0 folic acid 1 mg Tablet 1 mg feeding tube DAILY Qty: 30 RF: 0 thiamine HCl (vitamin B1) 100 mg tablet 100 mg feeding tube DAILY Qty: 30 RF: 0 docusate sodium [Docu] 50 mg/5 mL Liquid 100 mg feeding tube BID Qty: 473 RF: 0 pantoprazole 40 mg Tablet,Delayed Release (Dr/Ec) 40 mg PO DAILY Qty: 30 RF: 0 Discharge Orders: Discharge Order (Routine); Ordered 06/07/20 Ordered By: Hammad Berger Referrals: Wes Wheat MD [Physician] - ( and monitor. [place] at 1 PMWants to see you in his office on Sunday) Discharge Diet: Usual diet Discharge Activity: Resume usual activity Activity Restrictions/Additional Instructions: With Dr. Stark in his office at 1 PM on June 11. If you are worsening problems prior to then return to the emergency room. 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
[2020-06-07 15:38] VITALS: BP 124/73; PULSE 67; RESP 20; O2SAT 97
[2020-06-07 15:49] LABS: Basophils % 0.2 %; Eosinophils % 0.5 %; Hematocrit 36.8 % (42.0-52.0); Hemoglobin 11.8 g/dL (11.7-16.6); Lymphocytes # 0.6 10^3/uL (0.8-4.8); Mean Corpuscular HGB Conc 32.1 g/dL (30.0-36.0); Mean Corpuscular Hemoglobin 32.3 pg (28.0-34.0); Mean Corpuscular Volume 100.8 fL (80-94); Mean Platelet Volume 8.7 fL (7.4-10.4); Monocytes # 0.5 10^3/uL (0.2-0.9); Monocytes % 8.1 %; Neutrophils # 4.38 10^3/uL (1.8-7.7); Neutrophils % 78.8 %; Nucleated Red Blood Cells % 0 %; Platelet Count 184 10^3/cmm (130-400); Red Blood Count 3.65 10^6/uL (4.1-5.3); Red Cell Distribution Width 15.7 % (12.1-15.1); White Blood Count 5.6 10^3/uL (4.0-10.0)
[2020-06-07] MEDS: hydrocortisone 100 mg/2 mL SDV IVP (16:20)
[2020-06-07] MEDS: diphenhydrAMINE 50 mg/mL SDV 1mL IVP (16:20)
[2020-06-07 16:21] LABS: Alanine Aminotransferase 6 U/L (0-41); Albumin Level 3.5 g/dL (3.5-5.2); Alkaline Phosphatase 80 IU/L (40-130); Anion Gap 13.8 (5-19); Aspartate Amino Transferase 10 U/L (0-40); Blood Urea Nitrogen 9 mg/dL (8-23); Calcium 9.5 mg/dL (8.5-10.5); Carbon Dioxide 27 mmol/L (22-29); Chloride 100 mmol/L (98-107); Creatinine Clr Calc Pharmacy 81.8876; Globulin 2.8 g/dL (1.3-4.6); Glucose 106 mg/dL (65-115); Osmolality Calculated 283 mOsm/kg (285-295); Potassium 3.8 mmol/L (3.5-5.1); Sodium 137 mmol/L (136-145); Total Bilirubin 0.3 mg/dL (0.15-1.2); Total Protein 6.3 g/dL (6.6-8.7)
[2020-06-07] MEDS: iodixanol 320 mg/mL 100mL Btl IV (17:04)
[2020-06-07 18:06] VITALS: BP 115/50; PULSE 59; RESP 20; O2SAT 95
== END 2020-06-07 18:06 | disposition home or self-care (01) ==
PROVIDERS: Emergency Provider Family Medicine; PCP Internal Medicine
DX: J04.10 Acute tracheitis without obstruction (principal); C32.9 Malignant neoplasm of larynx, unspecified; J44.9 Chronic obstructive pulmonary disease, unspecified; Z87.891 Personal history of nicotine dependence
CPT/HCPCS: 12345; 70491; 71045; 80053; 85025; 87040; 93005; 96374; 96375; 99283; J1200; J1720; Q9967

== ENCOUNTER 2020-06-09 06:37 | Inpatient (IN) | payer OTHER, MEDICARE, SELFPAY ==
[2020-06-09] VITALS (16 sets, daily range): BP systolic 108–140; BP diastolic 65–76; PULSE 50–122; RESP 16–22; TEMP 36.8–37.5; O2SAT 54–99; BMI 30.4
--- NOTE | 2020-06-09 06:59 | ED_ITS ---
HPI - General Adult General: Chief complaint: General Medical Stated complaint: swelling to face Time Seen by Provider: 06/09/20 06:42 History of Present Illness: HPI narrative: 75-year-old male returns to the emergency room with swelling in the neck above his tracheostomy. 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 Patient was seen 2 days ago and has a lot of swelling above the tracheostomy he had a CT of the neck which showed extension of the tumor with some swelling but no abscess. He was started on ciprofloxacin liquid because he uses his PEG tube primarily for medications. He was unable to get the Cipro so he has not had any yet he is supposed to start it today. Onset (ago): day(s) Location: neck Radiation: non-radiation Severity: severe Quality: aching Relieving factors: none Exacerbating factors: movement Associated symptoms: Deny chest pain, confusion, cough, diaphoresis, decreased appetite, dyspnea, fevers/chills, headache(s), malaise, nausea, rash, palpita tions, seizures, short of breath, syncope, vomiting or weakness Review of Systems Const: Denies: malaise or diaphoresis ENMT: Denies: throat pain, ear or mastoid pain, nasal discharge or nasal congestion Card: Denies: chest pain, palpitations or syncope Resp: Denies: dyspnea GI: Denies: nausea or vomiting : Denies: flank pain, dysuria, urinary frequency or urinary urgency Skin/Breast: Denies: rash Neuro: Denies: headache(s) or confusion PFS ED PFSH: Medical History Alcoholism BPH (benign prostatic hyperplasia) COPD (chronic obstructive pulmonary disease) Laryngeal mass Port-A-Cath in place Surgical History History of ankle surgery History of hernia surgery S/P percutaneous endoscopic gastrostomy (PEG) tube placement Status post tracheostomy Family History Other CAD (coronary artery disease) Social History Smoking and tobacco status: former smoker Quit status (tobacco): considering quitting Alcohol intake: current Alcohol intake frequency: 3 or more drinks per day Physical Exam Const: COMMON NORMALS: no acute distress GENERAL APPEARANCE: cooperative and comfortable ORIENTATION/CONSCIOUSNESS: Yes awake, Yes oriented to person, Yes oriented to place and Yes oriented to time HENMT: COMMON NORMALS: normocephalic, atraumatic and hearing grossly normal bilaterally HEAD & SCALP: normocephalic and atraumatic Neck/C-Spine: COMMON NORMALS: no JVD Resp: COMMON NORMALS: normal respiratory effort, No retractions, No use of accessory muscles and clear to auscultation bilaterally AUSCULTATION: clear to auscultation bilaterally Cardio: COMMON NORMALS: no JVD, regular rate, regular rhythm and No murmurs present (Cardio) RATE: regular rate RHYTHM: regular rhythm GI: COMMON NORMALS: Soft to palpation and No hepatosplenomegaly present AUSCULTATION: Yes normoactive bowel sounds PALPATION: Yes Soft to palpation, No Tenderness to palpation present (GI), No Guarding due to palpation present (GI) and Yes No hepatosplenomegaly present Extremity: COMMON NORMALS: normal to inspection, capillary refill normal, no clubbing, cyanosis or edema, no calf tenderness and no pedal edema Neuro: SENSORIUM/ORIENTATION: Yes oriented to person, Yes oriented to place and Yes oriented to time Skin: COMMON NORMALS: no rashes or lesions noted GENERAL SKIN EXAM: no rashes or lesions noted Course Vital Signs: Vital signs: Vital Signs Temperature 98.3 F 06/09/20 15:21 Pulse Rate 50 L 06/09/20 15:21 Respiratory Rate 18 06/09/20 15:21 Blood Pressure 118/71 06/09/20 15:21 Pulse Oximetry 95 06/09/20 15:21 MDM - General Adult MDM Narrative: Medical decision making narrative: Discussed with Dr. Stark will go ahead and admit the patient. Patient still is able to swallow. He previously had a PEG tube but no longer has that he does still have his port. Dr. Stark will see the patient on the floor discussed Dr. Flaherty she will admit him as the hospitalist. Reviewed CODE STATUS with the patient he is uncertain and is discussing with his . Lab Data: Labs: Lab Results 06/09/20 06/09/20 06/09/20 Range/Units 07:05 07:05 07:05 WBC 7.2 (4.0-10.0) 10^3/ uL RBC 3.73 L (4.1-5.3) 10^6/u L Hgb 11.9 (11.7-16.6) g/dL Hct 37.8 L (42.0-52.0) % MCV 101.3 H (80-94) fL MCH 31.9 (28.0-34.0) pg MCHC 31.5 (30.0-36.0) g/dL RDW 15.6 H (12.1-15.1) % Plt Count 224 (130-400) 10^3/c mm MPV 9.3 (7.4-10.4) fL Neut % (Auto) 80.3 % Lymph % (Auto) 10.8 % [place] % (Auto) 6.8 % Eos % (Auto) 0.8 % Baso % (Auto) 0.3 % Neut # (Auto) 5.81 (1.8-7.7) 10^3/u L Lymph # (Auto) 0.8 (0.8-4.8) 10^3/u L [place] # (Auto) 0.5 (0.2-0.9) 10^3/u L Eos # (Auto) 0.1 (0.0-0.8) 10^3/u L Baso # (Auto) 0.0 (0.0-0.1) 10^3/u L Nucleated RBC % (a uto) 0 % Nucleated RBCs # 0.0 /100WBC Sodium 137 (136-145) mmol/L Potassium 4.0 (3.5-5.1) mmol/L Chloride 102 (98-107) mmol/L Carbon Dioxide 26 (22-29) mmol/L Anion Gap 13.0 (5-19) BUN 8 (8-23) mg/dL Creatinine 0.5 L (0.7-1.2) mg/dL GFR Calculation Not Reportable Glucose 119 H (65-115) mg/dL Calculated Osmolal ity 283 L (285-295) mOsm/k g Calcium 9.4 (8.5-10.5) mg/dL Total Bilirubin 0.3 (0.15-1.2) mg/dL AST 10 (0-40) U/L ALT 7 (0-41) U/L Alkaline Phosphata se 81 (40-130) IU/L Total Protein 6.3 L (6.6-8.7) g/dL Albumin 3.3 L (3.5-5.2) g/dL Globulin 3.0 (1.3-4.6) g/dL TSH 3.63 (0.27-4.20) uIU/ mL Discharge Plan Discharge Patient Disposition: Admitted As Inpatient Admit Provider: Gina Flaherty Clinical Impression: Laryngeal cancer, Acute tracheitis, Abscess of larynx Condition: Stable Referrals: Elio Bobby [Primary Care Provider] - Discharge Date/Time: 06/09/20 11:29 Coding Level of Care Code ED Leather Dresser for Chg Fwd Exam Comprehensive
--- NOTE | 2020-06-09 07:08 | CT_ITS ---
WS: [id number] CT NECK WITH CONTRAST HISTORY: swelling/infection/laryngeal tumor TECHNIQUE: Contiguous 5 mm axial images are performed through the neck with intravenous contrast. Sag ittal and coronal reformats are also submitted. All CT scans at [facility] use at least o ne of these dose optimization techniques: automated exposure control; mA and/or kV adjustment per pat ient size (includes targeted exams where dose is matched to clinical indication); or iterative recons truction. CONTRAST: CONTRAST: Omnipaque 300; 95 mL IV. DLP: 672.15 mGy-cm. COMPARISON: 06/07/2020, 05/03/2020 Tracheostomy remains in unchanged position. The tip of the tracheostomy in several centimeters above the neal in good position. There is diffuse tracheal wall thickening and edema which are set has no t progressed since 06/07/2020. At the level of the distal trachea and below the tracheal wall posteri tessy measures up to 6.4 mm at its maximum. The airway continues to be widely patent. There is severe soft tissue edema involving the entire neck at the level of the larynx and hypopharyn x. The soft tissue edema has significantly progressed since the prior examination. There is also invo lvement of the oral pharynx and retropharynx with edema. Complex cystic mass with a few foci of air b eginning at the level of the hyoid bone and extending inferiorly over 4.8 cm. This complex cystic mas s also crosses the midline at the level of the thyroid cartilage. Patient has a known laryngeal cance r. This is probably progression of the laryngeal and postradiation changes. There is now complete obl iteration of the airway at the level of the larynx. Again noted is destruction of the cartilage at th e level of the larynx. Soft tissue edema extends into the retropharyngeal space. CT/CT neck w con* [id number] IMPRESSION: 1. Tracheostomy remains in good position. 2. Significant progression of the soft tissue edema with now complete oblitera tion of the airway to the level of the hypopharynx and larynx. 3. Complex soft tissue mass at the level of the larynx has developed. This may be necrotic tumor or abscess development. This mass extends over length of 4.8 cm and transversely at 3.5 cm at the level of the thyroid cartilage. 4. Marked thickening of the tracheal wall as before from acute tracheitis. 5. Soft tissue involvement of the retropharynx. Notified Hammad Berger DO at 06/09/2020 8:57 AM.
[2020-06-09 07:35] LABS: Basophils % 0.3 %; Eosinophils # 0.1 10^3/uL (0.0-0.8); Eosinophils % 0.8 %; Hematocrit 37.8 % (42.0-52.0); Hemoglobin 11.9 g/dL (11.7-16.6); Lymphocytes # 0.8 10^3/uL (0.8-4.8); Lymphocytes % 10.8 %; Mean Corpuscular HGB Conc 31.5 g/dL (30.0-36.0); Mean Corpuscular Hemoglobin 31.9 pg (28.0-34.0); Mean Corpuscular Volume 101.3 fL (80-94); Mean Platelet Volume 9.3 fL (7.4-10.4); Monocytes # 0.5 10^3/uL (0.2-0.9); Monocytes % 6.8 %; Neutrophils # 5.81 10^3/uL (1.8-7.7); Neutrophils % 80.3 %; Nucleated Red Blood Cells % 0 %; Platelet Count 224 10^3/cmm (130-400); Red Blood Count 3.73 10^6/uL (4.1-5.3); Red Cell Distribution Width 15.6 % (12.1-15.1); White Blood Count 7.2 10^3/uL (4.0-10.0)
[2020-06-09 07:51] LABS: Alanine Aminotransferase 7 U/L (0-41); Albumin Level 3.3 g/dL (3.5-5.2); Alkaline Phosphatase 81 IU/L (40-130); Aspartate Amino Transferase 10 U/L (0-40); Blood Urea Nitrogen 8 mg/dL (8-23); Calcium 9.4 mg/dL (8.5-10.5); Carbon Dioxide 26 mmol/L (22-29); Chloride 102 mmol/L (98-107); Glucose 119 mg/dL (65-115); Osmolality Calculated 283 mOsm/kg (285-295); Sodium 137 mmol/L (136-145); Total Bilirubin 0.3 mg/dL (0.15-1.2); Total Protein 6.3 g/dL (6.6-8.7)
[2020-06-09] MEDS: diphenhydrAMINE 50 mg/mL SDV 1mL IVP (08:14)
[2020-06-09] MEDS: hydrocortisone 100 mg/2 mL SDV IVP (08:14)
[2020-06-09] MEDS: ciprofloxacin 400 MG/200 ML PREMIX 200 MG IV (08:16)
[2020-06-09] MEDS: iohexol 300 mg/mL 100 mL Btl IV (08:41)
[2020-06-09] MEDS: vancomycin 1,000 MG in sodium chloride 0.9% 250 ML 250 MG IV (10:15)
[2020-06-09] MEDS: morphine 4 mg/mL SDV 1 mL 2 MG IVP ×2 (12:22→18:52)
[2020-06-09] MEDS: D5-NS 0.45% + KCL 20 mEq 20 MEQ/1,000 ML BAG 100 MEQ IV (12:24)
--- NOTE | 2020-06-09 13:07 | P.HP_ITS ---
Providers/Chief Complaint Admitting Physician: Gina Flaherty DO Primary Care Provider: Elio Bobby Chief Complaint: swelling to face History of Present Illness Brody Gaines is a 75 year old male that presented to the emergency department for increased swelling in his neck over the past 2 days. He has been diagnosed with laryngeal carcinoma and is followed by Dr. Starkey and Dr. Wheat. Patient denies any recent medication changes or adjustments, denies any trauma to his n fabricio. Patient stated that he just began having swelling and pain above his tracheostomy. Continued to increase over the past 2 days. Was seen and evaluated in the emergency department 2 days ago was given antibiotics at that time, unable to fill them and return to the ER today with worsening swelling. Patient denies any fevers or chills, no significant increase in the amount that he is suctioning from his trach. Patient was seen and evaluated today noted to have worsening swelling with riki rn for 4 x 3 cm necrotic mass and tracheitis. Given IV antibiotics and ENT consulted. Review of Systems Const: Denies: fever(s) or chills Eyes: Denies: change in vision ENMT: Reports: throat pain and other (Increased swelling above his tracheostomy); Denies: nasal congestion Card: Reports: edema; Denies: chest pain or palpitations Resp: Denies: dyspnea, productive cough or hemoptysis GI: Denies: abdominal pain, nausea, vomiting, diarrhea, constipation, hematochezia or melena : Denies: dysuria or hematuria Musc: Denies: extremity pain or muscle cramps Skin/Breast: Denies: rash or new lesions Neuro: Denies: headache(s) or dizziness Psych: Denies: anxiety or depression Endo: Denies: polyuria or hot flashes Martin/Lymph: Denies: easy bruising or easy bleeding Medications/Allergies Home Medications Medication Instructions Recorded Confirmed Last Taken Type albuterol sulfate 1 puff INHALATION QID PRN 01/07/20 03/16/20 01/07/20 History cetirizine 10 mg PO DAILY 01/07/20 03/16/20 01/07/20 History cyanocobalamin (vitamin B-12) 1,000 mcg PO DAILY 01/07/20 03/16/20 01/07/20 History cyanocobalamin (vitamin B-12) 100 mcg PO DAILY 01/07/20 03/16/2001/06/20 History [Vitamin B-12] finasteride 5 mg PO DAILY 01/07/20 03/16/20 01/07/20 History furosemide [Lasix] 20 mg PO DAILY 01/07/20 03/16/20 01/07/20 History guaifenesin 400 mg PO Q4H PRN 01/07/20 03/16/20 01/07/20 History potassium chloride 20 meq PO BID 01/07/20 03/16/20 01/07/20 History tamsulosin [Flomax] 0.4 mg PO DAILY 01/07/20 03/16/20 01/07/20 History thiamine HCl (vitamin B1) [Vitamin 100 mg PO DAILY 01/07/20 03/16/20 01/07/20 History B-1] vitamin B complex [B-Complex] 1 tab PO DAILY 01/07/20 03/16/20 01/07/20 History docusate sodium [Docu] 100 mg FEEDING TUBE BID #473 ml 01/16/20 03/16/20 Unknown Rx folic acid 1 mg FEEDING TUBE DAILY #30 tab 01/16/20 03/16/20 Unknown Rx pantoprazole 40 mg PO DAILY #30 tab 01/16/20 03/16/20 Unknown Rx sulfamethoxazole-trimethoprim 1 tab PEG-TUBE BID #12 tab 01/16/20 03/16/20 Unknown Rx thiamine HCl (vitamin B1) 100 mg FEEDING TUBE DAILY #30 tab 01/16/20 03/16/20 Unknown Rx ciprofloxacin [Cipro] 500 mg PO Q12H 10 Days #100 ml 06/07/20 Unknown Rx Allergies Allergy/AdvReac Type Severity Reaction Status Date / Time iodine Allergy ALGY-Hives Verified 06/09/20 06:44 Penicillins Allergy Unknown Verified 06/09/20 06:44 PFSH Acute PFSH: Medical History Alcoholism BPH (benign prostatic hyperplasia) COPD (chronic obstructive pulmonary disease) Laryngeal mass Port-A-Cath in place Surgical History History of ankle surgery History of hernia surgery S/P percutaneous endoscopic gastrostomy (PEG) tube placement Status post tracheostomy Family History Other CAD (coronary artery disease) Social History Smoking and tobacco status: former smoker Quit status (tobacco): considering quitting Alcohol intake: current Alcohol intake frequency: 3 or more drinks per day Vitals/I&O/Wt Last Vital Signs Temp 98.2 F 06/09/20 12:28 Pulse 122 H 06/09/20 12:56 Resp 18 06/09/20 12:28 BP 124/76 06/09/20 12:28 Pulse Ox 99 06/09/20 12:56 06/08/20 06/09/20 06/09/20 22:59 06:59 14:59 Intake Total 200 / 200 Balance 200 / 200 Weight last 48 hrs Weight 90.718 kg Physical Exam Const: COMMON NORMALS: patient oriented x3 and alert GENERAL APPEARANCE: cooperative ORIENTATION/CONSCIOUSNESS: Yes awake, Yes oriented to person, Yes oriented to place and Yes oriented to time HENMT: OTHER: Tracheostomy in place with significant swelling and erythema ju st cephalad to tracheostomy placement. Some crusting around tracheostomy with no significant purulent drainage Eye: COMMON NORMALS: Equal, round and reactive pupils present PUPIL: Yes Equal, round and reactive pupils present Neck/C-Spine: COMMON NORMALS: supple GENERAL: Yes normal visual inspection Resp: AUSCULTATION: no rhonchi and no wheezes OTHER: Tracheostomy in place, diminished breath sounds bilaterally with prolonged expiratory phase Cardio: COMMON NORMALS: regular rate, regular rhythm and No murmurs present ( Cardio) RATE: regular rate RHYTHM: regular rhythm GI: COMMON NORMALS: Soft to palpation and non-tender INSPECTION: No abdominal distension AUSCULTATION: Yes normoactive bowel sounds PALPATION: Yes Soft to palpation Extremity: COMMON NORMALS: no clubbing, cyanosis or edema and no calf tenderness Neuro: COMMON NORMALS: patient oriented x3, CN's II-XII intact bilaterally, moves all extremities and no focal motor deficits SENSORIUM/ORIENTATION: Yes alert, Yes oriented to person, Yes oriented to place and Yes oriented to time SPEECH: speech normal Psych: COMMON NORMALS: mental status grossly normal and cooperative Skin: NARRATIVE SKIN EXAM: Erythema surrounding the tracheostomy as noted above Data : 06/09/20 07:05 06/09/20 07:05 Micro: Microbiology 06/09/20 07:22 Blood Culture - Preliminary Blood SPECIMEN COLLECTED 06/09/20 07:17 Blood Culture - Preliminary Blood SPECIMEN COLLECTED Other CT: I personally reviewed and interpreted this imaging study as follows: Radiologist's impression: IMPRESSION: 1. Tracheostomy remains in good position. 2. Significant progression of the soft tissue edema with now complete obliteration of the airway to the level of the hypopharynx and larynx. 3. Complex soft tissue mass at the level of the larynx has developed. This may be necrotic tumor or abscess development. This mass extends over length of 4.8 cm and transversely at 3.5 cm at the level of the thyroid cartilage. 4. Marked thickening of the tracheal wall as before from acute tracheitis. 5. Soft tissue involvement of the retropharynx. A&P Assessment and plan (1) Acute tracheitis: Continue on ciprofloxacin and vancomycin We will follow-up with ENT recommendations Status: Acute (2) Laryngeal cancer: With concern for necrotic mass versus abscess completely obstructing the airway superior to the tracheostomy ENT, consulted, appreciate recommendations and assistance in patient's care Patient to remain n.p.o. at this time We will make patient's oncologist aware of admission Status: Acute (3) COPD (chronic obstructive pulmonary disease): Without acute exacerbation, patient reports using occasional oxygen at home, will continue close monitoring with respiratory therapy to assess and treat and oxygen per protocol Status: Acute (4) GERD (gastroesophageal reflux disease): Will give IV PPI Status: Acute (5) Tracheostomy present: Plan as noted above, appreciate ENT consultation Status: Acute (6) Laryngeal mass: With question of necrotic mass versus abscess formation ENT consulted Plan as above Status: Acute Additional A&P Information History of alcoholism History of tobacco abuse DVT prophylaxis: SCDs, no pharmacologic prophylaxis due to concern as noted above and likely requiring surgical intervention Diet: N.p.o. CODE STATUS: Full code Attestations Medical Necessity Statement*: Patient requires hospitalization due to increasing neck swelling with concern for necrotic mass versus abscess, expected stay greater than 2 midnights. Coding Level of Care Code Acute Container Packer Operator for [facility] F[facility] Diagnoses Acute tracheitis J04.10 Laryngeal cancer C32.9 COPD (chronic obstructive pulmonary disease) J44.9 GERD (gastroesophageal reflux disease) K21.9 Tracheostomy present Z93.0 Laryngeal mass J38.7
[2020-06-09 13:50] LABS: Thyroid Stimulating Hormone 3.63 uIU/mL (0.27-4.20)
[2020-06-09] MEDS: pantoprazole 40 mg SDV IVP (15:05)
--- NOTE | 2020-06-09 17:39 | P.CONIM_ITS ---
Providers/Reason For Consult Consulting Physican/Specialty*: Dr. 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 The patient presented to the ER today with significant swelling in the upper neck/submental area and was admitted for IV antibiotics after what appeared c/w an abscess/phlegmon vs necrotic tumor was noted on CT scan of the neck. This had progressed over 24 hours since his last CT scan. The patient himself is o/w without c/o. Review of Systems General: Reports: 10 or more systems reviewed and unremarkable except in HPI and below Meds/Allergies Home Medications and Allergies Home Medications Medication Instructions Recorded Confirmed Last Taken Type albuterol sulfate 1 puff INHALATION QID PRN 01/07/20 06/09/20 01/07/20 History cyanocobalamin (vitamin B-12) 100 mcg PO DAILY 01/07/20 06/09/20 01/07/20 History [Vitamin B-12] furosemide [Lasix] 20 mg PO DAILY 01/07/20 06/09/20 01/07/20 History guaifenesin 400 mg PO Q4H PRN 01/07/20 06/09/20 01/07/20 History potassium chloride 20 meq PO BID 01/07/20 06/09/20 01/07/20 History vitamin B complex [B-Complex] 1 tab PO DAILY 01/07/20 06/09/20 01/07/20 History folic acid 1 mg FEEDING TUBE DAILY #30 tab 01/16/20 06/09/20 Unknown Rx thiamine HCl (vitamin B1) 100 mg FEEDING TUBE DAILY #30 tab 01/16/20 06/09/20 Unknown Rx ciprofloxacin [Cipro] 500 mg PO Q12H 10 Days #100 ml 06/07/20 06/09/20 Unknown Rx Allergies Allergy/AdvReac Type Severity Reaction Status Date / Time iodine Allergy ALGY-Hives Verified 06/09/20 06:44 Penicillins Allergy Unknown Verified 06/09/20 06:44 Current Medications Current Medications Generic Name Dose Route Start Last Admin Trade Name Freq PRN Reason Stop Dose Admin Morphine Sulfate 2 mg 06/09/20 11:33 06/09/20 12:22 Morphine IVP 2 mg Q4H PRN Administration SEVERE PAIN Pantoprazole Sodium 40 mg 06/09/20 13:30 06/09/20 15:05 Protonix IVP 40 mg DAILY JUAN MANUEL Administration PFSH Acute PFSH: Medical History Alcoholism BPH (benign prostatic hyperplasia) COPD (chronic obstructive pulmonary disease) Laryngeal mass Port-A-Cath in place Surgical History History of ankle surgery History of hernia surgery S/P percutaneous endoscopic gastrostomy (PEG) tube placement Status post tracheostomy Family History Other CAD (coronary artery disease) Social History Smoking and tobacco status: former smoker Quit status (tobacco): considering quitting Alcohol intake: current Alcohol intake frequency: 3 or more drinks per day Vitals/I&O/Wt Last Vital Signs Temp 98.3 F 06/09/20 15:21 Pulse 50 L 06/09/20 15:21 Resp 18 06/09/20 15:21 BP 118/71 06/09/20 15:21 Pulse Ox 95 06/09/20 15:21 06/09/20 06/09/20 06/09/20 06:59 14:59 22:59 Intake Total 200 / 200 Balance 200 / 200 Weight last 48 hrs Weight 90.718 kg Physical Exam HENMT: COMMON NORMALS: normocephalic, hearing grossly normal bilaterally, external ears normal and Normal external nose present HEAD & SCALP: normal to inspection and normocephalic FACE & SINUS: normal facial exam NOSE: Normal external nose present EXTERNAL EAR: Yes external ears normal MOUTH: Normal oral and palatal mucosa present Eye: COMMON NORMALS: EOMs intact bilaterally Neck/C-Spine: COMMON NORMALS: full ROM GENERAL: Yes anterior neck swelling (There is significant nontender swelling and erythema above the trach site.) and Yes other (The trach is in place and appears to be well healed.) Chest: COMMONS NORMALS: normal inspection of the chest Resp: COMMON NORMALS: normal respiratory effort Extremity: COMMON NORMALS: normal to inspection Psych: COMMON NORMALS: mental status grossly normal, Normal thought process present and cooperative THOUGHT PROCESS: Normal thought process present Skin: COMMON NORMALS: no rashes or lesions noted GENERAL SKIN EXAM: no rashes or lesions noted Data Micro: Micro: Microbiology 06/09/20 07:22 Blood Culture - Pr eliminary Blood SPECIMEN [facility] 06/09/20 07:17 Blood Culture - Pr eliminary Blood SPECIMEN [facility] A&P Additional A&P Information Impression: SCCA of the supraglottic larynx s/p tracheotomy and Chemo/XRT with abscess/phlegmon vs necrotic tumor or the upper/anterior neck. The patient's airway is stable because of the trach, and he appears non septic. Recommendations: I recommend 24 hours of IV antibiotics and a f/u Neck CT with IV contrast in 48 hours; I will make further recommendations based on the results of the f/u tracheotomy; please contact me for any worsening in the patient's status prior to the f/u CT scan. Consult Attestations Medical Necessity Statement: I was consulted to evaluate the patient's neck swelling. Procedures Procedure Narrative Procedure Note: verbal informed consent was obtained; the patient's nose was sprayed with a 50/50 Afrin/4% topical Lidocaine mix; the flexible fiberoptic na sopharyngolaryngoscope was inserted into the patient's right nasal cavity, and was advanced while inspecting the nasopharynx, oralpharynx, hypopharynx, and larynx; there are post irradiation changes and partial obstruction of the larynx relating to the patient's cancer diagnosis, but there are no signs of infection or other related problems; the remainder of the exam is unremarkable. Coding Level of Care Code Acute Television Cabinet Finisher for Loretta Mandujano
[2020-06-09] MEDS: potassium chloride ER 10 mEq Tablet 20 MEQ PO (18:52)
[2020-06-09] MEDS: potassium chloride oral liq 20 mEq/15 mL UDC PO (19:19)
[2020-06-09] MEDS: cefepime 2,000 MG in sodium chloride 0.9% (plus) 50 ML 100 MG IV (20:18)
[2020-06-09] MEDS: ciprofloxacin 200 MG/100 ML PREMIX 100 MG IV (20:58)
[2020-06-10] VITALS (10 sets, daily range): BP systolic 95–153; BP diastolic 56–69; PULSE 51–82; RESP 16–20; TEMP 36.4–36.8; O2SAT 92–99
[2020-06-10] MEDS: LORazepam 2 mg/mL INJ 1 mL 0.5 MG IVP ×2 (03:05→20:47)
[2020-06-10 05:42] LABS: Hemoglobin 11.8 g/dL (11.7-16.6); Mean Corpuscular HGB Conc 31.9 g/dL (30.0-36.0); Mean Corpuscular Hemoglobin 32.8 pg (28.0-34.0); Mean Corpuscular Volume 102.8 fL (80-94); Mean Platelet Volume 9.9 fL (7.4-10.4); Platelet Count 198 10^3/cmm (130-400); Red Cell Distribution Width 15.5 % (12.1-15.1); White Blood Count 5.6 10^3/uL (4.0-10.0)
[2020-06-10 05:55] LABS: Alanine Aminotransferase 7 U/L (0-41); Albumin Level 3.2 g/dL (3.5-5.2); Alkaline Phosphatase 73 IU/L (40-130); Anion Gap 13.6 (5-19); Aspartate Amino Transferase 10 U/L (0-40); Blood Urea Nitrogen 9 mg/dL (8-23); Calcium 9.5 mg/dL (8.5-10.5); Carbon Dioxide 25 mmol/L (22-29); Chloride 102 mmol/L (98-107); Globulin 3.1 g/dL (1.3-4.6); Glucose 103 mg/dL (65-115); Osmolality Calculated 283 mOsm/kg (285-295); Potassium 3.6 mmol/L (3.5-5.1); Sodium 137 mmol/L (136-145); Total Bilirubin 0.5 mg/dL (0.15-1.2); Total Protein 6.3 g/dL (6.6-8.7)
[2020-06-10 06:03] LABS: INR 1.01 (0.8-1.2)
[2020-06-10] MEDS: cefepime 2,000 MG in sodium chloride 0.9% (plus) 50 ML 100 MG IV ×2 (06:05→18:24)
[2020-06-10 06:28] LABS: Slide Review Slide Review Perform
[2020-06-10 06:31] LABS: Absolute Neutrophil 4.2 10^3/cmm (1.4-6.5); Absolute Segmented Neutrophil 3.5 10/cmm (1.6-7.1); Band Neutrophils Absolute 0.7 10^3/cmm (0.0-1.2); Lymphocytes 13 %; Macrocytosis 1+; Monocytes Absolute 0.6 10^3/cmm (0.1-0.6); Platelet Estimate Normal (Normal); Segmented Neutrophils 62 %; Total Cells Counted 100 (0-100)
[2020-06-10 06:32] LABS: Eosinophils 0 %
[2020-06-10] MEDS: morphine 4 mg/mL SDV 1 mL 2 MG IVP ×2 (08:49→15:34)
[2020-06-10] MEDS: potassium chloride oral liq 20 mEq/15 mL UDC PO ×2 (08:50→18:21)
[2020-06-10] MEDS: ciprofloxacin 200 MG/100 ML PREMIX 100 MG IV ×2 (08:50→21:05)
[2020-06-10] MEDS: pantoprazole 40 mg SDV IVP (09:47)
[2020-06-10] MEDS: FUROsemide 10 mg/mL SDV 2mL 20 MG IVP (09:48)
--- NOTE | 2020-06-10 10:49 | PC.CHAP ---
Pastoral Care Encounter/Spiritual Assessment Type of Contact [] Declined chief operations officer visit [] Patient/Family/Request visit [] Outpatient visit [] Follow-up visit [] Physician referral [] Code/Alert [x] Routine visit [] Staff referral [] Actively dying [] Patient sleeping [] Family support [] [] Out of room [] Palliative care [] [x] Receiving care in room [] Pre-surgical visit [] Trauma [] Long length of stay [] ICU visit [] Other: Relational/Emotional Strength [] Patient feels connected with others/family/visitors/staff [] Distress [x] Loneliness/isolation [] Abandonment Spirituality of Patient [x] Person of Francesca [] Attends Faith of their Francesca [x] Believes in Prayer [] Reads Bible or Sikh materials [] There are Spiritual issues to be addressed Retail Support Associate Interventions [x] Prayer [x] Active listening [x] Non-anxious presence [x] Spiritual/emotional support [] Crisis/trauma care [x] Spiritual counseling [] Bereavement support [] Provided bereavement packet [] Provided Bible/devotional materials [] Provided toy/stuffed animal, coloring book to patient or family member [] Provided Communion [] Anointing/[place] [] Salvation [x] Completed spiritual assessment [] Other: Impact on Illness or Injury [] Angry [] Fearful [x] Anxious [] Often cries [] Exhaustion [x] Unable to work [] Unable to attend jew [] Unable to walk/stand [] Unable to read [x] Unable to drive [] Unable to eat/drink [] Unable to sleep [] Unable to be with family [] Patient intubated [] Other: Summary Not able to talk, was able to nod and know what I was saying, has a good attitude Time spent with patient 10 mins
--- NOTE | 2020-06-10 11:02 | PM.PN ---
Subjective Subjective: Interval history: Patient reports continued swelling in the neck superiorly to his trach. He denies any chest pain, no shortness of breath. Some difficulty swallowing Vitals/I&O/Wt Last Vital Signs Temp 98.2 F 06/10/20 07:23 Pulse 57 L 06/10/20 09:51 Resp 16 06/10/20 09:51 BP 107/69 06/10/20 07:23 Pulse Ox 93 06/10/20 09:51 06/09/20 06/10/20 06/10/20 22:59 06:59 14:59 Intake Total 100 / 300 300 / 600 100 / 100 Balance 100 / 300 300 / 600 100 / 100 Weight last 48 hrs Weight 90.718 kg Physical Exam Const: COMMON NORMALS: patient oriented x3 and alert GENERAL APPEARANCE: cooperative ORIENTATION/CONSCIOUSNESS: Yes awake, Yes oriented to person, Yes oriented to place and Yes oriented to time HENMT: OTHER: Tracheostomy in place with significant swelling and erythema just cephalad to tracheostomy placement. Some crusting around tracheostomy with no significant purulent drainage Eye: COMMON NORMALS: Equal, round and reactive pupils present PUPIL: Yes Equal, round and reactive pupils present Neck/C-Spine: COMMON NORMALS: supple GENERAL: Yes normal visual inspection Resp: AUSCULTATION: no rhonchi and no wheezes OTHER: Tracheostomy in place, diminished breath sounds bilaterally with prolonged expiratory phase Cardio: COMMON NORMALS: regular rate, regular rhythm and No murmurs present (Cardio) RATE: regular rate RHYTHM: regular rhythm GI: COMMON NORMALS: Soft to palpation and non-tender INSPECTION: No abdominal distension AUSCULTATION: Yes normoactive bowel sounds PALPATION: Yes Soft to palpation Extremity: COMMON NORMALS: no clubbing, cyanosis or edema and no calf tenderness Neuro: COMMON NORMALS: patient oriented x3, CN's II-XII intact bilaterally, moves all extremities and no focal motor deficits SENSORIUM/ORIENTATION: Yes alert, Yes oriented to person, Yes oriented to place and Yes oriented to time SPEECH: speech normal Psych: COMMON NORMALS: mental status grossly normal and cooperative Skin: NARRATIVE SKIN EXAM: Erythema surrounding the tracheostomy as noted above Data : 06/10/20 04:37 06/10/20 04:37 Micro: Microbiology 06/09/20 07:22 Blood Culture - Preliminary Blood NEGATIVE TO DATE 06/09/20 07:17 Blood Culture - Preliminary Blood NEGATIVE TO DATE A&P Assessment and plan (1) Acute tracheitis: Continue on Cefepime, ciprofloxacin and vancomycin We will follow-up with ENT recommendations Repeat CT scan in the morning Status: Acute (2) Laryngeal cancer: With concern for necrotic mass versus abscess completely obstructing the airway superior to the tracheostomy ENT, consulted, appreciate recommendations and assistance in patient's care NPO at midnight, sips and ice chips until then Status: Acute (3) COPD (chronic obstructive pulmonary disease): Without acute exacerbation, patient reports using occasional oxygen at home, will continue close monitoring with respiratory therapy to assess and treat and oxygen per protocol. On home 2.5 L at home Status: Acute (4) GERD (gastroesophageal reflux disease): Will give IV PPI Status: Acute (5) Tracheostomy present: Plan as noted above, appreciate ENT consultation Status: Acute (6) Laryngeal mass: With question of necrotic mass versus abscess formation ENT consulted Plan as above Status: Acute Additional A&P Information History of alcoholism History of tobacco abuse DVT prophylaxis: SCDs, no pharmacologic prophylaxis due to concern as noted above and likely requiring surgical intervention Diet: Sips and chips, NPO at midnight CODE STATUS: Full code Attestations Medical Necessity Statement*: Patient requires hospitalization due to concern for laryngeal mass with swelling with obstruction of airway above the trach Coding Level of Care Code Acute Contract Consultant for tracey Fwd Diagnoses Acute tracheitis J04.10 Laryngeal cancer C32.9 COPD (chronic obstructive pulmonary disease) J44.9 GERD (gastroesophageal reflux disease) K21.9 Tracheostomy present Z93.0 Laryngeal mass J38.7
--- NOTE | 2020-06-10 13:59 | PC.OT ---
OT evaluation orders received and screening completed. Pt shows no deficits in ADL functional tasks. No further skilled OT required. Co sign: EVA RitterR/L
--- NOTE | 2020-06-10 18:53 | PC.NURSE ---
Report to Brigitte FARMER at this time.
[2020-06-10] MEDS: acetaminophen 325 mg Tablet 650 MG PO (21:08)
[2020-06-11] VITALS (17 sets, daily range): BP systolic 95–127; BP diastolic 60–83; PULSE 52–98; RESP 16–20; TEMP 36.3–37; O2SAT 92–100
--- NOTE | 2020-06-11 05:45 | PM.EVENT ---
Event Note Event Note: Rapid response was called when patient experienced hypoxia, his saturation dropped to 80-83%, on room air He has been n.p.o. since midnight, his hypoxia immediately improved after mucous plug was suctioned, prior to that because of thickened mucus suction was not adequate When I entered the room he was saturating 100% no other complaints, No active respiratory distress Normal facial complexion Normotensive Awake alert, Plan: I have requested moist trach collar along CPT vest which would help loosening the mucus. Mr. Gaines has been given new suction catheter as well.
--- NOTE | 2020-06-11 06:00 | CT_ITS ---
WS: [id number] CT NECK WITH CONTRAST HISTORY: airway edema, mass TECHNIQUE: Contiguous 5 mm axial images are performed through the neck with intravenous contrast. Sag ittal and coronal reformats are also submitted. All CT scans at [facility] use at least o ne of these dose optimization techniques: automated exposure control; mA and/or kV adjustment per pat ient size (includes targeted exams where dose is matched to clinical indication); or iterative recons truction. CONTRAST: CONTRAST: Omnipaque 300; 95 mL IV. DLP: 719.55 mGy.cm COMPARISON: 06/11/2020 Tracheostomy remains in good position. There is continued mild tracheal wall thickening below the tip of the tracheostomy. There is no evidence for significant obstruction below the tracheostomy. There is continued extensive soft tissue edema to the level of the hypopharynx and larynx. Study is signifi cantly limited by motion. The abscess cavity centered in the larynx at the level of the hyoid and thy roid cartilage does appear smaller and there is less mass effect and edema obstructing the glottic ai rway. Abscess extends over a length of 3.2 cm x 2.2 x 2.9 cm. There is still complete obstruction at the level of the thyroid cartilage. The garnett of the abscess are less distinct. The extent of the alexandre lulitis and soft tissue edema has also moderately improved. CT/CT neck w con* [id number] IMPRESSION: 1. This study is compromised by motion artifact. 2. Overall there has been a slight improvement in the amount of edema and the abscess cavity at the level of the larynx. There is still complete obliteration of the airway at the level of the larynx but the abscess cavity is slightly sm aller. 3. Tracheostomy remains in good position. 4. Tracheitis and wall thickening distal to the tracheostomy has persisted. No compromise of the airway distal to the tracheostomy.
[2020-06-11] MEDS: cefepime 2,000 MG in sodium chloride 0.9% (plus) 50 ML 100 MG IV (06:13)
[2020-06-11 06:41] LABS: Vancomycin Trough 17.3 ug/mL (10-15)
[2020-06-11] MEDS: iohexol 300 mg/mL 100 mL Btl IV (06:44)
[2020-06-11 07:34] LABS: Basophils % 0.3 %; Eosinophils # 0.1 10^3/uL (0.0-0.8); Hematocrit 38.7 % (42.0-52.0); Hemoglobin 12.3 g/dL (11.7-16.6); Lymphocytes # 0.8 10^3/uL (0.8-4.8); Lymphocytes % 13.3 %; Mean Corpuscular HGB Conc 31.8 g/dL (30.0-36.0); Mean Corpuscular Hemoglobin 32.1 pg (28.0-34.0); Mean Platelet Volume 9.3 fL (7.4-10.4); Monocytes # 0.4 10^3/uL (0.2-0.9); Monocytes % 7.1 %; Neutrophils # 4.69 10^3/uL (1.8-7.7); Neutrophils % 77.1 %; Nucleated Red Blood Cells % 0 %; Platelet Count 236 10^3/cmm (130-400); Red Blood Count 3.83 10^6/uL (4.1-5.3); Red Cell Distribution Width 15.5 % (12.1-15.1); White Blood Count 6.1 10^3/uL (4.0-10.0)
--- NOTE | 2020-06-11 07:36 | PC.NURSE ---
Pt put on his call light at 0525, when nurse entered room pt was pointing to his tracheostomy and mouthing the words, I cant breathe PT was very distressed, this nurse could visualize a large amount of mucus in the trach and pt was trying to cough it out. Nurse began using suction to try to remove mucus, the mucus was very thick and the suction catheter was not removing it. This nurse called for help nurses Peter ROGER, Carlita RN, and charge Nurse Silvia RN came to assist. Charge nurse said to call Rapid response as pt was not able to dislodge the mucus plug by coughing and suctioning was not removing the mucus fast enough, the PT's oxygen saturation was 82%, nurses applied oxygen mask but oxygen was not improving. The pt coughed very hard and a large amount of thick mucus came out of the tracheostomy site. Nurses continued to suction and apply oxygen, Oxygen saturation began improving by the time RT Castillo and RT Kaitlynn arrived, Dr. Joseph and Dr. Gallardo responded to PT room. PT vital signs began to stabilize, RT Kaitlynn removed the inner cannula of the PT trach and cleaned it removing any hardened mucus. Dr Joseph assessed pt and put in new orders for mucomyst, chest vest, and humidified oxygen. PT oxygen improved to 98%.
[2020-06-11 07:51] LABS: Alanine Aminotransferase 8 U/L (0-41); Albumin Level 3.6 g/dL (3.5-5.2); Alkaline Phosphatase 76 IU/L (40-130); Anion Gap 12.2 (5-19); Aspartate Amino Transferase 12 U/L (0-40); Blood Urea Nitrogen 13 mg/dL (8-23); Calcium 9.6 mg/dL (8.5-10.5); Carbon Dioxide 29 mmol/L (22-29); Chloride 100 mmol/L (98-107); Globulin 3.1 g/dL (1.3-4.6); Glucose 95 mg/dL (65-115); Osmolality Calculated 284 mOsm/kg (285-295); Potassium 4.2 mmol/L (3.5-5.1); Sodium 137 mmol/L (136-145); Total Bilirubin 0.5 mg/dL (0.15-1.2); Total Protein 6.7 g/dL (6.6-8.7)
--- NOTE | 2020-06-11 08:11 | PC.RESP ---
No vest done at this time. Patient sounded clear and wants to rest.
[2020-06-11] MEDS: ciprofloxacin 200 MG/100 ML PREMIX 100 MG IV ×2 (09:05→20:52)
[2020-06-11] MEDS: potassium chloride oral liq 20 mEq/15 mL UDC PO (09:06)
[2020-06-11] MEDS: FUROsemide 10 mg/mL SDV 2mL 20 MG IVP (09:14)
[2020-06-11] MEDS: pantoprazole 40 mg SDV IVP (09:17)
--- NOTE | 2020-06-11 10:24 | P.ANESASSM_ITS ---
Pre-Anesthetic Assessment Pre-Anesthetic Assessment: Height/Weight: Height 1.73 m Weight 82.554 kg Temp Pulse Resp BP Pulse Ox 98.1 F 62 17 105/71 95 06/11/20 08:00 06/11/20 08:07 06/11/20 08:07 06/11/20 08:00 06/11/20 08:07 Preop Diagnosis: Glottic mass with partial airway obstruction Proposed Procedure: Operation Date: 06/11/20 18:30 Proposed Procedures p Direct Laryngoscopy(Not Applicable) - Wes Wheat MD s Incision And Drainage(Not Applicable) - Wes Wheat MD Familial anesthetic complications: None Was Beta Aries taken within 24 hours: N/A Last intake: NPO > 8 hrs Social: Social History: Tobacco and No alcohol Exam: Pre-Anes Outpt Exam: alert, oriented x 3, clear to auscultation bilaterally and regular rate & rhythm Airway: Cervical ROM: WNL MP: 2 Dentition: Other (edentulous) Additional comments: CT neck 06/11/20 IMPRESSION: 1. This study is compromised by motion artifact. 2. Overall there has been a slight improvement in the amount of edema and the abscess cavity at the level of the larynx. There is still complete obliteration of the airway at the level of the larynx but the abscess cavity is slightly smaller. 3. Tracheostomy remains in good position. 4. Tracheitis and wall thickening distal to the tracheostomy has persisted. No compromise of the airway distal to the tracheostomy. Pulmonary: Pulmonary: COPD (home O2 - 2 L) Anesthetic Plan: ASA status: 3 Anesthesia: General Risk of > 500 ml blood loss (7ml/kg in children): No Meds/Allergies Current Medications: Current Medications Generic Name Dose Route Start Last Admin Trade Name Freq PRN Reason Stop Dose Admin Acetaminophen 650 mg 06/09/20 13:05 06/10/20 21:08 Tylenol PO 650 mg Q6H PRN Administration Mild/Mod Pain Or Temp >/= 101 Folic Acid 1 mg 06/10/20 09:00 06/11/20 09:17 Folic Acid PO Not Given DAILY JUAN MANUEL Furosemide 20 mg 06/10/20 09:00 06/11/20 09:14 Lasix IVP 20 mg Q24H JUAN MANUEL Administration Vancomycin HCl 1,5 00 mg/ 250 mls @ 166.667 mls/hr 06/09/20 19:00 06/11/20 07:22 Sodium Chloride IV 166.7 mls/hr Q12H JUAN MANUEL Administration Protocol Ciprofloxacin/Dext james 200 mg in 100 mls @ 100 mls/hr 06/09/20 20:15 06/11/20 09:05 Cipro IV 100 mls/hr Q12H JUAN MANUEL Administration Protocol Cefepime HCl 2,000 mg/ Sodium 50 mls @ 100 mls/ hr 06/09/20 19:00 06/11/20 06:13 Chloride IV 100 mls/hr Q12H JUAN MANUEL Administration Protocol Morphine Sulfate 2 mg 06/09/20 11:33 06/10/20 15:34 Morphine IVP 2 mg Q4H PRN Administration SEVERE PAIN Non-Formulary Medi cation 100 mcg 06/10/20 09:00 06/11/20 09:17 Cyanocobalamin ( Vitamin B-12) [Vit tafoya B-12] PO Not Given DAILY JUAN MANUEL Non-Formulary Medi cation 1 tab 06/10/20 09:00 06/11/20 09:17 Vitamin B Comple x [B-Complex] PO Not Given DAILY JUAN MANUEL Pantoprazole Sodiu m 40 mg 06/09/20 13:30 06/11/20 09:17 Protonix IVP 40 mg DAILY JUAN MANUEL Administration Potassium Chloride 20 meq 06/09/20 19:30 06/11/20 09:06 Potassium Chlori de Oral Liquid PO 20 meq BID JUAN MANUEL Administration PFSH Anesthesia PFSH: Medical History Alcoholism BPH (benign prostatic hyperplasia) COPD (chronic obstructive pulmonary disease) Laryngeal mass Port-A-Cath in place Surgical History History of ankle surgery History of hernia surgery S/P percutaneous endoscopic gastrostomy (PEG) tube placement Status post tracheostomy Family History Other CAD (coronary artery disease) Social History Smoking and tobacco status: former smoker Quit status (tobacco): considering quitting Alcohol intake: current Alcohol intake frequency: 3 or more drinks per day Data Anesthesia CBC & Chem 7: 06/11/20 06:04 06/11/20 06:04 Other Labs: Laboratory Results - last 48 hr 06/09/20 06/10/20 06/10/20 07:05 04:37 04:37 WBC 5.6 RBC 3.60 L Hgb 11.8 Hct 37.0 L MCV 102.8 H MCH 32.8 MCHC 31.9 RDW 15.5 H Plt Count 198 MPV 9.9 Neut % (Auto) Lymph % (Auto) Not Reportable Hendricks % (Auto) Not Reportable Eos % (Auto) Baso % (Auto) Neut # (Auto) Lymph # (Auto) Not Reportable Hendricks # (Auto) Not Reportable Eos # (Auto) Baso # (Auto) Nucleated RBC % (auto) Total Counted 100 Atypical Lymphs % 0.0 Absolute Neutrophils 4.2 Segmented Neutrophils 62 Abs Segm Neuts (Man) 3.5 Band Neutrophils 13.0 Abs Band Neuts (Man) 0.7 Lymphocytes (Manual) 13 Monocytes (Manual) 10.0 Absolute Monocytes 0.6 Eosinophils (Manual) 0 Absolute Eosinophils 0.0 Basophils (Manual) 0.0 Absolute Basophils 0.0 Myelocytes 2.0 Nucleated RBCs # Platelet Estimate Normal Macrocytosis 1+ H PT 13.60 INR 1.01 Sodium Potassium Chloride Carbon Dioxide Anion Gap BUN Creatinine GFR Calculation Glucose Calculated Osmolality Calcium Total Bilirubin AST ALT Alkaline Phosphatase Total Protein Albumin Globulin TSH 3.63 Vancomycin Trough 06/10/20 06/11/20 06/11/20 04:37 06:04 06:04 WBC 6.1 RBC 3.83 L Hgb 12.3 Hct 38.7 L MCV 101.0 H MCH 32.1 MCHC 31.8 RDW 15.5 H Plt Count 236 MPV 9.3 Neut % (Auto) 77.1 Lymph % (Auto) 13.3 Hendricks % (Auto) 7.1 Eos % (Auto) 1.0 Baso % (Auto) 0.3 Neut # (Auto) 4.69 Lymph # (Auto) 0.8 Hendricks # (Auto) 0.4 Eos # (Auto) 0.1 Baso # (Auto) 0.0 Nucleated RBC % (auto) 0 Total Counted Atypical Lymphs % Absolute Neutrophils Segmented Neutrophils Abs Segm Neuts (Man) Band Neutrophils Abs Band Neuts (Man) Lymphocytes (Manual) Monocytes (Manual) Absolute Monocytes Eosinophils (Manual) Absolute Eosinophils Basophils (Manual) Absolute Basophils Myelocytes Nucleated RBCs # 0.0 Platelet Estimate Macrocytosis PT INR Sodium 137 Potassium 3.6 Chloride 102 Carbon Dioxide 25 Anion Gap 13.6 BUN 9 Creatinine 0.5 L GFR Calculation Not Reportable Glucose 103 Calculated Osmolality 283 L Calcium 9.5 Total Bilirubin 0.5 AST 10 ALT 7 Alkaline Phosphatase 73 Total Protein 6.3 L Albumin 3.2 L Globulin 3.1 TSH Vancomycin Trough 17.3 H 06/11/20 06:04 WBC RBC Hgb Hct MCV MCH MCHC RDW Plt Count MPV Neut % (Auto) Lymph % (Auto) Hendricks % (Auto) Eos % (Auto) Baso % (Auto) Neut # (Auto) Lymph # (Auto) Hendricks # (Auto) Eos # (Auto) Baso # (Auto) Nucleated RBC % (auto) Total Counted Atypical Lymphs % Absolute Neutrophils Segmented Neutrophils Abs Segm Neuts (Man) Band Neutrophils Abs Band Neuts (Man) Lymphocytes (Manual) Monocytes (Manual) Absolute Monocytes Eosinophils (Manual) Absolute Eosinophils Basophils (Manual) Absolute Basophils Myelocytes Nucleated RBCs # Platelet Estimate Macrocytosis PT INR Sodium 137 Potassium 4.2 Chloride 100 Carbon Dioxide 29 Anion Gap 12.2 BUN 13 Creatinine 0.6 L GFR Calculation Not Reportable Glucose 95 Calculated Osmolality 284 L Calcium 9.6 Total Bilirubin 0.5 AST 12 ALT 8 Alkaline Phosphatase 76 Total Protein 6.7 Albumin 3.6 Globulin 3.1 TSH Vancomycin Trough Micro: Microbiology 06/09/20 07:22 Blood Culture - Preliminary Blood NEGATIVE TO DATE 06/09/20 07:17 Blood Culture - Preliminary Blood NEGATIVE TO DATE Cardiac Studies: No Data to Display
--- NOTE | 2020-06-11 10:52 | P.PN_ITS ---
Subjective Subjective: Interval history: Patient awake and sitting in the chair at time of exam this morning. He reported continued swelling, felt that it was may be a slight bit better. Reported issue overnight of patient having mucous plug and rapid response was called. Patient reports her breathing is comfortable this morning. Vitals/I&O/Wt Last Vital Signs Temp 98.1 F 06/11/20 08:00 Pulse 62 06/11/20 08:07 Resp 17 06/11/20 08:07 BP 105/71 06/11/20 08:00 Pulse Ox 95 06/11/20 08:07 06/10/20 06/11/20 06/11/20 22:59 06:59 14:59 Intake Total 400 / 850 Output Total 300 / 300 Balance 100 / 550 Weight last 48 hrs Weight 82.554 kg Physical Exam Const: COMMON NORMALS: patient oriented x3 and alert GENERAL APPEARANCE: cooperative ORIENTATION/CONSCIOUSNESS: Yes awake, Yes oriented to person, Yes oriented to place and Yes oriented to time HENMT: OTHER: Tracheostomy in place with significant swelling and erythema just cephalad to tracheostomy placement. Eye: COMMON NORMALS: Equal, round and reactive pupils present PUPIL: Yes Equal, round and reactive pupils present Neck/C-Spine: COMMON NORMALS: supple GENERAL: Yes normal visual inspection Resp: AUSCULTATION: no rhonchi and no wheezes OTHER: Tracheostomy in place, diminished breath sounds bilaterally with prolonged expiratory phase Cardio: COMMON NORMALS: regular rate, regular rhythm and No murmurs present (Cardio) RATE: regular rate RHYTHM: regular rhythm GI: COMMON NORMALS: Soft to palpation and non-tender INSPECTION: No abdominal distension AUSCULTATION: Yes normoactive bowel sounds PALPATION: Yes Soft to palpation Extremity: COMMON NORMALS: no clubbing, cyanosis or edema and no calf tenderness Neuro: COMMON NORMALS: patient oriented x3, CN's II-XII intact bilaterally, moves all extremities and no focal motor deficits SENSORIUM/ORIENTATION: Yes alert, Yes oriented to person, Yes oriented to place and Yes oriented to time SPEECH: speech normal Psych: COMMON NORMALS: mental status grossly normal and cooperative Skin: NARRATIVE SKIN EXAM: Erythema surrounding the tracheostomy as noted abo ve Data : 06/11/20 06:04 06/11/20 06:04 Micro: Microbiology 06/09/20 07:22 Blood Culture - Preliminary Blood NEGATIVE TO DATE 06/09/20 07:17 Blood Culture - Preliminary Blood NEGATIVE TO DATE A&P Assessment and plan (1) Acute tracheitis: Continue on Cefepime, ciprofloxacin and vancomycin Repeat CT scan from today shows slight improvement, question of abscess versus necrotic mass. Patient to remain n.p.o. today. Discussed with Dr. Wheat and he plans to take patient to the OR today. Status: Acute (2) Laryngeal cancer: With concern for necrotic mass versus abscess completely obstructing the airway superior to the tracheostomy ENT, consulted, appreciate recommendations and assistance in patient's care NPO with plan as above Status: Acute (3) COPD (chronic obstructive pulmonary disease): Without acute exacerbation, patient reports using occasional oxygen at home, will continue close monitoring with respiratory therapy to assess and tr eat and oxygen per protocol. On home 2.5 L at home Status: Acute (4) GERD (gastroesophageal reflux disease): Will give IV PPI Status: Acute (5) Tracheostomy present: Plan as noted above, appreciate ENT consultation Status: Acute (6) Laryngeal mass: With question of necrotic mass versus abscess formation ENT consulted Plan as above Status: Acute Additional A&P Information History of alcoholism History of tobacco abuse DVT prophylaxis: SCDs, no pharmacologic prophylaxis due to concern as noted above and likely requiring surgical intervention Diet: NPO CODE STATUS: Full code Attestations Medical Necessity Statement*: Patient requires hospitalization due to concern for necrotic neck mass with question of abscess. Remains on broad-spectrum antibiotics with plan for surgery today. Coding Level of Care Code Acute Medical Imaging Director for [facility] Diagnoses Acute tracheitis J04.10 Laryngeal cancer C32.9 COPD (chronic obstructive pulmonary disease) J44.9 GERD (gastroesophageal reflux disease) K21.9 Tracheostomy present Z93.0 Laryngeal mass J38.7
[2020-06-11] MEDS: LORazepam 2 mg/mL INJ 1 mL 0.5 MG IVP (11:44)
--- NOTE | 2020-06-11 11:58 | PC.RESP ---
Pulmonary Rehab information sent to patient.
[2020-06-11] MEDS: morphine 4 mg/mL SDV 1 mL 2 MG IVP (16:38)
--- NOTE | 2020-06-11 17:35 | PC.NURSE ---
pt off floor to surgery at [id number]
--- NOTE | 2020-06-11 17:37 | P.PN_ITS ---
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 The patient underwent a f/u neck CT scan this morning. He reports that he feels well, and has no other c/o. Vitals/I&O/Wt Last Vital Signs Temp 98.5 F 06/11/20 15:37 Pulse 75 06/11/20 15:37 Resp 16 06/11/20 16:38 BP 111/73 06/11/20 15:37 Pulse Ox 92 06/11/20 16:38 06/11/20 06/11/20 06/11/20 06:59 14:59 22:59 Intake Total 350 / 350 Balance 350 / 350 Weight last 48 hrs Weight 82.554 kg Physical Exam HENMT: COMMON NORMALS: normocephalic, hearing grossly normal bilaterally and external ears normal HEAD & SCALP: normocephalic EXTERNAL EAR: Yes external ears normal Eye: COMMON NORMALS: EOMs intact bilaterally and conjunctivae normal GENERAL EYE: appearance normal, both eyes and all related structures CONJUNCTIVA: Yes conjunctivae normal Neck/C-Spine: COMMON NORMALS: full ROM, no lymphadenopathy and Thyroid normal GENERAL: Yes other (There is persistent, but improved swelling and erythema/induration of neck) THYROID: Thyroid normal and other (The tracheotomy tube is in place and without erythema.) Data : 06/11/20 06:04 06/11/20 06:04 A&P Additional A&P Information Impression: 75 yo wm with h/o SCCA of the larynx with abscess/phlegmon vs uncontrolled tumor with secondary infection of the neck with improved, but persistently enlarged neck exam Plan: I reviewed the patient's f/u neck CT scan; I recommend Direct/microdirect laryngoscopy with possible biopsy, needle aspiration of anterior neck with possible incision and drainage of neck abscess under general anesthesia; I explained the procedure to the patient and his at length as well as the potential risks of the procedure - they express understanding and wish to proceed with surgery. Attestations Medical Necessity Statement*: The patient is admitted for IV therapy for an anterior neck infection/cellulitis/abscess Coding Level of Care Code Acute Follow Up Specialist for [facility]
[2020-06-11] MEDS: fluorescein 1 mg Strip XX (18:30)
[2020-06-11] MEDS: EPINEPHrine 1 mg/mL INJ XX (18:30)
--- NOTE | 2020-06-11 19:00 | SUR.PHASEI ---
1855 PATIENT TO PACU FROM OR. RR UNLABORED. PLACED ON TRACH CUFF AT 6L.
--- NOTE | 2020-06-11 19:03 | PC.NURSE ---
Report to Brigitte FARMER
--- NOTE | 2020-06-11 19:07 | PM.OP ---
Operative Report Date of procedure: June 11, 2020 Pre-op Diagnosis: Upper airway swelling with possible anterior neck abscess/phlegmon Post-op diagnosis: same Post-op Diagnosis: Anterior neck cellulitis Extensive swelling and post irradiation changes of the supraglottic larynx without evidence of abscess visually or by needle aspiration Well healed tracheotomy tube Post-op Findings: See the above Specimens removed/disposition: Laryngeal mass Pathology: Laryngeal mass Surgeon: Wes Wheat Sdv Pilot/Navigator/Dds Operator: [address] Anesthesia: General Estimated blood loss (mL): 10 IV fluids (mL): 600 Complications: None Findings: Anterior neck swelling with no evidence of abscess on needle aspiration Extensive swelling and post irradiation changes of the endolarynx with no evidence of abscess Airway obstruction at the level of the larynx Condition: stable Disposition: PACU Brief History: 73 yo wm with 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 48 hours ago with significant anterior neck swelling. There was a question of abscess on the neck CT after 48 hours of IV antibiotics - the patient presents to the OR to r/o an abscess of the anterior neck or larynx. Procedure: Patient was identified in the preop holding area and was taken to the operating room where he was placed on the operating table in supine position. Anesthesia was obtained with general endotracheal anesthesia and the patient was then prepped and draped in usual sterile fashion. The anterior neck was evaluated with palpation and an 18-gauge spinal needle was used to aspirate throughout the area of concern of the anterior neck. There was no purulent material that was aspirated. At this point a Band-Aid was placed on the needle aspirations site, and attention was turned to the endolarynx. A surgical laryngoscope was advanced down the right oral cavity gutter under direct vision until the larynx came into view. A systematic inspection was carried out of the patient's base of tongue, epiglottis, and larynx with the findings noted above. Biopsies were taken of an area of concern of the left endolarynx and hemostasis was achieved with direct application of 08/999 epinephrine on a neuropledget. Once hemostasis had been achieved, the larynx was reinspected and the procedure was then terminated. The laryngoscope was removed from the patient and the procedure was terminated - control of the patient was returned to anesthesia where he underwent an uneventful reversal of anesthesia and extubation and was taken to the recovery room in stable condition. There were no operative or anesthetic complications.
--- NOTE | 2020-06-11 19:25 | SUR.PHASEI ---
1915 PATIENT TO MED SURG. DENIES PAIN. AMBULATORY FROM [facility] TO BED ON MED SURG.
[2020-06-11 19:44] LABS: Glucose Point of Care 70 mg/dL (70-110)
[2020-06-11] MEDS: dextrose 5%-sod chloride 0.45% 1,000 ML 75 ML IV (22:17)
[2020-06-12] VITALS (16 sets, daily range): BP systolic 95–112; BP diastolic 57–72; PULSE 58–84; RESP 17–20; TEMP 36.6–37.1; O2SAT 91–95
[2020-06-12] MEDS: HYDROmorphone 1 mg/mL INJ 1 mL IVP ×4 (05:39→18:37)
[2020-06-12] MEDS: cefepime 2,000 MG in sodium chloride 0.9% (plus) 50 ML 100 MG IV ×2 (07:15→18:35)
--- NOTE | 2020-06-12 08:27 | PM.PN ---
Subjective Subjective: Interval history: s/p OR visit yesetrday, no acute overnight events, tolerated procedure well Medications: Reviewed: Yes Vitals/I&O/Wt Last Vital Signs Temp 98.3 F 06/12/20 07:28 Pulse 58 L 06/12/20 07:28 Resp 18 06/12/20 07:28 BP 95/57 06/12/20 07:28 Pulse Ox 92 06/12/20 07:28 06/11/20 06/12/20 06/12/20 22:59 06:59 14:59 Intake Total 100 / 450 50 / 50 Output Total 250 / 260 Balance 90 / 440 -250 / 190 50 / 50 Weight last 48 hrs Weight 82.554 kg Weight 82.554 kg Physical Exam Narrative: EXAM NARRATIVE: GEN: Awake, alert and oriented, no acute distress HEENT: Trach in place CVS: S1S2 N RS: CTA B/L Abd: Soft, nt/nd , bs+ CELLARS SUPERVISOR: no focal neuro deficits Data : 06/11/20 06:04 06/11/20 06:04 A&P Assessment and plan (1) Acute tracheitis: Continue on Cefepime and vancomycin. D/c Ciprofloxacin s/p OR visit yesterday with Dr. Wheat, per op note, doesnt appear to have had any collection amenable to aspiration-will discuss with Dr. Wheat prior to discontinuing all abx Status: Acute (2) Laryngeal cancer: With concern for necrotic mass versus abscess completely obstructing the airway superior to the tracheostomy ENT, consulted, appreciate recommendations and assistance in patient's care Swallow evaluation Status: Acute (3) COPD (chronic obstructive pulmonary disease): Without acute exacerbation, patient reports using occasional oxygen at home, will continue close monitoring with respiratory therapy to assess and treat and oxygen per protocol. On home 2.5 L at home Status: Acute (4) GERD (gastroesophageal reflux disease): Will give IV PPI Status: Acute (5) Tracheostomy present: Plan as noted above, appreciate ENT consultation Status: Acute (6) Laryngeal mass: With question of necrotic mass versus abscess formation ENT consulted Plan as above Status: Acute Additional A&P Information History of alcoholism History of tobacco abuse DVT prophylaxis: SCDs Diet: NPO epdning swallow evaluation CODE STATUS: Full code Attestations Medical Necessity Statement*: s/p OR yesetrday, need for iv abx , monitoring respiratory status Coding Level of Care Code Acute Napkin Band Wrapper for [facility] Diagnoses Acute tracheitis J04.10 Laryngeal cancer C32.9 COPD (chronic obstructive pulmonary disease) J44.9 GERD (gastroesophageal reflux disease) K21.9 Tracheostomy present Z93.0 Laryngeal mass J38.7
[2020-06-12] MEDS: pantoprazole 40 mg SDV IVP (09:44)
[2020-06-12] MEDS: FUROsemide 10 mg/mL SDV 2mL 20 MG IVP (09:45)
[2020-06-12] MEDS: potassium chloride oral liq 20 mEq/15 mL UDC PO (09:45)
[2020-06-12] MEDS: ciprofloxacin 200 MG/100 ML PREMIX 100 MG IV (10:44)
[2020-06-12] MEDS: dextrose 5%-sod chloride 0.45% 1,000 ML 75 ML IV (15:31)
[2020-06-12] MEDS: guaiFENesin 100 mg/5 mL UDC 10 mL 400 MG PO (17:42)
[2020-06-12] MEDS: LORazepam 2 mg/mL INJ 1 mL 0.5 MG IVP (17:56)
--- NOTE | 2020-06-12 17:59 | XRR_ITS ---
PROCEDURE INFORMATION: Exam: XR Chest, 1 View Exam date and time: 06/12/2020 6:13 PM Age: 75 years old Clinical indication: Dyspnea and shortness of breath; Prior surgery; Surgery date: 6+ months; Surgery type: Tracheostomy, port; Patient HX: Trach deviation; Additional info: Per Dr order TECHNIQUE: Imaging protocol: XR of the chest Views: 1 view. COMPARISON: CR XR chest 1V portable [id number] 06/07/2020 3:37 PM FINDINGS: Lungs: Minimal right basilar discoid atelectasis. Pleural space: Unremarkable. No pleural effusion. No pneumothorax. Heart/Mediastinum: Cardiomegaly with arteriosclerosis. Tracheostomy appears in satisfactory position. Left Infusaport catheter. EKG leads. Bones/joints: Unremarkable for age. XR/XR chest 1V portable [id number] IMPRESSION: Minimal right basilar discoid atelectasis.
--- NOTE | 2020-06-12 18:02 | PC.NURSE ---
DR JACINTO CASEY NOTIFIED OF PT COMPLAINT OF INABILITY TO BREATH AND NOW STATES DIFFICULTY SWALLOWING - 02 SATS REMAIN WITHIN NORMAL LIMITS - ARENDA, RT AT SIDE - LUNGS CLEAR TO AUSCULTATION THROUGHOUT - HAG REMAINS IN PLACE TO TRACH WITH SUPPLEMENTAL 02 ADDED P ER RT- NOTED SMALL, THICK MUCUS RETRIEVED UPON SUCTIONINIG OF TRACH - PT DOES ADMIT TO RELIEF BUT ONLY BRIEFLY - TRACH CANNULA AGAIN REMOVED AND CLEANED PER RT - ELSI WELL - EDEMA TO NECK DOES NOT APPEAR CHANGED PER DARIAN ORTIZ - PT SITTING UP ON SIDE OF BED - IVP ATIVAN GIVEN - ORDERS REC'D PER REGARDING STAT CHEST X RAY - ORDERED PER THIS NURSE AND RADIOLOGY NOTIFIED OF ORDER WITH IMMEDIATE REPORT READING TO PHYSICIAN
--- NOTE | 2020-06-12 18:10 | PC.NURSE ---
X RAY STAT CHEST X RAY IN PROGRESS
[2020-06-12] MEDS: dexamethasone 4 mg/mL INJ IVP (19:08)
[2020-06-13] VITALS (7 sets, daily range): BP systolic 91–104; BP diastolic 55–68; PULSE 58–102; RESP 16–93; TEMP 36.7–37.1; O2SAT 92–96
--- NOTE | 2020-06-13 04:43 | PC.NURSE ---
pt walked to bathroom and used toilet
[2020-06-13 06:43] LABS: Glucose Point of Care 138 mg/dL (70-110)
[2020-06-13] MEDS: dextrose 5%-sod chloride 0.45% 1,000 ML 75 ML IV ×2 (06:56→16:45)
[2020-06-13] MEDS: cefepime 2,000 MG in sodium chloride 0.9% (plus) 50 ML 100 MG IV ×2 (07:02→16:44)
[2020-06-13 08:16] LABS: Basophils % 0.2 %; Hematocrit 38.7 % (42.0-52.0); Hemoglobin 12.5 g/dL (11.7-16.6); Lymphocytes # 0.6 10^3/uL (0.8-4.8); Lymphocytes % 9.9 %; Mean Corpuscular HGB Conc 32.3 g/dL (30.0-36.0); Mean Corpuscular Hemoglobin 32.2 pg (28.0-34.0); Mean Corpuscular Volume 99.7 fL (80-94); Mean Platelet Volume 9.3 fL (7.4-10.4); Monocytes # 0.3 10^3/uL (0.2-0.9); Monocytes % 5.3 %; Neutrophils # 5.31 10^3/uL (1.8-7.7); Neutrophils % 83.3 %; Nucleated Red Blood Cells % 0 %; Platelet Count 252 10^3/cmm (130-400); Red Blood Count 3.88 10^6/uL (4.1-5.3); Red Cell Distribution Width 14.9 % (12.1-15.1); White Blood Count 6.4 10^3/uL (4.0-10.0)
--- NOTE | 2020-06-13 08:23 | ANE.PACU2 ---
Inpatient post-anesthesia follow up: Airway intact: Yes Vital signs: Temperature 98.0 F Pulse Rate [Monito r] 79 Pulse Rate 69 Respiratory Rate 18 Blood Pressure [Ri ght Arm] 140/68 Blood Pressure 96/68 Pulse Oximetry 96 Oxygen Delivery Me thod [ Room Air Current Rate & Del chidi] Oxygen Delivery Me thod Room Air Oxygen Flow Rate 6 Fraction of Inspir ed Oxygen 30 Hydration adequate: Yes Nausea and vomiting: No Pain level: 1 Mental status: Baseline
[2020-06-13 08:42] LABS: Alanine Aminotransferase 7 U/L (0-41); Albumin Level 3.4 g/dL (3.5-5.2); Alkaline Phosphatase 71 IU/L (40-130); Anion Gap 14.2 (5-19); Aspartate Amino Transferase 12 U/L (0-40); Blood Urea Nitrogen 6 mg/dL (8-23); Calcium 9.4 mg/dL (8.5-10.5); Carbon Dioxide 28 mmol/L (22-29); Chloride 99 mmol/L (98-107); Globulin 2.9 g/dL (1.3-4.6); Glucose 122 mg/dL (65-115); Osmolality Calculated 283 mOsm/kg (285-295); Potassium 4.2 mmol/L (3.5-5.1); Sodium 137 mmol/L (136-145); Total Bilirubin 0.5 mg/dL (0.15-1.2); Total Protein 6.3 g/dL (6.6-8.7)
[2020-06-13] MEDS: guaiFENesin 100 mg/5 mL UDC 10 mL 400 MG PO ×2 (09:19→21:50)
[2020-06-13] MEDS: potassium chloride oral liq 20 mEq/15 mL UDC PO ×2 (09:50→16:45)
[2020-06-13] MEDS: pantoprazole 40 mg SDV IVP (09:51)
[2020-06-13] MEDS: FUROsemide 10 mg/mL SDV 2mL 20 MG IVP (09:55)
[2020-06-13] MEDS: LORazepam 2 mg/mL INJ 1 mL 0.5 MG IVP ×2 (09:57→21:49)
--- NOTE | 2020-06-13 12:35 | P.PN_ITS ---
Subjective Subjective: Interval history: Patiente xtremely anxious that he is unable to breathe in spite of well maintained vital signs and maintaining 02 saturation. Also c/o dysphagia with sensation of food sticking . Underwent repeat speech evaluation. yesetrday evening was noted by RN to have increased swelling over the trach insertion site for which he received dexamethasone 4mg iv x 1. Medications: Reviewed: Yes Vitals/I&O/Wt Last Vital Signs Temp 98.4 F 06/13/20 12:00 Pulse 102 H 06/13/20 12:00 Resp 18 06/13/20 12:00 BP 104/65 06/13/20 12:00 Pulse Ox 96 06/13/20 07:52 06/12/20 06/13/20 06/13/20 22:59 06:59 14:59 Intake Total 325 / 1646.25 1000 / 2646.25 Output Total 400 / 400 Balance 325 / 1646.25 600 / 2246.25 Weight last 48 hrs Weight 86.183 kg Weight 82.554 kg Physical Exam Narrative: EXAM NARRATIVE: GEN: Awake, alert and oriented, no acute distress HEENT: trach in place, no surrounding signs of cellulitis, swelling noticeable over the trach insertion site, non tender, non erythematous, no increase in temperature. CVS: S1S2 N RS: CTA B/L Abd: Soft, nt/nd , bs+ RESOURCE CONSERVATION MANAGER: no focal neuro deficits Data : 06/13/20 07:41 06/13/20 07:41 A&P Assessment and plan (1) Acute tracheitis: Continue on Cefepime and vancomycin. s/p OR visit 06/[address] Wheat, per op note, doesnt appear to have had any collection amenable to aspiration Overall impression is that of inflammatory phlegmon, possibility of necrotic tumor cannot be excluded . Continue iv abx, with transition to oral abx over the next 24-48 hrs Passed swallow eval today with recommendations for dysphagia level 2 diet with ground foods and regular liquids Status: Acute (2) Laryngeal cancer: With concern for necrotic mass versus abscess completely obstructing the airway superior to the tracheostomy Currently no obstruction noted below the level of tracheostomy, airway is patent Needs intermittent suctioning to clear mucus plugging Maintaining 02 saturation well Communicates by writing ENT, consulted, appreciate recommendations and assistance in patient's care Swallow evaluation as above Status: Acute (3) COPD (chronic obstructive pulmonary disease): Without acute exacerbation, patient reports using occasional oxygen at home, will continue close monitoring with respiratory therapy to assess and treat and oxygen per protocol. On home 2.5 L at home Status: Acute (4) GERD (gastroesophageal reflux disease): continue PPI Status: Acute (5) Tracheostomy present: Plan as noted above, appreciate ENT consultation Status: Acute (6) Laryngeal mass: With question of necrotic mass versus abscess formation ENT consulted Plan as above Status: Acute Additional A&P Information History of alcoholism History of tobacco abuse DVT prophylaxis: SCDs Diet: Dysphagia 2 with grounds CODE STATUS: Full code Attestations Medical Necessity Statement*: need for iv abx, monitoring of respiratory status Coding Level of Care Code Acute Applications Programmer for [facility] Diagnoses Acute tracheitis J04.10 Laryngeal cancer C32.9 COPD (chronic obstructive pulmonary disease) J44.9 GERD (gastroesophageal reflux disease) K21.9 Tracheostomy present Z93.0 Laryngeal mass J38.7
--- NOTE | 2020-06-13 16:01 | PC.NURSE ---
Called Pharmacy to check on a order for Vanc Trough, Per Rufino, as long as the creatnine is OKAY we will not draw another one. Last Trough was drawn on 06/11 and was 17.3. Will hang the 1900 dose today as ordered per Rufino without a trough as the kidney function is being monitored by Pharmacy. ROSEMARIE, KANA
--- NOTE | 2020-06-13 16:50 | PM.PN ---
Subjective Subjective: Interval history: 75 yo wm with a h/o squamous cell carcinoma of the glottis who is s/p tracheotomy and Chemo/XRT. The patient was admitted for anterior neck cellulitis/phlegmon and has been treated with IV antibiotics and steroids. I was contacted for a c/o shortness of breath in the patient. The patient reports that his symptoms have since improved, and he feels much better. The patient is swallowing without difficulty, and has no other c/o. Vitals/I&O/Wt Last Vital Signs Temp 98.4 F 06/13/20 12:00 Pulse 67 06/13/20 14:16 Resp 18 06/13/20 14:16 BP 104/65 06/13/20 12:00 Pulse Ox 92 06/13/20 14:16 06/13/20 06/13/20 06/13/20 06:59 14:59 22:59 Intake Total 1000 / 2646.25 50 / 50 736.25 / 786.25 Output Total 400 / 400 1400 / 1400 Balance 600 / 2246.25 -1350 / -1350 736.25 / -613.75 Weight last 48 hrs Weight 86.183 kg Weight 82.554 kg Physical Exam Const: COMMON NORMALS: no acute distress GENERAL APPEARANCE: cooperative and well developed HENMT: COMMON NORMALS: normocephalic, external ears normal and Normal external nose present HEAD & SCALP: normocephalic FACE & SINUS: normal facial exam NOSE: Normal external nose present EXTERNAL EAR: Yes external ears normal Eye: COMMON NORMALS: EOMs intact bilaterally, conjunctivae normal and no scleral icterus CONJUNCTIVA: Yes conjunctivae normal Neck/C-Spine: COMMON NORMALS: no lymphadenopathy and Thyroid normal GENERAL: Yes other (The upper anterior neck swelling/erythema is much improved ) THYROID: Thyroid normal Lymph: LYMPHATIC: no lymphadenopathy noted Data : 06/13/20 07:41 06/13/20 07:41 A&P Additional A&P Information Impression: 1) 75 yo wm with a h/o SCCA of the glottis with suprahyoid neck cellulitis and phlegmon that appears to be resolving on IV antibiotics and steroids 2) Shortness of breath - resolved with normal appearing trachea and right and left mainstem bronchi Plan: 1) I recommend that the patient continue his IV antibiotics until the neck appears near normal, then discharge on po for 10 - 14 days. Consider trial of po abx for 24 hours prior to discharge. 2) This has resolved. Attestations Medical Necessity Statement*: I have been consulted to manage the airway. Procedures Procedure Narrative Procedure Note: a flexible fiberoptic nasopharyngolaryngoscope was passed through the patient's tracheotomy into the trachea and the trachea and right and left mainstem bronchi were inspected; the trachea and right and left mainstem bronchi were free of obstruction, debris, or infection; there was no mucous present; the exam was o/w normal. Coding Level of Care Code Acute Automotive Parts Person for [facility]
[2020-06-13] MEDS: ondansetron 2 mg/ML SDV 2 mL 4 MG IVP (21:49)
[2020-06-14] VITALS (10 sets, daily range): BP systolic 95–102; BP diastolic 56–62; PULSE 51–69; RESP 16–20; TEMP 36.6–37.1; O2SAT 94–98
[2020-06-14] MEDS: cefepime 2,000 MG in sodium chloride 0.9% (plus) 50 ML 100 MG IV (05:49)
[2020-06-14] MEDS: LORazepam 2 mg/mL INJ 1 mL 0.5 MG IVP ×2 (06:15→19:02)
[2020-06-14 06:46] LABS: Glucose Point of Care 134 mg/dL (70-110)
[2020-06-14] MEDS: FUROsemide 10 mg/mL SDV 2mL 20 MG IVP (09:19)
[2020-06-14] MEDS: folic acid 1 mg Tablet PO (09:19)
[2020-06-14] MEDS: pantoprazole 40 mg SDV IVP (09:19)
[2020-06-14] MEDS: potassium chloride oral liq 20 mEq/15 mL UDC PO ×2 (09:20→18:35)
--- NOTE | 2020-06-14 10:00 | PC.SOCIAL ---
IMM Updated Page 2 of IMM updated and given to patient. Initialed, dated, and timed and placed back in chart.
[2020-06-14 10:43] LABS: Glucose Point of Care 169 mg/dL (70-110)
[2020-06-14] MEDS: acetaminophen 325 mg Tablet 650 MG PO (11:40)
[2020-06-14] MEDS: HYDROmorphone 1 mg/mL INJ 1 mL IVP (14:18)
--- NOTE | 2020-06-14 16:26 | PC.NURSE ---
Pt has expressed that he would like to start using a speaking valve. RT advised that pt must have a fenestrated trach in order to use a speaking valve. Message left with Dr. Wheat's office to see if this can be facilitated while the pt is still in the hospital.
--- NOTE | 2020-06-14 17:55 | P.PN_ITS ---
Subjective Subjective: Interval history: He is doing well he says. Denies any pain during my visit. Denies any trouble breathing. Later on he does report some pain at the site of the neck swelling. Vitals/I&O/Wt Last Vital Signs Temp 98.8 F 06/14/20 15:00 Pulse 54 L 06/14/20 15:00 Resp 18 06/14/20 15:00 BP 98/60 06/14/20 15:00 Pulse Ox 96 06/14/20 15:00 06/14/20 06/14/20 06/14/20 06:59 14:59 22:59 Intake Total 300 / 1386.25 1210 / 1210 Output Total 225 / 1625 340 / 340 Balance 75 / -238.75 870 / 870 Weight last 48 hrs Weight 81.465 kg Weight 86.183 kg Physical Exam Const: COMMON NORMALS: no acute distress, patient oriented x3 and alert ORIENTATION/CONSCIOUSNESS: Yes awake OTHER: He is sitting up in chair. Eati ng lunch. He is comfortable. Aphonia, but he is able to communicate by mouthing words/soft whisper. HENMT: COMMON NORMALS: oropharynx normal OTHER: Anterior and anterolateral neck swelling at the upper neck rostrally and towards the right. Neck/C-Spine: COMMON NORMALS: no JVD Resp: COMMON NORMALS: normal respiratory effort and clear to auscultation bilaterally AUSCULTATION: clear to auscultation bilaterally Cardio: COMMON NORMALS: no JVD, regular rhythm, S1 normal heart sound present, S2 normal heart sound present and No murmurs present (Cardio) RHYTHM: regular rhythm HEART SOUNDS: S1 normal heart sound present and S2 normal heart sound present GI: COMMON NORMALS: Normal to inspection, nondistended, normoactive bowel sounds present, Soft to palpation and non-tender PALPATION: Yes Soft to palpation Extremity: COMMON NORMALS: no joint enlargement and no pedal edema Neuro: COMMON NORMALS: patient oriented x3 and moves all extremities SENSORIUM/ORIENTATION: Yes alert Skin: COMMON NORMALS: no rashes or lesions noted GENERAL SKIN EXAM: no rashes or lesions noted Data : 06/13/20 07:41 06/13/20 07:41 Micro: Microbiology 06/09/20 07:22 Blood Culture - Final Blood NO GROWTH AFTER 5 DAYS 06/09/20 07:17 Blood Culture - Final Blood NO GROWTH AFTER 5 DAYS A&P Assessment and plan (1) Acute tracheitis: Suprahyoid neck cellulitis and phlegmon. Continue on Cefepime and vancomycin. ENT recommendations reviewed. Continue IV antibiotics until neck is near normal. After that transition to p.o. therapy. At this time no active sepsis. s/p OR visit 06/[address] Wheat, per op note, doesnt appear to have had any collection amenable to aspiration Overall impression is that of inflammatory phlegmon, possibility of necrotic tumor cannot be excluded . Continue iv abx, with transition to oral abx over the next 24-48 hrs Swallow eval with recommendations for dysphagia level 2 diet with ground foods and regular liquids Status: Acute (2) Laryngeal cancer: With concern for necrotic mass versus abscess completely obstructing the airway superior to the tracheostomy Currently no obstruction noted below the level of tracheostomy, airway is patent Needs intermittent suctioning to clear mucus plugging Maintaining 02 saturation well Communicates by writing ENT, consulted, appreciate recommendations and assistance in patient's care Swallow eval with recommendations for dysphagia level 2 diet with ground foods and regular liquids Status: Acute (3) COPD (chronic obstructive pulmonary disease): Without acute exacerbation, patient reports using occasional oxygen at home, will continue close monitoring with respiratory therapy to assess and treat and oxygen per protocol. On home 2.5 L at home Status: Acute (4) GERD (gastroesophageal reflux disease): Continue PPI Status: Acute (5) Tracheostomy present: Plan as noted above, appreciate ENT consultation Continue to encourage HAG Status: Acute (6) Laryngeal mass: Plan as above Status: Acute Additional A&P Information History of alcoholism History of tobacco abuse DVT prophylaxis: SCDs Diet: Dysphagia 2 with grounds CODE STATUS: Full code Attestations Medical Necessity Statement*: Continue admission versus management of suprahyoid neck cellulitis and phlegmon. Coding Level of Care Code Acute Senior Electrical Design Engineer for Chg Fwd Exam Comprehensive Diagnoses Acute tracheitis J04.10 Laryngeal cancer C32.9 COPD (chronic obstructive pulmonary disease) J44.9 GERD (gastroesophageal reflux disease) K21.9 Tracheostomy present Z93.0 Laryngeal mass J38.7
[2020-06-14] MEDS: cefepime 2,000 MG in sodium chloride 0.9% (plus) 50 ML 200 MG IV (18:35)
[2020-06-14] MEDS: dextrose 5%-sod chloride 0.45% 1,000 ML 75 ML IV (18:35)
--- NOTE | 2020-06-14 18:39 | PC.NURSE ---
Received return call from nurse at ENT clinic. She stated that pt already has an appointment with Dr. Wheat on 06/18, and at that time Dr. Wheat will change out his trach so that he can begin using a speaking valve. The nurse also says she has some supplies for pt's to pick up and delivery driver tomorrow, and she is going to call the to let her know. Informed patient, who verbalized understanding.
[2020-06-14 20:51] LABS: Glucose Point of Care 198 mg/dL (70-110)
[2020-06-14] MEDS: pantoprazole DR 40 mg Tablet PO (21:39)
[2020-06-14] MEDS: HYDROcodone-acetaminophen 5-325 mg Tablet 1 TAB PO (21:39)
[2020-06-15] VITALS (11 sets, daily range): BP systolic 90–119; BP diastolic 60–73; PULSE 53–98; RESP 12–18; TEMP 36.4–37.2; O2SAT 93–98
[2020-06-15] MEDS: LORazepam 2 mg/mL INJ 1 mL 0.5 MG IVP ×2 (04:16→11:21)
[2020-06-15] MEDS: HYDROcodone-acetaminophen 5-325 mg Tablet 1 TAB PO ×2 (04:16→09:09)
[2020-06-15] MEDS: guaiFENesin 100 mg/5 mL UDC 10 mL 400 MG PO (04:24)
[2020-06-15] MEDS: cefepime 2,000 MG in sodium chloride 0.9% (plus) 50 ML 200 MG IV (05:50)
[2020-06-15 06:28] LABS: Basophils % 0.6 %; Eosinophils # 0.1 10^3/uL (0.0-0.8); Eosinophils % 1.5 %; Hematocrit 35.5 % (42.0-52.0); Hemoglobin 11.2 g/dL (11.7-16.6); Lymphocytes # 0.8 10^3/uL (0.8-4.8); Lymphocytes % 15.5 %; Mean Corpuscular HGB Conc 31.5 g/dL (30.0-36.0); Mean Corpuscular Hemoglobin 32.4 pg (28.0-34.0); Mean Corpuscular Volume 102.6 fL (80-94); Mean Platelet Volume 9.3 fL (7.4-10.4); Monocytes # 0.5 10^3/uL (0.2-0.9); Monocytes % 9.6 %; Neutrophils # 3.76 10^3/uL (1.8-7.7); Neutrophils % 71.1 %; Nucleated Red Blood Cells % 0 %; Platelet Count 193 10^3/cmm (130-400); Red Blood Count 3.46 10^6/uL (4.1-5.3); Red Cell Distribution Width 15.4 % (12.1-15.1); White Blood Count 5.3 10^3/uL (4.0-10.0)
[2020-06-15 06:45] LABS: Glucose Point of Care 135 mg/dL (70-110)
[2020-06-15 06:49] LABS: Blood Urea Nitrogen 5 mg/dL (8-23); Calcium 8.6 mg/dL (8.5-10.5); Carbon Dioxide 28 mmol/L (22-29); Chloride 104 mmol/L (98-107); Glucose 124 mg/dL (65-115); Osmolality Calculated 287 mOsm/kg (285-295); Sodium 139 mmol/L (136-145)
[2020-06-15 06:51] LABS: Vancomycin Trough 18.8 ug/mL (10-15)
[2020-06-15 06:53] LABS: Creatinine Clr Calc Pharmacy 83.2987
[2020-06-15 06:54] LABS: Anion Gap 10.9 (5-19); Potassium 3.9 mmol/L (3.5-5.1)
[2020-06-15] MEDS: folic acid 1 mg Tablet PO (09:08)
[2020-06-15] MEDS: FUROsemide 10 mg/mL SDV 2mL 20 MG IVP (09:08)
[2020-06-15] MEDS: potassium chloride oral liq 20 mEq/15 mL UDC PO (09:09)
[2020-06-15 11:25] LABS: Glucose Point of Care 117 mg/dL (70-110)
--- NOTE | 2020-06-15 13:50 | CT_ITS ---
WS: [id number] CT NECK TECHNIQUE: Contrast-enhanced CT of the neck with coronal and sagittal reformatted images. CLINICAL INFORMATION: follow up on neck mass COMPARISON: June 11, 2020. Multiple prior neck CTs dating back to January 07, 2020 PET/CT February 09 0 DLP: 630.[address] scans at [facility] use at least one of these dose optimization techniques: automat ed exposure control; mA and/or kV adjustment per patient size (includes targeted exams where dose is matched to clinical indication); or iterative reconstruction. FINDINGS: History of treated laryngeal carcinoma. Multiple prior CTs and PET/CT reviewed. Tracheostomy is stable in appearance. Again seen is complete effacement of the pharynx and supraglott ic larynx extending to the glottis with only a tiny residual airway. This is unchanged in appearance since the prior examinations. Motion artifact degrades images. Diffuse circumferential pharyngeal and supraglottic laryngeal edema. Airway is effaced at the level of the glottis unchanged from previous. Previously described peripheral enhancing lesion at the level of glottis appears relatively stable ov er the past several examinations considering motion artifact and differences in technique. This measu res approximately 2.1 x 1.7 x 1.5 cm with left to right associated mass effect on the airway. Some of this may be due to infection, but findings and stability suspicious for necrotic tumor. This is at t he same location of the original described laryngeal carcinoma from March 08, 2020 Persistent suspected tracheitis in the subglottic airway which is patent. Induration and edema in the deep neck soft tissues with thickening of the platysma. Induration in the submental subcutaneous fat . Recommend correlation for cellulitis. Some of this is likely due to treatment-related changes. Lung apices are well aerated. Moderate spondylitic changes cervical spine. Parotid glands are normal. Normal submandibular glands. CT/CT neck w con* [id number] IMPRESSION: 1. Images degraded by motion artifact. 2. No significant change in the diffuse circumferential pharyngeal and supragl ottic edema extending to the level of the glottis. Only a tiny residual airway unchanged from previous. Some of this is likely due to treatment-related change s from recent radiation. 3. Complete effacement of the airway at the level of the glottis is unchanged. 4. Focal peripheral enhancing lesion involving the left aspect of the glottis with no significant change compared to previous. Considering stability, finding s suspicious for necrotic laryngeal carcinoma 2.1 x 1.7 x 1.5 cm. This is concu rrent with the location of the original tumor. 5. Tracheostomy is stable in position. 6. Again seen is wall thickening with suspected tracheitis distal to the trach eostomy unchanged. Subglottic airway is patent. Discussed with Dr. Wheat 06/15/2020 4:38 PM
[2020-06-15] MEDS: iohexol 300 mg/mL 100 mL Btl IV (15:31)
[2020-06-15] MEDS: dextrose 5%-sod chloride 0.45% 1,000 ML 75 ML IV (16:21)
--- NOTE | 2020-06-15 16:46 | P.DS_ITS ---
Discharge Providers Date of Admission: 06/09/20 10:32 Date of Discharge: June 15, 2020 Attending Provider at Admission: Gina Flaherty DO Attending Provider at Discharge: Ashutosh Engle Primary Care Provider: Elio Bobby Diagnoses at Discharge Discharge Diagnosis (1) Laryngeal mass: Status: Acute (2) Acute tracheitis: Status: Acute (3) Laryngeal cancer: Status: Acute (4) COPD (chronic obstructive pulmonary disease): Status: Acute (5) GERD (gastroesophageal reflux disease): Status: Acute (6) Tracheostomy present: Status: Acute Reason for Visit Reason for Visit: swelling to face Hospital Course Hospital Course: Pleasant 75-year-old gentleman with tracheostomy with history of laryngeal carcinoma, T4 SCCA with chemo/XRT which she completed about a month ago, following with Dr. Starkey and Dr. Wheat was admitted after swelling and pain of upper neck increasing over several days. Was treated with IV antibiotics due to concern for neck cellulitis, as well as concern for possible phlegmon, tracheitis, with noted soft tissue edema, complex soft tissue mass at the level of the larynx with noted on admission obliteration of airway, marked thickening of tracheal wall as before from acute tracheitis, as well as soft tissue involvement of the retropharynx. Treated with cefepime and vancomycin. With negative blood cultures, was assessed by ENT for additional assessment for possible abscess/phlegmon versus necrotic tumor. Noted episode of hypoxia in the hospital saturations decreasing to 80-83%, immediately resolving after suctioning out of a mucous plug. It appears that he is not adherent unfortunately with wearing humidification device (HAG) which confirms he does not wear at home. This has been discussed with him by ENT, as well as by myself, including reasoning for why this is important, and he now verbalizes understanding, and states will wear it. He was assessed in the OR by ENT with finding of extensive swelling and post irrigation changes of supraglottic larynx without evidence of abscess visually or by needle aspiration probe in multiple locations. He was continued on IV antibiotics with significant improvement in soft tissue of the neck swelling. His condition today was discussed with ENT as his improvement appears to have reached a plateau, ENT reached out with high concern that this is more likely necrotic tumor rather than residual infection. We have followed up with repeat CT imaging of the neck which Dr Wheat discussed with radiology as well, and both reached consensus that more likely the residual swelling is related to recurrence of malignancy with necrotic mass. Patient had previously was given the option of laryngectomy, however, he has not been wanting to pursue this option, and confirm so again during my discussion with him today. Dr. Wheat had further discussed with his oncologist regarding any additional options, and patient will be seen in office to discuss additional chemotherapy/immunotherapy possibilities. Per discussion with Dr. Stark felicitas tional benefit from continued IV antibiotic currently is not likely to be achieved, and likely is outweighed by additional benefit from further evaluation due to high concern of recurrence of malignancy. Discussed these concerns with patient and his , and they are both in agreement with this assessment. He is overall doing much better, soft tissue swelling has improved . He remains afebrile, without leukocytosis, and his oxygenation has been good. He is tolerating oral medications crushed and level 2 dysphagia diet with ground solids. He used to have a feeding tube, but this he was removed in the past. As per discussion with ENT patient and his are agreeable to continue on oral antibiotics at this time, and understand to return to ER in case there are any concerning symptoms. Dr. Wheat is going to see him in office on Sunday. He had missed his appointment today with Dr. Starkey and this will need to be rescheduled. Physical Exam Const: COMMON NORMALS: no acute distress, patient oriented x3 and alert ORIENTATION/CONSCIOUSNESS: Yes awake OTHER: He is sitting up in chair. Eating lunch. He is comfortable. Aphonia, but he is able to communicate by mouthing words/soft whisper. HENMT: COMMON NORMALS: oropharynx normal OTHER: Anterior and anterolateral neck swelling at the upper neck rostrally and towards the right. No erythema. Generalized swelling is much better, also per discussion with nursing staff who has seen him previously. Residual spherical mass in anterior/upper neck. Neck/C-Spine: COMMON NORMALS: no JVD Resp: COMMON NORMALS: normal respiratory effort and clear to auscultation bilaterally AUSCULTATION: clear to auscultation bilaterally Cardio: COMMON NORMALS: no JVD, regular rhythm, S1 normal heart sound present, S2 normal heart sound present and No murmurs present (Cardio) RHYTHM: regular rhythm HEART SOUNDS: S1 normal heart sound present and S2 normal heart sound present GI: COMMON NORMALS: Normal to inspection, nondistended, normoactive bowel s ounds present, Soft to palpation and non-tender PALPATION: Yes Soft to palpation Extremity: COMMON NORMALS: no joint enlargement and no pedal edema Neuro: COMMON NORMALS: patient oriented x3 and moves all extremities SENSORIUM/ORIENTATION: Yes alert Skin: COMMON NORMALS: no rashes or lesions noted GENERAL SKIN EXAM: no rashes or lesions noted Discharge Data Data Completed and Pending: Completed Studies During Hospitalization Category Date Time Status CT neck w con* 70 491 Routine Cat Scan 06/11/20 06:[address] neck w con* 70 491 Routine Cat Scan 06/15/20 13:[address] neck w con* 70 491 Stat Cat Scan 06/09/20 07:08 Completed XR chest 1V conrad ble [id number] Stat Exams 06/12/20 17:59 Completed Pathology: Surgic al [PTH] Routine Pth 06/11/20 19:12 Completed Pending at discharge Category Date Time Status ES surgery / GI i mages Routine Exams 06/11/20 17:47 Taken Basic Metabolic P bharat AM LABS Lab 06/16/20 04:00 Ordered Basic Metabolic P bharat AM LABS Lab 06/17/20 04:00 Ordered Complete Blood Co unt w/Auto AM LABS Lab 06/16/20 04:00 Ordered Complete Blood Co unt w/Auto AM [facility]S Lab 06/17/20 04:00 Ordered Sputum Culture an d Gram Stain [facility] ne Lab 06/13/20 19:07 Uncollected Labs from last 24 hours 06/15/20 06/15/20 06/15/20 11:13 06:41 06:05 WBC RBC Hgb Hct MCV MCH MCHC RDW Plt Count MPV Neut % (Auto) Lymph % (Auto) [place] % (Auto) Eos % (Auto) Baso % (Auto) Neut # (Auto) Lymph # (Auto) [place] # (Auto) Eos # (Auto) Baso # (Auto) Nucleated RBC % (a uto) Nucleated RBCs # Sodium Potassium Chloride Carbon Dioxide Anion Gap BUN Creatinine GFR Calculation Glucose POC Glucose 117 135 Calculated Osmolal ity Calcium Vancomycin Trough 18.8 H 06/15/20 06/15/20 06/14/20 06:05 06:05 20:47 WBC 5.3 RBC 3.46 L Hgb 11.2 L Hct 35.5 L MCV 102.6 H MCH 32.4 MCHC 31.5 RDW 15.4 H Plt Count 193 MPV 9.3 Neut % (Auto) 71.1 Lymph % (Auto) 15.5 [place] % (Auto) 9.6 Eos % (Auto) 1.5 Baso % (Auto) 0.6 Neut # (Auto) 3.76 Lymph # (Auto) 0.8 [place] # (Auto) 0.5 Eos # (Auto) 0.1 Baso # (Auto) 0.0 Nucleated RBC % (a uto) 0 Nucleated RBCs # 0.0 Sodium 139 Potassium 3.9 Chloride 104 Carbon Dioxide 28 Anion Gap 10.9 BUN 5 L Creatinine 0.4 L GFR Calculation Not Reportable Glucose 124 H POC Glucose 198 Calculated Osmolal ity 287 Calcium 8.6 Vancomycin Trough Vitals: Last Vital Signs Temp 98.9 F 06/15/20 16:00 Pulse 57 L 06/15/20 16:00 Resp 18 06/15/20 16:00 BP 119/73 06/15/20 16:00 Pulse Ox 96 06/15/20 16:00 Discharge Plan Discharge Patient Disposition: Home Health Service Condition: Stable Prescriptions: New clindamycin HCl 300 mg capsule 300 mg PO Q6H 14 Days Qty: 56 RF: 0 doxycycline hyclate 100 mg capsule 100 mg PO BID 14 Days Qty: 28 RF: 0 pantoprazole 40 mg tablet,delayed release (DR/EC) 40 mg PO DAILY 28 Days Qty: 30 RF: 0 Continued cyanocobalamin (vitamin B-12) [Vitamin B-12] 100 mcg Tablet 100 mcg PO DAILY RF: 0 vitamin B complex [B-Complex] Tablet 1 tab PO DAILY RF: 0 furosemide [Lasix] 20 mg Tablet 20 mg PO DAILY RF: 0 albuterol sulfate 90 mcg/actuation Hfa Aerosol Inhaler 1 puff INHALATION QID PRN (Reason: Shortness Of Breath) RF: 0 guaifenesin 400 mg Tablet 400 mg PO Q4H PRN (Reason: Congestion) RF: 0 potassium chloride 20 mEq Tablet Extended Release 20 meq PO BID RF: 0 folic acid 1 mg Tablet 1 mg feeding tube DAILY Qty: 30 RF: 0 thiamine HCl (vitamin B1) 100 mg tablet 100 mg feeding tube DAILY Qty: 30 RF: 0 Discontinued ciprofloxacin [Cipro] 500 mg/5 mL suspension,microcapsule recon 500 mg PO Q12H 10 Days Qty: 100 RF: 0 Discharge Orders: Discharge Order (Routine); Ordered 06/15/20 Ordered By: Ashutosh Engle Referrals: [facility] [Other] Elio Bobby [Primary Care Provider] - 4-7 days (Please call [facility] and schedule an appointment with Dr Bobby within the next week. [phone]) Wes Wheat MD [Physician] - 06/18/20 Liliane Starkey MD [Staff Physician] - 4-7 days (Suspected necrotic tumor in the neck, treated in hospital for superimposed infection. The cancer treatment center should call you with an appointment tomorrow. If you do not hear from them please call [phone] to be seen within one week by Dr. Starkey. ) Discharge Diet: As Directed Discharge Activity: Increase activity as tolerated and Oxygen as instructed Activity Restrictions/Additional Instructions: Maintain dysphagia diet with ground solids, regular liquids. Maintain strict aspiration precautions. Please continue antibiotics by mouth, and follow-up with ENT in office. Antibiotic course may be changed or extended at the time of your visit. If you experience any high fever, any return/worsening of swelling in your neck, severe pain, inability to tolerate food or drink, or any other concerning symptoms, please proceed to ER. Please continue oxygen as instructed on home evaluation prior to discharge. Please maintain humidifier (HAG) over tracheostomy at all times as instructed by the ear nose throat doctor. Please follow-up with oncology in office due to elevated concern of recurrence of malignancy to discuss additional options in addition to her as discussed with Dr. Wheat regarding consideration of laryngectomy or other surgical options. Discharge Attestations Time Spent in Discharge Care*: greater than 30 min Quality Metrics Clinical Quality Measures During this hospital stay, did patient experience: None Coding Level of Care Code Acute Hearing Aid Technician for Chg Fwd Diagnoses Laryngeal mass J38.7 Acute tracheitis J04.10 Laryngeal cancer C32.9 COPD (chronic obstructive pulmonary disease) J44.9 GERD (gastroesophageal reflux disease) K21.9 Tracheostomy present Z93.0
== END 2020-06-15 19:00 | disposition home health service (06) | DRG 202 ==
LOC: ER 10:33 → MEDSURG 11:03
PROVIDERS: Family Medicine; Specialist; Student in an Organized Health Care Education/Training Program; Admitting Provider Family Medicine; PCP Internal Medicine; Visit Provider Internal Medicine
PROC: 0CJS8ZZ Inspection of Larynx, Via Natural or Artificial Opening Endoscopic (ICD-10-PCS; principal; 2020-06-11 18:30)
PROC: 0CBS8ZX Excision of Larynx, Via Natural or Artificial Opening Endoscopic, Diagnostic (ICD-10-PCS; 2020-06-11 18:30)
DX: J04.11 Acute tracheitis with obstruction (principal); L03.221 Cellulitis of neck; C32.9 Malignant neoplasm of larynx, unspecified; K21.9 Gastro-esophageal reflux disease without esophagitis; J44.9 Chronic obstructive pulmonary disease, unspecified; J38.7 Other diseases of larynx; Z93.0 Tracheostomy status; Z87.891 Personal history of nicotine dependence; F10.20 Alcohol dependence, uncomplicated; Z92.21 Personal history of antineoplastic chemotherapy; R13.10 Dysphagia, unspecified; N40.0 Benign prostatic hyperplasia without lower urinary tract symptoms
CPT/HCPCS: 12345; 36415; 36416; 70491; 71045; 80048; 80053; 80202; 82962; 84443; 85007; 85025; 85610; 87040; 87641; 88305; 92507; 92523; 92526; 92610; 94640; 94664; 96375; 97161; 99282; C9113; J0171; J0692; J0744; J1100; J1170; J1200; J1720; J1940; J2060; J2250; J2270; J2405; J2704; J3010; J3370; J7050; J7611; J7799; Q9967

== ENCOUNTER 2020-06-23 17:04 | Emergency (ER) | payer OTHER, MEDICARE, SELFPAY ==
[2020-06-23 17:16] VITALS: BP 110/56; PULSE 70; RESP 16; TEMP 36.3; O2SAT 97; BMI 30.4
--- NOTE | 2020-06-23 18:45 | CTR_ITS ---
PROCEDURE INFORMATION: Exam: CT Chest With Contrast Exam date and time: 06/23/2020 7:41 PM Age: 75 years old Clinical indication: Abnormal findings; Lung mass or nodule; Not specified; Prior surgery; Surgery type: Trach , port; Patient HX: Mass near trach and upper chest; Additional info: Shortness of breath/neck mass near trach TECHNIQUE: Imaging protocol: Computed tomography of the chest with intravenous contrast. Radiation optimization: All CT scans at this facility use at least one of these dose optimization techniques: automated exposure control; mA and/or kV adjustment per patient size (includes targeted exams where dose is matched to clinical indication); or iterative reconstruction. Contrast material: VISI 320; Contrast volume: 95 ml; Contrast route: INTRAVENOUS (IV); COMPARISON: CT chest wo con [id number] 01/07/2020 6:16 PM RADIATION DOSE METRICS: Total DLP (mGy-cm): 935.45 FINDINGS: Tubes, catheters and devices: There is a tracheostomy in good position. There is a left-sided port with tip in the superior vena cava. Lungs: There is new ground-glass and interstitial prominence in the lung bases right greater than left and the right middle lobe compatible with pneumonitis/early pneumonic infiltrates. Tree-in-bud opacities are also noted in the lungs compatible with pneumonitis. Pleural space: Unremarkable. No pneumothorax. No pleural effusion. Heart: The heart is enlarged. Mediastinal space: There is circumferential wall thickening of the distal esophagus slightly increase in the prior exam concerning for esophagitis. Aorta: Unremarkable. No aortic aneurysm. Lymph nodes: Unremarkable. No enlarged lymph nodes. Liver: Multiple hypodense hepatic nodules are noted and are larger including an 11 mm nodule right lobe of the liver image 54 today that previously measured 9 mm. A 10 mm hypodense nodule in the liver image 14 previously measured 8 mm. A few tiny new hypodensities are also noted in the liver for example on image 60 each measuring 3 mm in size. Bones/joints: There is osteopenia. There are moderate to severe degenerative changes in the spine. No acute bony abnormality. Soft tissues: There are scattered calcified pulmonary granulomata. No discrete soft tissue pulmonary nodule is identified. Soft tissue density mass in the neck just superior to the tracheostomy is noted compatible with the history of neoplasm. The mass has a nodular component on series 2, image 4 to day that measures 2.7 x 2.2 cm in size were previously it measured 1.[address]/CT chest w con* [id number] IMPRESSION: 1. There is new ground-glass and interstitial prominence in the lung bases right greater than left and the right middle lobe compatible with pneumonitis/early pneumonic infiltrates. 2. No new or enlarging pulmonary nodule. 3. Multiple hypodense lesions in the liver are slightly larger and a few small new liver lesions are identified. 4. Enlarging mass in the neck just superior to the tracheostomy. Radiation Dose CTDIVOL = (mGy): DLP = 935.45 (mGy-cm)
[2020-06-23 18:56] VITALS: BP 121/61; PULSE 72; RESP 20; O2SAT 98
--- NOTE | 2020-06-23 19:05 | PC.NURSE ---
report received from MEHNAZ FARMER and care transferred to JOAQUÍN FARMER
[2020-06-23 19:18] LABS: Basophils % 0.3 %; Eosinophils # 0.1 10^3/uL (0.0-0.8); Eosinophils % 1.4 %; Hematocrit 39.2 % (42.0-52.0); Hemoglobin 12.4 g/dL (11.7-16.6); Lymphocytes % 15.8 %; Mean Corpuscular HGB Conc 31.6 g/dL (30.0-36.0); Mean Corpuscular Hemoglobin 32.3 pg (28.0-34.0); Mean Corpuscular Volume 102.1 fL (80-94); Mean Platelet Volume 9.8 fL (7.4-10.4); Monocytes # 0.6 10^3/uL (0.2-0.9); Monocytes % 9.5 %; Neutrophils # 4.64 10^3/uL (1.8-7.7); Neutrophils % 71.9 %; Nucleated Red Blood Cells % 0 %; Platelet Count 219 10^3/cmm (130-400); Red Blood Count 3.84 10^6/uL (4.1-5.3); Red Cell Distribution Width 14.6 % (12.1-15.1); White Blood Count 6.5 10^3/uL (4.0-10.0)
[2020-06-23 19:33] LABS: Alanine Aminotransferase 10 U/L (0-41); Albumin Level 3.9 g/dL (3.5-5.2); Alkaline Phosphatase 113 IU/L (40-130); Aspartate Amino Transferase 14 U/L (0-40); Blood Urea Nitrogen 12 mg/dL (8-23); C Reactive Protein 19.4 mg/L (0.0-4.9); Calcium 9.4 mg/dL (8.5-10.5); Carbon Dioxide 28 mmol/L (22-29); Chloride 100 mmol/L (98-107); Glucose 98 mg/dL (65-115); Lactate (Lactic Acid level) 1.6 mmol/L (0.5-2.2); Osmolality Calculated 284 mOsm/kg (285-295); Sodium 137 mmol/L (136-145); Total Bilirubin 0.3 mg/dL (0.15-1.2); Total Protein 6.9 g/dL (6.6-8.7)
[2020-06-23] MEDS: hydrocortisone 100 mg/2 mL SDV IVP (19:33)
[2020-06-23] MEDS: famotidine 20 mg/2 mL INJ 40 MG IVP (19:36)
[2020-06-23] MEDS: diphenhydrAMINE 50 mg/mL SDV 1mL IVP (19:36)
[2020-06-23 19:45] VITALS: BP 116/77; PULSE 63; RESP 16; O2SAT 100
[2020-06-23 19:49] LABS: Anion Gap 12.8 (5-19); Potassium 3.8 mmol/L (3.5-5.1)
--- NOTE | 2020-06-23 19:58 | W.ED.GENADLT ---
HPI - General Adult General: Chief complaint: Airway/Esophagus Foreign Body Stated complaint: trach swelling Time Seen by Provider: 06/23/20 17:46 Source: patient Mode of arrival: ambulatory Limitations: physical limitation History of Present Illness: HPI narrative: Mr. Gaines is a nice 75-year-old male comes in complaining of a mass and swelling above his tracheostomy site. Patient has had his tracheostomy for not a long time. 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 Stark and I believe an oncology doctor. Patient states over the past 3 days this mass has recurred. It is tender. He says he has a hard time swallowing. Patient states he has no trouble breathing as the mass is located above his tracheostomy and he is able to use a PEG tube to take in nutrition. There has been no reported fever, vomiting, chest pain or shortness of breath. History is somewhat limited secondary to the patient's tracheostomy and difficulty communicating. Review of Systems General: Reports: ROS unobtainable due to medical condition (ROS is difficult to ascertain as the patient has a hard time speaking. Positive review of systems is believed to be noted in HPI.) PFSH ED PFSH: Medical History Alcoholism BPH (benign prostatic hyperplasia) COPD (chronic obstructive pulmonary disease) GERD (gastroesophageal reflux disease) Laryngeal mass Port-A-Cath in place Surgical History History of ankle surgery History of hernia surgery S/P percutaneous endoscopic gastrostomy (PEG) tube placement Status post tracheostomy Tracheostomy present Family History Other CAD (coronary artery disease) Social History Smoking and tobacco status: former smoker Quit status (tobacco): considering quitting Alcohol intake: current Alcohol intake frequency: 3 or more drinks per day Physical Exam Const: COMMON NORMALS: no acute distress, patient oriented x3, no limitations and alert GENERAL APPEARANCE: cooperative HENMT: COMMON NORMALS: normocephalic, atraumatic, external ears normal, EAC's normal and Normal external nose present HEAD & SCALP: normal to inspection, normocephalic and atraumatic FACE & SINUS: normal facial exam and face symmetric NOSE: Normal external nose present and Normal nares present EXTERNAL EAR: Yes external ears normal EXTERNAL AUDITORY CANAL: EAC's normal MOUTH: Normal oral and palatal mucosa present, lip normal and tongue normal Eye: COMMON NORMALS: Equal, round and reactive pupils present and conjunctivae normal GENERAL EYE: appearance normal, both eyes and all related structures ALIGNMENT: Yes alignment normal PERIORBITAL: periorbital findings normal EYELID: eyelids normal CONJUNCTIVA: Yes conjunctivae normal SCLERA: sclerae normal PUPIL: Yes Equal, round and reactive pupils present Neck/C-Spine: COMMON NORMALS: full ROM, supple, no meningeal signs and no JVD GENERAL: Yes tracheostomy present, Yes Mass present (neck) anterior (Superior to the patient's tracheostomy) and Yes other Chest: COMMONS NORMALS: normal inspection of the chest and normal palpation of entire chest wall Resp: COMMON NORMALS: normal respiratory effort, No retractions, No use of accessory muscles and clear to auscultation bilaterally EFFORT & INSPECTION: Yes able to speak in complete sentences and Yes symmetric chest movement AUSCULTATION: clear to auscultation bilaterally, no crackles, no rales, no rhonchi and no wheezes Cardio: COMMON NORMALS: no JVD, regular rate, regular rhythm, S1 normal heart sound present and S2 normal heart sound present RATE: regular rate RHYTHM: regular rhythm HEART SOUNDS: S1 normal heart sound present, S2 normal heart sound present, no click, no gallops, no murmurs and no rubs GI: COMMON NORMALS: Soft to palpation and No hepatosplenomegaly present PALPATION: Yes Soft to palpation, No Tenderness to palpation present (GI), No Guarding due to palpation present (GI), No Rigid due to palpation, Yes No hepatosplenomegaly present, No Hernia present, No Palpable mass present and No Pulsatile mass present : COMMON NORMALS: Yes no CVA tenderness BLADDER/KIDNEY EXAM: Yes no CVA tenderness Back/Pelvis: COMMON NORMALS: no CVA tenderness, thoracic and lumbar spine normal to inspection, no thoracic nor lumbar tenderness and thoraco-lumbar ROM normal Extremity: COMMON NORMALS: normal to inspection, full ROM, capillary refill normal, no joint enlargement, no clubbing, cyanosis or edema and no calf tenderness Neuro: COMMON NORMALS: patient oriented x3, CN's II-XII intact bilaterally, moves all extremities, no focal motor deficits and no sensory deficits noted SENSORIUM/ORIENTATION: Yes alert MENINGEAL SIGNS: Yes no meningeal signs SPEECH: speech normal Psych: COMMON NORMALS: mental status grossly normal, Normal thought process present, cooperative, normal affect, speech normal and activity/motor behavior normal SPEECH: Yes normal speech THOUGHT PROCESS: Normal thought process present Skin: COMMON NORMALS: no rashes or lesions noted, turgor normal, no jaundice, no petechiae and no mottling GENERAL SKIN EXAM: no rashes or lesions noted and turgor normal Course Vital Signs: Vital signs: Vital Signs Temperature 97.3 F L 06/23/20 17:16 Pulse Rate 67 06/23/20 22:29 Respiratory Rate 16 06/23/20 22:29 Blood Pressure 104/61 06/23/20 22:29 Pulse Oximetry 95 06/23/20 22:29 MDM - General Adult MDM Narrative: Medical decision making narrative: 2144 -the case is reviewed in full with Lalito Barnes and Mary Alice. The patient is supposed to be referred to an out patient oncologic ENT doctor as Dr. Stark still thinks the patient has the potential to recover from this infection/cancer. The patient states that this is being set up but he has not made the appointment yet. Dr. Starkey was supposed to see the patient in the office tomorrow but he states he can consult in the hospital if necessary. Dr. Dubon thinks the patient may need a PEG tube placed as he is having recurrent aspiration and she thinks that is likely what is showing up on his chest CT. This time the patient is no distress and will be admitted to the hospital. 2207 -patient is now refusing to stay and wants to leave. He refuses his Covid test and he refuses any IV antibiotics. States he has antibiotics at home he will just take those. He states he is more calm now and he wants to leave. Patient clearly has the capacity to make this decision. He is alert and oriented x4 and shows no sign of impairment. I have informed him that by leaving if this mass becomes bigger without treatment it could take his life and he understands this. He states he does want to get help but at the same time he understands if this progresses. His is with him and supports his decision. They state they plan to follow-up with Dr. Starkey tomorrow. Patient understands he is leaving AGAINST MEDICAL ADVICE. Lab Data: Labs: Lab Results 06/23/20 06/23/20 06/23/20 Range/Units 18:35 18:35 18:35 WBC 6.5 (4.0-10.0) 10^3/ uL RBC 3.84 L (4.1-5.3) 10^6/u L Hgb 12.4 (11.7-16.6) g/dL Hct 39.2 L (42.0-52.0) % MCV 102.1 H (80-94) fL MCH 32.3 (28.0-34.0) pg MCHC 31.6 (30.0-36.0) g/dL RDW 14.6 (12.1-15.1) % Plt Count 219 (130-400) 10^3/c mm MPV 9.8 (7.4-10.4) fL Neut % (Auto) 71.9 % Lymph % (Auto) 15.8 % Whiteside % (Auto) 9.5 % Eos % (Auto) 1.4 % Baso % (Auto) 0.3 % Neut # (Auto) 4.64 (1.8-7.7) 10^3/u L Lymph # (Auto) 1.0 (0.8-4.8) 10^3/u L Whiteside # (Auto) 0.6 (0.2-0.9) 10^3/u L Eos # (Auto) 0.1 (0.0-0.8) 10^3/u L Baso # (Auto) 0.0 (0.0-0.1) 10^3/u L Nucleated RBC % (a uto) 0 % Nucleated RBCs # 0.0 /100WBC Sodium 137 (136-145) mmol/L Potassium 3.8 (3.5-5.1) mmol/L Chloride 100 (98-107) mmol/L Carbon Dioxide 28 (22-29) mmol/L Anion Gap 12.8 (5-19) BUN 12 (8-23) mg/dL Creatinine 0.4 L (0.7-1.2) mg/dL GFR Calculation Not Reportable Glucose 98 (65-115) mg/dL Calculated Osmolal ity 284 L (285-295) mOsm/k g Lactate 1.6 (0.5-2.2) mmol/L Calcium 9.4 (8.5-10.5) mg/dL Total Bilirubin 0.3 (0.15-1.2) mg/dL AST 14 (0-40) U/L ALT 10 (0-41) U/L Alkaline Phosphata se 113 (40-130) IU/L C-Reactive Protein 19.4 H (0.0-4.9) mg/L Total Protein 6.9 (6.6-8.7) g/dL Albumin 3.9 (3.5-5.2) g/dL Globulin 3.0 (1.3-4.6) g/dL Imaging Data^: CT Chest: Radiologist's impression: [place] [id number] CT Scan Report Signed Patient: Brody Gaines #: [id number] : 4Acct#:[id number] Age/Sex: 75 / MADM Date: 06/23/20 Loc: ERRoom/Bed: Attending Dr: Ordering Provider/Ordering MD: Melissa Freitas DO Date of Service: 06/23/20 Procedure(s): CT chest w con* [id number] Accession Number(s): [id number] Report Number: [id number] PROCEDURE INFORMATION: Exam: CT Chest With Contrast Exam date and time: 06/23/2020 7:41 PM Age: 75 years old Clinical indication: Abnormal findings; Lung mass or nodule; Not specified; Prior surgery; Surgery type: Trach , port; Patient HX: Mass near trach and upper chest; Additional info: Shortness of breath/neck mass near trach TECHNIQUE: Imaging protocol: Computed tomography of the chest with intravenous contrast. Radiation optimization: All CT scans at this facility use at least one of these dose optimization techniques: automated exposure control; mA and/or kV adjustment per patient size (includes targeted exams where dose is matched to clinical indication); or iterative reconstruction. Contrast material: VISI 320; Contrast volume: 95 ml; Contrast route: INTRAVENOUS (IV); COMPARISON: CT chest wo con [id number] 01/07/2020 6:16 PM RADIATION DOSE METRICS: Total DLP (mGy-cm): 935.45 FINDINGS: Tubes, catheters and devices: There is a tracheostomy in good position. There is a left-sided port with tip in the superior vena cava. Lungs: There is new ground-glass and interstitial prominence in the lung bases right greater than left and the right middle lobe compatible with pneumonitis/early pneumonic infiltrates. Tree-in-bud opacities are also noted in the lungs compatible with pneumonitis. Pleural space: Unremarkable. No pneumothorax. No pleural effusion. Heart: The heart is enlarged. Mediastinal space: There is circumferential wall thickening of the distal esophagus slightly increase in the prior exam concerning for esophagitis. Aorta: Unremarkable. No aortic aneurysm. Lymph nodes: Unremarkable. No enlarged lymph nodes. Liver: Multiple hypodense hepatic nodules are noted and are larger including an 11 mm nodule right lobe of the liver image 54 today that previously measured 9 mm. A 10 mm hypodense nodule in the liver image 14 previously measured 8 mm. A few tiny new hypodensities are also noted in the liver for example on image 60 each measuring 3 mm in size. Bones/joints: There is osteopenia. There are moderate to severe degenerative changes in the spine. No acute bony abnormality. Soft tissues: There are scattered calcified pulmonary granulomata. No discrete soft tissue pulmonary nodule is identified. Soft tissue density mass in the neck just superior to the tracheostomy is noted compatible with the history of neoplasm. The mass has a nodular component on series 2, image 4 to day that measures 2.7 x 2.2 cm in size were previously it measured 1.[address]/CT chest w con* [id number] IMPRESSION: 1. There is new ground-glass and interstitial prominence in the lung bases right greater than left and the right middle lobe compatible with pneumonitis/early pneumonic infiltrates. 2. No new or enlarging pulmonary nodule. 3. Multiple hypodense lesions in the liver are slightly larger and a few small new liver lesions are identified. 4. Enlarging mass in the neck just superior to the tracheostomy. Radiation Dose CTDIVOL = (mGy): DLP = 935.45 (mGy-cm) Dictated By:Isabel Rankin Signed By:Nick Rankin Date/Time:06/23/202053 DD/ 52 Discharge Plan Discharge Patient Disposition: Left Against Medical Advice Clinical Impression: Laryngeal mass Condition: Stable Prescriptions: No Action pantoprazole 40 mg tablet,delayed release (DR/EC) 40 mg PO DAILY 28 Days Qty: 30 RF: 0 doxycycline hyclate 100 mg capsule 100 mg PO BID 14 Days Qty: 28 RF: 0 clindamycin HCl 300 mg capsule 300 mg PO Q6H 14 Days Qty: 56 RF: 0 folic acid 1 mg tablet 1 mg PO DAILY RF: 0 Cipro 500 mg/5 mL suspension,microcapsule recon 500 mg PO Q12H RF: 0 lorazepam 0.5 mg tablet See Rx Instructions .ROUTE .COMPLEX RF: 0 cyanocobalamin (vitamin B-12) [Vitamin B-12] 100 mcg Tablet 100 mcg PO DAILY RF: 0 vitamin B complex [B-Complex] Tablet 1 tab PO DAILY RF: 0 furosemide [Lasix] 20 mg Tablet 20 mg PO DAILY RF: 0 albuterol sulfate 90 mcg/actuation Hfa Aerosol Inhaler 1 puff INHALATION QID PRN (Reason: Shortness Of Breath) RF: 0 guaifenesin 400 mg Tablet 400 mg PO Q4H PRN (Reason: Congestion) RF: 0 potassium chloride 20 mEq Tablet Extended Release 20 meq PO BID RF: 0 Discharge Orders: Discharge Order (Routine); Ordered 06/23/20 Ordered By: Melissa Freitas Referrals: Elio Bobby [Primary Care Provider] - Liliane Starkey MD [Staff Physician] - 1-3 days (Follow-up with Dr. Starkey tomorrow as scheduled.) Discharge Diet: Advance as tolerated Discharge Activity: Limit activity as instructed Activity Restrictions/Additional Instructions: You're leaving AGAINST MEDICAL ADVICE and are at risk for or severe permanent disability by doing so. You are more than welcome to return at any time for recheck and for further evaluation and care suture change you change your mind. You are welcome to return at any time for further evaluation and care should you change your mind. Be certain to follow-up with Dr. Starkey tomorrow for recheck. Also contact Dr. Wheat's office to be set up with the oncologic ear nose and throat doctor he had referred you to in the past. Stand Alone Forms: Against Medical Advice Discharge Date/Time: 06/23/20 22:16 Coding Level of Care Code ED Scuba Diver for Chg Fwd Exam Comprehensive
[2020-06-23] MEDS: iodixanol 320 mg/mL 100mL Btl IV (20:12)
[2020-06-23] MEDS: clindamycin 900 MG/50 ML PREMIX 100 MG IV (20:29)
[2020-06-23 20:30] VITALS: BP 115/66; PULSE 69; RESP 16; O2SAT 96
[2020-06-23 21:24] VITALS: BP 120/64; PULSE 64; RESP 14; O2SAT 94
--- NOTE | 2020-06-23 22:03 | PC.NURSE ---
Pt stated He is ready to go home . Notified provider. Hold COVID swab per provider.
--- NOTE | 2020-06-23 22:11 | PC.NURSE ---
patient refused covid 19 swab, cefepime, and states he wants to go home.
[2020-06-23 22:29] VITALS: BP 104/61; PULSE 67; RESP 16; O2SAT 95
== END 2020-06-23 22:16 | disposition left against medical advice (07) ==
PROVIDERS: Family Medicine; Emergency Provider Emergency Medicine; PCP Internal Medicine
DX: J38.7 Other diseases of larynx (principal); Z53.21 Procedure and treatment not carried out due to patient leaving prior to being seen by health care provider; J44.9 Chronic obstructive pulmonary disease, unspecified; Z87.891 Personal history of nicotine dependence
CPT/HCPCS: 12345; 36415; 71260; 80053; 83605; 85025; 86140; 87040; 96365; 96367; 96375; 99283; 99284; J1200; J1720; J3370; J3490; J7050; Q9967

== ENCOUNTER 2020-06-24 05:37 | Outpatient (RCR) | payer OTHER, SELFPAY ==
--- NOTE | 2020-06-24 12:19 | ONC FU_ITS ---
Dr. Starkey follow up note Patient: Brody Gaines Unit #: [id number]: [id number] Dicatated By: Liliane Starkey M.D.Date of Visit:Jun 24, 2020 Onc Med Follow-up/Prog Note History of Present Illness: Mr. Gaines is a 75-year-old gentleman with history of progressive shortness of breath and hoarseness of voice since August 2019. He denied dysphagia or odynophagia, as well as hemoptysis or hematemesis. He presented [place] [facility] on [place]/07/2020 with worsening shortness of breath over a 3 month period. He had also complained of significant hoarseness. He also reported about a 20 pound unintentional weight loss over that [address] scan of the neck and chest was done on 01/07/2020, showed left true vocal cord tumor mass measuring about 19 mm x 11 mm x 14 mm . No visible direct invasion or distant metastasis is seen. Mr Gaines underwent [facility] laryngoscopy with biopsy of bilateral vocal cords and tracheostomy per Dr Wheat. Mr Gaines underwent insertion of a left subclavian PowerPort on January 12, 2020. He also had a PEG tube placed at that time. Both procedures performed by Dr Edmond. The final pathology report came back moderately differentiated squamous cell carcinoma invasive, involving LEFT vocal cord. 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 Mr Gaines has history of heavy smoking since age 11 (greater than 150 pack year) and quit recently. MEDICAL HISTORY: Alcoholism, BPH, COPD and tobacco dependency. He has had surgery of his ankle and hernia surgery. INTERIM HISTORY: CT/ PET scan done on February 10, 2020 showed increased uptake in the glottis with tracheostomy tube entering along the inferior margin of the lesion. SUV maximum 17.89. No lymphadenopathy. Further investigation and evaluation by radiation therapy confirmed bulky disease. Mr Gaines was offered combined treatment with chemoradiation and began treatment with weekly Cisplatin on March 23, 2020.Last dose of chemo was given on May 04, 2020 Came for follow-up, patient went to ER last night because of submental swelling/puffiness just above tracheostomy site, causing problem with swallowing but no problem with breathing. CT scan of chest was done on June 23, 2020 showed there is a new groundglass and interstitial prominence in the lung bases right greater than left and right middle lobe compatible with pneumonitis/early pneumonia. Multiple hypodense lesions in the liver is slightly larger and few small new liver lesion are identified. Enlarging mass in the neck just superior to tracheostomy, case was discussed with the ER physician last night and it was advised to admit patient for broad-spectrum intravenous antibiotics for possible aspiration/or community-acquired bilateral pneumonia and probably submental cellulitis and also advised to consult ENT. As per patient he was seen by Dr. Wheat ENT earlier and was referred to [facility] for evaluation but he did not want to go to [place]. And they were last night he signed AMA and decided to come to clinic this morning. Denies any fever chills denies any trauma to his neck but this puffiness or swelling superior to his tracheostomy developed within last week denies any excessive discharge from trach site. Denies any fever chills, denies any nausea or vomiting denies any hemoptysis or hematemesis denies any shortness of breath at rest. But feeling weak and tired Medications: Cetirizine HCl 1 Tablet (of 10 mg) Oral daily, Cyanocobalamin 1 Tablet (of 100 mcg) Oral daily, Finasteride 1 Tablet (of 5 mg) Oral daily, Furosemide 1 Tablet (of 20 mg) Oral every am, LORazepam 0.5 - 1 Tablet (of 1 mg) Oral t.i.d. PRN, Melatonin 1 Tablet (of 5 mg) Oral at bedtime, Potassium Chloride ER 1 Tablet (of 20 meq) Tablet, controlled release Oral b.i.d., Tamsulosin HCl 1 Capsule (of 0.4 mg) Oral daily, Vitamin B Complex 1 Tablet Oral daily Allergies: Blueberries, Gabapentin, Insect stings, Iodine, novacaine, and Penicillins. Review of Systems: Constitutional - Appetite is fair and weight is stable. No fever, night sweats, or hot flashes. Energy level is poor, ENMT - No sinus congestion/drainage. No mouth sores. Positive for sore throat and difficulty swallowing, Hematologic/Lymphatic - No abnormal bruising or bleeding, Respiratory - No shortness of breath. Occasional cough. No pleuritic pain or hemoptysis, Cardiovascular - No angina pain. No palpitations, Gastrointestinal - No nausea or vomiting. No heartburn or acid reflux. No diarrhea or constipation. No blood in the stool or black stools, Genitourinary (M) - No dysuria or hematuria. No urinary frequency. No urgency or incontinence, Musculoskeletal - No joint or bone pain, Neurologic - No headache or dizziness. No numbness or tingling. No other focal neurologic symptoms, Psychiatric - No anxiety or depression. No insomnia. Vital Signs: Performed on Jun 24, 2020 09:15 Height - 69.00 in Weight - 185.2 lbs (LOW) BSA - 2.00 sq.m BMI - 27.35 Temperature - 99.0 F (HIGH) Pulse - 65 /min Respiration - 22 /min BP - 117/68 mm(hg) O2 Sat - 97 % Pain - 3 Performance Status: 2 - Ambulatory/capable of all self-care, unable to perform any work activities. Up and about more than 50% of waking hours. (ECOG) Physical Examination: ENMT - Sinuses are nontender. No oral exudates, ulcers, masses, thrush or mucositis. Oropharynx clear. Tongue normal.No mouth sores, soft puffiness in the submental area, mild tenderness , Respiratory - Poor air entry few bibasilar crackles, Cardiovascular - Regular rate and rhythm of heart, Abdomen - Soft, bowel sounds present, Extremities - No visible edema. Lab/Imaging: Test performed on Jun 23, 2020 18:35 C-Reactive Protein (mg/L) 19.4 mg/L Glucose 98 mg/dL BUN 12 mg/dL Creatinine 0.4 mg/dL Cr Clearance (Est) 201.20 mL/min Sodium 137 mmol/L Potassium 3.8 mmol/L Chloride 100 mmol/L CO2 28 mmol/L Calcium 9.4 mg/dL Protein, Total 6.9 g/dL Albumin 3.9 g/dL Globulin 3.0 g/dL Bilirubin, Total 0.3 mg/dL Alkaline Phosphatase 113 IU/L AST (SGOT) 14 IU/L ALT (SGPT) 10 IU/L WBC 6.5 10^9/L RBC 3.84 10^12/L HGB 12.4 g/dL HCT 39.2 % MCV 102.1 fl MCH 32.3 pg MCHC 31.6 g/dL RDW 14.6 % Platelet Count 219 10^9/L MPV 9.8 fL Neutrophils (Gran) 4.64 10^9/L Lymphocytes 1.0 10^9/L Monocytes 0.6 10^9/L Eosinophils 0.1 10^9/L Basophils 0.0 10^9/L Manual Lymphocytes 15.8 % Manual Monocytes 9.5 % Manual Eosinophils 1.4 % Manual Basophils 0.3 % Test performed on May 11, 2020 09:15 Anion Gap 13.8 Osmolality - Calculated 275 mOsm/kg Neutrophil % 60.0 % Lymphocyte % 24.3 % Monocyte % 13.3 % Eosinophil % 0.5 % Basophils % 0.5 % NRBC % 0 % Impression: moderately differentiated squamous cell carcinoma, invasive, involving left vocal cord and 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 CT scan of the neck done on 01/07/2020 showed 19 mm x 11 mm x 14 mm left true vocal cord lesion within no invasion of laryngeal cartilage or extension into aryepiglottic space. Right true vocal cord is unremarkable. As per evaluation by radiation oncology patient was confirmed to have bulky disease so he was started on combined chemoradiation with weekly Cisplatin on March 23, 2020 COPD/emphysema, alcoholism, history of chronic heavy smoking since age 11, quit in December 2019 Status post tracheostomy on 01/08/2020. PowerPort (Left subclavian) and PEG tube placement on 01/09/2020. The PEG tube was removed on 03/17/2020 due to leakage and Mr Gaines was eating well and did not want it replaced at that time. Mr Gaines began combined chemoradiation with weekly Cisplatin on 03/23/2020. He is tolerating it well thus far. Mr. Gaines will have completed his weekly cisplatin On May 04, 2020 with a total of 7 weekly cisplatin treatments. And completed radiation therapy on May 06, 2020 Plan: Discussed with patient regarding his labs white blood count 6.5 hemoglobin 12.4 hematocrit 39.2 platelets 219,000 CMP within normal limits Clinically, patient doing reasonably well now in mild to moderate distress due to submental swelling/puffiness and generalized weakness and fatigue, discussed with patient regarding concern about possible bilateral aspiration pneumonia and cellulitis involving submental area or recurrence of disease in the neck, patient was advised for inpatient care with broad-spectrum antibiotics and ENT evaluation, patient agreed and was sent to emergency room for evaluation and possible inpatient care. Signed By: Liliane Starkey M.D. <<Signature on File>>
== END 2020-06-26 23:59 | disposition home or self-care (01) ==
LOC: ONCMED 05:37
PROVIDERS: Absent Provider Radiology Radiation Oncology; PCP Internal Medicine; Visit Provider Internal Medicine Hematology & Oncology
DX: C32.0 Malignant neoplasm of glottis (principal); R53.1 Weakness; R53.83 Other fatigue; R22.1 Localized swelling, mass and lump, neck; J43.9 Emphysema, unspecified; Z92.3 Personal history of irradiation; Z87.891 Personal history of nicotine dependence; Z93.1 Gastrostomy status; Z93.0 Tracheostomy status
CPT/HCPCS: 99215

== ENCOUNTER 2020-06-24 09:55 | Emergency (ER) | payer OTHER, SELFPAY ==
[2020-06-24 10:02] VITALS: BP 113/73; PULSE 69; RESP 22; TEMP 36.8; O2SAT 97; BMI 27.3
--- NOTE | 2020-06-24 10:12 | XRR_ITS ---
PROCEDURE INFORMATION: Exam: XR Chest, 1 View Exam date and time: 06/24/2020 10:26 AM Age: 75 years old Clinical indication: Cough and dyspnea; Prior surgery; Surgery type: Trach; Additional info: Dyspnea/cough TECHNIQUE: Imaging protocol: XR of the chest Views: 1 view. COMPARISON: CT chest w con* [id number] 06/23/2020 8:10 PM FINDINGS: Tubes, catheters and devices: There is a left central line in place extending into the SVC. Tracheostomy tube is in place the tip is 6.3 cm above the neal Lungs: Right lower lobe atelectasis is seen.. No consolidation. Pleural space: Unremarkable. No pleural effusion. No pneumothorax. Heart/Mediastinum: Unremarkable. No cardiomegaly. Bones/joints: Unremarkable. XR/XR chest 1V portable [id number] IMPRESSION: 1. No acute findings. 2. Right lower lobe atelectasis. 3. Tracheostomy tube is above the nael 4. Left central line in the SVC
--- NOTE | 2020-06-24 11:07 | CT_ITS ---
WS: [id number] CT NECK WITH CONTRAST HISTORY: laryngeal mass TECHNIQUE: Contiguous 5 mm axial images are performed through the neck with intravenous contrast. Sag ittal and coronal reformats are also submitted. All CT scans at [facility] use at least o ne of these dose optimization techniques: automated exposure control; mA and/or kV adjustment per pat ient size (includes targeted exams where dose is matched to clinical indication); or iterative recons truction. CONTRAST: CONTRAST: Omnipaque 300; 95 mL IV. DLP: 757.42 mGy.cm COMPARISON: 06/15/2020, 06/11/2020 and 06/09/2020 Tracheostomy remains in good position. There is extensive persistent thickening and edema within the soft tissues of the neck, most significant over the glottic region. Patient has a tracheostomy which is in good position. Very minimal patency of the airway at the level of the glottis. Unchanged. Above the tracheostomy there is significant mass effect and narrowing of the airway. Again noted is the pe ripherally enhancing mass of decreased attenuation beginning in the supraglottic region extending to the glottis. LEFT glotic mass measures 2.2 x 2.0 x 2.0 cm and probably not significantly changed in s ize. 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 There are a few small cervical chain lymph nodes. Mild improvement of the tracheitis and wall thickening. Lung apices are clear. Mild atherosclerosis of aorta. CT/CT neck w con* [id number] IMPRESSION: 1. No appreciable change in appearance of the circumferential pharyngeal and s upraglottic edema and glottic mass since 06/15/2020. No progression of findings . There is still a tiny amount of residual airway at the level of the level lar ynx. 2. Tracheostomy remains in good position. 3. Mild improvement of the tracheotomy disease. 4. Persistent soft tissue edema infiltrating around the neck which is similar to the prior study may be posttreatment.
[2020-06-24 11:19] LABS: Basophils % 0.3 %; Eosinophils % 0.3 %; Hemoglobin 12.5 g/dL (11.7-16.6); Lymphocytes % 12.5 %; Mean Corpuscular HGB Conc 32.1 g/dL (30.0-36.0); Mean Corpuscular Hemoglobin 32.7 pg (28.0-34.0); Mean Corpuscular Volume 102.1 fL (80-94); Mean Platelet Volume 10.9 fL (7.4-10.4); Monocytes # 0.8 10^3/uL (0.2-0.9); Monocytes % 9.8 %; Neutrophils # 5.89 10^3/uL (1.8-7.7); Neutrophils % 75.9 %; Nucleated Red Blood Cells % 0 %; Platelet Count 299 10^3/cmm (130-400); Red Blood Count 3.82 10^6/uL (4.1-5.3); Red Cell Distribution Width 14.8 % (12.1-15.1); White Blood Count 7.8 10^3/uL (4.0-10.0)
[2020-06-24] MEDS: cefTAZidime 2,000 MG in sodium chloride 0.9% (plus) 50 ML 150 MG IV (11:34)
--- NOTE | 2020-06-24 11:45 | W.ED.SOB ---
HPI - SOB/Dyspnea General: Chief Complaint: Upper Respiratory Infection Stated Complaint: congested, coughing Time Seen by Provider: 06/24/20 10:12 History of Present Illness: HPI Narrative: 75-year-old male with a history of laryngeal cancer he was seen last night and ended up leaving AMA. He had been advised for him to be admitted. He has a pneumonia which was present previously he also has a laryngeal mass which was also present for previously and is been previously evaluated. He had recent hospitalization which she seen Dr. Stark they surgically evaluated for an abscess and did biopsies turned out the entire area seemed to be tumor mass some of it necrotic. No further surgical treatment was anticipated. He seen Dr. Starkey today and was referred back over to the emergency room for potential admission. He tells me he still able to breathe without any difficulty he is able to eat pur?ed food consistencies without any difficulty and that has not changed recently. Pertinent past history: COPD and other (Laryngeal mass) Onset (ago): week(s) Timing: constant Severity: severe Exacerbating factors: nothing and coughing Relieving factors: nothing Known history of: COPD Associated symptoms: Reports chest congestion and cough; Deny abdominal pain, chest pain, diaphoresis, dizziness, extremity pain, fever(s), hemoptysis, lightheadedness, myalgias, nausea, orthopnea, palpitations, paresthesias, polydipsia, polyuria, rash, sense of impending doom, syncope or vomiting Treatment prior to arrival: none Review of Systems Const: Denies: fever(s) or diaphoresis ENMT: Denies: throat pain, ear or mastoid pain, nasal discharge or nasal congestion Card: Denies: chest pain, palpitations, lightheadedness, syncope or orthopnea Resp: Reports: chest congestion; Denies: hemoptysis GI: Denies: abdominal pain, nausea or vomiting : Denies: flank pain, dysuria, urinary frequency or urinary urgency Musc: Denies: extremity pain Skin/Breast: Denies: rash or pruritus Neuro: Denies: dizziness Endo: Denies: polyuria or polydipsia PFS ED PFSH: Medical History Alcoholism BPH (benign prostatic hyperplasia) COPD (chronic obstructive pulmonary disease) GERD (gastroesophageal reflux disease) Laryngeal mass Port-A-Cath in place Surgical History History of ankle surgery History of hernia surgery S/P percutaneous endoscopic gastrostomy (PEG) tube placement Status post tracheostomy Tracheostomy present Family History Other CAD (coronary artery disease) Social History Smoking and tobacco status: former smoker Quit status (tobacco): considering quitting Alcohol intake: current Alcohol intake frequency: 3 or more drinks per day Physical Exam Const: COMMON NORMALS: no acute distress GENERAL APPEARANCE: cooperative and comfortable ORIENTATION/CONSCIOUSNESS: Yes awake, Yes oriented to person, Yes oriented to place and Yes oriented to time HENMT: COMMON NORMALS: normocephalic, atraumatic and hearing grossly normal bilaterally HEAD & SCALP: normocephalic and atraumatic Neck/C-Spine: OTHER: Significant swelling above the level of the tracheostomy is firm to the touch but not indurated slightly warmed no significant erythema. Does not appear to be acutely infected. Resp: COMMON NORMALS: normal respiratory effort, No retractions, No use of accessory muscles and clear to auscultation bilaterally AUSCULTATION: clear to auscultation bilaterally Cardio: COMMON NORMALS: regular rate, regular rhythm and No murmurs present (Cardio) RATE: regular rate RHYTHM: regular rhythm GI: COMMON NORMALS: Soft to palpation and No hepatosplenomegaly present AUSCULTATION: Yes normoactive bowel sounds PALPATION: Yes Soft to palpation, No Tenderness to palpation present (GI), No Guarding due to palpation present (GI) and Yes No hepatosplenomegaly present Extremity: COMMON NORMALS: normal to inspection, capillary refill normal, no clubbing, cyanosis or edema, no calf tenderness and no pedal edema Neuro: SENSORIUM/ORIENTATION: Yes oriented to person, Yes oriented to place and Yes oriented to time Skin: COMMON NORMALS: no rashes or lesions noted GENERAL SKIN EXAM: no rashes or lesions noted Course Vital Signs: Vital signs: Vital Signs Temperature 98.2 F 06/24/20 10:02 Pulse Rate 69 06/24/20 10:02 Respiratory Rate 18 06/24/20 14:09 Blood Pressure 113/73 06/24/20 10:02 Pulse Oximetry 97 06/24/20 10:02 MDM - SOB/Dyspnea MDM Narrative: Medical decision making narrative: Discussed with the patient and with Dr. Stark. At this point we do not feel there is a whole lot what would be accomplished by admitting the patient last time he was and this was incised to evaluate for abscess there was no abscess found it was biopsied and showed necrotic tissue. Dr. Stark feels this is necrotic tumor. We recommend following up with tertiary care ENT for resection of the area. Dr. Stark did not feel it could be at tempted here because it would be extremely extensive. He has made arrangements for the patient to be seen at [facility] were going to help consolidate those so that we can get him up there. Dr. Stark the office had difficulty contacting the patient. For now we will discharge him home continue his current medications return if has further problems. Lab Data: Labs: Lab Results 06/24/20 06/24/20 06/24/20 Range/Units 11:10 11:10 11:38 WBC 7.8 (4.0-10.0) 10^3/ uL RBC 3.82 L (4.1-5.3) 10^6/u L Hgb 12.5 (11.7-16.6) g/dL Hct 39.0 L (42.0-52.0) % MCV 102.1 H (80-94) fL MCH 32.7 (28.0-34.0) pg MCHC 32.1 (30.0-36.0) g/dL RDW 14.8 (12.1-15.1) % Plt Count 299 (130-400) 10^3/c mm MPV 10.9 H (7.4-10.4) fL Neut % (Auto) 75.9 % Lymph % (Auto) 12.5 % Power % (Auto) 9.8 % Eos % (Auto) 0.3 % Baso % (Auto) 0.3 % Neut # (Auto) 5.89 (1.8-7.7) 10^3/u L Lymph # (Auto) 1.0 (0.8-4.8) 10^3/u L Power # (Auto) 0.8 (0.2-0.9) 10^3/u L Eos # (Auto) 0.0 (0.0-0.8) 10^3/u L Baso # (Auto) 0.0 (0.0-0.1) 10^3/u L Nucleated RBC % (a uto) 0 % Nucleated RBCs # 0.0 /100WBC Sodium Cancelled Potassium Cancelled Chloride Cancelled Carbon Dioxide Cancelled Anion Gap Cancelled BUN Cancelled Creatinine Cancelled GFR Calculation Cancelled Glucose Cancelled Calculated Osmolal ity Cancelled Calcium Cancelled Total Bilirubin Cancelled AST Cancelled ALT Cancelled Alkaline Phosphata se Cancelled Total Protein Cancelled Albumin Cancelled Globulin Cancelled Urine Color Yellow (Yellow) Urine Appearance Clear (CLEAR) Urine pH 5.0 (5-7) Ur Specific Gravit y 1.020 (1.005-1.030) Urine Protein Neg (Negative) Urine Glucose (UA) Trace H (Normal) Urine Ketones Negative (Negative) Urine Blood Neg (Negative) Urine Nitrate Negative (Negative) Urine Bilirubin Neg (Negative) Urine Urobilinogen Norm (Negative) mg/dL Ur Leukocyte Erin ase Negative (Negative) 06/24/20 Range/Units 11:42 WBC (4.0-10.0) 10^3/ uL RBC (4.1-5.3) 10^6/u L Hgb (11.7-16.6) g/dL Hct (42.0-52.0) % MCV (80-94) fL MCH (28.0-34.0) pg MCHC (30.0-36.0) g/dL RDW (12.1-15.1) % Plt Count (130-400) 10^3/c mm MPV (7.4-10.4) fL Neut % (Auto) % Lymph % (Auto) % Power % (Auto) % Eos % (Auto) % Baso % (Auto) % Neut # (Auto) (1.8-7.7) 10^3/u L Lymph # (Auto) (0.8-4.8) 10^3/u L Power # (Auto) (0.2-0.9) 10^3/u L Eos # (Auto) (0.0-0.8) 10^3/u L Baso # (Auto) (0.0-0.1) 10^3/u L Nucleated RBC % (a uto) % Nucleated RBCs # /100WBC Sodium 136 Potassium 4.1 Chloride 103 Carbon Dioxide 21 L Anion Gap 16.1 BUN 10 Creatinine 0.5 L GFR Calculation Not Reportable Glucose 83 Calculated Osmolal ity 280 L Calcium 9.3 Total Bilirubin Cancelled AST Cancelled ALT Cancelled Alkaline Phosphata se Cancelled Total Protein Cancelled Albumin Cancelled Globulin Cancelled Urine Color (Yellow) Urine Appearance (CLEAR) Urine pH (5-7) Ur Specific Gravit y (1.005-1.030) Urine Protein (Negative) Urine Glucose (UA) (Normal) Urine Ketones (Negative) Urine Blood (Negative) Urine Nitrate (Negative) Urine Bilirubin (Negative) Urine Urobilinogen (Negative) mg/dL Ur Leukocyte Erin ase (Negative) Discharge Plan Discharge Patient Disposition: Home 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 Condition: Stable Prescriptions: No Action pantoprazole 40 mg tablet,delayed release (DR/EC) 40 mg PO DAILY 28 Days Qty: 30 RF: 0 folic acid 1 mg tablet 1 mg PO DAILY RF: 0 Cipro 500 mg/5 mL suspension,microcapsule recon 500 mg PO Q12H RF: 0 lorazepam 0.5 mg tablet See Rx Instructions .ROUTE .COMPLEX RF: 0 cyanocobalamin (vitamin B-12) [Vitamin B-12] 100 mcg Tablet 100 mcg PO DAILY RF: 0 vitamin B complex [B-Complex] Tablet 1 tab PO DAILY RF: 0 furosemide [Lasix] 20 mg Tablet 20 mg PO DAILY RF: 0 albuterol sulfate 90 mcg/actuation Hfa Aerosol Inhaler 1 puff INHALATION QID PRN (Reason: Shortness Of Breath) RF: 0 guaifenesin 400 mg Tablet 400 mg PO Q4H PRN (Reason: Congestion) RF: 0 potassium chloride 20 mEq Tablet Extended Release 20 meq PO BID RF: 0 Medrol (Eddie) 4 mg tablets,dose pack See Rx Instructions .ROUTE .COMPLEX Qty: 21 RF: 0 hydrocodone-acetaminophen 7.5-325 mg/15 mL solution 15 ml PO Q6H PRN (Reason: pain) Qty: 120 RF: 0 Discharge Orders: Discharge Order (Routine); Ordered 06/24/20 Ordered By: Hammad Berger Discharge Diet: Usual diet Discharge Activity: Resume usual activity Activity Restrictions/Additional Instructions: Follow-up with Dr. Stark and Dr. Starkey as previously planned. Also recommend follow-up with oncology surgeons at the direction of Dr. Stark. renewable energy project manager will assist you with this. Discharge Date/Time: 06/24/20 14:10 Coding Level of Care Code ED Automation Technician for Chg Fwd Exam Comprehensive
[2020-06-24 12:06] LABS: Add Urine Microscopic? NO; Bilirubin Urine Neg (Negative); Blood Urine Neg (Negative); Glucose Urine UA Trace (Normal); Ketones Urine Negative (Negative); Leukocyte Esterase Urine Negative (Negative); Nitrate Urine Negative (Negative); Protein Urine Neg (Negative); Urine Appearance Clear (CLEAR); Urine Color Yellow (Yellow); Urobilinogen Urine Norm (Negative)
[2020-06-24 12:13] LABS: Anion Gap 16.1 (5-19); Blood Urea Nitrogen 10 mg/dL (8-23); Calcium 9.3 mg/dL (8.5-10.5); Carbon Dioxide 21 mmol/L (22-29); Chloride 103 mmol/L (98-107); Creatinine Clr Calc Pharmacy 81.8876; Glucose 83 mg/dL (65-115); Osmolality Calculated 280 mOsm/kg (285-295); Potassium 4.1 mmol/L (3.5-5.1); Sodium 136 mmol/L (136-145)
--- NOTE | 2020-06-24 13:13 | PC.NURSE ---
Pt up ambulating in room at this time. Pt denies any further needs but expresses that he would like to eat and drink something. Pt told again by this nurse that per Dr. Berger he cannot have anything to eat or drink at this time. Pt verbalizes understanding.
[2020-06-24 14:09] VITALS: RESP 18
== END 2020-06-24 14:10 | disposition home or self-care (01) ==
PROVIDERS: Emergency Provider Family Medicine; PCP Internal Medicine
DX: C32.9 Malignant neoplasm of larynx, unspecified (principal); J44.9 Chronic obstructive pulmonary disease, unspecified; Z87.891 Personal history of nicotine dependence
CPT/HCPCS: 12345; 36415; 70491; 71045; 80048; 81003; 85025; 87040; 96365; 96366; 99283; J0713; Q9967

== ENCOUNTER 2020-06-27 18:07 | Emergency (ER) | payer OTHER, MEDICARE, SELFPAY ==
[2020-06-27 18:23] VITALS: BP 117/70; PULSE 62; RESP 14; TEMP 36.1; O2SAT 96; BMI 27.3
--- NOTE | 2020-06-27 19:18 | US_ITS ---
WS: [id number] INDICATION: Neck mass TECHNIQUE: Ultrasound soft tissue neck area of concern FINDINGS: Ultrasound soft tissue neck in the area of concern. Diffuse soft tissue edema. Skin thicken ing. Trachea appears patent. No drainable fluid collections. US/US soft tissue head neck [id number] IMPRESSION: No drainable fluid collection or abscess.
[2020-06-27 19:22] VITALS: BP 123/72; PULSE 62; RESP 18; O2SAT 97
[2020-06-27 20:10] LABS: Basophils # 0.1 10^3/uL (0.0-0.1); Basophils % 0.7 %; Eosinophils # 0.1 10^3/uL (0.0-0.8); Eosinophils % 1.3 %; Hematocrit 40.4 % (42.0-52.0); Hemoglobin 13.2 g/dL (11.7-16.6); Lymphocytes # 4.1 10^3/uL (0.8-4.8); Lymphocytes % 49.9 %; Mean Corpuscular HGB Conc 32.7 g/dL (30.0-36.0); Mean Corpuscular Hemoglobin 27.1 pg (28.0-34.0); Mean Platelet Volume 9.7 fL (7.4-10.4); Monocytes # 0.7 10^3/uL (0.2-0.9); Neutrophils # 3.22 10^3/uL (1.8-7.7); Nucleated Red Blood Cells % 0 %; Platelet Count 374 10^3/cmm (130-400); Red Blood Count 4.87 10^6/uL (4.1-5.3); Red Cell Distribution Width 13.9 % (12.1-15.1); White Blood Count 8.3 10^3/uL (4.0-10.0)
[2020-06-27] MEDS: ondansetron 2 mg/ML SDV 2 mL 4 MG IVP (20:17)
[2020-06-27] MEDS: dexamethasone 4 mg/mL INJ 10 MG IVP (20:18)
[2020-06-27 20:20] VITALS: RESP 18; O2SAT 99
[2020-06-27] MEDS: morphine 4 mg/mL SDV 1 mL IVP (20:20)
[2020-06-27 20:33] LABS: Alanine Aminotransferase 12 U/L (0-41); Albumin Level 4.6 g/dL (3.5-5.2); Alkaline Phosphatase 439 IU/L (40-130); Anion Gap 14.6 (5-19); Aspartate Amino Transferase 23 U/L (0-40); Blood Urea Nitrogen 15 mg/dL (8-23); C Reactive Protein 0.5 mg/L (0.0-4.9); Calcium 9.9 mg/dL (8.5-10.5); Carbon Dioxide 25 mmol/L (22-29); Chloride 104 mmol/L (98-107); Creatinine Clr Calc Pharmacy 81.8876; Globulin 3.1 g/dL (1.3-4.6); Glucose 88 mg/dL (65-115); Osmolality Calculated 290 mOsm/kg (285-295); Potassium 3.6 mmol/L (3.5-5.1); Sodium 140 mmol/L (136-145); Total Bilirubin 0.3 mg/dL (0.15-1.2); Total Protein 7.7 g/dL (6.6-8.7)
[2020-06-27 20:43] LABS: Lactate (Lactic Acid level) 1.3 mmol/L (0.5-2.2)
--- NOTE | 2020-06-27 20:47 | ED_ITS ---
HPI - Neck Pain/Injury General: Chief Complaint: Airway/Esophagus Foreign Body Stated Complaint: SWELLING UNDER THROAT/TRACH IN PLACE Time Seen by Provider: 06/27/20 18:44 History of Present Illness: HPI Narrative: 75-year-old male with a history of a anterior neck mass presents with trouble swallowing, pain, and some trouble breathing tonight. He has been treated multiple times for this both in the in an outpatient setting. He has a history of squamous cell carcinoma of the larynx. There was concern initially over abscess formation versus soft tissue infection. He was treated with IV antibiotics with some improvement. Later there was more concern for resurgence of cancer more so than infection. He was recently placed on doxycycline. He is supposed to hear from an ENT surgeon in [place] in the morning. MD complaint: neck pain Onset (ago): week(s) Severity: moderate Quality: aching Duration: constant Relieving factors: none Exacerbating factors: swallowing Associated symptoms: Reports dysphagia and nausea; Denies dizziness or fevers/chills Review of Systems Const: Denies: fever(s) or chills Eyes: Denies: change in vision ENMT: Reports: odynophagia; Denies: swelling of lips/tongue, bleeding gums, dental pain, change in hearing, epistaxis, post nasal drip or sinus pain Card: Denies: chest pain, palpitations or irregular heart rhythm Resp: Reports: dyspnea; Denies: productive cough, non-productive cough or wheezing GI: Reports: nausea and dysphagia : Denies: difficulty urinating, dysuria or urinary frequency Musc: Reports: neck pain Skin/Breast: Denies: rash, pruritus or erythema Neuro: Denies: dizziness Psych: Reports: anxiety PFSH ED PFSH: Medical History (Updated 06/27/20 @ 21:03 by Javier Otto DO) Alcoholism BPH (benign prostatic hyperplasia) COPD (chronic obstructive pulmonary disease) GERD (gastroesophageal reflux disease) Laryngeal mass Port-A-Cath in place Surgical History History of ankle surgery History of hernia surgery S/P percutaneous endoscopic gastrostomy (PEG) tube placement Status post tracheostomy Tracheostomy present Family History Other CAD (coronary artery disease) Social History Smoking and tobacco status: former smoker Quit status (tobacco): considering quitting Alcohol intake: current Alcohol intake frequency: 3 or more drinks per day Physical Exam Const: GENERAL APPEARANCE: well developed ORIENTATION/CONSCIOUSNESS: Yes oriented to person, Yes oriented to place and Yes oriented to time HENMT: COMMON NORMALS: external ears normal and Normal external nose present FACE & SINUS: normal facial exam NOSE: Normal external nose present and No nasal discharge present EXTERNAL EAR: Yes external ears normal THROAT: posterior oropharynx normal; no peritonsillar mass Eye: COMMON NORMALS: Equal, round and reactive pupils present, EOMs intact bilaterally and conjunctivae normal EYELID: eyelids normal CONJUNCTIVA: Yes conjunctivae normal PUPIL: Yes Equal, round and reactive pupils present Neck/C-Spine: GENERAL: No tracheal deviation CERVICAL SPINE: Yes normal cervical lordosis OTHER: Large anterior neck mass cephalad to his tracheostomy site. There is no stridor. There is mild tenderness. There is no fluctuance. There is mild redness. Chest: COMMONS NORMALS: normal inspection of the chest CHEST: No tenderness Resp: COMMON NORMALS: clear to auscultation bilaterally EFFORT & INSPECTION: No tachypneic, No respiratory distress, No retractions, No uses accessory muscles and No tracheal deviation AUSCULTATION: clear to auscultation bilaterally, no rhonchi, no wheezes and lung sounds not diminished Cardio: COMMON NORMALS: regular rate and regular rhythm RATE: regular rate RHYTHM: regular rhythm HEART SOUNDS: no murmurs PERIPHERAL PULSES: radial pulses present GI: INSPECTION: No abdominal distension AUSCULTATION: No Hyperactive bowel sounds present and No Hypoactive bowel sounds present PALPATION: No Guarding due to palpation present (GI) and No Rigid due to palpation PERCUSSION: no dullness to percussion and no tympanic to percussion Neuro: SENSORIUM/ORIENTATION: Yes oriented to person, Yes oriented to place and Yes oriented to time Psych: COMMON NORMALS: mental status grossly normal Skin: COMMON NORMALS: no rashes or lesions noted GENERAL SKIN EXAM: no rashes or lesions noted Course Vital Signs: Vital signs: Vital Signs Temperature 97.0 F L 06/27/20 18:23 Pulse Rate 58 L 06/27/20 21:44 Respiratory Rate 16 06/27/20 21:44 Blood Pressure 114/65 06/27/20 21:44 Pulse Oximetry 94 06/27/20 21:44 MDM - Neck Pain/Injury MDM Narrative: Medical decision making narrative: Ultrasound reveals a solid mass. There is no evidence of abscess formation. There is some edema present of the soft tissue. The patient has been given IV Decadron, and IV clindamycin. I think continuing his steroid is a good idea. His white blood cell count is only 8.3. His CRP is not elevated. It does not appear acutely infected. He is supposed to hear from ENT surgery tomorrow for an appointment regarding his mass. Lab Data: Labs: Lab Results 06/27/20 06/27/20 06/27/20 Range/Units 20:00 20:00 20:25 WBC 8.3 (4.0-10.0) 10^3/ uL RBC 4.87 (4.1-5.3) 10^6/u L Hgb 13.2 (11.7-16.6) g/dL Hct 40.4 L (42.0-52.0) % MCV 83.0 (80-94) fL MCH 27.1 L (28.0-34.0) pg MCHC 32.7 (30.0-36.0) g/dL RDW 13.9 (12.1-15.1) % Plt Count 374 (130-400) 10^3/c mm MPV 9.7 (7.4-10.4) fL Neut % (Auto) 39.0 % Lymph % (Auto) 49.9 % [place] % (Auto) 9.0 % Eos % (Auto) 1.3 % Baso % (Auto) 0.7 % Neut # (Auto) 3.22 (1.8-7.7) 10^3/u L Lymph # (Auto) 4.1 (0.8-4.8) 10^3/u L [place] # (Auto) 0.7 (0.2-0.9) 10^3/u L Eos # (Auto) 0.1 (0.0-0.8) 10^3/u L Baso # (Auto) 0.1 (0.0-0.1) 10^3/u L Nucleated RBC % (a uto) 0 % Nucleated RBCs # 0.0 /100WBC Sodium 140 (136-145) mmol/L Potassium 3.6 (3.5-5.1) mmol/L Chloride 104 (98-107) mmol/L Carbon Dioxide 25 (22-29) mmol/L Anion Gap 14.6 (5-19) BUN 15 (8-23) mg/dL Creatinine 0.5 L (0.7-1.2) mg/dL GFR Calculation Not Reportable Glucose 88 (65-115) mg/dL Calculated Osmolal ity 290 (285-295) mOsm/k g Lactate 1.3 (0.5-2.2) mmol/L Calcium 9.9 (8.5-10.5) mg/dL Total Bilirubin 0.3 (0.15-1.2) mg/dL AST 23 (0-40) U/L ALT 12 (0-41) U/L Alkaline Phosphata se 439 H (40-130) IU/L C-Reactive Protein 0.5 (0.0-4.9) mg/L Total Protein 7.7 (6.6-8.7) g/dL Albumin 4.6 (3.5-5.2) g/dL Globulin 3.1 (1.3-4.6) g/dL Discharge Plan Discharge Patient Disposition: Home Clinical Impression: Laryngeal mass, Squamous cell carcinoma of larynx Condition: Stable Prescriptions: New Medrol (Eddie) 4 mg tablets,dose pack See Rx Instructions .ROUTE .COMPLEX Qty: 21 RF: 0 hydrocodone-acetaminophen 7.5-325 mg/15 mL solution 15 ml PO Q6H PRN (Reason: pain) Qty: 120 RF: 0 No Action pantoprazole 40 mg tablet,delayed release (DR/EC) 40 mg PO DAILY 28 Days Qty: 30 RF: 0 doxycycline hyclate 100 mg capsule 100 mg PO BID 14 Days Qty: 28 RF: 0 clindamycin HCl 300 mg capsule 300 mg PO Q6H 14 Days Qty: 56 RF: 0 folic acid 1 mg tablet 1 mg PO DAILY RF: 0 Cipro 500 mg/5 mL suspension,microcapsule recon 500 mg PO Q12H RF: 0 lorazepam 0.5 mg tablet See Rx Instructions .ROUTE .COMPLEX RF: 0 cyanocobalamin (vitamin B-12) [Vitamin B-12] 100 mcg Tablet 100 mcg PO DAILY RF: 0 vitamin B complex [B-Complex] Tablet 1 tab PO DAILY RF: 0 furosemide [Lasix] 20 mg Tablet 20 mg PO DAILY RF: 0 albuterol sulfate 90 mcg/actuation Hfa Aerosol Inhaler 1 puff INHALATION QID PRN (Reason: Shortness Of Breath) RF: 0 guaifenesin 400 mg Tablet 400 mg PO Q4H PRN (Reason: Congestion) RF: 0 potassium chloride 20 mEq Tablet Extended Release 20 meq PO BID RF: 0 Discharge Orders: Discharge Order (Routine); Ordered 06/27/20 Ordered By: Javier Otto Referrals: Elio Bobby [Primary Care Provider] - 4-7 days Discharge Diet: As Directed Discharge Activity: Increase activity as tolerated Patient Instructions: Lump/Mass Discharge Date/Time: 06/27/20 21:45 Coding Level of Care Code ED Straightening Press Operator for Chg Fwd Exam Comprehensive
[2020-06-27 20:54] VITALS: BP 82/59; PULSE 71; RESP 18; O2SAT 94
[2020-06-27] MEDS: clindamycin 150 mg/mL SDV 6 mL 600 MG IV (20:57)
[2020-06-27 21:44] VITALS: BP 114/65; PULSE 58; RESP 16; O2SAT 94
== END 2020-06-27 21:45 | disposition home or self-care (01) ==
PROVIDERS: Emergency Provider Emergency Medicine; PCP Internal Medicine
DX: C32.9 Malignant neoplasm of larynx, unspecified (principal); J44.9 Chronic obstructive pulmonary disease, unspecified; Z87.891 Personal history of nicotine dependence
CPT/HCPCS: 12345; 76536; 80053; 83605; 85025; 86140; 96374; 96375; 96376; 99283; 99284; J1100; J2270; J2405; J3490

== ENCOUNTER 2020-07-05 09:19 | Emergency (ER) | payer OTHER, MEDICARE, SELFPAY ==
[2020-07-05 09:22] VITALS: BP 118/73; PULSE 68; RESP 20; TEMP 36.8; O2SAT 94; BMI 28.8
--- NOTE | 2020-07-05 09:38 | W.ED.GENADLT ---
HPI - General Adult General: Chief complaint: General Medical Stated complaint: throat is swelling/pain Time Seen by Provider: 07/05/20 09:20 History of Present Illness: HPI narrative: 75-year-old male with a known laryngeal squamous cell CA with large necrotic tumor supraglottic. He has a trach in place. She been seen by Dr. Wheat multiple times. He has been referred for resection of the necrotic tumor it is previously been incised there is no drainage there is no sign of infection. Onset (ago): week(s) Location: neck Radiation: non-radiation Severity: severe Relieving factors: none Exacerbating factors: none Associated symptoms: Reports no associated symptoms; Deny chest pain, dyspnea, malaise, nausea, rash or vomiting Review of Systems Const: Denies: fever(s), chills, body aches, change in appetite, fatigue or malaise ENMT: Denies: throat pain, ear or mastoid pain, nasal discharge or nasal congestion Card: Denies: chest pain, edema, dyspnea on exertion or orthopnea Resp: Denies: dyspnea, productive cough or non-productive cough GI: Denies: abdominal pain, nausea, vomiting, hematemesis, coffee ground emesis, diarrhea, constipation, bloating, hematochezia or melena : Denies: flank pain, dysuria, urinary frequency or urinary urgency Skin/Breast: Denies: rash or pruritus PFSH ED PFSH: Medical History Alcoholism BPH (benign prostatic hyperplasia) COPD (chronic obstructive pulmonary disease) GERD (gastroesophageal reflux disease) Laryngeal mass Port-A-Cath in place Surgical History History of ankle surgery History of hernia surgery S/P percutaneous endoscopic gastrostomy (PEG) tube placement Status post tracheostomy Tracheostomy present Family History Other CAD (coronary artery disease) Social History Smoking and tobacco status: former smoker Quit status (tobacco): considering quitting Alcohol intake: current Alcohol intake frequency: 3 or more drinks per day Physical Exam Const: COMMON NORMALS: no acute distress GENERAL APPEARANCE: cooperative ORIENTATION/CONSCIOUSNESS: Yes awake, Yes oriented to person, Yes oriented to place and Yes oriented to time HENMT: COMMON NORMALS: normocephalic and atraumatic HEAD & SCALP: normocephalic and atraumatic Neck/C-Spine: COMMON NORMALS: no JVD OTHER: Significant swelling superior to the tracheal site. There is no redness or induration it is firm hard to the touch it is not hot to the touch there is no evidence of erythema. Still consistent with a tumor as per previous exams. Its not change significantly from my previous exam. Resp: COMMON NORMALS: normal respiratory effort, No retractions, No use of accessory muscles and clear to auscultation bilaterally AUSCULTATION: clear to auscultation bilaterally Cardio: COMMON NORMALS: no JVD, regular rate, regular rhythm and No murmurs present (Cardio) RATE: regular rate RHYTHM: regular rhythm GI: COMMON NORMALS: Soft to palpation and No hepatosplenomegaly present AUSCULTATION: Yes normoactive bowel sounds PALPATION: Yes Soft to palpation, No Tenderness to palpation present (GI), No Guarding due to palpation present (GI) and Yes No hepatosplenomegaly present Extremity: COMMON NORMALS: normal to inspection, capillary refill normal, no clubbing, cyanosis or edema, no calf tenderness and no pedal edema Neuro: SENSORIUM/ORIENTATION: Yes oriented to person, Yes oriented to place and Yes oriented to time Skin: COMMON NORMALS: no rashes or lesions noted GENERAL SKIN EXAM: no rashes or lesions noted Course Vital Signs: Vital signs: Vital Signs Temperature 98.2 F 07/05/20 09:22 Pulse Rate 68 07/05/20 09:22 Respiratory Rate 20 H 07/05/20 09:22 Blood Pressure 118/73 07/05/20 09:22 Pulse Oximetry 94 07/05/20 09:22 MDM - General Adult MDM Narrative: Medical decision making narrative: Chest x-ray unremarkable. We will go ahead and discharge the patient I did call Dr. Stark's office I still recommend that he follow-up with ENT in [place]. At this point he is not having any respiratory compromise the plan per Dr. Stark is that at some point he would get this debulked however he feels the tumor is going to be exacerbated that will require more than to be managed at our facility. Discharge Plan Discharge Patient Disposition: Home Clinical Impression: Laryngeal cancer Condition: Stable Prescriptions: No Action pantoprazole 40 mg tablet,delayed release (DR/EC) 40 mg PO DAILY 28 Days Qty: 30 RF: 0 folic acid 1 mg tablet 1 mg PO DAILY RF: 0 lorazepam 0.5 mg tablet See Rx Instructions .ROUTE .COMPLEX RF: 0 cyanocobalamin (vitamin B-12) [Vitamin B-12] 100 mcg Tablet 100 mcg PO DAILY RF: 0 vitamin B complex [B-Complex] Tablet 1 tab PO DAILY RF: 0 furosemide [Lasix] 20 mg Tablet 20 mg PO DAILY RF: 0 albuterol sulfate 90 mcg/actuation Hfa Aerosol Inhaler 1 puff INHALATION QID PRN (Reason: Shortness Of Breath) RF: 0 guaifenesin 400 mg Tablet 400 mg PO Q4H PRN (Reason: Congestion) RF: 0 potassium chloride 20 mEq Tablet Extended Release 20 meq PO BID RF: 0 hydrocodone-acetaminophen 7.5-325 mg/15 mL solution 15 ml PO Q6H PRN (Reason: pain) Qty: 120 RF: 0 Discharge Orders: Discharge Order (Routine); Ordered 07/05/20 Ordered By: Hammad Berger Referrals: Wes Wheat MD [Physician] - Activity Restrictions/Additional Instructions: Chest x-ray today was normal recommend you follow-up with the ENT doctor that Dr. Stark had referred you to in [place] as soon as you are able. Coding Level of Care Code ED Glassware Engraver for Loretta Mandujano
--- NOTE | 2020-07-05 10:08 | XR_ITS ---
WS: [id number] XR chest 1V portable [id number] REASON FOR EXAM: dyspnea/cough FINDINGS: The chest is relatively unchanged compared to previous examination of 06/24/2020. Tracheostomy in place. Chemotherapy infusion port of the left chest with the catheter through the left subclavian vein and i nto the superior vena cava. The heart is enlarged. There is a large area of presumed atelectasis in the right lower lung field which does not appear to have changed significantly compared to the previous study. There are some smaller linear opacities mo re superiorly in the right lung field which may also represent platelike atelectasis. XR/XR chest 1V portable [id number] IMPRESSION: Presumed chronic atelectasis in the right lower lung as above. No definite acut e abnormality identified.
[2020-07-05 11:37] VITALS: BP 151/109; PULSE 101; RESP 20; O2SAT 64
== END 2020-07-05 11:42 | disposition home or self-care (01) ==
PROVIDERS: Emergency Provider Family Medicine; PCP Internal Medicine
DX: C32.9 Malignant neoplasm of larynx, unspecified (principal); J44.9 Chronic obstructive pulmonary disease, unspecified; Z87.891 Personal history of nicotine dependence
CPT/HCPCS: 12345; 71045; 99281

== ENCOUNTER 2020-08-30 11:37 | Emergency (ER) | payer OTHER, MEDICARE, SELFPAY ==
[2020-08-30] VITALS (10 sets, daily range): BP systolic 84–110; BP diastolic 66–75; PULSE 88–102; RESP 16–25; TEMP 36.6; O2SAT 86–98; BMI 27.3
--- NOTE | 2020-08-30 11:40 | CTR_ITS ---
PROCEDURE INFORMATION: Exam: CT Neck With Contrast Exam date and time: 08/30/2020 2:04 PM Age: 75 years old Clinical indication: Condition or disease; Cancer; Laryngeal; Prior surgery; Surgery type: Trach, port; Additional info: Laryngeal CA, tracheostomy TECHNIQUE: Imaging protocol: Computed tomography images of the neck with intravenous contrast. Radiation optimization: All CT scans at this facility use at least one of these dose optimization techniques: automated exposure control; mA and/or kV adjustment per patient size (includes targeted exams where dose is matched to clinical indication); or iterative reconstruction. Contrast material: OMNI 300; Contrast volume: 95 ml; Contrast route: INTRAVENOUS (IV); COMPARISON: CT neck w con* [id number] 06/24/2020 12:25 PM RADIATION DOSE METRICS: Total DLP (mGy-cm): 541.34 FINDINGS: Nasopharynx: Unremarkable. Oropharynx: Unremarkable. No significant tonsillar enlargement. Hypopharynx: See below. Larynx: See below. Retropharyngeal space: See below. Submandibular/Parotid glands: Normal. Glands are normal in size. Thyroid: See Soft tissues finding. Lymph nodes: Several small cervical chain nodes are again identified. Trachea: Tracheostomy is unchanged. Lungs: Unremarkable as visualized. Bones/joints: Spinal degenerative changes. Soft tissues: There is increasing heterogeneous density infiltration of the anterior neck soft tissues. A 2.5 cm hypodense collection in the left anterior neck, located anterolateral to the thyroid cartilage, may reflect seroma, liquifactive necrosis, or abscess. Correlate with clinical information in this regard. The soft tissue infiltration may reflects progression of neoplasm, but infectious process could have the same appearance. The previously described left glottic mass is not well defined, with heterogeneous enhancement now diffusely involving the glottis, laryngeal vestibule and hypopharynx. CT/CT neck w con* [id number] IMPRESSION: 1. Tracheostomy unchanged. 2. Above the tracheostomy, increased heterogeneous masslike infiltration involving the glottis, laryngeal vestibule and hypopharynx, with extension into the anterior neck soft tissues. 3. Hypodense collection in the anterior neck may reflect seroma, liquifactive necrosis, or abscess. Radiation Dose CTDIVOL = (mGy): DLP = 541.34 (mGy-cm)
--- NOTE | 2020-08-30 11:40 | W.ED.SOB ---
Documented by User: Hammad Berger DO 08/31/20 09:03 HPI - SOB/Dyspnea General: Chief Complaint: Airway/Esophagus Foreign Body Stated Complaint: AIRWAY OBSTRUCTION Time Seen by Provider: 08/30/20 11:38 History of Present Illness: HPI Narrative: 75-year-old male presents to the emergency room via EMS from his primary ENT's office. 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 Stark in the office this morning and was sent to our facility to have oxygen applied and transferred to [place] Dr. Stark felt that this was most appropriately handled in [place]. On arrival here on oxygen mask across his trachea he is able to maintain sats in the mid upper 90s. He is not able to vocalize anything he denies any fever he wrote for as he like to go to [facility] in [place]. MD elicited complaint: shortness of breath and cough Pertinent past history: COPD, tracheostomy and other (Laryngeal CA) Onset (ago): hour(s) Context: other (Partially occluded tracheostomy) Timing: constant Severity: mild Exacerbating factors: nothing Relieving factors: nothing Known history of: COPD and other (Laryngeal CA with tracheostomy) Associated symptoms: Deny abdominal pain, chest congestion, chest pain, cough, diaphoresis, dizziness, extremity pain, fever(s), hemoptysis, lightheadedness, myalgias, nausea, orthopnea, palpitations, paresthesias, polydipsia, polyuria, rash, sense of impending doom, syncope or vomiting Treatment prior to arrival: oxygen Review of Systems Const: Denies: fever(s) or diaphoresis ENMT: Denies: throat pain, ear or mastoid pain, nasal discharge or nasal congestion Card: Denies: chest pain, palpitations, lightheadedness, syncope or orthopnea Resp: Denies: hemoptysis or chest congestion GI: Denies: abdominal pain, nausea or vomiting : Denies: flank pain, dysuria, urinary frequency or urinary urgency Musc: Denies: extremity pain Skin/Breast: Denies: rash or pruritus Neuro: Denies: dizziness Endo: Denies: polyuria or polydipsia PFS ED PFSH: Medical History (Updated 08/30/20 @ 17:29 by Hammad Berger DO) Alcoholism BPH (benign prostatic hyperplasia) COPD (chronic obstructive pulmonary disease) GERD (gastroesophageal reflux disease) Laryngeal mass Port-A-Cath in place Surgical History History of ankle surgery History of hernia surgery S/P percutaneous endoscopic gastrostomy (PEG) tube placement Status post tracheostomy Tracheostomy present Family History Other CAD (coronary artery disease) Social History Smoking and tobacco status: former smoker Quit status (tobacco): considering quitting Alcohol intake: current Alcohol intake frequency: 3 or more drinks per day Physical Exam Const: COMMON NORMALS: no acute distress GENERAL APPEARANCE: cooperative and comfortable ORIENTATION/CONSCIOUSNESS: Yes awake, Yes oriented to person, Yes oriented to place and Yes oriented to time HENMT: COMMON NORMALS: normocephalic, atraumatic and hearing grossly normal bilaterally HEAD & SCALP: normocephalic and atraumatic Eye: COMMON NORMALS: Equal, round and reactive pupils present, EOMs intact bilaterally, conjunctivae normal and no scleral icterus CONJUNCTIVA: Yes conjunctivae normal PUPIL: Yes Equal, round and reactive pupils present Neck/C-Spine: COMMON NORMALS: no JVD OTHER: Tracheostomy present coarse breath sounds and gurgling improved with suction Resp: COMMON NORMALS: normal respiratory effort, No retractions, No use of accessory muscles and clear to auscultation bilaterally AUSCULTATION: clear to auscultation bilaterally and diminished lung sounds Cardio: COMMON NORMALS: no JVD, regular rate, regular rhythm and No murmurs present (Cardio) RATE: regular rate RHYTHM: regular rhythm GI: COMMON NORMALS: Soft to palpation and No hepatosplenomegaly present AUSCULTATION: Yes normoactive bowel sounds PALPATION: Yes Soft to palpation, No Tenderness to palpation present (GI), No Guarding due to palpation present (GI) and Yes No hepatosplenomegaly present Extremity: COMMON NORMALS: normal to inspection, capillary refill normal, no clubbing, cyanosis or edema, no calf tenderness and no pedal edema Neuro: SENSORIUM/ORIENTATION: Yes oriented to person, Yes oriented to place and Yes oriented to time Skin: COMMON NORMALS: no rashes or lesions noted GENERAL SKIN EXAM: no rashes or lesions noted Course Vital Signs: Vital signs: Vital Signs Temperature 98 F 08/30/20 11:40 Pulse Rate 88 08/30/20 20:00 Respiratory Rate 18 08/30/20 20:00 Blood Pressure 95/66 08/30/20 19:15 Pulse Oximetry 97 08/30/20 20:00 MDM - SOB/Dyspnea MDM Narrative: Medical decision making narrative: Patient previously of is been seen in [place]. Organ to go ahead and try to get him transferred there were currently working on getting getting arrangements made but we do not have an accepting facility or physician at this point. Patient is frustrated with all process. He was about to leave AMA encouraged him to stay and let us make the transfer. I talked to Dr. Stark his trach he is obstructed distal to the end of the tracheostomy. Dr. Stark does not feel comfortable removing it either in his office or here in the operating room. He feels his best opportunity is to go to a tertiary care center. Expressed to the patient that as this obstructs the really is nothing I could do to open it up at this point he would most likely suffocate. Strongly encouraged him to reconsider and stay and allow us to make the transfer ultimately he did agree to stay. Care turned over to Dr. Gallardo at change of shift Lab Data: Labs: Lab Results 08/30/20 08/30/20 08/30/20 Range/Units 13:12 13:15 13:15 WBC 11.8 H (4.0-10.0) 10^3/ uL RBC 4.49 (4.1-5.3) 10^6/u L Hgb 13.4 (11.7-16.6) g/dL Hct 42.1 (42.0-52.0) % MCV 93.8 (80-94) fL MCH 29.8 (28.0-34.0) pg MCHC 31.8 (30.0-36.0) g/dL RDW 12.9 (12.1-15.1) % Plt Count 315 (130-400) 10^3/c mm MPV 9.7 (7.4-10.4) fL Neut % (Auto) 84.9 % Lymph % (Auto) 7.9 % [place] % (Auto) 5.7 % Eos % (Auto) 0.4 % Baso % (Auto) 0.3 % Neut # (Auto) 10.02 H (1.8-7.7) 10^3/u L Lymph # (Auto) 0.9 (0.8-4.8) 10^3/u L [place] # (Auto) 0.7 (0.2-0.9) 10^3/u L Eos # (Auto) 0.1 (0.0-0.8) 10^3/u L Baso # (Auto) 0.0 (0.0-0.1) 10^3/u L Nucleated RBC % (a uto) 0 % Nucleated RBCs # 0.0 /100WBC Specimen Type Sample Site ABG pH (7.35-7.45) ABG pCO2 (35-45) mmHg ABG pO2 (80.0-100.0) mmH g ABG HCO3 (22-26) mmol/L ABG O2 Saturation ABG Base Excess (-2.0-2.0) mmol/ L Franco Test A-a O2 Gradient (5-10) mmHg Hematocrit (42-52) % Hgb O2 Saturation (95-100) % Carboxyhemoglobin (0.4-20.1) %THgb Methemoglobin (0.4-1.5) % Total Hemoglobin (14-18) g/dL Ionized Calcium (1.1-1.4) mmol/L O2 Delivery Device O2 Liters/Min % FiO2 % Chief Deputy Sheriff ID Sodium 132 L (136-145) mmol/L Potassium 4.6 (3.5-5.1) mmol/L Chloride 95 L (98-107) mmol/L Carbon Dioxide 25 (22-29) mmol/L Anion Gap 16.6 (5-19) BUN 10 (8-23) mg/dL Creatinine 0.5 L (0.7-1.2) mg/dL GFR Calculation Not Reportable Glucose 108 (65-115) mg/dL Calculated Osmolal ity 274 L (285-295) mOsm/k g Calcium 9.8 (8.5-10.5) mg/dL Total Bilirubin 0.4 (0.15-1.2) mg/dL AST 22 (0-40) U/L ALT 44 H (0-41) U/L Alkaline Phosphata se 90 (40-130) IU/L Total Protein 7.2 (6.6-8.7) g/dL Albumin 3.3 L (3.5-5.2) g/dL Globulin 3.9 (1.3-4.6) g/dL Urine Color Isabela (Yellow) Urine Appearance Clear (CLEAR) Urine pH 5 (5-7) Ur Specific Gravit y 1.025 (1.005-1.030) Urine Protein Neg (Negative) Urine Glucose (UA) Norm (Normal) Urine Ketones 1+ H (Negative) Urine Blood Neg (Negative) Urine Nitrate Negative (Negative) Urine Bilirubin 1+ H (Negative) Urine Urobilinogen 4 H (Negative) mg/dL Ur Leukocyte Erin ase Negative (Negative) 08/30/20 Range/Units 13:31 WBC (4.0-10.0) 10^3/ uL RBC (4.1-5.3) 10^6/u L Hgb (11.7-16.6) g/dL Hct (42.0-52.0) % MCV (80-94) fL MCH (28.0-34.0) pg MCHC (30.0-36.0) g/dL RDW (12.1-15.1) % Plt Count (130-400) 10^3/c mm MPV (7.4-10.4) fL Neut % (Auto) % Lymph % (Auto) % [place] % (Auto) % Eos % (Auto) % Baso % (Auto) % Neut # (Auto) (1.8-7.7) 10^3/u L Lymph # (Auto) (0.8-4.8) 10^3/u L [place] # (Auto) (0.2-0.9) 10^3/u L Eos # (Auto) (0.0-0.8) 10^3/u L Baso # (Auto) (0.0-0.1) 10^3/u L Nucleated RBC % (a uto) % Nucleated RBCs # /100WBC Specimen Type Arterial Sample Site Radial, left ABG pH 7.45 (7.35-7.45) ABG pCO2 37.4 (35-45) mmHg ABG pO2 74.0 L (80.0-100.0) mmH g ABG HCO3 25.7 (22-26) mmol/L ABG O2 Saturation 95.6 ABG Base Excess 1.7 (-2.0-2.0) mmol/ L Franco Test Pos A-a O2 Gradient 10.2 H (5-10) mmHg Hematocrit 43.6 (42-52) % Hgb O2 Saturation 93.8 L (95-100) % Carboxyhemoglobin 1.1 (0.4-20.1) %THgb Methemoglobin 0.8 (0.4-1.5) % Total Hemoglobin 14.2 (14-18) g/dL Ionized Calcium 1.3 (1.1-1.4) mmol/L O2 Delivery Device Hag O2 Liters/Min 6.0 % FiO2 28.0 % Chief Deputy Sheriff ID Ed Sodium 132.0 (136-145) mmol/L Potassium 4.4 (3.5-5.1) mmol/L Chloride (98-107) mmol/L Carbon Dioxide (22-29) mmol/L Anion Gap (5-19) BUN (8-23) mg/dL Creatinine (0.7-1.2) mg/dL GFR Calculation Glucose 115.0 (65-115) mg/dL Calculated Osmolal ity (285-295) mOsm/k g Calcium (8.5-10.5) mg/dL Total Bilirubin (0.15-1.2) mg/dL AST (0-40) U/L ALT (0-41) U/L Alkaline Phosphata se (40-130) IU/L Total Protein (6.6-8.7) g/dL Albumin (3.5-5.2) g/dL Globulin (1.3-4.6) g/dL Urine Color (Yellow) Urine Appearance (CLEAR) Urine pH (5-7) Ur Specific Gravit y (1.005-1.030) Urine Protein (Negative) Urine Glucose (UA) (Normal) Urine Ketones (Negative) Urine Blood (Negative) Urine Nitrate (Negative) Urine Bilirubin (Negative) Urine Urobilinogen (Negative) mg/dL Ur Leukocyte Erin ase (Negative) Discharge Plan Discharge Patient Disposition: Left Against Medical Advice Clinical Impression: Laryngeal cancer, Tracheal obstruction Condition: Stable Prescriptions: No Action folic acid 1 mg tablet 1 mg PO DAILY@0800 RF: 0 cyanocobalamin (vitamin B-12) [Vitamin B-12] 100 mcg Tablet 100 mcg PO DAILY@0800 RF: 0 vitamin B complex [B-Complex] Tablet 1 tab PO DAILY@0800 RF: 0 furosemide [Lasix] 20 mg Tablet 20 mg PO DAILY@0800 RF: 0 albuterol sulfate 90 mcg/actuation Hfa Aerosol Inhaler 1 puff INHALATION QID PRN (Reason: Shortness Of Breath) RF: 0 guaifenesin 400 mg Tablet 400 mg PO Q4H PRN (Reason: Congestion) RF: 0 potassium chloride 20 mEq Tablet Extended Release 20 meq PO BID@0800,2000 RF: 0 hydrocodone-acetaminophen 7.5-325 mg/15 mL solution 15 ml PO Q6H PRN (Reason: pain) Qty: 120 RF: 0 albuterol sulfate 90 mcg/actuation Hfa Aerosol Inhaler 2 puff INHALATION QID PRN (Reason: Shortness Of Breath) RF: 0 methacholine-methyl salicylate See Rx Instructions .ROUTE .COMPLEX RF: 0 Referrals: Elio Bobby [Primary Care Provider] - Coding Level of Care Code ED Line Service Technician for Chg Fwd Exam Comprehensive Documented by User: Kirstie Gallardo MD 08/30/20 20:12 HPI - SOB/Dyspnea General: Chief Complaint: Airway/Esophagus Foreign Body Stated Complaint: AIRWAY OBSTRUCTION Time Seen by Provider: 08/30/20 11:38 [facility] ED PFSH: Medical History (Updated 08/30/20 @ 17:29 by Hammad Berger DO) Alcoholism BPH (benign prostatic hyperplasia) COPD (chronic obstructive pulmonary disease) GERD (gastroesophageal reflux disease) Laryngeal mass Port-A-Cath in place Surgical History History of ankle surgery History of hernia surgery S/P percutaneous endoscopic gastrostomy (PEG) tube placement Status post tracheostomy Tracheostomy present Family History Other CAD (coronary artery disease) Social History Smoking and tobacco status: former smoker Quit status (tobacco): considering quitting Alcohol intake: current Alcohol intake frequency: 3 or more drinks per day Course Vital Signs: Vital signs: Vital Signs Temperature 98 F 08/30/20 11:40 Pulse Rate 88 08/30/20 20:00 Respiratory Rate 18 08/30/20 20:00 Blood Pressure 95/66 08/30/20 19:15 Pulse Oximetry 97 08/30/20 20:00 MDM - SOB/Dyspnea MDM Narrative: Medical decision making narrative: I took patient over from Dr. Victoria. There are no beds in [place] at this time. I did inform patient I could probably transfer him to [place] or [place]. He states that he does not want to travel that far and will sign out AMA. I explained to him that this could get worse and he could even cause him by asphyxia. He understands this and states that he does not want to travel that far and would like to go home. Patient signed out AMA and does have medical decision-making capacity. Lab Data: Labs: Lab Results 08/30/20 08/30/20 08/30/20 Range/Units 13:12 13:15 13:15 WBC 11.8 H (4.0-10.0) 10^3/ uL RBC 4.49 (4.1-5.3) 10^6/u L Hgb 13.4 (11.7-16.6) g/dL Hct 42.1 (42.0-52.0) % MCV 93.8 (80-94) fL MCH 29.8 (28.0-34.0) pg MCHC 31.8 (30.0-36.0) g/dL RDW 12.9 (12.1-15.1) % Plt Count 315 (130-400) 10^3/c mm MPV 9.7 (7.4-10.4) fL Neut % (Auto) 84.9 % Lymph % (Auto) 7.9 % [place] % (Auto) 5.7 % Eos % (Auto) 0.4 % Baso % (Auto) 0.3 % Neut # (Auto) 10.02 H (1.8-7.7) 10^3/u L Lymph # (Auto) 0.9 (0.8-4.8) 10^3/u L [place] # (Auto) 0.7 (0.2-0.9) 10^3/u L Eos # (Auto) 0.1 (0.0-0.8) 10^3/u L Baso # (Auto) 0.0 (0.0-0.1) 10^3/u L Nucleated RBC % (a uto) 0 % Nucleated RBCs # 0.0 /100WBC Specimen Type Sample Site ABG pH (7.35-7.45) ABG pCO2 (35-45) mmHg ABG pO2 (80.0-100.0) mmH g ABG HCO3 (22-26) mmol/L ABG O2 Saturation ABG Base Excess (-2.0-2.0) mmol/ L Franco Test A-a O2 Gradient (5-10) mmHg Hematocrit (42-52) % Hgb O2 Saturation (95-100) % Carboxyhemoglobin (0.4-20.1) %THgb Methemoglobin (0.4-1.5) % Total Hemoglobin (14-18) g/dL Ionized Calcium (1.1-1.4) mmol/L O2 Delivery Device O2 Liters/Min % FiO2 % Chief Deputy Sheriff ID Sodium 132 L (136-145) mmol/L Potassium 4.6 (3.5-5.1) mmol/L Chloride 95 L (98-107) mmol/L Carbon Dioxide 25 (22-29) mmol/L Anion Gap 16.6 (5-19) BUN 10 (8-23) mg/dL Creatinine 0.5 L (0.7-1.2) mg/dL GFR Calculation Not Reportable Glucose 108 (65-115) mg/dL Calculated Osmolal ity 274 L (285-295) mOsm/k g Calcium 9.8 (8.5-10.5) mg/dL Total Bilirubin 0.4 (0.15-1.2) mg/dL AST 22 (0-40) U/L ALT 44 H (0-41) U/L Alkaline Phosphata se 90 (40-130) IU/L Total Protein 7.2 (6.6-8.7) g/dL Albumin 3.3 L (3.5-5.2) g/dL Globulin 3.9 (1.3-4.6) g/dL Urine Color Isabela (Yellow) Urine Appearance Clear (CLEAR) Urine pH 5 (5-7) Ur Specific Gravit y 1.025 (1.005-1.030) Urine Protein Neg (Negative) Urine Glucose (UA) Norm (Normal) Urine Ketones 1+ H (Negative) Urine Blood Neg (Negative) Urine Nitrate Negative (Negative) Urine Bilirubin 1+ H (Negative) Urine Urobilinogen 4 H (Negative) mg/dL Ur Leukocyte Erin ase Negative (Negative) 08/30/20 Range/Units 13:31 WBC (4.0-10.0) 10^3/ uL RBC (4.1-5.3) 10^6/u L Hgb (11.7-16.6) g/dL Hct (42.0-52.0) % MCV (80-94) fL MCH (28.0-34.0) pg MCHC (30.0-36.0) g/dL RDW (12.1-15.1) % Plt Count (130-400) 10^3/c mm MPV (7.4-10.4) fL Neut % (Auto) % Lymph % (Auto) % [place] % (Auto) % Eos % (Auto) % Baso % (Auto) % Neut # (Auto) (1.8-7.7) 10^3/u L Lymph # (Auto) (0.8-4.8) 10^3/u L [place] # (Auto) (0.2-0.9) 10^3/u L Eos # (Auto) (0.0-0.8) 10^3/u L Baso # (Auto) (0.0-0.1) 10^3/u L Nucleated RBC % (a uto) % Nucleated RBCs # /100WBC Specimen Type Arterial Sample Site Radial, left ABG pH 7.45 (7.35-7.45) ABG pCO2 37.4 (35-45) mmHg ABG pO2 74.0 L (80.0-100.0) mmH g ABG HCO3 25.7 (22-26) mmol/L ABG O2 Saturation 95.6 ABG Base Excess 1.7 (-2.0-2.0) mmol/ L Franco Test Pos A-a O2 Gradient 10.2 H (5-10) mmHg Hematocrit 43.6 (42-52) % Hgb O2 Saturation 93.8 L (95-100) % Carboxyhemoglobin 1.1 (0.4-20.1) %THgb Methemoglobin 0.8 (0.4-1.5) % Total Hemoglobin 14.2 (14-18) g/dL Ionized Calcium 1.3 (1.1-1.4) mmol/L O2 Delivery Device Hag O2 Liters/Min 6.0 % FiO2 28.0 % Chief Deputy Sheriff ID Ed Sodium 132.0 (136-145) mmol/L Potassium 4.4 (3.5-5.1) mmol/L Chloride (98-107) mmol/L Carbon Dioxide (22-29) mmol/L Anion Gap (5-19) BUN (8-23) mg/dL Creatinine (0.7-1.2) mg/dL GFR Calculation Glucose 115.0 (65-115) mg/dL Calculated Osmolal ity (285-295) mOsm/k g Calcium (8.5-10.5) mg/dL Total Bilirubin (0.15-1.2) mg/dL AST (0-40) U/L ALT (0-41) U/L Alkaline Phosphata se (40-130) IU/L Total Protein (6.6-8.7) g/dL Albumin (3.5-5.2) g/dL Globulin (1.3-4.6) g/dL Urine Color (Yellow) Urine Appearance (CLEAR) Urine pH (5-7) Ur Specific Gravit y (1.005-1.030) Urine Protein (Negative) Urine Glucose (UA) (Normal) Urine Ketones (Negative) Urine Blood (Negative) Urine Nitrate (Negative) Urine Bilirubin (Negative) Urine Urobilinogen (Negative) mg/dL Ur Leukocyte Erin ase (Negative) Discharge Plan Discharge Patient Disposition: Left Against Medical Advice Clinical Impression: Laryngeal cancer, Tracheal obstruction Condition: Stable Prescriptions: No Action folic acid 1 mg tablet 1 mg PO DAILY@0800 RF: 0 cyanocobalamin (vitamin B-12) [Vitamin B-12] 100 mcg Tablet 100 mcg PO DAILY@0800 RF: 0 vitamin B complex [B-Complex] Tablet 1 tab PO DAILY@0800 RF: 0 furosemide [Lasix] 20 mg Tablet 20 mg PO DAILY@0800 RF: 0 albuterol sulfate 90 mcg/actuation Hfa Aerosol Inhaler 1 puff INHALATION QID PRN (Reason: Shortness Of Breath) RF: 0 guaifenesin 400 mg Tablet 400 mg PO Q4H PRN (Reason: Congestion) RF: 0 potassium chloride 20 mEq Tablet Extended Release 20 meq PO BID@0800,1999 RF: 0 hydrocodone-acetaminophen 7.5-325 mg/15 mL solution 15 ml PO Q6H PRN (Reason: pain) Qty: 120 RF: 0 albuterol sulfate 90 mcg/actuation Hfa Aerosol Inhaler 2 puff INHALATION QID PRN (Reason: Shortness Of Breath) RF: 0 methacholine-methyl salicylate See Rx Instructions .ROUTE .COMPLEX RF: 0 Referrals: Elio Bobby [Primary Care Provider] - Coding Level of Care Code ED Line Service Technician for Chg Fwd Exam Comprehensive
[2020-08-30 13:18] LABS: Basophils % 0.3 %; Eosinophils # 0.1 10^3/uL (0.0-0.8); Eosinophils % 0.4 %; Hematocrit 42.1 % (42.0-52.0); Hemoglobin 13.4 g/dL (11.7-16.6); Lymphocytes # 0.9 10^3/uL (0.8-4.8); Lymphocytes % 7.9 %; Mean Corpuscular HGB Conc 31.8 g/dL (30.0-36.0); Mean Corpuscular Hemoglobin 29.8 pg (28.0-34.0); Mean Corpuscular Volume 93.8 fL (80-94); Mean Platelet Volume 9.7 fL (7.4-10.4); Monocytes # 0.7 10^3/uL (0.2-0.9); Monocytes % 5.7 %; Neutrophils # 10.02 10^3/uL (1.8-7.7); Neutrophils % 84.9 %; Nucleated Red Blood Cells % 0 %; Platelet Count 315 10^3/cmm (130-400); Red Blood Count 4.49 10^6/uL (4.1-5.3); Red Cell Distribution Width 12.9 % (12.1-15.1); White Blood Count 11.8 10^3/uL (4.0-10.0)
[2020-08-30 13:21] LABS: Add Urine Microscopic? NO
[2020-08-30 13:28] LABS: Urine Appearance Clear (CLEAR); Urine Color Amber (Yellow); pH Urine 5 (5-7)
[2020-08-30 13:29] LABS: Bilirubin Urine 1+ (Negative); Blood Urine Neg (Negative); Glucose Urine UA Norm (Normal); Ketones Urine 1+ (Negative); Leukocyte Esterase Urine Negative (Negative); Nitrate Urine Negative (Negative); Protein Urine Neg (Negative); Specific Gravity, Urine 1.025 (1.005-1.030); Urobilinogen Urine 4 mg/dL (Negative)
[2020-08-30 13:40] LABS: ABG PCO2 37.4 mmHg (35-45); ABG PH Result 7.45 (7.35-7.45); Arterial Blood Gas Hematocrit 43.6 % (42-52); Base Excess ABG 1.7 mmol/L (-2.0-2.0); Blood Gas Allen Test Pos; Blood Gas Sample Type Arterial; Carboxyhemoglobin 1.1 %THgb (0.4-20.1); HCO3 ABG 25.7 mmol/L (22-26); HGB O2 Sat 93.8 % (95-100); Ionized Calcium Level - ABG 1.3 mmol/L (1.1-1.4); Methemoglobin 0.8 % (0.4-1.5); Oxygen Saturation ABG 95.6; Potassium Level - ABG 4.4 mmol/L (3.5-5.0); Total Hemoglobin 14.2 g/dL (14-18)
[2020-08-30 13:41] LABS: Alveolar-Arterial Oxygen Gradi 10.2 mmHg (5-10); Blood Gas Operator Identificat ED; Blood Gas Sample Site Radial, left; Oxygen Device HAG
[2020-08-30 13:44] LABS: Alanine Aminotransferase 44 U/L (0-41); Albumin Level 3.3 g/dL (3.5-5.2); Alkaline Phosphatase 90 IU/L (40-130); Aspartate Amino Transferase 22 U/L (0-40); Blood Urea Nitrogen 10 mg/dL (8-23); Calcium 9.8 mg/dL (8.5-10.5); Carbon Dioxide 25 mmol/L (22-29); Chloride 95 mmol/L (98-107); Creatinine Clr Calc Pharmacy 81.8876; Globulin 3.9 g/dL (1.3-4.6); Glucose 108 mg/dL (65-115); Osmolality Calculated 274 mOsm/kg (285-295); Sodium 132 mmol/L (136-145); Total Bilirubin 0.4 mg/dL (0.15-1.2); Total Protein 7.2 g/dL (6.6-8.7)
[2020-08-30 13:46] LABS: Anion Gap 16.6 (5-19); Potassium 4.6 mmol/L (3.5-5.1)
[2020-08-30] MEDS: diphenhydrAMINE 50 mg/mL SDV 1mL IVP (14:15)
[2020-08-30] MEDS: hydrocortisone 100 mg/2 mL SDV IVP (14:35)
[2020-08-30] MEDS: iohexol 300 mg/mL 100 mL Btl IV (14:55)
--- NOTE | 2020-08-30 19:58 | PC.NURSE ---
Pt trach suctioned at this time
--- NOTE | 2020-08-30 19:59 | PC.NURSE ---
Pt suctioned at this time per request
== END 2020-08-30 20:02 | disposition left against medical advice (07) ==
PROVIDERS: Family Medicine; Emergency Provider Emergency Medicine; PCP Internal Medicine
DX: J39.8 Other specified diseases of upper respiratory tract (principal); C32.9 Malignant neoplasm of larynx, unspecified; Z53.21 Procedure and treatment not carried out due to patient leaving prior to being seen by health care provider; J44.9 Chronic obstructive pulmonary disease, unspecified; Z87.891 Personal history of nicotine dependence
CPT/HCPCS: 12345; 36600; 70491; 80051; 80053; 81003; 82330; 82805; 83605; 85025; 96374; 96375; 99283; 99284; J1200; J1720; Q9967